=== PATIENT | female | born 1940 | race Caucasian/White ===

== ENCOUNTER → 2024-11-30 | Outpatient (CLI) | payer MEDICARE, SELFPAY ==
--- OUTSIDE RECORDS SUMMARY | 2024-11-25 21:52 | XMS RPT_ITS | CCD ---
Author Organization [facility] CliniSyil Care Team Providers Care Crematory Attendant Name Role Phone Antnoy PA-C, Jordyn Primary Care Provider Antony HUGGINSC, Jordyn Primary Care Provider Giovanna RN, Richard Unavailable Unavailable Giovanna RN, Richard Unavailable Unavailable Antony ENRIQUEZ, Jordyn Primary Care Provider Antony ENRIQUEZ, Jordyn. Primary Care Provider Siddhartha Nichols MD Primary Care Provider Siddhartha Bennett DO Primary Care Provider Siddhartha Bennett DO Primary Care Provider [phone] Dustin Arboleda PA-C Primary Care Provi estrellita Siddhartha Nichols DO Primary Care Provider PHYSICIAN, NONE Primary Care Physician Unavailab DUSTIN Bundy Attending Unavail able DUSTIN ARBOLEDA Primary Care Unavail able DUSTIN ARBOLEDA Primary Care Unavail able DUSTIN ARBOLEDA Referring Unavail able DUSTIN ARBOLEDA Primary Care Unavail able RANJEET SANTANA Attending Unavailable DUSTIN ARBOLEDA Primary Care Unavail able RAMESH OG Referring Unavailable DUSTIN ARBOLEDA Attending Unavail able DUSTIN ARBOLEDA Primary Care Unavail able RAMESH OG Attending Unavailable DUSTIN ARBOLEDA Primary Care Unavail able LAILA RICHARDSON Attending Unavailable SIDDHARTHA NICHOLS Primary Care Unavailable SIDDHARTHA NICHOLS Attending Unavailable SIDDHARTHA NICHOLS Referring Unavailable SIDDHARTHA NICHOLS Primary Care Unavailable LAILA RICHARDSON Attending Unavailable LAILA RICHARDSON Referring Unavailable SIDDHARTHA NICHOLS Primary Care Unavailable LAILA RICHARDSON Attending Unavailable SIDDHARTHA NICHOLS Primary Care Unavailable DEANNA CHAMPION, DR YUMIKO Baltazar Consulting Unavailab le PHYSICIAN, NONE Primary Care Unavailable MICHELE PARRISH, DR HONEYCUTT Referring Unavailable MICHELE PARRISH, DR HONEYCUTT Attending Unavailable VERONIKA NUNES Admitting Unavaila ble VERONIKA GRANT DO Primary Care Unavailable VERONIKA GRANT DO Attending Unavailable Veronika Grant Referring Unavailable Veronika Grant Primary Care Unavailable Caitlyn Mosley Attending Unavailable Caitlyn Tatum Attending Provider [phone] Felice PARRISH, Dr. Veronika Lundberg Primary Care Provider [phone] Dr. Veronika Grant DO Referring Provider Medications Current Medications Medication Drug Class(es) Dates Sig (Normalized) Sig (Original) acetaminophen 500 mg oral tablet (7 sources) Start: 11-10-2021 End: 11-24-2021 take 2 tablets by mouth every six hours acetaminophen (TYLENOL) 500 mg tablet Take 2 tablets by mouth every 6 hours for 14 days. 112 tablet 0 11/10/2021 11/24/2021 Active Comment on above: Take 2 tablets by mo uth every 6 hours for 14 days. [id number] 200 actuat albuterol 0.09 mg/actuat metered dose inhaler (20 sources) beta2-Adrenergic Agonist Start: 11-25-2024 Albuterol Sulfate (Ventolin Hfa) 90 mcg/actuation HFA aerosol inhaler Active 2 NMA INHALATION EVERY 4-6 HOURS as needed November 25, 2024 12:00am Start: 07-04-2023 albuterol 108 (90 Base) MCG/ACT inhaler 4 puff Start: 11-21-2021 take 2 puff(s) by in halation every four hours as needed for wheezing albuterol 108 (90 Base) MCG/ACT inhaler INHALE 2 PUFFS INTO LUNGS EVERY 4 HOURS NEEDED FOR WHEEZING OR SHORTNESS OF BREATH 11/21/2021 Active Start: 11-21-2021 take 2 puff(s) by in halation every four hours as needed for wheezing albuterol HFA (PROVENTIL HFA, VENTOLIN HFA) 90 mcg/actuation inhaler Indications: URI, acute , Wheezing , Mild intermittent asthma with acute exacerbation INHALE 2 PUFFS INTO LUNGS EVERY 4 HOURS NEEDED FOR WHEEZING OR SHORTNESS OF BREATH 18 g 1 11/21/2021 Active Start: 05-18-2021 End: 11-21-2021 take 2 puff(s) by inhalation every four hours as needed for wheezing albuterol HFA (PROVENTIL HFA, VENTOLIN HFA) 90 mcg/actuation inhaler Indications: URI, acute , Wheezing , Mild intermittent asthma with acute exacerbation Inhale 2 Puffs as instructed every 4 hours as needed for wheezing/shortness of breath. 1 Inhaler 0 07/12/2021 11/21/2021 Discontinued Comment on above: Inhale 2 Puffs as in structed every 4 hours as needed for wheezing/shortness of breath. INHALE 2 PUFFS INTO LUNGS EVERY 4 HOURS NEEDED FOR WHEEZING OR SHORTNESS OF BREATH Albuterol-Budesonide (Airsupra) 90-80 MCG/ACT aerosol (1 source) Start: 2023 End: 2023 take 1 puff(s) by inhalation once daily as needed Albuterol-Budesonid e (Airsupra) 90-80 MCG/ACT aerosol Inhale 1 puff Daily as needed (sob) for up to 28 days. 2 g 0 04/02/2023 04/30/2023 Active aspirin 81 mg delayed release oral tablet (1 source) Platelet Aggregation Inhibitor, Nonsteroidal Anti-inflammatory Drug Start: 2023 End: 2023 aspirin 81 mg oral delayed release tablet Dose : 81 mg = 1 tab(s), Oral, BID, # 60 tab(s), 0 Refill(s), Pharmacy: [id number], 162.3, cm, 02/05/24 13:23:00 EST, Height, kg, 02/05/24 13:23:00 EST, Dosing Weight Start Date: 02/06/24 Stop Date: 03/07/24 Status: Ordered azelastine hydrochloride 0.137 mg/actuat metered dose nasal spray (20 sources) Histamine-1 Receptor Antagonist Start: 2022 take 2 spray(s) nasal route twice daily azelastine 0.1% nasal spray Use 2 Sprays in each nostril twice daily. 30 mL 5 10/02/2022 Active Comment on above: Use 2 Sprays in each nostril twice daily. Breo Ellipta 200 mcg-25 mcg/inh inhalation powder (1 source) Start: 2023 Breo Ellipta 200 mcg-25 mcg/inh inhalation powder 0 Refill(s) Start Date: 02/05/24 Status: Ordered calcium carbonate 1500 mg oral tablet (1 source) Start: 2024 take 1 tablet by mouth once daily Calcium Carbonate (Calcium 600) 600 mg calcium (1,500 mg) tablet Active 600 mg PO daily November 25, 2024 12:00am cephalexin 500 mg oral capsule (2 sources) Cephalosporin Antibacterial Start: 2022 End: 2022 take 1 capsule by mouth twice daily cephalexin (Keflex) 500 MG capsule Indications: Uncomplicated Urinary Tract Infection Take 1 capsule (500 mg) by mouth 2 times daily for 7 days. 14 capsule 0 10/22/2022 10/29/2022 Active Start: 10-05-2021 End: 10-12-2021 take 1 capsule by mouth twice daily cephALEXin (KEFLEX) 500 mg capsule Indications: Dysuria Take 1 capsule by mouth twice daily for 7 days. 14 capsule 0 10/05/2021 10/12/2021 Active Comment on above: Take 1 capsule by or ut twice daily for 7 days. cholecalciferol 0.025 mg oral capsule (20 sources) Vitamin D Start: 11-26-19 take 1 capsule by mouth once daily Cholecalciferol (Vitamin D3) 25 mcg (1,000 unit) capsule Active 25 ug PO daily November 25, 2024 12:00am take 1 capsule by mouth in the m orning cholecalciferol (Vitamin D-3) 25 MCG (1000 UT) capsule Take 1,000 Units by mouth in the morning. Active take 1 capsule by mouth once mikael ly Cholecalciferol, Vitamin D3, 1,000 unit cap Take 1,000 Units by mouth once daily. Active Comment on above: Take 1,000 Units by mouth once daily. docusate sodium 50 mg / sennosides, fci 8.6 mg oral tablet (4 sources) Start: 11-11-19 End: 11-18-19 take 1 tablet by mouth twice daily senna-docusate (SENNA-S) 8.6-50 mg per tablet Take 1 tablet by mouth twice daily for 7 days. 14 tablet 0 11/10/2021 11/17/2021 Active Comment on above: [facility]. doxycycline hyclate 100 mg oral capsule (2 sources) Tetracycline-class Drug Start: 07-11-19 End: 07-18-19 take 1 capsule by mouth twice daily doxycycline hyclate (VIBRAMYCIN) 100 mg capsule Indications: URI, acute Take 1 capsule by mouth twice daily for 7 days. 14 capsule 0 07/10/2021 07/17/2021 Active Comment on above: Take 1 capsule by mo [facility] twice daily for 7 days. fluticasone propionate 0.05 mg/actuat metered dose nasal spray (20 sources) Corticosteroid Start: 11-26-19 take 50 ug nasal route once daily Fluticasone Propionate (Allergy Relief (Fluticasone)) 50 mcg/actuation spray,suspension Active 2 NMA INTRANASAL daily November 25, 2024 12:00am administer into each nostril Start: 10-02-2022 fluticasone (F lonase) 50 MCG/ACT nasal spray 1 spray in the morning and 1 spray in the evening. 10/02/2022 Active Start: 10-02-2022 fluticasone (F LONASE ALLERGY RELIEF) 50 mcg/actuation nasal spray Indications: Chronic cough Use 1 [place] in each nostril twice daily. To take 2 nasal sprays in each nostrils once daily for 2 weeks, then down to 1 spray/day/nostril 32 g 5 10/02/2022 Active Start: 08-15-2022 End: 10-02-2022 fluticasone (FLONASE ALLERGY RELIEF) 50 mcg/actuation nasal spray Indications: Chronic cough To take 2 nasal sprays in each nostrils once daily for 2 weeks, then down to 1 spray/day/nostril 32 g 1 08/15/2022 10/02/2022 Discontinued Start: 08-15-2022 End: 08-15-2022 take 1 spray(s) nasal route once daily fluticasone (FLONASE ALLERGY RELIEF) 50 mcg/actuation nasal spray Indications: Chronic cough Use 1 [place] in each nostril once daily. 16 g 2 08/15/2022 08/15/2022 Discontinued Comment on above: To take 2 nasal spra ys in each nostrils once daily for 2 weeks, then down to 1 spray/day/nostril Use 1 [place] in each nostril once daily. Use 1 [place] in each nostril twice daily. To take 2 nasal sprays in each nostrils once daily for 2 weeks, then down to 1 spray/day/nostril Fluticasone Furoate-Vilanterol (20 sources) Corticosteroid, beta2-Adrenergic Agonist Start: 11-25-2024 Fluticasone Furoate-Vilanterol (Breo Ellipta) 200-25 mcg/dose blister with device Active 1 NMA INHALATION daily November 25, 2024 12:00am Start: 11-04-2023 End: 05-18-2024 take 1 puff(s) by mouth once daily Breo Ellipta 200-25 MCG/ACT aerosol powder INHALE 1 PUFF BY MOUTH ONCE DAILY 60 each 2 05/18/2024 Active Start: 10-08-2022 End: 11-04-2023 take 1 puff(s) by mouth once daily BREO ELLIPTA 200-25 mcg/dose inhaler Indications: Dyspnea and respiratory abnormalities INHALE 1 PUFF BY MOUTH ONCE DAILY DIRECTED 60 Each 5 02/13/2023 Active Start: 08-08-2022 End: 09-10-2022 take 1 puff(s) by mouth once daily BREO ELLIPTA 200-25 mcg/dose inhaler Indications: Dyspnea and respiratory abnormalities INHALE 1 PUFF BY MOUTH ONCE DAILY DIRECTED 60 Each 0 09/10/2022 Active Start: 06-06-2022 End: 07-06-2022 fluticasone-vilanterol (BREO ELLIPTA) 200-25 mcg/dose inhaler Indications: Dyspnea and respiratory abnormalities Inhale 1 Inhalation as instructed once daily. 60 Each 1 06/06/2022 07/06/2022 Active Start: 05-07-2022 End: 08-15-2022 take 1 puff(s) by mouth once daily fluticasone-vilanterol (BREO ELLIPTA) 100-25 mcg/dose inhaler Indications: Dyspnea and respiratory abnormalities Inhale 1 puff by mouth once daily 60 Each 0 05/07/2022 08/15/2022 Discontinued (Course of therapy completed) Start: 03-13-2022 End: 04-09-2022 take 1 puff(s) by mouth once daily fluticasone-vilanterol (BREO ELLIPTA) 100-25 mcg/dose inhaler Indications: Dyspnea and respiratory abnormalities Inhale 1 puff by mouth once daily 60 Each 0 04/09/2022 Active Start: 12-03-2021 take 1 puff(s) by mo ut once daily fluticasone-vilanterol (BREO ELLIPTA) 100-25 mcg/dose inhaler Indications: Dyspnea and respiratory abnormalities Inhale 1 puff by mouth once daily 60 Each 2 12/03/2021 Active Start: 01-09-2021 End: 12-03-2021 take 1 puff(s) by mouth once daily BREO ELLIPTA 100-25 mcg/dose inhaler Indications: Dyspnea and respiratory abnormalities Inhale 1 puff by mouth once daily 60 Each 0 10/03/2021 12/03/2021 Discontinued Comment on above: Inhale 1 puff by vance th once daily INHALE 1 PUFF ONCE D AILY Inhale 1 Inhalation as instructed once daily. INHALE 1 PUFF ONCE D AILY INSTRUCTED INHALE 1 PUFF BY VANCE ONCE DAILY DIRECTED hydroCHLOROthiazide 25 mg oral tablet (20 sources) Thiazide Diuretic Start: 2024 take 1 tablet by mouth once daily Hydrochlorothiazide 25 mg tablet Active 25 mg PO daily November 25, 2024 12:00am Start: 05-15-2021 End: 02-23-2024 take 1 tablet by mouth in the morning hydroCHLOROthiazide (HYDRODiuril) 25 MG tablet Take 25 mg by mouth in the morning. 06/28/2022 Active Comment on above: Take 1 tablet by vance th once daily Take 1 tablet by vance th once daily. Inulin (1 source) Start: take 1 tablet by mouth once daily Inulin (Fiber Gummies) 1.7 gram tablet,chewable Active 5.1 g PO daily November 25, 2024 12:00am lidocaine 0.04 mg/mg medicated patch (1 source) Antiarrhythmic, Amide Local Anesthetic Start: 4 End: 4 apply 1 dose transdermal route once daily, then apply 1 dose transdermal route every twelve hours lidocaine (SALONPAS) 4 % patch Apply 1 Patch as directed once daily for 5 days. Remove patch after 12 hours 5 Patch 11/29/2023 12/04/2023 Active loratadine 10 mg oral tablet (20 sources) Start: take 1 tablet by mouth once daily Loratadine (Allergy Relief (Loratadine)) 10 mg tablet Active 10 mg PO daily November 25, 2024 12:00am Start: 08-28-2022 End: 02-23-2024 take 1 tablet by mouth in the morning loratadine (Claritin) 10 MG tablet Take 10 mg by mouth in the morning. 09/04/2022 Active Start: 05-11-2020 End: 08-15-2022 take 1 tablet by mouth once daily loratadine (CLARITIN) 10 mg tablet Indications: Chronic cough Take 1 tablet by mouth once daily. 90 tablet 0 08/15/2022 Active Comment on above: TAKE 1 TABLET BY VANCE TH ONCE DAILY Take 1 tablet by vance th once daily. lovastatin 10 mg oral tablet (20 sources) HMG-CoA Reductase Inhibitor Start: 11-25-2024 take 1 tablet by mouth once daily in the evening Lovastatin 10 mg tablet Active 10 mg PO EVERY EVENING November 25, 2024 12:00am Start: 10-11-2022 End: 02-23-2024 take 1 tablet by mouth once daily lovastatin (Mevacor) 20 MG tablet Take 1 tablet by mouth Nightly. 10/11/2022 Active Start: 06-28-2021 End: 06-28-2022 take 1 tablet by mouth once daily at bedtime lovastatin (MEVACOR) 20 mg tablet Take 1 tablet by mouth daily at bedtime. 90 tablet 0 06/28/2022 Active Comment on above: TAKE 1 TABLET BY VANCE TH ONCE DAILY AT BEDTIME Take 1 tablet by vance th daily at bedtime. 24 hr metoprolol succinate 25 mg extended release oral tablet (20 sources) beta-Adrenergic Mitchel Start: 11-25-2024 take 1 tablet by mouth every twenty-four hours at bedtime Metoprolol Succinate 25 mg tablet extended release 24 hr Active 25 mg PO AT BEDTIME November 25, 2024 12:00am Start: 02-06-2024 End: 02-07-2024 metoprolol succinate 50 mg o ral TABLET extended release Start: 02/07/24 8:00:00 AM EST, Dose = 25 mg, = 0.5 tab(s), Oral, 02/05/24 14:06:00 EST Start Date: 02/07/24 Stop Date: 02/07/24 Status: Completed Start: 02-05-2024 Metoprolol Suc cinate ER 25 mg oral TABLET extended release 0 Refill(s) Start Date: 02/05/24 Status: Ordered Start: 06-28-2022 take 1 tablet by vance th every twenty-four hours in the morning metoprolol succinate XL (Toprol-XL) 25 MG 24 hr tablet Take 25 mg by mouth in the morning. 06/28/2022 Active Start: 01-23-2022 End: 02-23-2024 take 1 tablet by mouth once daily metoprolol succinate ER (TOPROL XL) 25 mg 24 hr tablet Indications: Hypertension, essential Take 1 tablet by mouth once daily. 90 tablet 1 08/27/2023 Active Start: 06-05-2021 End: 09-26-2021 take 1 tablet by mouth once daily metoprolol succinate ER (TOPROL XL) 25 mg 24 hr tablet Take 1 tablet by mouth once daily. 90 tablet 0 09/26/2021 Active Comment on above: Take 1 tablet by vance th once daily Take 1 tablet by vance th once daily. montelukast 10 mg oral tablet (20 sources) Leukotriene Receptor Antagonist Start: End: take 1 tablet by mouth once daily montelukast (Singulair) 10 MG tablet Take 1 tablet (10 mg) by mouth Nightly. 30 tablet 3 07/08/2023 Active Start: 12-20-2020 take 1 tablet by vance th once daily at bedtime montelukast (SINGULAIR) 10 mg tablet Take 1 tablet by mouth daily at bedtime. 30 tablet 5 12/20/2020 Active Comment on above: Take 1 tablet by vance th daily at bedtime. Multiple Vitamin (Multi-Vitamin) tablet (15 sources) take 1 tablet by mouth in the morning Multiple Vitamin (Multi-Vitamin) tablet Take 1 tablet by mouth in the morning. Active take 1 tablet by mouth in the mo rning Multiple Vitamin (Multi-Vitamin) tablet Take 1 tablet by mouth in the morning. 0 Active multivitamin tablet (20 sources) take 1 tablet by vance th once daily multivitamin tablet Take 1 tablet by mouth once daily. Active take 1 tablet by mouth once renato y multivitamin tablet Take 1 tablet by mouth once daily. 0 Active Comment on above: Take 1 tablet by vance th once daily. naproxen 500 mg oral tablet (2 sources) Nonsteroidal Anti-inflammatory Drug Start: 4 End: 4 take 1 tablet by mouth every twelve hours as needed naproxen (NAPROSYN) 500 mg tablet Take 1 tablet by mouth two times a day as needed for up to 14 days. Take with food. 28 tablet 11/29/2023 12/13/2023 Active omeprazole 20 mg delayed release oral capsule (20 sources) Proton Pump Inhibitor Start: 4 End: 4 take 1 capsule by mouth once daily omeprazole (PRILOSEC) 20 mg capsule Indications: Chronic cough , Hiatal hernia Take 1 capsule by mouth once daily. 30 capsule 2 08/27/2023 Active Start: 12-28-2020 End: 09-26-2022 take 1 capsule by mouth once daily omeprazole (PRILOSEC) 20 mg capsule Indications: Chronic cough Take 1 capsule by mouth once daily. 90 capsule 0 06/28/2022 09/26/2022 Active Comment on above: Take 1 capsule by [facility] once daily. oxyCODONE hydrochloride 5 mg oral tablet (2 sources) Opioid Agonist Start: 2 End: 2 take 1 tablet by mouth every six hours as needed for pain oxyCODONE IR (ROXICODONE) 5 mg immediate release tablet Indications: Closed nondisplaced zone I fracture of sacrum with routine healing, subsequent encounter , Compression fracture of T12 vertebra with routine healing, subsequent encounter Take 1 tablet by mouth every 6 hours as needed for pain for up to 5 days. 20 tablet 0 11/27/2021 12/02/2021 Active Comment on above: Take 1 tablet by vance every 6 hours as needed for pain for up to 5 days. PARoxetine hydrochloride 20 mg oral tablet (20 sources) Serotonin Reuptake Inhibitor Start: take 1 tablet by mouth once daily Paroxetine Hcl (Paxil) 20 mg tablet Active 20 mg PO daily November 25, 2024 12:00am Start: 08-27-2023 End: 02-23-2024 take 1 tablet by mouth once daily PARoxetine (PAXIL) 10 mg tablet Indications: Anxiety with depression Take 1 tablet by mouth once daily. 90 tablet 1 08/27/2023 Active Start: 02-23-2021 End: 08-27-2023 take 1 tablet by mouth in the morning PARoxetine (Paxil) 30 MG tablet Take 30 mg by mouth in the morning. 06/28/2022 Active Comment on above: Take 1 tablet by vance th once daily. Take 1 tablet by vance th once daily psyllium 3400 mg powder for oral suspension (7 sources) Start: 03-26-19 End: 06-25-19 take 1 dose by mouth once daily psyllium (METAMUCIL FIBER SINGLES) 3.4 gram packet Indications: Loose stools Take 1 Packet by mouth once daily. 30 Packet 2 03/26/2022 06/24/2022 Active Comment on above: Take 1 Packet by vance th once daily. sulfamethoxazole 800 mg / trimethoprim 160 mg oral tablet (6 sources) Dihydrofolate Reductase Inhibitor Antibacterial, Sulfonamide Antimicrobial Start: 11-29-19 End: 12-09-19 take 1 tablet by mouth twice daily sulfamethoxazole- trimethoprim (Bactrim DS) 800-160 MG tablet Indications: Acute cystitis with hematuria Take 1 tablet by mouth 2 times daily for 10 days. 20 tablet 0 11/28/2022 12/08/2022 Active Start: 08-31-2022 End: 09-07-2022 take 1 tablet by mouth twice daily sulfamethoxazole-trimethoprim (BACTRIM D S) 800-160 mg per tablet Indications: Acute cystitis with hematuria Take 1 tablet by mouth twice daily for 7 days. 14 tablet 0 08/31/2022 09/07/2022 Active Start: 07-25-2021 End: 07-30-2021 take 1 tablet by mouth twice daily sulfamethoxazole-trimethoprim (BACTRIM D S) 800-160 mg per tablet Indications: Acute cystitis without hematuria Take 1 tablet by mouth twice daily for 5 days. 10 tablet 0 07/25/2021 07/30/2021 Active Comment on above: Take 1 tablet by vance twice daily for 5 days. Take 1 tablet by vance twice daily for 7 days. 10 actuat tiotropium 0.0025 mg/actuat inhalation spray (20 sources) Anticholinergic Start: 05-20-19 End: 11-16-19 take 2 puff(s) by inhalation once daily tiotropium (Spiriva Respimat) 2.5 MCG/ACT inhaler Inhale 2 puffs daily. 3 each 1 05/19/2024 11/15/2024 Active Start: 02-05-2024 Spiriva Respim at 60 ACT 2.5 mcg/inh inhalation aerosol 0 Refill(s) Start Date: 02/05/24 Status: Ordered Start: 05-08-2023 End: 07-08-2023 take 2 puff(s) by inhalation once daily tiotropium (Spiriva Respimat) 2.5 MCG/ACT inhaler Inhale 2 puffs daily for 28 days. 2 each 0 05/08/2023 07/08/2023 Discontinued (Duplicate order) Start: 08-24-2022 End: 05-19-2024 take 2 puff(s) by inhalation in the morning tiotropium (Spiriva Respimat) 2.5 MCG/ACT inhaler Inhale 2 puffs in the morning. 1 each 5 11/04/2023 05/19/2024 Discontinued (Reorder) Start: 08-24-2022 take 2 puff(s) by in halation once daily tiotropium bromide (SPIRIVA RESPIMAT) 2.5 mcg/actuation inhaler Inhale 2 Puffs as instructed once daily. 1 Each 5 08/24/2022 Active Comment on above: Inhale 2 Puffs as in structed once daily. traZODone hydrochloride 50 mg oral tablet (20 sources) Serotonin Reuptake Inhibitor Start: take 1 tablet by mouth at bedtime Trazodone 50 mg tablet Active 50 mg PO AT BEDTIME November 25, 2024 12:00am Start: 01-23-2022 End: 02-23-2024 take 1 tablet by mouth once daily traZODone (Desyrel) 50 MG tablet Take 1 tablet by mouth Nightly. 10/01/2022 Active Start: 2021 take 1 tablet by vance th once daily at bedtime traZODone (DESYREL) 50 mg tablet TAKE 1 TABLET BY MOUTH ONCE DAILY AT BEDTIME 90 tablet 2 2021 Active Comment on above: TAKE 1 TABLET BY VANCE TH ONCE DAILY AT BEDTIME Take 1 tablet by vance th daily at bedtime. Completed/Discontinued Medications Medication Drug Class(es) Dates Sig (Normalized) Sig (Original) benzonatate 100 mg oral capsule (20 sources) Non-narcotic Antitussive Start: 08-16-2022 End: 08-27-2023 take 1 capsule by mouth three times daily as needed benzonatate (TESSALON PERLES) 100 mg capsule Indications: Chronic cough Take 1 capsule by mouth three times daily as needed. 30 capsule 0 08/16/2022 08/27/2023 Discontinued Comment on above: Take 1 capsule by mo [facility] three times daily as needed. 12 hr guaiFENesin 600 mg extended release oral tablet (20 sources) Start: 12-07-2016 take 1 tablet by mouth twice daily guaiFENesin (MUCINEX) 600 mg 12 hr tablet Indications: Cough Take 1 tablet by mouth twice daily. 20 tablet 0 12/07/2016 Active Comment on above: Take 1 tablet by vance th twice daily. ipratropium bromide 0.021 mg/actuat metered dose nasal spray (20 sources) Anticholinergic Start: 08-24-2022 End: 10-02-2022 take 2 spray(s) nasal route twice daily Ipratropium Cascade (ATROVENT) 21 mcg (0.03 %) nasal spray 2 sprays to both nostrils 2 times per day 30 mL 5 08/24/2022 10/02/2022 Discontinued Start: 07-27-2022 take 2 spray(s) nasa l route twice daily Ipratropium Cascade (ATROVENT) 21 mcg (0.03 %) nasal spray 2 sprays to both nostrils 2 times per day 30 mL 5 07/27/2022 Active Start: 11-18-2020 End: 06-28-2022 ipratropium bromide (ATROVEN T) 42 mcg (0.06 %) nasal spray Use 1 [place] in the nose three times daily. 15 mL 2 06/28/2022 Active Comment on above: Use 1 [place] in the n ose three times daily. 2 sprays to both nos trils 2 times per day phenazopyridine hydrochloride 100 mg oral tablet (9 sources) Start: 11-29-19 End: 11-28-19 take 1 tablet by mouth three times daily as needed for muscle spasms phenazopyridine (Pyridium) 100 MG tablet Indications: Dysuria Take 1 tablet (100 mg) by mouth 3 times daily as needed for bladder spasms. 10 tablet 0 11/28/2022 07/08/2023 Discontinued (Therapy completed) predniSONE 20 mg oral tablet (11 sources) Start: 07-11-19 take 2 tablets by mouth once daily predniSONE (DELTASONE) 20 mg tablet Indications: URI, acute Take 2 tablets by mouth once daily. 10 tablet 0 07/10/2021 Active Comment on above: Take 2 tablets by mo uth once daily. Problems Active Problems Problem Classification Problem Date Documented Da te Episodic/Chronic Abdominal hernia (20 sources) Diaphragmatic hernia; Translations: [Diaphragmatic hernia without obstruction or gangrene] Onset: 11-18-2015 10-02-2016 Episodic Anxiety disorders (20 sources) Mixed anxiety and depressive disorder; Translations: [Other specified anxiety disorders] Onset: 11-14-2021 Chronic Asthma (20 sources) Uncomplicated mild persistent asthma; Translations: [Mild persistent asthma, uncomplicated] Onset: 12-20-2020 12-20-2020 Chronic Cardiac dysrhythmias (20 sources) Fluttering heart; Translations: [Other specified cardiac arrhythmias] Onset: 12-06-2015 12-06-2015 Chronic Cataract (20 sources) Bilateral age-related cataract; Translations: [Unspecified age-related cataract] Onset: 10-12-2020 10-12-2020 Chronic Chronic obstructive pulmonary disease and bronchiectasis (2 sources) Chronic obstructive lung disease; Translations: [Chronic obstructive pulmonary disease, unspecified] Onset: 02-05-2024 Chronic Disorders of lipid metabolism (5 sources) Mixed hyperlipidemia; Translations: [Mixed hyperlipidemia] Onset: 08-27-2023 Chronic E Codes: Fall (18 sources) Fall; Translations: [Unspecified fall, initial encounter] Onset: 11-07-2021 11-10-2021 Episodic Essential hypertension (20 sources) Good hypertension control; Translations: [Essential (primary) hypertension] Onset: 08-30-2015 10-12-2020 Chronic Fluid and electrolyte disorders (1 source) Hypokalemia; Translations: [Hypokalemia] Onset: 02-05-2024 Episodic Genitourinary symptoms and ill-defined conditions (5 sources) Dysuria; Translations: [Dysuria] Episodic Malaise and fatigue (5 sources) Asthenia; Translations: [Other malaise] Episodic Miscellaneous mental health disorders (20 sources) Chronic insomnia; Translations: [Psychophysiologic insomnia] Onset: 01-23-2022 01-23-2022 Chronic Nutritional deficiencies (20 sources) Vitamin D deficiency; Translations: [Vitamin D deficiency, unspecified] Onset: 11-10-2021 05-03-2015 Chronic Osteoarthritis (1 source) Arthritis; Translations: [Unspecified osteoarthritis, unspecified site] 11-25-2024 Chronic Osteoporosis (20 sources) Osteoporosis; Translations: [Age-related osteoporosis without current pathological fracture] Onset: 08-30-2015 08-30-2015 Chronic Other and ill-defined heart disease (20 sources) Left ventricular hypertrophy; Translations: [Cardiomegaly] Onset: 01-23-2022 01-23-2022 Chronic Other connective tissue disease (1 source) Recurrent falls ; Translations: [Repeated falls] Episodic Other fractures (5 sources) Fracture of twelfth thoracic vertebra; Translations: [Wedge compression fracture of T11-T12 vertebra, subsequent encounter for fracture with routine healing] Episodic Other fractures (1 source) Compression fracture of L2; Translations: [Wedge compression fracture of second lumbar vertebra, initial encounter for closed fracture] 09-27-2023 Episodic Other fractures (1 source) Closed fracture pubis; Translations: [Other specified fracture of unspecified pubis, initial encounter for closed fracture] Onset: 02-05-2024 Episodic Other gastrointestinal disorders (1 source) Irritable bowel syndrome with diarrhea; Translations: [Irritable bowel syndrome with diarrhea] 08-27-2023 Chronic Other gastrointestinal disorders (1 source) Irritable bowel syndrome with diarrhea; Translations: [Irritable bowel syndrome with diarrhea] Onset: 08-27-2023 Chronic Other gastrointestinal disorders (1 source) Irritable bowel syndrome; Translations: [Irritable bowel syndrome without diarrhea] 11-25-2024 Chronic Other gastrointestinal disorders (2 sources) Loose stool; Translations: [Other fecal abnormalities] Episodic Other gastrointestinal disorders (2 sources) Diarrhea; Translations: [Diarrhea, unspecified] 11-25-2024 Episodic Other lower respiratory disease (2 sources) Wheezing; Translations: [Wheezing] Episodic Other lower respiratory disease (2 sources) Cough; Translations: [Cough] Episodic Other lower respiratory disease (2 sources) Pleuritic pain; Translations: [Pleurodynia] Episodic Other lower respiratory disease (2 sources) Rib pain; Translations: [Pleurodynia] 11-19-2023 Episodic Other nervous system disorders (1 source) Spinal cord disease; Translations: [Disease of spinal cord, unspecified] Chronic Other nervous system disorders (1 source) Other chronic pain; Translations: [Chronic bilateral low back pain without sciatica] Onset: 12-18-2023 Chronic Other upper respiratory disease (20 sources) Allergic rhinitis; Translations: [Other allergic rhinitis] Onset: 08-24-2022 08-24-2022 Chronic Other upper respiratory disease (6 sources) Chronic rhinitis; Translations: [Chronic rhinitis] Onset: 11-04-2023 07-08-2023 Chronic Other upper respiratory disease (1 source) Chronic rhinitis; Translations: [Chronic rhinitis] Onset: 11-04-2023 Chronic Other upper respiratory disease (1 source) Cyst of nasal sinus; Translations: [Cyst and mucocele of nose and nasal sinus] Episodic Paralysis (1 source) Cauda equina syndrome; Translations: [Cauda equina syndrome] 06-18-2023 Chronic Residual codes; unclassified (20 sources) Obstructive sleep apnea syndrome; Translations: [Obstructive sleep apnea (adult) (pediatric)] Onset: 11-03-2015 10-12-2020 Chronic Residual codes; unclassified (20 sources) Periodic limb movement disorder; Translations: [Periodic limb movement disorder] Onset: 11-23-2015 10-02-2016 Chronic Residual codes; unclassified (1 source) Memory impairment; Translations: [Other amnesia] Episodic Residual codes; unclassified (1 source) Menopause present; Translations: [Asymptomatic menopausal state] 06-21-2023 Episodic Unclassified (1 source) Chronic bilateral low back pain without sciatica; Translations: [Chronic bilateral low back pain without sciatica] Onset: 12-18-2023 Unclassified (1 source) Lumbar back pain; Translations: [Lumbar back pain] Onset: 09-26-2023 Urinary tract infections (6 sources) Acute cystitis; Translations: [Acute cystitis without hematuria] Episodic Past or Other Problems Problem Classification Problem Date Documented Date Episodic/Chronic Complication of device; implant or graft (2 sources) Pain due to other internal prosthetic devices, implants and grafts, initial encounter; Translations: [Other complications due to other internal prosthetic device, implant, and graft] Onset: 11-19-2023 11-19-2023 Episodic Nonmalignant breast conditions (2 sources) Mastodynia; Translations: [Mastodynia] Onset: 11-19-2023 11-19-2023 Episodic Nonspecific chest pain (1 source) Other chest pain; Translations: [Chest wall pain] Onset: 11-28-2023 Episodic Other fractures (20 sources) Closed fracture sacrum; Translations: [Nondisplaced Zone I fracture of sacrum, initial encounter for closed fracture] Onset: 11-07-2021 11-10-2021 Episodic Other infections; including parasitic (20 sources) Personal history of other infectious and parasitic diseases; Translations: [History of COVID-19] Onset: 03-18-2020 08-24-2022 Episodic Other lower respiratory disease (20 sources) Dyspnea; Translations: [Dyspnea, unspecified] Onset: 11-03-2015 10-12-2020 Episodic Other lower respiratory disease (20 sources) Solitary nodule of lung; Translations: [Solitary pulmonary nodule] Onset: 11-03-2015 10-02-2016 Episodic Other lower respiratory disease (20 sources) Chronic cough; Translations: [Chronic cough] Onset: 08-24-2022 Episodic Other lower respiratory disease (1 source) Pleurodynia; Translations: [Rib pain on left side] Onset: 11-19-2023 Episodic Other screening for suspected conditions (not mental disorders or infectious disease) (1 source) Encounter for screening for osteoporosis; Translations: [Screening for osteoporosis] Onset: 08-27-2023 Episodic Other skin disorders (20 sources) Loss of hair; Translations: [Nonscarring hair loss, unspecified] Onset: 08-30-2015 08-30-2015 Episodic Other upper respiratory infections (20 sources) Acute upper respiratory infection; Translations: [Acute upper respiratory infection, unspecified] Onset: 08-24-2022 Episodic Residual codes; unclassified (1 source) Asymptomatic menopausal state; Translations: [Asymptomatic menopause] Onset: 08-27-2023 Episodic Spondylosis; intervertebral disc disorders; other back problems (20 sources) Sacral back pain; Translations: [Sacrococcygeal disorders, not elsewhere classified] Onset: 11-06-2021 Resolved: 02-27-2024 11-10-2021 Episodic Results Test Name Value Interpretation Reference Range Facility [facility] 06-24-2024 Deam Gliad IgA Abs 2 units Normal 0-19 [facility] Comment on above: Result Comment: Nega tive 0 - 19 Weak Positive 20 - 30 Moderate to Strong Positive >30 Performed By: #### G FR, ANEU, BMP, MG, ADIFF, CBC #### [place] [address] Deam Gliad IgG Abs 2 units Normal 0-19 [facility] Comment on above: Result Comment: Nega tive 0 - 19 Weak Positive 20 - 30 Moderate to Strong Positive >30 Performed By: #### G FR, ANEU, BMP, MG, ADIFF, CBC #### [place] [address] Endomysial IgA Ab Negative Normal Negative [facility] Comment on above: Performed By: #### G FR, ANEU, BMP, MG, ADIFF, CBC #### [place] [address] IgA [Mass/Vol] 143 mg/dL Normal 64-422 [facility] Comment on above: Result Comment: Perf ormed At: [facility] [address] [id number] Nila Mortensen PhD Ph:[phone] Performed By: #### G FR, ANEU, BMP, MG, ADIFF, CBC #### [place] [address] tTG IgA <2 Normal 0-3 [facility] Comment on above: Result Comment: Nega tive 0 - 3 Weak Positive 4 - 10 Positive >10 Tissue Transglutaminase (tTG) has been identified as the endomysial antigen. Studies have demonstr- ated that endomysial IgA antibodies have over 99% specificity for gluten sensitive enteropathy. Performed By: #### G FR, ANEU, BMP, MG, ADIFF, CBC #### [address] [address] tTG IgG <2 Normal 0-5 [facility] Comment on above: Result Comment: Nega tive 0 - 5 Weak Positive 6 - 9 Positive >9 Performed By: #### G FR, ANEU, BMP, MG, ADIFF, CBC #### [address] [address] .Auto Diffon 06-23-2024 Basophil, Absolute 0.1 10 3/mcL Normal 0.0-0.3 [facility] Comment on above: Performed By: #### F ERR, ESR, ADIFF, CRP, CBC, [id number], CMP, GFR, ANEU, FE, FT4, IBC, TSHR #### [address] [address] Basophils/100 WBC (Bld) 1.1 % Normal 0.0-2.5 [facility] Comment on above: Performed By: #### F ERR, ESR, ADIFF, CRP, CBC, 342281, CMP, GFR, ANEU, FE, FT4, IBC, TSHR #### [address] [address] Eosinophil, Absolute 0.1 10 3/mcL Normal 0.0-0.[address] [facility] Comment on above: Performed By: #### F ERR, ESR, ADIFF, CRP, CBC, 788719, CMP, GFR, ANEU, FE, FT4, IBC, TSHR #### [address] [address] Eosinophils/100 WBC (Bld) 1.5 % Normal 0.0-6.0 [facility] Comment on above: Performed By: #### F ERR, ESR, ADIFF, CRP, CBC, 918666, CMP, GFR, ANEU, FE, FT4, IBC, TSHR #### [address] [address] Lymphocyte, Absolute 1.3 10 3/mcL Normal 0.9-4.[address] [facility] Comment on above: Performed By: #### F ERR, ESR, ADIFF, CRP, CBC, 519406, CMP, GFR, ANEU, FE, FT4, IBC, TSHR #### [address] [address] Lymphocytes/100 WBC (Bld) 18.6 % Low 20.0-40.0 [facility] Comment on above: Performed By: #### F ERR, ESR, ADIFF, CRP, CBC, 661422, CMP, GFR, ANEU, FE, FT4, IBC, TSHR #### [address] [address] Monocyte, Absolute 0.6 10 3/mcL Normal 0.1-1.4 [facility] Comment on above: Performed By: #### F ERR, ESR, ADIFF, CRP, CBC, 840766, CMP, GFR, ANEU, FE, FT4, IBC, TSHR #### [address] [address] Monocytes/100 WBC (Bld) 8.4 % Normal 2.0-13.0 [facility] Comment on above: Performed By: #### F ERR, ESR, ADIFF, CRP, CBC, 954325, CMP, GFR, ANEU, FE, FT4, IBC, TSHR #### [address] [address] Neutrophils/100 WBC (Bld) 70.4 % Normal 50.0-75.0 [facility] Comment on above: Performed By: #### F ERR, ESR, ADIFF, CRP, CBC, 093094, CMP, GFR, ANEU, FE, FT4, IBC, TSHR #### [address] [address] .GFRon 06-23-2024 Estimated Glomerular Filtration Rate 64 ml/min/1.73sqm Normal [facility] Comment on above: Result Comment: Stages of Chronic Kidney Disease (CKD) Stage Description eGFR(ml/min/1.73 sq.m.) CKD 1 Normal kidney function or >=90 normal kindney function with possible kidney damage (ex. Proteinuria) CKD 2 Kidney damage with mild loss 60-89 of kidney function CKD 3a Mild to moderate loss of kidney 45-59 function CKD 3b Moderate to severe loss of 30-44 of kindey function CKD 4 Severe loss of kidney function 15-29 CKD 5 Kidney failure <15 Note: (go live 2024) the eGFR calculation was updated to the 2020 CKD-EPI creatinine equation without a race factor to calculate the eGFR results. Performed By: #### F ERR, ESR, ADIFF, CRP, CBC, 804265, CMP, GFR, ANEU, FE, FT4, IBC, TSHR ####[address] [address] .NEUABSon 06-23-2024 Neutrophil, Absolute 4.9 10 3/mcL Normal 2.3-8.[address] [facility] Comment on above: Performed By: #### F ERR, ESR, ADIFF, CRP, CBC, 407339, CMP, GFR, ANEU, FE, FT4, IBC, TSHR ####[address] [address] CBCon 06-23-2024 Erythrocyte distribution width (RBC) [Ratio] 14.3 % Normal 11.5-15.5 [facility] Comment on above: Performed By: #### F ERR, ESR, ADIFF, CRP, CBC, 038811, CMP, GFR, ANEU, FE, FT4, IBC, TSHR #### [address] [address] Hematocrit (Bld) [Volume fraction] 42.2 % Normal 34.0-46.0 [facility] Comment on above: Performed By: #### F ERR, ESR, ADIFF, CRP, CBC, 266936, CMP, GFR, ANEU, FE, FT4, IBC, TSHR #### [address] [address] Hgb 14.2 G/dL Normal 12.0-16.0 [facility] Comment on above: Performed By: #### F ERR, ESR, ADIFF, CRP, CBC, 691803, CMP, GFR, ANEU, FE, FT4, IBC, TSHR #### [address] [address] MCH (RBC) [Entitic mass] 31.1 pg Normal 27.0-33.0 [facility] Comment on above: Performed By: #### F ERR, ESR, ADIFF, CRP, CBC, 173163, CMP, GFR, ANEU, FE, FT4, IBC, TSHR #### [address] [address] MCHC 33.6 G/dL Normal 32.0-36.0 [facility] Comment on above: Performed By: #### F ERR, ESR, ADIFF, CRP, CBC, 161249, CMP, GFR, ANEU, FE, FT4, IBC, TSHR #### [address] [address] MCV (RBC) [Entitic vol] 92.4 fL Normal 80.0-99.0 [facility] Comment on above: Performed By: #### F ERR, ESR, ADIFF, CRP, CBC, 414685, CMP, GFR, ANEU, FE, FT4, IBC, TSHR #### [address] [address] Platelet 248 10 3/mcL Normal 150-450 [facility] Comment on above: Performed By: #### F ERR, ESR, ADIFF, CRP, CBC, 553331, CMP, GFR, ANEU, FE, FT4, IBC, TSHR #### [address] [address] Platelet mean volume (Bld) [Entitic vol] 7.8 fL Normal 6.6-10.5 [facility] Comment on above: Performed By: #### F ERR, ESR, ADIFF, CRP, CBC, 986417, CMP, GFR, ANEU, FE, FT4, IBC, TSHR #### [address] [address] RBC 4.57 10 6/mcL Normal 4.10-5.30 [facility] Comment on above: Performed By: #### F ERR, ESR, ADIFF, CRP, CBC, 578640, CMP, GFR, ANEU, FE, FT4, IBC, TSHR #### [address] [address] WBC 7.0 10 3/mcL Normal 4.5-10.8 [facility] Comment on above: Performed By: #### F ERR, ESR, ADIFF, CRP, CBC, 268766, CMP, GFR, ANEU, FE, FT4, IBC, TSHR #### [address] [address] CMPon 06-23-2024 Albumin Level 4.0 G/dL Normal 3.4-4.8 [facility] Comment on above: Performed By: #### F ERR, ESR, ADIFF, CRP, CBC, 069185, CMP, GFR, ANEU, FE, FT4, IBC, TSHR ####[place] [address] Albumin/Globulin [Mass ratio] 1.1 {ratio} Normal 1.1-2.5 [facility] Comment on above: Performed By: #### F ERR, ESR, ADIFF, CRP, CBC, 210716, CMP, GFR, ANEU, FE, FT4, IBC, TSHR ####[place] [address] ALP [Catalytic activity/Vol] 117 U/L Normal 40-135 [facility] Comment on above: Performed By: #### F ERR, ESR, ADIFF, CRP, CBC, 220979, CMP, GFR, ANEU, FE, FT4, IBC, TSHR ####[place] [address] ALT [Catalytic activity/Vol] 15 U/L Normal 14-59 [facility] Comment on above: Performed By: #### F ERR, ESR, ADIFF, CRP, CBC, 625802, CMP, GFR, ANEU, FE, FT4, IBC, TSHR ####[address] [address] AST [Catalytic activity/Vol] 18 U/L Normal 10-40 [facility] Comment on above: Performed By: #### F ERR, ESR, ADIFF, CRP, CBC, 845639, CMP, GFR, ANEU, FE, FT4, IBC, TSHR ####[address] [address] Bili Total 0.9 mg/dL Normal 0.2-1.0 [facility] Comment on above: Result Comment: Use of this assay is not recommended for patients undergoing treatment with eltrombopag due to the potential for falsely elevated results. Performed By: #### F ERR, ESR, ADIFF, CRP, CBC, 512717, CMP, GFR, ANEU, FE, FT4, IBC, TSHR ####[place] [id number] BUN/Creatinine Ratio 19 ratio Normal 7-27 [facility] Comment on above: Performed By: #### F ERR, ESR, ADIFF, CRP, CBC, 449848, CMP, GFR, ANEU, FE, FT4, IBC, TSHR ####[place] [address] [place], [place] [address] Calcium [Mass/Vol] 10.0 mg/dL Normal 8.4-10.2 [facility] Comment on above: Performed By: #### F ERR, ESR, ADIFF, CRP, CBC, 513306, CMP, GFR, ANEU, FE, FT4, IBC, TSHR ####[address] [address] Chloride [Moles/Vol] 102 mmol/L Normal 98-107 [facility] Comment on above: Performed By: #### F ERR, ESR, ADIFF, CRP, CBC, 925909, CMP, GFR, ANEU, FE, FT4, IBC, TSHR ####[place] [address] [place], [place] [address] CO2 [Moles/Vol] 32 mmol/L High 23-31 [facility] Comment on above: Performed By: #### F ERR, ESR, ADIFF, CRP, CBC, 905326, CMP, GFR, ANEU, FE, FT4, IBC, TSHR ####[address] [address] Creatinine [Mass/Vol] 0.88 mg/dL Normal 0.55-1.02 [facility] Comment on above: Result Comment: Test ing performed on Siemens Dimension EXL analyzer using a modified kinetic Favian technique. Performed By: #### F ERR, ESR, ADIFF, CRP, CBC, 747481, CMP, GFR, ANEU, FE, FT4, IBC, TSHR ####[address] [place] [address] Electrolyte Balance 7.0 mEq/L Normal 4.0-15.0 [facility] Comment on above: Performed By: #### F ERR, ESR, ADIFF, CRP, CBC, 835745, CMP, GFR, ANEU, FE, FT4, IBC, TSHR ####Chidi [address] [address] Globulin 3.8 G/dL Normal 1.5-3.8 [facility] Comment on above: Performed By: #### F ERR, ESR, ADIFF, CRP, CBC, 717599, CMP, GFR, ANEU, FE, FT4, IBC, TSHR ####Chidi [address] [address] Glucose [Mass/Vol] 116 mg/dL High 83-110 [facility] Comment on above: Performed By: #### F ERR, ESR, ADIFF, CRP, CBC, 173642, CMP, GFR, ANEU, FE, FT4, IBC, TSHR ####[address] [address] Potassium [Moles/Vol] 3.3 mmol/L Low 3.5-5.1 [facility] Comment on above: Performed By: #### F ERR, ESR, ADIFF, CRP, CBC, 268648, CMP, GFR, ANEU, FE, FT4, IBC, TSHR ####[address] [address] Sodium [Moles/Vol] 141 mmol/L Normal 136-145 [facility] Comment on above: Performed By: #### F ERR, ESR, ADIFF, CRP, CBC, 129909, CMP, GFR, ANEU, FE, FT4, IBC, TSHR ####[address] [address] Total Protein 7.8 G/dL Normal 6.4-8.2 [facility] Comment on above: Performed By: #### F ERR, ESR, ADIFF, CRP, CBC, 086368, CMP, GFR, ANEU, FE, FT4, IBC, TSHR ####[place] [address] Urea nitrogen [Mass/Vol] 17 mg/dL Normal 7-18 [facility] Comment on above: Performed By: #### F ERR, ESR, ADIFF, CRP, CBC, 475183, CMP, GFR, ANEU, FE, FT4, IBC, TSHR ####[address] [address] CRPon 06-23-2024 C-Reactive Protein 0.1 mg/dL Normal 0.0-0.3 [facility] Comment on above: Performed By: #### F ERR, ESR, ADIFF, CRP, CBC, 570857, CMP, GFR, ANEU, FE, FT4, IBC, TSHR ####[place] [address] ESRon 06-23-2024 Erythrocyte Sed Rate 39 mm/hr High 0-30 [facility] Comment on above: Performed By: #### F ERR, ESR, ADIFF, CRP, CBC, 536241, CMP, GFR, ANEU, FE, FT4, IBC, TSHR ####[address] [address] FEon 06-23-2024 Iron [Mass/Vol] 68 ug/dL Normal 50-170 [facility] Comment on above: Performed By: #### F ERR, ESR, ADIFF, CRP, CBC, 756859, CMP, GFR, ANEU, FE, FT4, IBC, TSHR ####[address] [place], [place] [address] Campos 06-23-2024 Ferritin [Mass/Vol] 171.0 ng/mL Normal 8.0-252.0 [facility] Comment on above: Performed By: #### F ERR, ESR, ADIFF, CRP, CBC, 490906, CMP, GFR, ANEU, FE, FT4, IBC, TSHR ####[address] [place], [place] [address] FT4on 06-23-2024 Free T4 [Mass/Vol] 0.92 ng/dL Normal 0.76-1.46 [facility] Comment on above: Order Comment: Order ed by Discern Performed By: #### F ERR, ESR, ADIFF, CRP, CBC, 522254, CMP, GFR, ANEU, FE, FT4, IBC, TSHR ####[address] [place], [place] [address] IBCon 06-23-2024 TIBC 261 mcg/dL Normal 250-450 [facility] Comment on above: Performed By: #### F ERR, ESR, ADIFF, CRP, CBC, 066204, CMP, GFR, ANEU, FE, FT4, IBC, TSHR ####[address] [place], [place] [address] TSHRon 06-23-2024 TSH Qn 4.58 m[IU]/L High 0.36-3.74 [facility] Comment on above: Performed By: #### F ERR, ESR, ADIFF, CRP, CBC, 098820, CMP, GFR, ANEU, FE, FT4, IBC, TSHR ####[facility] [place], [place] [address] 36on 05-19-2024 36 Pt requesting refill on spiriva 2.5 Last visit 11/04/2023 Next visit 05/19/2024 Pulled and pended [facility] 36 Patient would like a refill of spiriva Normal [facility] 36on 05-04-2024 36 Canceled appt [employer] [facility] 36on 05-01-2024 36 Name of Caller: Savanah Contact Reason for Appointment: Pt states she would like to cancel appt for 05/25. Please advise. Office Name: [place] [employer] [facility]16-[facility] CNPN Telephone (AGFAMPSS) SAVANAH CYR ([id number]) 1940 F Date Time Provider Department 03/16/24 DUSTIN ARBOLEDA During your visit today, we recorded the following information about you: Seth Varela 03/16/2024 11:07 AM Signed Sharona Burciaga, Freight Representative for [facility], contacted regarding fax received. Ms. Tabor stated a referral was from pt's daughter was made to [facility] stating pt is in need of help with personal care in the home Ms. Tabor stated [facility] performed a home visit and found that pt meets the level of care requirements for [facility] which provides home care services. Ms. Tabor further stated the faxed form is requesting pt's PCP, Dustin Arboleda PA-C, to sign that she either agrees or disagrees with the assessment that pt meets the requirements and needs for home care. [facility]'s assessment attached to provider form. Fax was scanned into pt's chart. Seth Varela March 16, 2024 11:07 AM Seth Varela 03/16/2024 11:07 AM Signed Dustin Arboleda PA-C 03/16/2024 1:23 PM Signed Patient has not had evaluation in office to discuss need for home health. Recommend office visit with family member to review request ZOE Ling Wendy 03/16/2024 2:34 PM Signed Spoke with Savanah on 03-16-24. Patient states that they have moved to [facility] and she has a new PCP. Charmaine Kenney March 16, 2024 2:34 PM [facility] 03/24/2024 1:17 PM Signed Savi from [facility] ([phone]) and left a voicemail regarding this pt. I returned her call to advise her of Charmaine's message below. Anh Bates March 24, 2024 1:17 PM Allergies As of Date: 03/16/2024 (No Known Allergies) Date Reviewed: 11/28/2023 Reviewed by: Kym Sutherland, RN - Fully Assessed Reason for Visit: Clerical [Other] Cmt: [place] HCBS Waiver Assessment and Service Plan Prescriptions as of 03/24/2024 - hydroCHLOROthiazide 25 mg tablet Take 1 tablet by mouth once daily. - lovastatin (MEVACOR) 20 mg tablet Take 1 tablet by mouth daily at bedtime. - metoprolol succinate ER (TOPROL XL) 25 mg 24 hr tablet Take 1 tablet by mouth once daily. - PARoxetine (PAXIL) 10 mg tablet Take 1 tablet by mouth once daily. - montelukast (SINGULAIR) 10 mg tablet Take 1 tablet by mouth daily at bedtime. - omeprazole (PRILOSEC) 20 mg capsule Take 1 capsule by mouth once daily. - BREO ELLIPTA 200-25 mcg/dose inhaler INHALE 1 PUFF BY MOUTH ONCE DAILY DIRECTED - azelastine 0.1% nasal spray Use 2 Sprays in each nostril twice daily. - fluticasone (FLONASE ALLERGY RELIEF) 50 mcg/actuation nasal spray Use 1 [place] in each nostril twice daily. To take 2 nasal sprays in each nostrils once daily for 2 weeks, then down to 1 spray/day/nostril - tiotropium bromide (SPIRIVA RESPIMAT) 2.5 mcg/actuation inhaler Inhale 2 Puffs as instructed once daily. - albuterol HFA (PROVENTIL HFA, VENTOLIN HFA) 90 mcg/actuation inhaler INHALE 2 PUFFS INTO LUNGS EVERY 4 HOURS NEEDED FOR WHEEZING OR SHORTNESS OF BREATH - multivitamin tablet Take 1 tablet by mouth once daily. - Cholecalciferol, Vitamin D3, 1,000 unit cap Take 1,000 Units by mouth once daily. Problem List As Of Date 03/16/2024 Noted Resolved Vitamin D deficiency [E55.9] Hair loss [L65.9] 08/30/2015 Essential hypertension, benign [I10] 08/30/2015 Osteoporosis [M81.0] 08/30/2015 Dyspnea and respiratory abnormalities [R06.00, *11/03/2015 LARA (obstructive sleep apnea) [G47.33] 11/03/2015 Solitary pulmonary nodule [R91.1] 11/03/2015 Hiatal hernia [K44.9] 11/18/2015 Periodic limb movement disorder [G47.61] 11/23/2015 Age-related cataract of both eyes [H25.9] 10/12/2020 Intrinsic asthma without status asthmaticus, mi*12/20/2020 Sacral back pain [M53.3] 11/06/2021 Closed nondisplaced zone I fracture of sacrum (*11/07/2021 Anxiety with depression [F41.8] 11/14/2021 Concentric left ventricular hypertrophy [I51.7] 01/23/2022 Chronic insomnia [F51.04] 01/23/2022 History of COVID-19 [Z86.16] 2020 Chronic cough [R05.3] 08/24/2022 PND (post-nasal drip) [R09.82] 08/24/2022 Non-seasonal allergic rhinitis [J30.89] 08/24/2022 Chronic bilateral low back pain without sciatic*12/18/2023 02/27/2024 Encounter Status:Closed by SETH VARELA on 03/16/24 Normal [facility] .Auto Diffon 02-07-2024 Basophil, Absolute 0.0 10 3/mcL Normal 0.0-0.2 [facility] Comment on above: Performed By: #### G FR, ANEU, BMP, MG, ADIFF, CBC #### [id number] [place], [place] [address] Basophils/100 WBC (Bld) 0.7 % Normal 0.0-2.5 [facility] Comment on above: Performed By: #### G FR, ANEU, BMP, MG, ADIFF, CBC #### [address] [address] Eosinophil, Absolute 0.3 10 3/mcL Normal 0.0-0.[address] [facility] Comment on above: Performed By: #### G FR, ANEU, BMP, MG, ADIFF, CBC #### [address] [address] Eosinophils/100 WBC (Bld) 4.0 % Normal 0.0-7.0 [facility] Comment on above: Performed By: #### G FR, ANEU, BMP, MG, ADIFF, CBC #### [address] [address] Lymphocyte, Absolute 1.6 10 3/mcL Normal 0.9-4.[address] [facility] Comment on above: Performed By: #### G FR, ANEU, BMP, MG, ADIFF, CBC #### [address] [address] Lymphocytes/100 WBC (Bld) 23.4 % Normal 20.0-40.0 [facility] Comment on above: Performed By: #### G FR, ANEU, BMP, MG, ADIFF, CBC #### [address] [address] Monocyte, Absolute 0.9 10 3/mcL Normal 0.1-1.4 [facility] Comment on above: Performed By: #### G FR, ANEU, BMP, MG, ADIFF, CBC #### [address] [address] Monocytes/100 WBC (Bld) 13.4 % High 2.0-13.0 [facility] Comment on above: Performed By: #### G FR, ANEU, BMP, MG, ADIFF, CBC #### [address] [address] Neutrophils/100 WBC (Bld) 58.5 % Normal 50.0-75.0 [facility] Comment on above: Performed By: #### G FR, ANEU, BMP, MG, ADIFF, CBC #### [address] [address] .GFRon 02-07-2024 GFR 76 ml/min/1.73sqm Normal [facility] Comment on above: Result Comment: GFR Population mean for , Non- Americans Ages 20-29 = 116 mL/min/1.73 sq.m. Ages 30-39 = 107 mL/min/1.73 sq.m. Ages 40-49 = 99 mL/min/1.73 sq.m. Ages 50-59 = 93 mL/min/1.73 sq.m. Ages 60-69 = 85 mL/min/1.73 sq.m. Ages 70+ = 75 mL/min/1.73 sq.m. Chronic Kidney Disease: Less than 60 mL/min/1.73 square meters End Stage Renal Disease: Less than 15 mL/min/1.73 square meters Performed By: #### G FR, ANEU, BMP, MG, ADIFF, CBC #### [address] [address] GFR Non- 63 ml/min/1.73sqm Normal [facility] Comment on above: Result Comment: GFR Population mean for , Non- Americans Ages 20-29 = 116 mL/min/1.73 sq.m. Ages 30-39 = 107 mL/min/1.73 sq.m. Ages 40-49 = 99 mL/min/1.73 sq.m. Ages 50-59 = 93 mL/min/1.73 sq.m. Ages 60-69 = 85 mL/min/1.73 sq.m. Ages 70+ = 75 mL/min/1.73 sq.m. Chronic Kidney Disease: Less than 60 mL/min/1.73 square meters End Stage Renal Disease: Less than 15 mL/min/1.73 square meters Performed By: #### G FR, ANEU, BMP, MG, ADIFF, CBC #### [address] [address] .NEUABSon 02-07-2024 Neutrophil, Absolute 4.1 10 3/mcL Normal 2.3-8.[address] [facility] Comment on above: Performed By: #### G FR, ANEU, BMP, MG, ADIFF, CBC #### [address] [address] BMPon 02-07-2024 BUN/Creatinine Ratio 16 ratio Normal 7-27 [facility] Comment on above: Performed By: #### G FR, ANEU, BMP, MG, ADIFF, CBC #### [address] [place] [address] Calcium [Mass/Vol] 8.9 mg/dL Normal 8.4-10.2 [facility] Comment on above: Performed By: #### G FR, ANEU, BMP, MG, ADIFF, CBC #### [address] [place] [address] Chloride [Moles/Vol] 101 mmol/L Normal 98-107 [facility] Comment on above: Performed By: #### G FR, ANEU, BMP, MG, ADIFF, CBC #### [place] [address] CO2 [Moles/Vol] 33 mmol/L High 23-31 [facility] Comment on above: Performed By: #### G FR, ANEU, BMP, MG, ADIFF, CBC #### [place] [address] Creatinine [Mass/Vol] 0.86 mg/dL Normal 0.55-1.02 [facility] Comment on above: Result Comment: Test ing performed on Siemens Dimension EXL analyzer using a modified kinetic Favian technique. Performed By: #### G FR, ANEU, BMP, MG, ADIFF, CBC #### [place] [address] Electrolyte Balance 5.0 mEq/L Normal 4.0-15.0 [facility] Comment on above: Performed By: #### G FR, ANEU, BMP, MG, ADIFF, CBC #### [place] [address] Glucose [Mass/Vol] 117 mg/dL High 83-110 [facility] Comment on above: Performed By: #### G FR, ANEU, BMP, MG, ADIFF, CBC #### [place] [address] Potassium [Moles/Vol] 3.9 mmol/L Normal 3.5-5.1 [facility] Comment on above: Performed By: #### G FR, ANEU, BMP, MG, ADIFF, CBC #### [place] [address] Sodium [Moles/Vol] 139 mmol/L Normal 136-145 [facility] Comment on above: Performed By: #### G FR, ANEU, BMP, MG, ADIFF, CBC #### [place] [address] Urea nitrogen [Mass/Vol] 14 mg/dL Normal 7-18 [facility] Comment on above: Performed By: #### G FR, ANEU, BMP, MG, ADIFF, CBC #### [place] [address] CBCon 02-07-2024 Erythrocyte distribution width (RBC) [Ratio] 13.9 % Normal 11.5-15.5 [facility] Comment on above: Performed By: #### G FR, ANEU, BMP, MG, ADIFF, CBC #### [place] [address] Hematocrit (Bld) [Volume fraction] 33.4 % Low 34.0-46.0 [facility] Comment on above: Performed By: #### G FR, ANEU, BMP, MG, ADIFF, CBC #### [place] [address] Hgb 11.6 G/dL Low 12.0-16.0 [facility] Comment on above: Performed By: #### G FR, ANEU, BMP, MG, ADIFF, CBC #### [place] [address] MCH (RBC) [Entitic mass] 32.0 pg Normal 27.0-33.0 [facility] Comment on above: Performed By: #### G FR, ANEU, BMP, MG, ADIFF, CBC #### [place] [address] MCHC 34.6 G/dL Normal 32.0-36.0 [facility] Comment on above: Performed By: #### G FR, ANEU, BMP, MG, ADIFF, CBC #### [place] [address] MCV (RBC) [Entitic vol] 92.4 fL Normal 80.0-99.0 [facility] Comment on above: Performed By: #### G FR, ANEU, BMP, MG, ADIFF, CBC #### [place] [address] Platelet 154 10 3/mcL Normal 150-450 [facility] Comment on above: Performed By: #### G FR, ANEU, BMP, MG, ADIFF, CBC #### [address] [place] [address] Platelet mean volume (Bld) [Entitic vol] 8.5 fL Normal 6.6-10.5 [facility] Comment on above: Performed By: #### G FR, ANEU, BMP, MG, ADIFF, CBC #### [place] [address] RBC 3.61 10 6/mcL Low 4.10-5.30 [facility] Comment on above: Performed By: #### G FR, ANEU, BMP, MG, ADIFF, CBC #### [place] [address] WBC 6.9 10 3/mcL Normal 4.5-10.8 [facility] Comment on above: Performed By: #### G FR, ANEU, BMP, MG, ADIFF, CBC #### [address] [place] [address] LABORATORYOrdered By: SYSTEM SYSTEM on 02-07-2024 Basophils (Bld) [#/Vol] 0.0 103/mcL Normal 0.0 - 0.2 10^3/mcL AO Workflow SS Basophils/100 WBC (Bld) 0.7 % Normal 0.0 - 2.5 % AO Workflow SS Calcium [Mass/Vol] 8.9 mg/dL Normal 8.4 - 10. 2 mg/dL AO ADM SS Chloride [Moles/Vol] 101 mmol/L Normal 98 - 10 7 mmol/L AO ADM SS CO2 [Moles/Vol] 33 mmol/L High 23 - 31 mmol/L AO ADM SS Creatinine [Mass/Vol] 0.86 mg/dL Normal 0.55 - 1.02 mg/dL AO ADM SS Comment on above: Interpretive Data: T esting performed on Siemens Dimension EXL analyzer using a modified kinetic Favian technique. Electrolyte Balance 5.0 mEq/L Normal 4.0 - 15 .0 mEq/L AO ADM SS Eosinophil, Absolute 0.3 103/mcL Normal 0.0 - 0 .7 10^3/mcL AO Workflow SS Eosinophils/100 WBC (Bld) 4.0 % Normal 0.0 - 7.0 % AO Workflow SS Erythrocyte distribution width (RBC) [Ratio] 13.9 % Normal 11.5 - 15.5 % AO Workflow SS GFR/1.73 sq M.predicted among blacks MDRD (S/P/Bld) [Vol rate/Area] 76 ml/min/1.73sqm Invalid Interpretation Code AO Chemistry S Comment on above: Interpretive Data: GFR Population mean for , Non- Americans Ages 20-29 = 116 mL/min/1.73 sq.m. Ages 30-39 = 107 mL/min/1.73 sq.m. Ages 40-49 = 99 mL/min/1.73 sq.m. Ages 50-59 = 93 mL/min/1.73 sq.m. Ages 60-69 = 85 mL/min/1.73 sq.m. Ages 70+ = 75 mL/min/1.73 sq.m. Chronic Kidney Disease: Less than 60 mL/min/1.73 square meters End Stage Renal Disease: Less than 15 mL/min/1.73 square meters GFR/1.73 sq M.predicted among non-blacks MDRD (S/P/Bld) [Vol rate/Area] 63 ml/min/1.73sqm Invalid Interpretation Code AO Chemistry S Comment on above: Interpretive Data: GFR Population mean for , Non- Americans Ages 20-29 = 116 mL/min/1.73 sq.m. Ages 30-39 = 107 mL/min/1.73 sq.m. Ages 40-49 = 99 mL/min/1.73 sq.m. Ages 50-59 = 93 mL/min/1.73 sq.m. Ages 60-69 = 85 mL/min/1.73 sq.m. Ages 70+ = 75 mL/min/1.73 sq.m. Chronic Kidney Disease: Less than 60 mL/min/1.73 square meters End Stage Renal Disease: Less than 15 mL/min/1.73 square meters Glucose [Mass/Vol] 117 mg/dL High 83 - 110 mg/dL AO ADM SS Hematocrit (Bld) [Volume fraction] 33.4 % Low 34.0 - 46.0 % AO Workflow SS Hemoglobin (Bld) [Mass/Vol] 11.6 G/dL Low 12.0 - 16.0 G/dL AO Workflow SS Lymphocytes (Bld) [#/Vol] 1.6 103/mcL Normal 0.9 - 4.3 10^3/mcL AO Workflow SS Lymphocytes/100 WBC (Bld) 23.4 % Normal 20.0 - 40.0 % AO Workflow SS Magnesium [Mass/Vol] 1.9 mg/dL Normal 1.8 - 2 .4 mg/dL AO ADM SS MCH (RBC) [Entitic mass] 32.0 pg Normal 27.0 - 33.0 pg AO Workflow SS MCHC 34.6 G/dL Normal 32.0 - 36.0 G/dL AO Workflow SS MCV (RBC) [Entitic vol] 92.4 fL Normal 80.0 - 99.0 fL AO Workflow SS Monocytes (Bld) [#/Vol] 0.9 103/mcL Normal 0.1 - 1.4 10^3/mcL AO Workflow SS Monocytes/100 WBC (Bld) 13.4 % High 2.0 - 13.0 % AO Workflow SS Neutrophils (Bld) [#/Vol] 4.1 103/mcL Normal 2.3 - 8.1 10^3/mcL AO Workflow SS Neutrophils/100 WBC (Bld) 58.5 % Normal 50.0 - 75.0 % AO Workflow SS Platelet mean volume (Bld) [Entitic vol] 8.5 fL Normal 6.6 - 10.5 fL AO Workflow SS Platelets (Bld) [#/Vol] 154 103/mcL Normal 150 - 450 10^3/mcL AO Workflow SS Potassium [Moles/Vol] 3.9 mmol/L Normal 3.5 - 5.1 mmol/L AO ADM SS RBC (Bld) [#/Vol] 3.61 106/mcL Low 4.10 - 5.3 0 10^6/mcL AO Workflow SS Sodium [Moles/Vol] 139 mmol/L Normal 136 - 145 mmol/L AO ADM SS Urea nitrogen [Mass/Vol] 14 mg/dL Normal 7 - 18 mg/dL AO ADM SS Urea nitrogen/Creatinine [Mass ratio] 16 ratio Normal 7 - 27 ratio AO ADM SS WBC (Bld) [#/Vol] 6.9 103/mcL Normal 4.5 - 10.8 10^3/mcL AO Workflow SS MGon 02-07-2024 Magnesium [Mass/Vol] 1.9 mg/dL Normal 1.8-2.4 [facility] Comment on above: Performed By: #### G FR, ANEU, BMP, MG, ADIFF, CBC #### [address] [address] .Auto Diffon 02-06-2024 Basophil, Absolute 0.1 10 3/mcL Normal 0.0-0.2 [facility] Comment on above: Performed By: #### G FR, ANEU, BMP, MG, ADIFF, CBC #### [address] [address] Basophils/100 WBC (Bld) 0.9 % Normal 0.0-2.5 [facility] Comment on above: Performed By: #### G FR, ANEU, BMP, MG, ADIFF, CBC #### [address] [address] Eosinophil, Absolute 0.2 10 3/mcL Normal 0.0-0.[address] [facility] Comment on above: Performed By: #### G FR, ANEU, BMP, MG, ADIFF, CBC #### [address] [address] Eosinophils/100 WBC (Bld) 2.8 % Normal 0.0-7.0 [facility] Comment on above: Performed By: #### G FR, ANEU, BMP, MG, ADIFF, CBC #### [address] [address] Lymphocyte, Absolute 1.2 10 3/mcL Normal 0.9-4.[address] [facility] Comment on above: Performed By: #### G FR, ANEU, BMP, MG, ADIFF, CBC #### [address] [address] Lymphocytes/100 WBC (Bld) 17.8 % Low 20.0-40.0 [facility] Comment on above: Performed By: #### G FR, ANEU, BMP, MG, ADIFF, CBC #### [address] [address] Monocyte, Absolute 0.9 10 3/mcL Normal 0.1-1.4 [facility] Comment on above: Performed By: #### G FR, ANEU, BMP, MG, ADIFF, CBC #### [address] [address] Monocytes/100 WBC (Bld) 13.0 % Normal 2.0-13.0 [facility] Comment on above: Performed By: #### G FR, ANEU, BMP, MG, ADIFF, CBC #### [address] [address] Neutrophils/100 WBC (Bld) 65.5 % Normal 50.0-75.0 [facility] Comment on above: Performed By: #### G FR, ANEU, BMP, MG, ADIFF, CBC #### [address] [address] .GFRon 02-06-2024 GFR 76 ml/min/1.73sqm Normal [facility] Comment on above: Result Comment: GFR Population mean for , Non- Americans Ages 20-29 = 116 mL/min/1.73 sq.m. Ages 30-39 = 107 mL/min/1.73 sq.m. Ages 40-49 = 99 mL/min/1.73 sq.m. Ages 50-59 = 93 mL/min/1.73 sq.m. Ages 60-69 = 85 mL/min/1.73 sq.m. Ages 70+ = 75 mL/min/1.73 sq.m. Chronic Kidney Disease: Less than 60 mL/min/1.73 square meters End Stage Renal Disease: Less than 15 mL/min/1.73 square meters Performed By: #### G FR, ANEU, BMP, MG, ADIFF, CBC #### [address] [address] GFR Non- 63 ml/min/1.73sqm Normal [facility] Comment on above: Result Comment: GFR Population mean for , Non- Americans Ages 20-29 = 116 mL/min/1.73 sq.m. Ages 30-39 = 107 mL/min/1.73 sq.m. Ages 40-49 = 99 mL/min/1.73 sq.m. Ages 50-59 = 93 mL/min/1.73 sq.m. Ages 60-69 = 85 mL/min/1.73 sq.m. Ages 70+ = 75 mL/min/1.73 sq.m. Chronic Kidney Disease: Less than 60 mL/min/1.73 square meters End Stage Renal Disease: Less than 15 mL/min/1.73 square meters Performed By: #### G FR, ANEU, BMP, MG, ADIFF, CBC #### [address] [address] .NEUABSon 02-06-2024 Neutrophil, Absolute 4.4 10 3/mcL Normal 2.3-8.[address] [facility] Comment on above: Performed By: #### G FR, ANEU, BMP, MG, ADIFF, CBC #### [address] [address] BMPon 02-06-2024 BUN/Creatinine Ratio 15 ratio Normal 7-27 [facility] Comment on above: Performed By: #### G FR, ANEU, BMP, MG, ADIFF, CBC #### [address] [address] Calcium [Mass/Vol] 9.2 mg/dL Normal 8.4-10.2 [facility] Comment on above: Performed By: #### G FR, ANEU, BMP, MG, ADIFF, CBC #### [address] [address] Chloride [Moles/Vol] 102 mmol/L Normal 98-107 [facility] Comment on above: Performed By: #### G FR, ANEU, BMP, MG, ADIFF, CBC #### [address] [address] CO2 [Moles/Vol] 35 mmol/L High 23-31 [facility] Comment on above: Performed By: #### G FR, ANEU, BMP, MG, ADIFF, CBC #### [address] [address] Creatinine [Mass/Vol] 0.86 mg/dL Normal 0.55-1.02 [facility] Comment on above: Result Comment: Test ing performed on Siemens Dimension EXL analyzer using a modified kinetic Favian technique. Performed By: #### G FR, ANEU, BMP, MG, ADIFF, CBC #### [address] [address] Electrolyte Balance 4.0 mEq/L Normal 4.0-15.0 [facility] Comment on above: Performed By: #### G FR, ANEU, BMP, MG, ADIFF, CBC #### [address] [address] Glucose [Mass/Vol] 114 mg/dL High 83-110 [facility] Comment on above: Performed By: #### G FR, ANEU, BMP, MG, ADIFF, CBC #### [address] [address] Potassium [Moles/Vol] 4.5 mmol/L Normal 3.5-5.1 [facility] Comment on above: Performed By: #### G FR, ANEU, BMP, MG, ADIFF, CBC #### [address] [address] Sodium [Moles/Vol] 141 mmol/L Normal 136-145 [facility] Comment on above: Performed By: #### G FR, ANEU, BMP, MG, ADIFF, CBC #### [place] [address] Urea nitrogen [Mass/Vol] 13 mg/dL Normal 7-18 [facility] Comment on above: Performed By: #### G FR, ANEU, BMP, MG, ADIFF, CBC #### [place] [address] CBCon 02-06-2024 Erythrocyte distribution width (RBC) [Ratio] 13.9 % Normal 11.5-15.5 [facility] Comment on above: Performed By: #### G FR, ANEU, BMP, MG, ADIFF, CBC #### [place] [address] Hematocrit (Bld) [Volume fraction] 36.2 % Normal 34.0-46.0 [facility] Comment on above: Performed By: #### G FR, ANEU, BMP, MG, ADIFF, CBC #### [place] [address] Hgb 12.1 G/dL Normal 12.0-16.0 [facility] Comment on above: Performed By: #### G FR, ANEU, BMP, MG, ADIFF, CBC #### [place] [address] MCH (RBC) [Entitic mass] 31.8 pg Normal 27.0-33.0 [facility] Comment on above: Performed By: #### G FR, ANEU, BMP, MG, ADIFF, CBC #### [place] [address] MCHC 33.5 G/dL Normal 32.0-36.0 [facility] Comment on above: Performed By: #### G FR, ANEU, BMP, MG, ADIFF, CBC #### [place] [address] MCV (RBC) [Entitic vol] 94.9 fL Normal 80.0-99.0 [facility] Comment on above: Performed By: #### G FR, ANEU, BMP, MG, ADIFF, CBC #### [address] [address] Platelet 169 10 3/mcL Normal 150-450 [facility] Comment on above: Performed By: #### G FR, ANEU, BMP, MG, ADIFF, CBC #### [id number] [place], [place] [address] Platelet mean volume (Bld) [Entitic vol] 8.8 fL Normal 6.6-10.5 [facility] Comment on above: Performed By: #### G FR, ANEU, BMP, MG, ADIFF, CBC #### [place] [address] RBC 3.81 10 6/mcL Low 4.10-5.30 [facility] Comment on above: Performed By: #### G FR, ANEU, BMP, MG, ADIFF, CBC #### [place] [address] WBC 6.8 10 3/mcL Normal 4.5-10.8 [facility] Comment on above: Performed By: #### G FR, ANEU, BMP, MG, ADIFF, CBC #### [place] [address] LABORATORYOrdered By: SYSTEM SYSTEM on 02-06-2024 Basophils (Bld) [#/Vol] 0.1 103/mcL Normal 0.0 - 0.2 10^3/mcL AO Workflow SS Basophils/100 WBC (Bld) 0.9 % Normal 0.0 - 2.5 % AO Workflow SS Calcium [Mass/Vol] 9.2 mg/dL Normal 8.4 - 10. 2 mg/dL AO ADM SS Chloride [Moles/Vol] 102 mmol/L Normal 98 - 10 7 mmol/L AO ADM SS CO2 [Moles/Vol] 35 mmol/L High 23 - 31 mmol/L AO ADM SS Creatinine [Mass/Vol] 0.86 mg/dL Normal 0.55 - 1.02 mg/dL AO ADM SS Comment on above: Interpretive Data: T esting performed on Siemens Dimension EXL analyzer using a modified kinetic Favian technique. Electrolyte Balance 4.0 mEq/L Normal 4.0 - 15 .0 mEq/L AO ADM SS Eosinophil, Absolute 0.2 103/mcL Normal 0.0 - 0 .7 10^3/mcL AO Workflow SS Eosinophils/100 WBC (Bld) 2.8 % Normal 0.0 - 7.0 % AO Workflow SS Erythrocyte distribution width (RBC) [Ratio] 13.9 % Normal 11.5 - 15.5 % AO Workflow SS GFR/1.73 sq M.predicted among blacks MDRD (S/P/Bld) [Vol rate/Area] 76 ml/min/1.73sqm Invalid Interpretation Code AO Chemistry S Comment on above: Interpretive Data: GFR Population mean for , Non- Americans Ages 20-29 = 116 mL/min/1.73 sq.m. Ages 30-39 = 107 mL/min/1.73 sq.m. Ages 40-49 = 99 mL/min/1.73 sq.m. Ages 50-59 = 93 mL/min/1.73 sq.m. Ages 60-69 = 85 mL/min/1.73 sq.m. Ages 70+ = 75 mL/min/1.73 sq.m. Chronic Kidney Disease: Less than 60 mL/min/1.73 square meters End Stage Renal Disease: Less than 15 mL/min/1.73 square meters GFR/1.73 sq M.predicted among non-blacks MDRD (S/P/Bld) [Vol rate/Area] 63 ml/min/1.73sqm Invalid Interpretation Code AO Chemistry S Comment on above: Interpretive Data: GFR Population mean for , Non- Americans Ages 20-29 = 116 mL/min/1.73 sq.m. Ages 30-39 = 107 mL/min/1.73 sq.m. Ages 40-49 = 99 mL/min/1.73 sq.m. Ages 50-59 = 93 mL/min/1.73 sq.m. Ages 60-69 = 85 mL/min/1.73 sq.m. Ages 70+ = 75 mL/min/1.73 sq.m. Chronic Kidney Disease: Less than 60 mL/min/1.73 square meters End Stage Renal Disease: Less than 15 mL/min/1.73 square meters Glucose [Mass/Vol] 114 mg/dL High 83 - 110 mg/dL AO ADM SS Hematocrit (Bld) [Volume fraction] 36.2 % Normal 34.0 - 46.0 % AO Workflow SS Hemoglobin (Bld) [Mass/Vol] 12.1 G/dL Normal 12.0 - 16.0 G/dL AO Workflow SS Lymphocytes (Bld) [#/Vol] 1.2 103/mcL Normal 0.9 - 4.3 10^3/mcL AO Workflow SS Lymphocytes/100 WBC (Bld) 17.8 % Low 20.0 - 40.0 % AO Workflow SS Magnesium [Mass/Vol] 1.9 mg/dL Normal 1.8 - 2 .4 mg/dL AO ADM SS MCH (RBC) [Entitic mass] 31.8 pg Normal 27.0 - 33.0 pg AO Workflow SS MCHC 33.5 G/dL Normal 32.0 - 36.0 G/dL AO Workflow SS MCV (RBC) [Entitic vol] 94.9 fL Normal 80.0 - 99.0 fL AO Workflow SS Monocytes (Bld) [#/Vol] 0.9 103/mcL Normal 0.1 - 1.4 10^3/mcL AO Workflow SS Monocytes/100 WBC (Bld) 13.0 % Normal 2.0 - 13.0 % AO Workflow SS Neutrophils (Bld) [#/Vol] 4.4 103/mcL Normal 2.3 - 8.1 10^3/mcL AO Workflow SS Neutrophils/100 WBC (Bld) 65.5 % Normal 50.0 - 75.0 % AO Workflow SS Platelet mean volume (Bld) [Entitic vol] 8.8 fL Normal 6.6 - 10.5 fL AO Workflow SS Platelets (Bld) [#/Vol] 169 103/mcL Normal 150 - 450 10^3/mcL AO Workflow SS Potassium [Moles/Vol] 4.5 mmol/L Normal 3.5 - 5.1 mmol/L AO ADM SS RBC (Bld) [#/Vol] 3.81 106/mcL Low 4.10 - 5.3 0 10^6/mcL AO Workflow SS Sodium [Moles/Vol] 141 mmol/L Normal 136 - 145 mmol/L AO ADM SS Urea nitrogen [Mass/Vol] 13 mg/dL Normal 7 - 18 mg/dL AO ADM SS Urea nitrogen/Creatinine [Mass ratio] 15 ratio Normal 7 - 27 ratio AO ADM SS WBC (Bld) [#/Vol] 6.8 103/mcL Normal 4.5 - 10.8 10^3/mcL AO Workflow SS MGon 02-06-2024 Magnesium [Mass/Vol] 1.9 mg/dL Normal 1.8-2.4 [facility] Comment on above: Performed By: #### G FR, ANEU, BMP, MG, ADIFF, CBC #### [address] [address] .Auto Diffon 02-05-2024 Basophil, Absolute 0.0 10 3/mcL Normal 0.0-0.2 [facility] Comment on above: Performed By: #### G FR, ANEU, BMP, MG, ADIFF, CBC #### [address] [address] Basophils/100 WBC (Bld) 0.6 % Normal 0.0-2.5 [facility] Comment on above: Performed By: #### G FR, ANEU, BMP, MG, ADIFF, CBC #### [address] [address] Eosinophil, Absolute 0.1 10 3/mcL Normal 0.0-0.[address] [facility] Comment on above: Performed By: #### G FR, ANEU, BMP, MG, ADIFF, CBC #### [address] [address] Eosinophils/100 WBC (Bld) 1.6 % Normal 0.0-7.0 [facility] Comment on above: Performed By: #### G FR, ANEU, BMP, MG, ADIFF, CBC #### [address] [address] Lymphocyte, Absolute 0.9 10 3/mcL Normal 0.9-4.[address] [facility] Comment on above: Performed By: #### G FR, ANEU, BMP, MG, ADIFF, CBC #### [address] [address] Lymphocytes/100 WBC (Bld) 13.3 % Low 20.0-40.0 [facility] Comment on above: Performed By: #### G FR, ANEU, BMP, MG, ADIFF, CBC #### [address] [address] Monocyte, Absolute 0.8 10 3/mcL Normal 0.1-1.4 [facility] Comment on above: Performed By: #### G FR, ANEU, BMP, MG, ADIFF, CBC #### [address] [address] Monocytes/100 WBC (Bld) 12.3 % Normal 2.0-13.0 [facility] Comment on above: Performed By: #### G FR, ANEU, BMP, MG, ADIFF, CBC #### [address] [address] Neutrophils/100 WBC (Bld) 72.2 % Normal 50.0-75.0 [facility] Comment on above: Performed By: #### G FR, ANEU, BMP, MG, ADIFF, CBC #### [address] [address] .GFRon 02-05-2024 GFR 76 ml/min/1.73sqm Normal [facility] Comment on above: Result Comment: GFR Population mean for , Non- Americans Ages 20-29 = 116 mL/min/1.73 sq.m. Ages 30-39 = 107 mL/min/1.73 sq.m. Ages 40-49 = 99 mL/min/1.73 sq.m. Ages 50-59 = 93 mL/min/1.73 sq.m. Ages 60-69 = 85 mL/min/1.73 sq.m. Ages 70+ = 75 mL/min/1.73 sq.m. Chronic Kidney Disease: Less than 60 mL/min/1.73 square meters End Stage Renal Disease: Less than 15 mL/min/1.73 square meters Performed By: #### G FR, ANEU, BMP, MG, ADIFF, CBC #### [address] [address] GFR Non- 63 ml/min/1.73sqm Normal [facility] Comment on above: Result Comment: GFR Population mean for , Non- Americans Ages 20-29 = 116 mL/min/1.73 sq.m. Ages 30-39 = 107 mL/min/1.73 sq.m. Ages 40-49 = 99 mL/min/1.73 sq.m. Ages 50-59 = 93 mL/min/1.73 sq.m. Ages 60-69 = 85 mL/min/1.73 sq.m. Ages 70+ = 75 mL/min/1.73 sq.m. Chronic Kidney Disease: Less than 60 mL/min/1.73 square meters End Stage Renal Disease: Less than 15 mL/min/1.73 square meters Performed By: #### G FR, ANEU, BMP, MG, ADIFF, CBC #### [place] [address] .MDWon 02-05-2024 Monocyte Distribution Width 18.91 Normal 0.00-20.00 [facility] Comment on above: Result Comment: For ED adult patients suspected of sepsis, MDW<=20.0 does not rule out sepsis or risk of sepsis Performed By: #### G FR, ANEU, BMP, MG, ADIFF, CBC #### [place] [address] .NEUABSon 02-05-2024 Neutrophil, Absolute 4.9 10 3/mcL Normal 2.3-8.[address] [facility] Comment on above: Performed By: #### G FR, ANEU, BMP, MG, ADIFF, CBC #### [address] [address] .Urinalysis Microscopic (AO) on 02-05-2024 UA Bacteria 3+ /hpf Abnormal [facility] Comment on above: Performed By: #### G FR, ANEU, BMP, MG, ADIFF, CBC #### [place] [address] UA RBC 0-5 Abnormal None Seen [facility] Comment on above: Performed By: #### G FR, ANEU, BMP, MG, ADIFF, CBC #### [address] [address] UA Squam Epithelial 0-5 Abnormal None Seen [facility] Comment on above: Performed By: #### G FR, ANEU, BMP, MG, ADIFF, CBC #### [address] [address] UA WBC 0-5 Abnormal None Seen [facility] Comment on above: Performed By: #### G FR, ANEU, BMP, MG, ADIFF, CBC #### [address] [address] BMPon 02-05-2024 BUN/Creatinine Ratio 15 ratio Normal 7-27 [facility] Comment on above: Performed By: #### G FR, ANEU, BMP, MG, ADIFF, CBC #### [address] [address] Calcium [Mass/Vol] 9.4 mg/dL Normal 8.4-10.2 [facility] Comment on above: Performed By: #### G FR, ANEU, BMP, MG, ADIFF, CBC #### [place] [address] Chloride [Moles/Vol] 103 mmol/L Normal 98-107 [facility] Comment on above: Performed By: #### G FR, ANEU, BMP, MG, ADIFF, CBC #### [address] [address] CO2 [Moles/Vol] 25 mmol/L Normal 23-31 [facility] Comment on above: Performed By: #### G FR, ANEU, BMP, MG, ADIFF, CBC #### [address] [address] Creatinine [Mass/Vol] 0.86 mg/dL Normal 0.55-1.02 [facility] Comment on above: Result Comment: Test ing performed on Siemens Dimension EXL analyzer using a modified kinetic Favian technique. Performed By: #### G FR, ANEU, BMP, MG, ADIFF, CBC #### [place] [address] Electrolyte Balance 12.0 mEq/L Normal 4.0-15.0 [facility] Comment on above: Performed By: #### G FR, ANEU, BMP, MG, ADIFF, CBC #### [address] [address] Glucose [Mass/Vol] 130 mg/dL High 83-110 [facility] Comment on above: Performed By: #### G FR, ANEU, BMP, MG, ADIFF, CBC #### [address] [address] Potassium [Moles/Vol] 3.0 mmol/L Low 3.5-5.1 [facility] Comment on above: Performed By: #### G FR, ANEU, BMP, MG, ADIFF, CBC #### [address] [address] Sodium [Moles/Vol] 140 mmol/L Normal 136-145 [facility] Comment on above: Performed By: #### G FR, ANEU, BMP, MG, ADIFF, CBC #### [place] [address] Urea nitrogen [Mass/Vol] 13 mg/dL Normal 7-18 [facility] Comment on above: Performed By: #### G FR, ANEU, BMP, MG, ADIFF, CBC #### [address] [address] CBCon 02-05-2024 Erythrocyte distribution width (RBC) [Ratio] 14.1 % Normal 11.5-15.5 [facility] Comment on above: Performed By: #### G FR, ANEU, BMP, MG, ADIFF, CBC #### [address] [address] Hematocrit (Bld) [Volume fraction] 37.2 % Normal 34.0-46.0 [facility] Comment on above: Performed By: #### G FR, ANEU, BMP, MG, ADIFF, CBC #### [place] [address] Hgb 12.9 G/dL Normal 12.0-16.0 [facility] Comment on above: Performed By: #### G FR, ANEU, BMP, MG, ADIFF, CBC #### [address] [address] MCH (RBC) [Entitic mass] 32.1 pg Normal 27.0-33.0 [facility] Comment on above: Performed By: #### G FR, ANEU, BMP, MG, ADIFF, CBC #### [address] [address] MCHC 34.5 G/dL Normal 32.0-36.0 [facility] Comment on above: Performed By: #### G FR, ANEU, BMP, MG, ADIFF, CBC #### [address] [address] MCV (RBC) [Entitic vol] 92.8 fL Normal 80.0-99.0 [facility] Comment on above: Performed By: #### G FR, ANEU, BMP, MG, ADIFF, CBC #### [address] [address] Platelet 172 10 3/mcL Normal 150-450 [facility] Comment on above: Performed By: #### G FR, ANEU, BMP, MG, ADIFF, CBC #### [address] [address] Platelet mean volume (Bld) [Entitic vol] 7.8 fL Normal 6.6-10.5 [facility] Comment on above: Performed By: #### G FR, ANEU, BMP, MG, ADIFF, CBC #### [address] [address] RBC 4.01 10 6/mcL Low 4.10-5.30 [facility] Comment on above: Performed By: #### G FR, ANEU, BMP, MG, ADIFF, CBC #### [address] [address] WBC 6.8 10 3/mcL Normal 4.5-10.8 [facility] Comment on above: Performed By: #### G FR, ANEU, BMP, MG, ADIFF, CBC #### [place] [address] CVFLURVon 02-05-2024 FLU A PCR Negative Normal Negative [facility] Comment on above: Performed By: #### G FR, ANEU, BMP, MG, ADIFF, CBC #### [place] [address] FLU B PCR Negative Normal Negative [facility] Comment on above: Performed By: #### G FR, ANEU, BMP, MG, ADIFF, CBC #### [place] [address] RSV PCR Negative Normal Negative [facility] Comment on above: Performed By: #### G FR, ANEU, BMP, MG, ADIFF, CBC #### [place] [address] SARS-CoV-2 (COVID-19) RNA SUSAN+probe Ql (Unsp spec) Negative Normal Negative [facility] Comment on above: Result Comment: Resu lts from the Xpert Xpress CoV-2/Flu/RSV plus test should be correlated with the clinical history, epidemiological data, and other data available to the clinical evaluating the patient. Performance of the Xpert Xpress CoV-2/Flu/RSV plus test has only been established in nasopharyngeal swab specimen. Erroneous test results might occur from improper specimen collection, failure to follow the recommended sample collection, handling and storage procedures, technical error, or sample mix-up. False negative results may occur if a virus is present at a level below the analytical limit of detection. Viral nucleic acid may persist in vivo, independent of virus viability. Detection of analyte target(s) does not imply that the corresponding virus(es) are infectious or are the causative agents for clinical symptoms. Recent patient exposure to FluMist or other live attenuated influenza vaccines may cause inaccurate positive results. Performed By: #### G FR, ANEU, BMP, MG, ADIFF, CBC #### [place] [address] LABORATORYOrdered By: Carlton Pratt on 02-05-2024 Appearance (U) Slightly Cloudy *ABN* (02/05/24 3:22 PM) Invalid Interpretation Code Clear AO Auto Urine SS Bacteria LM.HPF (Urine sed) [#/Area] 3 /[HPF] Invalid Interpretation Code AO Auto Urine SS Bilirubin Ql (U) Negative (02/05/24 3:22 PM) Normal Negative AO Auto Urine SS Color (U) Yellow (02/05/24 3:22 PM) Normal AO Auto Urine SS Glucose Test strip (U) [Mass/Vol] Negative Normal Negative AO Auto Urine SS Hemoglobin Auto test strip (U) [Mass/Vol] Negative (02/05/24 3:22 PM) Normal Negative AO Auto Urine SS Ketones Ql (U) Negative Normal Negative AO Auto Urine SS UA Leuk Est Negative (02/05/24 3:22 PM) Normal Negative AO Auto Urine SS UA Nitrite Positive *ABN* (02/05/24 3:22 PM) Invalid Interpretation Code Negative AO Auto Urine SS UA pH 7.5 (02/05/24 3:22 PM) Normal 5.0 - 8.0 AO Auto Urine SS UA Protein Negative Normal Negative AO Auto Urine SS UA RBC 0-5 /HPF Invalid Interpretation Code None Seen AO Auto Urine SS UA Spec Grav 1.020 (02/05/24 3:22 PM) Normal 1.015-1.025 AO Auto Urine SS UA Specimen Type Clean Catch (02/05/24 3:22 PM) Normal AO Auto Urine SS UA Squam Epithelial 0-5 /HPF Invalid Interpretation Code None Seen AO Auto Urine SS UA Urobilinogen 0.2 E.U./dL Normal 0.2-1.0 AO Auto Urine SS WBC LM.HPF (Urine sed) [#/Area] 0-5 /HPF Invalid Interpretation Code None Seen AO Auto Urine SS LABORATORYOrdered By: Martinez Hopkins on 02-05-2024 FLUAV RNA SUSAN+probe Ql (Resp) Negative (02/05/24 11:47 AM) Normal Negative AO Auto Urine SS FLUBV RNA SUSAN+probe Ql (Resp) Negative (02/05/24 11:47 AM) Normal Negative AO Auto Urine SS RSV RNA SUSAN+probe Ql (Resp) Negative (02/05/24 11:47 AM) Normal Negative AO Auto Urine SS SARS-CoV-2 (COVID-19) RNA SUSAN+probe Ql (Resp) Negative 6 (02/05/24 11:47 AM) Normal Negative AO Auto Urine SS Comment on above: Interpretive Data: R esults from the Xpert Xpress CoV-2/Flu/RSV plus test should be correlated with the clinical history, epidemiological data, and other data available to the clinical evaluating the patient. Performance of the Xpert Xpress CoV-2/Flu/RSV plus test has only been established in nasopharyngeal swab specimen. Erroneous test results might occur from improper specimen collection, failure to follow the recommended sample collection, handling and storage procedures, technical error, or sample mix-up. False negative results may occur if a virus is present at a level below the analytical limit of detection. Viral nucleic acid may persist in vivo, independent of virus viability. Detection of analyte target(s) does not imply that the corresponding virus(es) are infectious or are the causative agents for clinical symptoms. Recent patient exposure to FluMist or other live attenuated influenza vaccines may cause inaccurate positive results. LABORATORYOrdered By: SYSTEM SYSTEM on 02-05-2024 Basophils (Bld) [#/Vol] 0.0 103/mcL Normal 0.0 - 0.2 10^3/mcL AO Workflow SS Basophils/100 WBC (Bld) 0.6 % Normal 0.0 - 2.5 % AO Workflow SS Calcium [Mass/Vol] 9.4 mg/dL Normal 8.4 - 10. 2 mg/dL AO ADM SS Chloride [Moles/Vol] 103 mmol/L Normal 98 - 10 7 mmol/L AO ADM SS CO2 [Moles/Vol] 25 mmol/L Normal 23 - 31 mmol/L AO ADM SS Creatinine [Mass/Vol] 0.86 mg/dL Normal 0.55 - 1.02 mg/dL AO ADM SS Comment on above: Interpretive Data: T esting performed on Siemens Dimension EXL analyzer using a modified kinetic Favian technique. Electrolyte Balance 12.0 mEq/L Normal 4.0 - 15 .0 mEq/L AO ADM SS Eosinophil, Absolute 0.1 103/mcL Normal 0.0 - 0 .7 10^3/mcL AO Workflow SS Eosinophils/100 WBC (Bld) 1.6 % Normal 0.0 - 7.0 % AO Workflow SS Erythrocyte distribution width (RBC) [Ratio] 14.1 % Normal 11.5 - 15.5 % AO Workflow SS GFR/1.73 sq M.predicted among blacks MDRD (S/P/Bld) [Vol rate/Area] 76 ml/min/1.73sqm Invalid Interpretation Code AO Chemistry S Comment on above: Interpretive Data: GFR Population mean for , Non- Americans Ages 20-29 = 116 mL/min/1.73 sq.m. Ages 30-39 = 107 mL/min/1.73 sq.m. Ages 40-49 = 99 mL/min/1.73 sq.m. Ages 50-59 = 93 mL/min/1.73 sq.m. Ages 60-69 = 85 mL/min/1.73 sq.m. Ages 70+ = 75 mL/min/1.73 sq.m. Chronic Kidney Disease: Less than 60 mL/min/1.73 square meters End Stage Renal Disease: Less than 15 mL/min/1.73 square meters GFR/1.73 sq M.predicted among non-blacks MDRD (S/P/Bld) [Vol rate/Area] 63 ml/min/1.73sqm Invalid Interpretation Code AO Chemistry S Comment on above: Interpretive Data: GFR Population mean for , Non- Americans Ages 20-29 = 116 mL/min/1.73 sq.m. Ages 30-39 = 107 mL/min/1.73 sq.m. Ages 40-49 = 99 mL/min/1.73 sq.m. Ages 50-59 = 93 mL/min/1.73 sq.m. Ages 60-69 = 85 mL/min/1.73 sq.m. Ages 70+ = 75 mL/min/1.73 sq.m. Chronic Kidney Disease: Less than 60 mL/min/1.73 square meters End Stage Renal Disease: Less than 15 mL/min/1.73 square meters Glucose [Mass/Vol] 130 mg/dL High 83 - 110 mg/dL AO ADM SS Hematocrit (Bld) [Volume fraction] 37.2 % Normal 34.0 - 46.0 % AO Workflow SS Hemoglobin (Bld) [Mass/Vol] 12.9 G/dL Normal 12.0 - 16.0 G/dL AO Workflow SS Lymphocytes (Bld) [#/Vol] 0.9 103/mcL Normal 0.9 - 4.3 10^3/mcL AO Workflow SS Lymphocytes/100 WBC (Bld) 13.3 % Low 20.0 - 40.0 % AO Workflow SS MCH (RBC) [Entitic mass] 32.1 pg Normal 27.0 - 33.0 pg AO Workflow SS MCHC 34.5 G/dL Normal 32.0 - 36.0 G/dL AO Workflow SS MCV (RBC) [Entitic vol] 92.8 fL Normal 80.0 - 99.0 fL AO Workflow SS Monocyte distribution width Auto (Bld) [Entitic vol] 18.91 1 Normal 0.00 - 20.00 AO Workflow SS Comment on above: Result Comment: For ED adult patients suspected of sepsis, MDW<=20.0 does not rule out sepsis or risk of sepsis Monocytes (Bld) [#/Vol] 0.8 103/mcL Normal 0.1 - 1.4 10^3/mcL AO Workflow SS Monocytes/100 WBC (Bld) 12.3 % Normal 2.0 - 13.0 % AO Workflow SS Neutrophils (Bld) [#/Vol] 4.9 103/mcL Normal 2.3 - 8.1 10^3/mcL AO Workflow SS Neutrophils/100 WBC (Bld) 72.2 % Normal 50.0 - 75.0 % AO Workflow SS Platelet mean volume (Bld) [Entitic vol] 7.8 fL Normal 6.6 - 10.5 fL AO Workflow SS Platelets (Bld) [#/Vol] 172 103/mcL Normal 150 - 450 10^3/mcL AO Workflow SS Potassium [Moles/Vol] 3.0 mmol/L Low 3.5 - 5.1 mmol/L AO ADM SS RBC (Bld) [#/Vol] 4.01 106/mcL Low 4.10 - 5.3 0 10^6/mcL AO Workflow SS Sodium [Moles/Vol] 140 mmol/L Normal 136 - 145 mmol/L AO ADM SS Troponin I.cardiac DL <= 0.01 ng/mL [Mass/Vol] 7 ng/L Normal 0 - 51 ng/L AO ADM SS Comment on above: Interpretive Data: H igh Sensitive Troponin I Reference Ranges: Female: 0-51 ng/L Male: 0-76 ng/L Testing performed on [employer] using a homogeneous sandwich chemiluminescent immunoassay based on [employer] technology. Urea nitrogen [Mass/Vol] 13 mg/dL Normal 7 - 18 mg/dL AO ADM SS Urea nitrogen/Creatinine [Mass ratio] 15 ratio Normal 7 - 27 ratio AO ADM SS WBC (Bld) [#/Vol] 6.8 103/mcL Normal 4.5 - 10.8 10^3/mcL AO Workflow SS TROPHSon 02-05-2024 High Sensitivity Troponin I 7 ng/L Normal 0-51 [facility] Comment on above: Result Comment: High Sensitive Troponin I Reference Ranges: Female: 0-51 ng/L Male: 0-76 ng/L Testing performed on [employer] using a homogeneous sandwich chemiluminescent immunoassay based on [employer] technology. Performed By: #### G FR, ANEU, BMP, MG, ADIFF, CBC #### [address] [address] UAon 02-05-2024 Color (U) Yellow Normal [facility] Comment on above: Performed By: #### G FR, ANEU, BMP, MG, ADIFF, CBC #### [address] [address] Glucose (U) [Mass/Vol] Negative Normal Negative [facility] Comment on above: Performed By: #### G FR, ANEU, BMP, MG, ADIFF, CBC #### [address] [address] Ketones Ql (U) Negative Normal Negative [facility] Comment on above: Performed By: #### G FR, ANEU, BMP, MG, ADIFF, CBC #### [address] [address] UA Appear Slightly Cloudy Abnormal Clear [facility] Comment on above: Performed By: #### G FR, ANEU, BMP, MG, ADIFF, CBC #### [address] [address] UA Blood Negative Normal Negative [facility] Comment on above: Performed By: #### G FR, ANEU, BMP, MG, ADIFF, CBC #### [address] [address] UA Leuk Est Negative Normal Negative [facility] Comment on above: Performed By: #### G FR, ANEU, BMP, MG, ADIFF, CBC #### [address] [address] UA Nitrite Positive Abnormal Negative [facility] Comment on above: Performed By: #### G FR, ANEU, BMP, MG, ADIFF, CBC #### [address] [address] UA pH 7.5 Normal 5.0 - 8.0 [facility] Comment on above: Performed By: #### G FR, ANEU, BMP, MG, ADIFF, CBC #### [address] [address] UA Protein Negative Normal Negative [facility] Comment on above: Performed By: #### G FR, ANEU, BMP, MG, ADIFF, CBC #### [place] [address] UA Spec Grav 1.020 Normal 1.015-1.025 [facility] Comment on above: Performed By: #### G FR, ANEU, BMP, MG, ADIFF, CBC #### [address] [address] UA Specimen Type Clean Catch Normal [facility] Comment on above: Performed By: #### G FR, ANEU, BMP, MG, ADIFF, CBC #### [address] [address] UA Urobilinogen 0.2 E.U./dL Normal 0.2-1.0 [facility] Comment on above: Performed By: #### G FR, ANEU, BMP, MG, ADIFF, CBC #### [address] [address] Urobilinogen (U) [Mass/Vol] Negative Normal Negative [facility] Comment on above: Performed By: #### G FR, ANEU, BMP, MG, ADIFF, CBC #### [place] [address] XR CHEST 1 VIEWon 02-05-2024 XR CHEST 1 VIEW ORIGINAL EXAMINATION: ONE XRAY VIEW OF THE CHEST TECHNIQUE: One view AP upright COMPARISON: None HISTORY: ORDERING SYSTEM PROVIDED HISTORY: Reason for Exam: chest pain FINDINGS: Support devices: None Cardiomediastinal: Cardiomegaly Lungs: The left diaphragm is obscured by increased opacification in the left retrocardiac region or and or an elevated left hemidiaphragm. A no evidence of pulmonary edema or a right pleural effusion. An indeterminate 8 mm round nodule in the right upper lobe is present. Pneumothorax: None Osseous: No acute osseous pathology. Widespread demineralization. Bilateral shoulder arthrosis and multilevel thoracic spondylotic changes. IMPRESSION: 1. Increased opacification in the left retrocardiac region which may reflect atelectasis, consolidation, hiatal hernia, and or pleural effusion. 2. Indeterminate 8 mm round nodule in the right upper lobe. Nonemergent CT chest advised. 3. Cardiomegaly. Interpreted by: Francisco Javier Heart MD Preliminary Report By: Francisco Javier Heart MD Electronically signed By Francisco Javier Heart MD Dictated Date: 02/05/2024 10:35:36 AM Prelim Date: 02/05/2024 10:40:33 AM Sign Date: 02/05/2024 10:40:33 AM [facility]ing [facility] W/PELVIS 4 VIEW Son 02-05-2024 XR HIP RIGHT W/PELVIS 4 VIEWS ORIGINAL EXAMINATION: HIP TECHNIQUE: AP pelvis, AP and frog lateral views of the right hip were performed. COMPARISON: None HISTORY: ORDERING SYSTEM PROVIDED HISTORY: Reason for Exam: fall FINDINGS: The osseous structures are diffusely demineralized. Acute displaced comminuted fractures of the right superior and inferior pubic rami are present. There is moderate bilateral narrowing of the hip joint without a hip fracture. The pubic symphysis is preserved. Degenerative changes involve the bilateral sacroiliac joints. Soft tissue swelling/hematoma about the right thigh, gluteus muscles and hemipelvis noted. IMPRESSION: 1. Acute displaced comminuted fractures of the right superior and inferior pubic rami. 2. Soft tissue swelling/hematoma about the right thigh, gluteus muscles and hemipelvis. Interpreted by: Francisco Javier Heart MD Preliminary Report By: Francisco Javier Heart MD Electronically signed By Francisco Javier Heart MD Dictated Date: 02/05/2024 10:52:12 AM Prelim Date: 02/05/2024 10:54:58 AM Sign Date: 02/05/2024 10:54:58 AM Ordering Provider: RAQUEL MCNALLY [facility] Alex 01-03-2024 CNPN Telephone (AGGENS4) SAVANAH CYR ([id number]) 1940 F Date Time Provider Department 01/03/24 KRISTYN SOL AGGENS4 During your visit today, we recorded the following information about you: Moiz Aparicio 01/03/2024 8:06 AM Signed Pt called in and LVM to cancel- called back to r/s but had to LVM Allergies As of Date: 01/03/2024 (No Known Allergies) Date Reviewed: 11/28/2023 Reviewed by: Kym Sutherland, PHAN - Fully Assessed Reason for Visit: Appointment [[id number]] Prescriptions as of 01/03/2024 - hydroCHLOROthiazide 25 mg tablet Take 1 tablet by mouth once daily. - loratadine (CLARITIN) 10 mg tablet Take 1 tablet by mouth once daily. - lovastatin (MEVACOR) 20 mg tablet Take 1 tablet by mouth daily at bedtime. - metoprolol succinate ER (TOPROL XL) 25 mg 24 hr tablet Take 1 tablet by mouth once daily. - traZODone (DESYREL) 50 mg tablet Take 1 tablet by mouth daily at bedtime. - PARoxetine (PAXIL) 10 mg tablet Take 1 tablet by mouth once daily. - montelukast (SINGULAIR) 10 mg tablet Take 1 tablet by mouth daily at bedtime. - omeprazole (PRILOSEC) 20 mg capsule Take 1 capsule by mouth once daily. - BREO ELLIPTA 200-25 mcg/dose inhaler INHALE 1 PUFF BY MOUTH ONCE DAILY DIRECTED - azelastine 0.1% nasal spray Use 2 Sprays in each nostril twice daily. - fluticasone (FLONASE ALLERGY RELIEF) 50 mcg/actuation nasal spray Use 1 [place] in each nostril twice daily. To take 2 nasal sprays in each nostrils once daily for 2 weeks, then down to 1 spray/day/nostril - tiotropium bromide (SPIRIVA RESPIMAT) 2.5 mcg/actuation inhaler Inhale 2 Puffs as instructed once daily. - albuterol HFA (PROVENTIL HFA, VENTOLIN HFA) 90 mcg/actuation inhaler INHALE 2 PUFFS INTO LUNGS EVERY 4 HOURS NEEDED FOR WHEEZING OR SHORTNESS OF BREATH - multivitamin tablet Take 1 tablet by mouth once daily. - Cholecalciferol, Vitamin D3, 1,000 unit cap Take 1,000 Units by mouth once daily. Problem List As Of Date 01/03/2024 Noted Resolved Vitamin D deficiency [E55.9] Hair loss [L65.9] 08/30/2015 Essential hypertension, benign [I10] 08/30/2015 Osteoporosis [M81.0] 08/30/2015 Dyspnea and respiratory abnormalities [R06.00, *11/03/2015 LARA (obstructive sleep apnea) [G47.33] 11/03/2015 Solitary pulmonary nodule [R91.1] 11/03/2015 Hiatal hernia [K44.9] 11/18/2015 Periodic limb movement disorder [G47.61] 11/23/2015 Age-related cataract of both eyes [H25.9] 10/12/2020 Intrinsic asthma without status asthmaticus, mi*12/20/2020 Sacral back pain [M53.3] 11/06/2021 Closed nondisplaced zone I fracture of sacrum (*11/07/2021 Anxiety with depression [F41.8] 11/14/2021 Concentric left ventricular hypertrophy [I51.7] 01/23/2022 Chronic insomnia [F51.04] 01/23/2022 History of COVID-19 [Z86.16] 2020 Chronic cough [R05.3] 08/24/2022 PND (post-nasal drip) [R09.82] 08/24/2022 Non-seasonal allergic rhinitis [J30.89] 08/24/2022 Chronic bilateral low back pain without sciatic*12/18/2023 Encounter Status:Closed by MOIZ APARICIO on 01/03/24 [facility] 12-30-2023 CNPN Telephone (WYPT) DARSHANSAVANAH GARCIA ([id number]) 1940 F Date Time Provider Department 12/30/23 [employer] During your visit today, we recorded the following information about you: [employer] PTA 12/30/2023 3:01 PM Signed Called and left pt message of missed appt. Informed pt of next appt on SaturdayJanuary 05 at 1:15. Encouraged pt to call to cancel appt if unable to attend. [employer] PTA Allergies As of Date: 12/30/2023 (No Known Allergies) Date Reviewed: 11/28/2023 Reviewed by: Kym Sutherland, PHAN - Fully Assessed Reason for Visit: Missed Appointment [[id number]] Prescriptions as of 12/30/2023 - hydroCHLOROthiazide 25 mg tablet Take 1 tablet by mouth once daily. - loratadine (CLARITIN) 10 mg tablet Take 1 tablet by mouth once daily. - lovastatin (MEVACOR) 20 mg tablet Take 1 tablet by mouth daily at bedtime. - metoprolol succinate ER (TOPROL XL) 25 mg 24 hr tablet Take 1 tablet by mouth once daily. - traZODone (DESYREL) 50 mg tablet Take 1 tablet by mouth daily at bedtime. - PARoxetine (PAXIL) 10 mg tablet Take 1 tablet by mouth once daily. - montelukast (SINGULAIR) 10 mg tablet Take 1 tablet by mouth daily at bedtime. - omeprazole (PRILOSEC) 20 mg capsule Take 1 capsule by mouth once daily. - BREO ELLIPTA 200-25 mcg/dose inhaler INHALE 1 PUFF BY MOUTH ONCE DAILY DIRECTED - azelastine 0.1% nasal spray Use 2 Sprays in each nostril twice daily. - fluticasone (FLONASE ALLERGY RELIEF) 50 mcg/actuation nasal spray Use 1 [place] in each nostril twice daily. To take 2 nasal sprays in each nostrils once daily for 2 weeks, then down to 1 spray/day/nostril - tiotropium bromide (SPIRIVA RESPIMAT) 2.5 mcg/actuation inhaler Inhale 2 Puffs as instructed once daily. - albuterol HFA (PROVENTIL HFA, VENTOLIN HFA) 90 mcg/actuation inhaler INHALE 2 PUFFS INTO LUNGS EVERY 4 HOURS NEEDED FOR WHEEZING OR SHORTNESS OF BREATH - multivitamin tablet Take 1 tablet by mouth once daily. - Cholecalciferol, Vitamin D3, 1,000 unit cap Take 1,000 Units by mouth once daily. Problem List As Of Date 12/30/2023 Noted Resolved Vitamin D deficiency [E55.9] Hair loss [L65.9] 08/30/2015 Essential hypertension, benign [I10] 08/30/2015 Osteoporosis [M81.0] 08/30/2015 Dyspnea and respiratory abnormalities [R06.00, *11/03/2015 LARA (obstructive sleep apnea) [G47.33] 11/03/2015 Solitary pulmonary nodule [R91.1] 11/03/2015 Hiatal hernia [K44.9] 11/18/2015 Periodic limb movement disorder [G47.61] 11/23/2015 Age-related cataract of both eyes [H25.9] 10/12/2020 Intrinsic asthma without status asthmaticus, mi*12/20/2020 Sacral back pain [M53.3] 11/06/2021 Closed nondisplaced zone I fracture of sacrum (*11/07/2021 Anxiety with depression [F41.8] 11/14/2021 Concentric left ventricular hypertrophy [I51.7] 01/23/2022 Chronic insomnia [F51.04] 01/23/2022 History of COVID-19 [Z86.16] 2020 Chronic cough [R05.3] 08/24/2022 PND (post-nasal drip) [R09.82] 08/24/2022 Non-seasonal allergic rhinitis [J30.89] 08/24/2022 Chronic bilateral low back pain without sciatic*12/18/2023 Encounter Status:Closed by OLIVE GAMING on 12/30/23 [facility] CNPMarifer 12-26-2023 [facility] Telephone ([facility]) SAVANAH CYR ([id number]) 1940 F Date Time Provider Department 12/26/23 ALFREDITO TELLES [facility] During your visit today, we recorded the following information about you: Geni Garrett 12/26/2023 3:19 PM Signed Oxygen [facility] Allergies As of Date: 12/26/2023 (No Known Allergies) Date Reviewed: 11/28/2023 Reviewed by: Kym Sutherland, PHAN - Fully Assessed Reason for Visit: FYI-No Action Needed [265] Prescriptions as of 12/26/2023 - hydroCHLOROthiazide 25 mg tablet Take 1 tablet by mouth once daily. - loratadine (CLARITIN) 10 mg tablet Take 1 tablet by mouth once daily. - lovastatin (MEVACOR) 20 mg tablet Take 1 tablet by mouth daily at bedtime. - metoprolol succinate ER (TOPROL XL) 25 mg 24 hr tablet Take 1 tablet by mouth once daily. - traZODone (DESYREL) 50 mg tablet Take 1 tablet by mouth daily at bedtime. - PARoxetine (PAXIL) 10 mg tablet Take 1 tablet by mouth once daily. - montelukast (SINGULAIR) 10 mg tablet Take 1 tablet by mouth daily at bedtime. - omeprazole (PRILOSEC) 20 mg capsule Take 1 capsule by mouth once daily. - BREO ELLIPTA 200-25 mcg/dose inhaler INHALE 1 PUFF BY MOUTH ONCE DAILY DIRECTED - azelastine 0.1% nasal spray Use 2 Sprays in each nostril twice daily. - fluticasone (FLONASE ALLERGY RELIEF) 50 mcg/actuation nasal spray Use 1 [place] in each nostril twice daily. To take 2 nasal sprays in each nostrils once daily for 2 weeks, then down to 1 spray/day/nostril - tiotropium bromide (SPIRIVA RESPIMAT) 2.5 mcg/actuation inhaler Inhale 2 Puffs as instructed once daily. - albuterol HFA (PROVENTIL HFA, VENTOLIN HFA) 90 mcg/actuation inhaler INHALE 2 PUFFS INTO LUNGS EVERY 4 HOURS NEEDED FOR WHEEZING OR SHORTNESS OF BREATH - multivitamin tablet Take 1 tablet by mouth once daily. - Cholecalciferol, Vitamin D3, 1,000 unit cap Take 1,000 Units by mouth once daily. Problem List As Of Date 12/26/2023 Noted Resolved Vitamin D deficiency [E55.9] Hair loss [L65.9] 08/30/2015 Essential hypertension, benign [I10] 08/30/2015 Osteoporosis [M81.0] 08/30/2015 Dyspnea and respiratory abnormalities [R06.00, *11/03/2015 LARA (obstructive sleep apnea) [G47.33] 11/03/2015 Solitary pulmonary nodule [R91.1] 11/03/2015 Hiatal hernia [K44.9] 11/18/2015 Periodic limb movement disorder [G47.61] 11/23/2015 Age-related cataract of both eyes [H25.9] 10/12/2020 Intrinsic asthma without status asthmaticus, mi*12/20/2020 Sacral back pain [M53.3] 11/06/2021 Closed nondisplaced zone I fracture of sacrum (*11/07/2021 Anxiety with depression [F41.8] 11/14/2021 Concentric left ventricular hypertrophy [I51.7] 01/23/2022 Chronic insomnia [F51.04] 01/23/2022 History of COVID-19 [Z86.16] 2020 Chronic cough [R05.3] 08/24/2022 PND (post-nasal drip) [R09.82] 08/24/2022 Non-seasonal allergic rhinitis [J30.89] 08/24/2022 Chronic bilateral low back pain without sciatic*12/18/2023 Encounter Status:Closed by GENI GARRETT on 12/26/23 [facility] [id number] 12-18-2023 [id number] HNO ID: [id number] Author: DAYTON WHEAT PT Service: ? Author Type: Physical Therapist Type: [id number] Filed: 12/18/2023 14:53 Note Text: [facility] Physical Therapy Plan of Care Certification Patient Name: Savanah Cyr : 1940 [facility] #: [id number] Date: 12/18/2023 To: Ramesh Og MD From Therapist: Dayton Wheat PT RE: Patient Certification/ Recertification Your review, approval and electronic signature are required in order to comply with Payor: [facility] [place] / Plan: [employer] PPO / Product Type: PPO / regulations. The identified Physical Therapy PLAN OF CARE for the patient is as follows: M54.50, G89.29 Chronic bilateral low back pain without sciatica (primary encounter diagnosis) PLAN OF CARE: Assessment: Savanah Cyr presents with chief complaint of low back pain that interferes with rising from a chair, standing, walking, bending, physical activities . The patient presents with impairments in ADL's, gait, overall function, posture, range of motion, and symptom management. PROMIS? (Patient-Reported Outcomes Measurement Information System) scores were reviewed and identified as a rehabilitation concern. Prognosis for therapy is Fair due to: advanced age, chronic nature of impairments . The patient will benefit from skilled therapy services to meet the goals established for this plan of care as noted below. Goals for Episode of Care: established 12/18/23 Patient reported outcome of physical function will increase T-score by a minimum 5 points. [place] in home exercise program. Patient will decrease pain rating by 2 points to meet minimal clinical important difference for numeric pain rating scale. Patient will Improve Timed Up and Go to 12 seconds to demonstrate decreased risk of falling. Patient will improve 10MWT to 1m/s with no assistive device to demonstrate improvement in functional community ambulation. Increase ROM of the lumbar spine for improved posture and overall function. Improve postural awareness. Patient Goals: Pain relief, improve walking tolerance and overall function Time Frame for Goals and Treatment : 02/16/24 Planned Interventions, Frequency, and Duration: Current Frequency: 1x/week Duration: 8 weeks Total Number of Visits Planned: 8 Planned Treatment Interventions: Therapeutic exercise (73961), Therapeutic activities (36087), Manual therapy (94058), Gait Training (55361), Aquatic PT (21992), Neuromuscular re-education (62530) PLAN FOR NEXT VISIT: Monitor response to seated flexion and progress with core/LE strength to tolerance Patient demonstrates good understanding of plan of care and treatment. The above goals and plan of care were discussed and agreed upon by patient/family. For further details regarding this patient refer to the Physical Therapy electronically documented visit dated 12/18/2023. Provider Attestation I have reviewed the treatment plan for Savanah Cyr, [facility]# [id number] for the period of 12/18/23 -- 02/16/24, established on 12/18/2023. Signature certifies the need for therapy services. Normal [facility] CNTHERAPYon 12-18-2023 CNTHERAPY OT/PT/Speech Visit (AKPTG) GERSAVANAH ([id number]) 1940 F Date Time Provider Department 12/18/23 1:45 PM DAYTON WHEAT Date Time Provider Department Center 12/18/2023 1:45 PM [id number] WHEAT [facility] Reason for Visit: PT Eval [367] PT Discharge [542] Primary Visit Diagnosis:Chronic bilateral low back pain without sciatica [M54.50, G89.29] Allergies As of Date: 12/18/2023 (No Known Allergies) Date Reviewed: 11/28/2023 Reviewed by: Kym Sutherland, PHAN - Fully Assessed Prescriptions as of 02/27/2024 - hydroCHLOROthiazide 25 mg tablet Take 1 tablet by mouth once daily. - lovastatin (MEVACOR) 20 mg tablet Take 1 tablet by mouth daily at bedtime. - metoprolol succinate ER (TOPROL XL) 25 mg 24 hr tablet Take 1 tablet by mouth once daily. - PARoxetine (PAXIL) 10 mg tablet Take 1 tablet by mouth once daily. - montelukast (SINGULAIR) 10 mg tablet Take 1 tablet by mouth daily at bedtime. - omeprazole (PRILOSEC) 20 mg capsule Take 1 capsule by mouth once daily. - BREO ELLIPTA 200-25 mcg/dose inhaler INHALE 1 PUFF BY MOUTH ONCE DAILY DIRECTED - azelastine 0.1% nasal spray Use 2 Sprays in each nostril twice daily. - fluticasone (FLONASE ALLERGY RELIEF) 50 mcg/actuation nasal spray Use 1 [place] in each nostril twice daily. To take 2 nasal sprays in each nostrils once daily for 2 weeks, then down to 1 spray/day/nostril - tiotropium bromide (SPIRIVA RESPIMAT) 2.5 mcg/actuation inhaler Inhale 2 Puffs as instructed once daily. - albuterol HFA (PROVENTIL HFA, VENTOLIN HFA) 90 mcg/actuation inhaler INHALE 2 PUFFS INTO LUNGS EVERY 4 HOURS NEEDED FOR WHEEZING OR SHORTNESS OF BREATH - multivitamin tablet Take 1 tablet by mouth once daily. - Cholecalciferol, Vitamin D3, 1,000 unit cap Take 1,000 Units by mouth once daily. [employer] Associate: Therapy (PT/OT/Speech/Resp) ID: [id number] 12/18/2023 2:15 PM Author: DAYTON WHEAT Signed by DAYTON HWEAT PT on 12/18/2023 at 2:15 PM Document text: Program_ID:[id number] Access Code: [email or web address] URL: [email or web address]/ Date: 12-18-2023 Prepared By: Dayton Wheat Program Notes Exercises - Seated Lumbar Flexion Stretch - 4-5 x daily - x weekly - sets - 10 reps [facility] THERAPY NTon 12-18-2023 THERAPY NT HNO ID: [id number] Author: DAYTON WHEAT, PT Service: ? Author Type: Physical Therapist Type: Therapy (PT/OT/Speech/Resp) Filed: 12/18/2023 14:15 Note Text: Program_ID:[id number] Access Code: [email or web address] URL: [email or web address] .Kili/ Date: 12-18-2023 Prepared By: Dayton Wheat Program Notes Exercises - Seated Lumbar Flexion Stretch - 4-5 x daily - x weekly - sets - 10 reps Normal [facility] CNPNon 12-10-2023 CNPN Telephone ([facility]) SAVANAH CYR ([id number]) 1940 F Date Time Provider Department 12/10/23 KRISTYN SOL [facility] During your visit today, we recorded the following information about you: Moiz Aparicio 12/10/2023 11:20 AM Signed Referral from PCP to be seen by Dr. Sol for evaluation. DX:Large Hiatal Hernia -left sided pain AND some difficulty breathing Called x3 LVM Allergies As of Date: 12/10/2023 (No Known Allergies) Date Reviewed: 11/28/2023 Reviewed by: Kym Sutherland, PHAN - Fully Assessed Reason for Visit: Appointment [186] Cmt: New patient referral-Dr. Sol Prescriptions as of 12/10/2023 - naproxen (NAPROSYN) 500 mg tablet Take 1 tablet by mouth two times a day as needed for up to 14 days. Take with food. - hydroCHLOROthiazide 25 mg tablet Take 1 tablet by mouth once daily. - loratadine (CLARITIN) 10 mg tablet Take 1 tablet by mouth once daily. - lovastatin (MEVACOR) 20 mg tablet Take 1 tablet by mouth daily at bedtime. - metoprolol succinate ER (TOPROL XL) 25 mg 24 hr tablet Take 1 tablet by mouth once daily. - traZODone (DESYREL) 50 mg tablet Take 1 tablet by mouth daily at bedtime. - PARoxetine (PAXIL) 10 mg tablet Take 1 tablet by mouth once daily. - montelukast (SINGULAIR) 10 mg tablet Take 1 tablet by mouth daily at bedtime. - omeprazole (PRILOSEC) 20 mg capsule Take 1 capsule by mouth once daily. - BREO ELLIPTA 200-25 mcg/dose inhaler INHALE 1 PUFF BY MOUTH ONCE DAILY DIRECTED - azelastine 0.1% nasal spray Use 2 Sprays in each nostril twice daily. - fluticasone (FLONASE ALLERGY RELIEF) 50 mcg/actuation nasal spray Use 1 [place] in each nostril twice daily. To take 2 nasal sprays in each nostrils once daily for 2 weeks, then down to 1 spray/day/nostril - tiotropium bromide (SPIRIVA RESPIMAT) 2.5 mcg/actuation inhaler Inhale 2 Puffs as instructed once daily. - albuterol HFA (PROVENTIL HFA, VENTOLIN HFA) 90 mcg/actuation inhaler INHALE 2 PUFFS INTO LUNGS EVERY 4 HOURS NEEDED FOR WHEEZING OR SHORTNESS OF BREATH - multivitamin tablet Take 1 tablet by mouth once daily. - Cholecalciferol, Vitamin D3, 1,000 unit cap Take 1,000 Units by mouth once daily. Problem List As Of Date 12/10/2023 Noted Resolved Vitamin D deficiency [E55.9] Hair loss [L65.9] 08/30/2015 Essential hypertension, benign [I10] 08/30/2015 Osteoporosis [M81.0] 08/30/2015 Dyspnea and respiratory abnormalities [R06.00, *11/03/2015 LARA (obstructive sleep apnea) [G47.33] 11/03/2015 Solitary pulmonary nodule [R91.1] 11/03/2015 Hiatal hernia [K44.9] 11/18/2015 Periodic limb movement disorder [G47.61] 11/23/2015 Age-related cataract of both eyes [H25.9] 10/12/2020 Intrinsic asthma without status asthmaticus, mi*12/20/2020 Sacral back pain [M53.3] 11/06/2021 Closed nondisplaced zone I fracture of sacrum (*11/07/2021 Anxiety with depression [F41.8] 11/14/2021 Concentric left ventricular hypertrophy [I51.7] 01/23/2022 Chronic insomnia [F51.04] 01/23/2022 History of COVID-19 [Z86.16] 2020 Chronic cough [R05.3] 08/24/2022 PND (post-nasal drip) [R09.82] 08/24/2022 Non-seasonal allergic rhinitis [J30.89] 08/24/2022 Encounter Status:Closed by MOIZ APARICIO on 12/10/23 Normal [facility] XR CHEST 2V FRONTAL/LATon XR CHEST 2V FRONTAL/LAT * * *Final Report* * * DATE OF EXAM: Nov 29 2023 12:38AM GRX [id number] - XR CHEST 2V FRONTAL/LAT / PROCEDURE REASON: Chest Pain * * * * Physician Interpretation * * * * EXAMINATION: CHEST RADIOGRAPH (2 VIEW FRONTAL and LATERAL) CLINICAL HISTORY: LEFT chest Pain , shortness of breath, chronic cough, history of asthma and hiatal hernia. MQ: XC2_6 EXAM DATE/TIME: 11/29/2023 12:38 AM COMPARISON: 11/19/2023, 08/15/2022, and 10/17/2021 RESULT: Lines, tubes, and devices: None. Lungs and pleura: Redemonstration of calcified granuloma in the RIGHT upper lung. No consolidation, pleural effusion, or pneumothorax. Stable lung volumes with elevation LEFT hemidiaphragm. Cardiomediastinal silhouette: Stable cardiac mediastinal silhouette with redemonstration of large hiatal hernia. No acute congestion. Bones and soft tissues: Chronic deformities of the spine redemonstrated. IMPRESSION: No acute radiographic abnormality. Network Diagnostic Support Specialist: PSCB Transcribe Date/Time: Nov 29 2023 1:58A Dictated by : JANET QUIROZ MD This examination was interpreted and the report reviewed and electronically signed by: JANET QUIROZ MD on Nov 29 2023 2:02AM EST [id number] [facility] CBC W Auto Differential pane l (Bld)on 11-28-2023 Basophils (Bld) [#/Vol] 0.03 10*3/uL Normal <0.11 [facility] Comment on above: Order Comment: Speci men Type: BLOOD SPECIMEN Ordering Facility: [facility] Address: [address] [place] [address] Performed By: #### 5 7021-8 #### [facility] CLIA [id number] [address] [address] [place] Basophils/100 WBC (Bld) 0.5 % Normal [facility] Comment on above: Order Comment: Speci men Type: BLOOD SPECIMEN Ordering Facility: [facility] Address: [address] [place] [address] Performed By: #### 5 7021-8 #### [facility] CLIA [id number] [address] [place], [place] [address] [place] Differential cell count method Nom (Bld) Auto Normal [facility] Comment on above: Order Comment: Speci men Type: BLOOD SPECIMEN Ordering Facility: [facility] Address: [address] [place] [address] Performed By: #### 5 7021-8 #### [facility] CLIA [id number] [address] [place] [address] [place] Eosinophils (Bld) [#/Vol] 0.12 10*3/uL Normal <0.46 [facility] Comment on above: Order Comment: Speci men Type: BLOOD SPECIMEN Ordering Facility: [facility] Address: [address] [place] [address] Performed By: #### 5 7021-8 #### [facility] CLIA [id number] [address] [place], [place] [address] [place] Eosinophils/100 WBC (Bld) 1.8 % Normal [facility] Comment on above: Order Comment: Speci men Type: BLOOD SPECIMEN Ordering Facility: [facility] Address: [address] [place] [address] Performed By: #### 5 7021-8 #### [facility] CLIA [id number] [address] [address] [place] Erythrocyte distribution width (RBC) [Ratio] 12.7 % Normal 11.5-15.0 [facility] Comment on above: Order Comment: Speci men Type: BLOOD SPECIMEN Ordering Facility: [facility] Address: [address] [place] [address] Performed By: #### 5 7021-8 #### [facility] CLIA [id number] [address] [place], [place] [address] [place] Hematocrit (Bld) [Volume fraction] 42.9 % Normal 36.0-46.0 [facility] Comment on above: Order Comment: Speci men Type: BLOOD SPECIMEN Ordering Facility: [facility] Address: [address] [place] [address] Performed By: #### 5 7021-8 #### [facility] CLIA [id number] [address] [place], [place] [address] [place] Hemoglobin (Bld) [Mass/Vol] 14.1 g/dL Normal 11.5-15.5 [facility] Comment on above: Order Comment: Speci men Type: BLOOD SPECIMEN Ordering Facility: [facility] Address: [address] [place] [address] Performed By: #### 5 7021-8 #### [facility] CLIA [id number] [address] [place], [place] [address] [place] Immature granulocytes (Bld) [#/Vol] 10*3/uL Normal <0.10 [facility] Comment on above: Order Comment: Speci men Type: BLOOD SPECIMEN Ordering Facility: [facility] Address: [address] [place] [address] Performed By: #### 5 7021-8 #### [facility] CLIA [id number] [address] [place], [place] [address] [facility] [place] Immature granulocytes/100 WBC (Bld) 0.2 % Normal [facility] Comment on above: Order Comment: Speci men Type: BLOOD SPECIMEN Ordering Facility: [facility] Address: [address] [place] [address] Performed By: #### 5 7021-8 #### [facility] CLIA [id number] [address] [place], [place] [address] [place] Lymphocytes (Bld) [#/Vol] 1.70 10*3/uL Normal 1.00-4.00 [facility] Comment on above: Order Comment: Speci men Type: BLOOD SPECIMEN Ordering Facility: [facility] Address: [address] [place] [address] Performed By: #### 5 7021-8 #### [facility] CLIA [id number] [address] [place], [place] [address] [facility] [place] Lymphocytes/100 WBC (Bld) 25.7 % Normal [facility] Comment on above: Order Comment: Speci men Type: BLOOD SPECIMEN Ordering Facility: [facility] Address: [address] [place] [address] Performed By: #### 5 7021-8 #### [facility] CLIA [id number] [address] [place], [place] [address] [place] MCH (RBC) [Entitic mass] 30.7 pg Normal 26.0-34.0 [facility] Comment on above: Order Comment: Speci men Type: BLOOD SPECIMEN Ordering Facility: [facility] Address: [address] [place] [address] Performed By: #### 5 7021-8 #### [facility] CLIA [id number] [address] [place], [place] [address] [place] MCHC (RBC) [Mass/Vol] 32.9 g/dL Normal 30.5-36.0 [facility] Comment on above: Order Comment: Speci men Type: BLOOD SPECIMEN Ordering Facility: [facility] Address: [address] [place] [address] Performed By: #### 5 7021-8 #### [facility] CLIA [id number] [address] [place], [place] [address] [place] MCV (RBC) [Entitic vol] 93.3 fL Normal 80.0-100.0 [facility] Comment on above: Order Comment: Speci men Type: BLOOD SPECIMEN Ordering Facility: [facility] Address: [address] [place] [address] Performed By: #### 5 7021-8 #### [facility] CLIA [id number] [address] [place], [place] [address] [place] Monocytes (Bld) [#/Vol] 0.50 10*3/uL Normal <0.87 [facility] Comment on above: Order Comment: Speci men Type: BLOOD SPECIMEN Ordering Facility: [facility] Address: [address] [place] [address] Performed By: #### 5 7021-8 #### [facility] CLIA [id number] [address] [place], [place] [address] [place] Monocytes/100 WBC (Bld) 7.6 % Normal [facility] Comment on above: Order Comment: Speci men Type: BLOOD SPECIMEN Ordering Facility: [facility] Address: [address] [place] [address] Performed By: #### 5 7021-8 #### [facility] CLIA [id number] [address] [place], [place] [address] [place] Neutrophils (Bld) [#/Vol] 4.25 10*3/uL Normal 1.45-7.50 [facility] Comment on above: Order Comment: Speci men Type: BLOOD SPECIMEN Ordering Facility: [facility] Address: [address] [place] [address] Performed By: #### 5 7021-8 #### [facility] CLIA [id number] [address] [place], [place] [address] [place] Neutrophils/100 WBC (Bld) 64.2 % Normal [facility] Comment on above: Order Comment: Speci men Type: BLOOD SPECIMEN Ordering Facility: [facility] Address: [address] [place] [address] Performed By: #### 5 7021-8 #### [facility] CLIA [id number] [address] [place] [address] [place] Nucleated RBC (Bld) [#/Vol] Normal [facility] Comment on above: Order Comment: Speci men Type: BLOOD SPECIMEN Ordering Facility: [facility] Address: [address] [place] [address] Performed By: #### 5 7021-8 #### [facility] CLIA [id number] [address] [address] [place] Nucleated RBC/100 WBC (Bld) [Ratio] Normal [facility] Comment on above: Order Comment: Speci men Type: BLOOD SPECIMEN Ordering Facility: [facility] Address: [address] [place] [address] Performed By: #### 5 7021-8 #### [facility] CLIA [id number] [address] [place], [place] [address] [place] Platelet mean volume (Bld) [Entitic vol] 10.2 fL Normal 9.0-12.7 [facility] Comment on above: Order Comment: Speci men Type: BLOOD SPECIMEN Ordering Facility: [facility] Address: [address] [place] [address] Performed By: #### 5 7021-8 #### [facility] CLIA [id number] [address] [place], [place] [address] [place] Platelets (Bld) [#/Vol] 212 10*3/uL Normal 150-400 [facility] Comment on above: Order Comment: Speci men Type: BLOOD SPECIMEN Ordering Facility: [facility] Address: [address] [place] [address] Performed By: #### 5 7021-8 #### [facility] CLIA [id number] [address] [place] [address] [place] RBC (Bld) [#/Vol] 4.60 10*6/uL Normal 3.90-5.20 [facility] Comment on above: Order Comment: Kendellrafal leung Type: BLOOD SPECIMEN Ordering Facility: [facility] Address: [address] [place], [place] [address] Performed By: #### 5 7021-8 #### [facility] CLIA [id number] [address] [place] [address] [facility] WBC (Bld) [#/Vol] 6.61 10*3/uL Normal 3.70-11.00 [facility] Comment on above: Order Comment: Specrafal leung Type: BLOOD SPECIMEN Ordering Facility: [facility] Address: [address] [place], [place] [address] Performed By: #### 5 7021-8 #### [facility] CLIA [id number] [address] [place] [address] [facility] SAVANAH CYR ([id number]) 1940 F Date Time Provider Department 11/28/23 DUSTIN ARBOLEDA [facility] During your visit today, we recorded the following information about you: Laurita Hernandez PSS 11/28/2023 3:50 PM Signed Patient LM on unattended voicemail on 11/21/23 at 11:54am, needs pre-op appointment set up. CHELSI Clemente November 28, 2023 3:49 PM Laurita Hernandez PSS 12/09/2023 10:55 AM Signed Left message for patient asking if she still needs pre-op appointment. CHELSI Clemente December 09, 2023 10:55 AM Allergies As of Date: 11/28/2023 (No Known Allergies) Date Reviewed: 11/28/2023 Reviewed by: Kym Sutherland, PHAN - Fully Assessed Reason for Visit: Appointment [186] Prescriptions as of 12/09/2023 - naproxen (NAPROSYN) 500 mg tablet Take 1 tablet by mouth two times a day as needed for up to 14 days. Take with food. - hydroCHLOROthiazide 25 mg tablet Take 1 tablet by mouth once daily. - loratadine (CLARITIN) 10 mg tablet Take 1 tablet by mouth once daily. - lovastatin (MEVACOR) 20 mg tablet Take 1 tablet by mouth daily at bedtime. - metoprolol succinate ER (TOPROL XL) 25 mg 24 hr tablet Take 1 tablet by mouth once daily. - traZODone (DESYREL) 50 mg tablet Take 1 tablet by mouth daily at bedtime. - PARoxetine (PAXIL) 10 mg tablet Take 1 tablet by mouth once daily. - montelukast (SINGULAIR) 10 mg tablet Take 1 tablet by mouth daily at bedtime. - omeprazole (PRILOSEC) 20 mg capsule Take 1 capsule by mouth once daily. - BREO ELLIPTA 200-25 mcg/dose inhaler INHALE 1 PUFF BY MOUTH ONCE DAILY DIRECTED - azelastine 0.1% nasal spray Use 2 Sprays in each nostril twice daily. - fluticasone (FLONASE ALLERGY RELIEF) 50 mcg/actuation nasal spray Use 1 [place] in each nostril twice daily. To take 2 nasal sprays in each nostrils once daily for 2 weeks, then down to 1 spray/day/nostril - tiotropium bromide (SPIRIVA RESPIMAT) 2.5 mcg/actuation inhaler Inhale 2 Puffs as instructed once daily. - albuterol HFA (PROVENTIL HFA, VENTOLIN HFA) 90 mcg/actuation inhaler INHALE 2 PUFFS INTO LUNGS EVERY 4 HOURS NEEDED FOR WHEEZING OR SHORTNESS OF BREATH - multivitamin tablet Take 1 tablet by mouth once daily. - Cholecalciferol, Vitamin D3, 1,000 unit cap Take 1,000 Units by mouth once daily. Problem List As Of Date 11/28/2023 Noted Resolved Vitamin D deficiency [E55.9] Hair loss [L65.9] 08/30/2015 Essential hypertension, benign [I10] 08/30/2015 Osteoporosis [M81.0] 08/30/2015 Dyspnea and respiratory abnormalities [R06.00, *11/03/2015 LARA (obstructive sleep apnea) [G47.33] 11/03/2015 Solitary pulmonary nodule [R91.1] 11/03/2015 Hiatal hernia [K44.9] 11/18/2015 Periodic limb movement disorder [G47.61] 11/23/2015 Age-related cataract of both eyes [H25.9] 10/12/2020 Intrinsic asthma without status asthmaticus, mi*12/20/2020 Sacral back pain [M53.3] 11/06/2021 Closed nondisplaced zone I fracture of sacrum (*11/07/2021 Anxiety with depression [F41.8] 11/14/2021 Concentric left ventricular hypertrophy [I51.7] 01/23/2022 Chronic insomnia [F51.04] 01/23/2022 History of COVID-19 [Z86.16] 2020 Chronic cough [R05.3] 08/24/2022 PND (post-nasal drip) [R09.82] 08/24/2022 Non-seasonal allergic rhinitis [J30.89] 08/24/2022 Encounter Status:Closed by LAURITA HERNANDEZ on 11/28/23 Normal [facility] Comprehensive metabolic 2000 panelon 11-28-2023 Albumin [Mass/Vol] 4.5 g/dL Normal 3.9-4.9 [facility] Comment on above: Order Comment: Speci men Type: BLOOD SPECIMEN Ordering Facility: [facility] Address: [address] [place] [address] Performed By: #### 2 4323-8 #### [facility] CLIA [id number] [address] [place] [address] [place] ALP [Catalytic activity/Vol] 64 U/L Normal 34-123 [facility] Comment on above: Order Comment: Speci men Type: BLOOD SPECIMEN Ordering Facility: [facility] Address: [address] [place] [address] Performed By: #### 2 4323-8 #### [facility] CLIA [id number] [address] [place], [place] [address] [place] ALT [Catalytic activity/Vol] 14 U/L Normal 7-38 [facility] Comment on above: Order Comment: Speci men Type: BLOOD SPECIMEN Ordering Facility: [facility] Address: [address] [place] [address] Performed By: #### 2 4323-8 #### [facility] CLIA [id number] [address] [place] [place] [id number] [place] Anion gap [Moles/Vol] 10 mmol/L Normal 8-15 [facility] Comment on above: Order Comment: Speci men Type: BLOOD SPECIMEN Ordering Facility: [facility] Address: [address] [place] [address] Performed By: #### 2 4323-8 #### [facility] CLIA [id number] [address] [place] [address] [place] AST [Catalytic activity/Vol] 17 U/L Normal 13-35 [facility] Comment on above: Order Comment: Speci men Type: BLOOD SPECIMEN Ordering Facility: [facility] Address: [address] [place] [address] Performed By: #### 2 4323-8 #### [facility] CLIA [id number] [address] [place] [address] [place] Bilirubin [Mass/Vol] 1.3 mg/dL Normal 0.2-1.3 [facility] Comment on above: Order Comment: Speci men Type: BLOOD SPECIMEN Ordering Facility: [facility] Address: [address] [place] [address] Result Comment: Use of this assay is not recommended for patients undergoing treatment with eltrombopag due to the potential for falsely elevated results. Performed By: #### 2 4323-8 #### [facility] CLIA [id number] [address] [place] [address] [place] Calcium [Mass/Vol] 9.8 mg/dL Normal 8.5-10.2 [facility] Comment on above: Order Comment: Speci men Type: BLOOD SPECIMEN Ordering Facility: [facility] Address: [address] [place] [address] Performed By: #### 2 4323-8 #### [facility] CLIA [id number] [address] [place], [place] [address] [place] Chloride [Moles/Vol] 102 mmol/L Normal 98-107 [facility] Comment on above: Order Comment: Speci men Type: BLOOD SPECIMEN Ordering Facility: [facility] Address: [address] [place] [address] Performed By: #### 2 4323-8 #### [facility] CLIA [id number] [address] [place], [place] [address] [place] CO2 [Moles/Vol] 29 mmol/L Normal 22-30 [facility] Comment on above: Order Comment: Speci men Type: BLOOD SPECIMEN Ordering Facility: [facility] Address: [address] [place] [address] Performed By: #### 2 4323-8 #### [facility] CLIA [id number] [address] [place], [place] [address] [place] [facility] Creatinine [Mass/Vol] 0.97 mg/dL High 0.58-0.96 [facility] Comment on above: Order Comment: Speci men Type: BLOOD SPECIMEN Ordering Facility: [facility] Address: [address] [place] [address] Result Comment: Use of this assay is not recommended for patients undergoing treatment with phenindione, due to the potential for falsely depressed results. Performed By: #### 2 4323-8 #### [facility] CLIA [id number] [address] [place] [address] [place] Creatinine and Glomerular filtration rate.predicted panel (S/P/Bld) 57 mL/min/1.73m??? Low >=60 [facility] Comment on above: Order Comment: Speci men Type: BLOOD SPECIMEN Ordering Facility: [facility] Address: [address] [place] [address] Result Comment: Denisse mated Glomerular Filtration Rate (eGFR) is calculated using the 2020 CKD-EPI creatinine equation. This equation utilizes serum creatinine, sex, and age as parameters. The creatinine assay has traceable calibration to isotope dilution-mass spectrometry. Refer to KDIGO guidelines for clinical interpretation. In patients with unstable renal function, e.g. those with acute kidney injury, the eGFR may not accurately reflect actual GFR. Performed By: #### 2 4323-8 #### [facility] CLIA [id number] [address] [place] [address] [place] Glucose [Mass/Vol] 127 mg/dL High 74-99 [facility] Comment on above: Order Comment: Alla leung Type: BLOOD SPECIMEN Ordering Facility: [facility] Address: [address] [place], [place] [id number] Result Comment: The [place] [employer] (ADA) provides guidance for cutoff values for fasting glucose and random glucose. The ADA defines fasting as no caloric intake for at least 8 hours. Fasting plasma glucose results between 100 to 125 mg/dL indicate increased risk for diabetes (prediabetes). Fasting plasma glucose results greater than or equal to 126 mg/dL meet the criteria for diagnosis of diabetes. In the absence of unequivocal hyperglycemia, results should be confirmed by repeat testing. In a patient with classic symptoms of hyperglycemia or hyperglycemic crisis, random plasma glucose results greater than or equal to 200 mg/dL meet the criteria for diagnosis of diabetes. Reference: Standards of Medical Care in Diabetes 2016, [place] [employer] Association. Diabetes Care. 2016.39(Suppl 1). Performed By: #### 2 4323-8 #### [facility] CLIA [id number] [address] [place] [address] [place] Potassium [Moles/Vol] 3.4 mmol/L Low 3.7-5.1 [facility] Comment on above: Order Comment: Alla leung Type: BLOOD SPECIMEN Ordering Facility: [facility] Address: [address] [place] [address] Performed By: #### 2 4323-8 #### [facility] CLIA [id number] [address] [place] [address] [place] Protein [Mass/Vol] 7.2 g/dL Normal 6.3-8.0 [facility] Comment on above: Order Comment: Speci men Type: BLOOD SPECIMEN Ordering Facility: [facility] Address: [address] [place] [address] Performed By: #### 2 4323-8 #### [facility] CLIA [id number] [address] [place] Sodium [Moles/Vol] 141 mmol/L Normal 136-144 [facility] Comment on above: Order Comment: Speci men Type: BLOOD SPECIMEN Ordering Facility: [facility] Address: [address] [place] [address] Performed By: #### 2 4323-8 #### [facility] CLIA [id number] [address] [place] [address] Urea nitrogen [Mass/Vol] 20 mg/dL Normal 7-21 [facility] Comment on above: Order Comment: Speci men Type: BLOOD SPECIMEN Ordering Facility: [facility] Address: [address] [place] [address] Performed By: #### 2 4323-8 #### [facility] CLIA [id number] [address] [place] D dimer FEU PPP-mCncon 11-27 Fibrin D-dimer FEU (PPP) [Mass/Vol] 780 ng/mL FEU High <500 [facility] Comment on above: Order Comment: Speci men Type: BLOOD SPECIMEN Ordering Facility: [facility] Address: [address] [place] [address] Performed By: #### 4 8065-7 #### [facility] CLIA [id number] [address] [place] [address] [place] ED NOTEon 11-28-2023 ED NOTE HNO ID: [id number] Author: KYM SUTHERLAND, RN Service: Emergency Medicine Author Type: Registered Nurse Type: ED Notes Filed: 11/28/2023 22:52 Note Text: C/o left chest pain into shoulder 9/10 worse with breathing that started tonight around 2215. +SOB, denies n/v denies diaphoresis. Normal [facility] ED PROV NOTEon 11-28-2023 ED PROV NOTE HNO ID: [id number] Author: RANJEET SANTANA DO Service: Emergency Medicine Author Type: Physician Type: ED Provider Notes Filed: 11/29/2023 02:10 Note Text: ED Provider Note Patient Name: Savanah Cyr : 1940 SERVICE DATE: 11/28/23 History Patient presents with: Chest Pain Ms. Cyr is an 83-year-old female who presents to the ED for evaluation of chest pain. Patient states that her symptoms start about 1 hour prior to arrival. She states she has had left-sided chest pain along her left upper costal cage. She states the pain is worsened with deep inspiration. She states she feels mildly short of breath because of the pain. Patient denies any radiation of pain, nausea, vomiting or worsening with exertion. Denies any trauma or injury to explain her symptoms. Patient states she is never had any similar issues in the past. Patient denies any significant cardiac history. Patient has any calf pain, lower extremity swelling, notable A1c, recent surgery, recent travel, hormone use, hemoptysis or prior DVT/PE. Patient did not take any medications prior to arrival. PAST MEDICAL HISTORY Diagnosis Date - Acquired hypothyroidism - Arthritis - Asthma - Atrophic vaginitis - Blood in feces - Chronic colitis - Depressive disorder - Disorder of peripheral nervous system - Diverticula of colon - Gastric ulcer - Gastroesophageal reflux disease - Hemangioma - Hiatal hernia 05/12/2020 large - History of COVID-2020 - History of viral hepatitis, type A - Hyperlipidemia - Irritable bowel syndrome - Migraine - Multiple nodules of lung - LARA (obstructive sleep apnea) 10/20/2019 mild - Paresthesia of foot - Quadriceps weakness - Reduced libido - Vitamin D deficiency PAST SURGICAL HISTORY Procedure Laterality Date - EGD WITH BIOPSY(S) 2012 - EGD WITH BIOPSY(S) 05/12/2020 80% of stomach above diaphram; Dr. Sol - EGD WITH BIOPSY(S) 07/30/2005 Dr. Guzman - EGD WITH BIOPSY(S) 05/29/2004 Dr. Guzman - TOTAL KNEE REPLACEMENT 2018 - WRIST SURGERY HX Right Fracture repair FAMILY HISTORY Problem Relation Age of Onset - Hypertension Mother - Stroke Mother - Heart Mother Social History Tobacco Use - Smoking status: Never - Smokeless tobacco: Never Vaping Use - Vaping status: Never Used Substance and Sexual Activity - Alcohol use: Yes Comment: occasional - Drug use: No - Sexual activity: Not on file ALLERGIES No Known Allergies Review of Systems All pertinent positives and negatives as per HPI, otherwise negative. Physical Exam Vitals [11/28/23 2250] BP Pulse Temp Temp src Resp SpO2 Weight Height 153/97 75 36.4 ?C (97.5 ?F) -- 22 98 % 55.3 kg (122 lb) 1.626 m (5' 4) Physical Exam Vitals and nursing note reviewed. Constitutional: General: She is not in acute distress. Appearance: She is not ill-appearing, toxic-appearing or diaphoretic. HENT: Head: Normocephalic. Nose: Nose normal. No congestion. Mouth/Throat: Mouth: Mucous membranes are moist. Eyes: General: No scleral icterus. Pupils: Pupils are equal, round, and reactive to light. Cardiovascular: Rate and Rhythm: Normal rate and regular rhythm. Pulses: Normal pulses. Heart sounds: No murmur heard. Comments: Distal pulses equal and intact in all four extremities. No calf pain or peripheral edema. Pulmonary: Effort: Pulmonary effort is normal. No respiratory distress. Breath sounds: Normal breath sounds. Chest: Comments: Reproducible tenderness to palpation along the left upper chest wall. No overlying rashes noted. No obvious deformity. No crepitus noted in the tissues. Abdominal: General: Abdomen is flat. Tenderness: There is no abdominal tenderness. There is no guarding. Musculoskeletal: General: No swelling or deformity. Normal range of motion. Cervical back: Normal range of motion. No tenderness. Skin: General: Skin is warm. Capillary Refill: Capillary refill takes less than 2 seconds. Findings: No rash. Neurological: General: No focal deficit present. Mental Status: She is alert and oriented to person, place, and time. Motor: No weakness. Psychiatric: Mood and Affect: Mood normal. Behavior: Behavior normal. Diagnostic Testing ED Labs Ordered and Reviewed - No data to display Procedures ED Course / Clinical Impression ED Course as of 11/29/23 0210 CurrentRanjeet's Documentation [facility] Nov 28, 2023 [id number] CBC + AUTO DIFF: WBC 6.61 RBC 4.60 Hemoglobin 14.1 Hematocrit 42.9 MCV 93.3 MCH 30.7 MCHC 32.9 RDW-CV 12.7 Platelet Count 212 MPV 10.2 Neut% 64.2 Abs Neut (ANC) 4.25 Lymph% 25.7 Abs Lymph 1.70 [place]% 7.6 Abs [place] 0.50 Eosin% 1.8 Abs Eosin 0.12 Baso% 0.5 Abs Baso 0.03 Immature Gran % 0.2 IMMATURE GRANS (ABS) <0.03 DTYPE Auto WNL 2350 d Dimer(!): 780 Below age-adjusted threshold. Low suspicion for PE and I do not feel patient requires a CT of her (more content not included)... Normal [facility] EKGon 11-28-2023 Electrocardiogram Ventricular Rate : 6 7 BPM Atrial Rate : 71 BPM QRS Duration : 116 ms Q-T Interval : 446 ms QTC Calculation(Bazett) : 471 ms Calculated P [place] : 63 degrees Calculated R [place] : 66 degrees Calculated T [place]way : 9 degrees SINUS RHYTHM WITH 2ND DEGREE A-V BLOCK (MOBITZ I) WITH OCCASIONAL PREMATURE VENTRICULAR COMPLEXES RIGHT BUNDLE BRANCH BLOCK ABNORMAL ECG NO PREVIOUS ECGS AVAILABLE Confirmed by RANJEET SANTANA DO ([id number]) on 11/28/2023 11:22:25 PM NAME : SAVANAH CYR PID : [id number] : 1940 Gender : Female Race : ORD : Procedure Date : Nov 28 2023 22:56:49 Edit Date : Nov 28 2023 23:22:31 Diagnosis: SINUS RHYTHM WITH 2ND DEGREE A-V BLOCK (MOBITZ I) WITH OCCASIONAL PREMATURE VENTRICULAR COMPLEXES RIGHT BUNDLE BRANCH BLOCK ABNORMAL ECG NO PREVIOUS ECGS AVAILABLE Confirmed by RANJEET SANTANA DO ([id number]) on 11/28/2023 11:22:25 PM Test Reason : Location : 153 : [facility] ED Overread By : RANJEET SANTANA DO Edited By : RANJEET SANTANA DO Referred By : , Acquired by : GÉNESIS CONDON Normal [facility] Fibrin D-dimer FEU (PPP) [Ma ss/Vol]on 11-28-2023 D DIMER AGE-RELATED CUTOFF 850 ng/mL FEU Normal [facility] Comment on above: Order Comment: Speci men Type: BLOOD SPECIMEN Ordering Facility: [facility] Address: [address] [place] [id number] Performed By: #### 4 8065-7 #### [facility] CLIA [id number] [address] [place] [address] [facility] [place] HIGH SENSITIVITY TROPONIN Io n 11-28-2023 Tropinin I.cardiac panel High sensitivity method 4.3 pg/mL Normal <=20.7 [facility] Comment on above: Order Comment: Speci men Type: BLOOD SPECIMEN Ordering Facility: [facility] Address: [address] [place] [id number] Performed By: #### H STROP #### [facility] CLIA [id number] [address] [place] [address] [facility] CNPNon 11-26-2023 CNPN Telephone (AGFACENXSS) SVAANAH CYR ([id number]) 1940 F Date Time Provider Department 11/26/23 DUSTIN ARBOLEDA During your visit today, we recorded the following information about you: Elidia Armas MA 11/26/2023 10:21 AM Signed ----- Message from Dustin Arboleda PA-C sent at 11/26/2023 9:53 AM EDT ----- Please inform patient that her xray was negative for rib fractures or other acute processes. Once again, xray shows a large hiatal hernia which the patient is aware of ZOE Ling Myra, MA 11/26/2023 1:38 PM Signed Patient informed of results and verbalizes understanding.India Martinez MA Allergies As of Date: 11/26/2023 (No Known Allergies) Date Reviewed: 11/20/2023 Reviewed by: Dustin Arboleda PA-C - Fully Assessed Reason for Visit: Results [95] Prescriptions as of 11/26/2023 - hydroCHLOROthiazide 25 mg tablet Take 1 tablet by mouth once daily. - loratadine (CLARITIN) 10 mg tablet Take 1 tablet by mouth once daily. - lovastatin (MEVACOR) 20 mg tablet Take 1 tablet by mouth daily at bedtime. - metoprolol succinate ER (TOPROL XL) 25 mg 24 hr tablet Take 1 tablet by mouth once daily. - traZODone (DESYREL) 50 mg tablet Take 1 tablet by mouth daily at bedtime. - PARoxetine (PAXIL) 10 mg tablet Take 1 tablet by mouth once daily. - montelukast (SINGULAIR) 10 mg tablet Take 1 tablet by mouth daily at bedtime. - omeprazole (PRILOSEC) 20 mg capsule Take 1 capsule by mouth once daily. - BREO ELLIPTA 200-25 mcg/dose inhaler INHALE 1 PUFF BY MOUTH ONCE DAILY DIRECTED - azelastine 0.1% nasal spray Use 2 Sprays in each nostril twice daily. - fluticasone (FLONASE ALLERGY RELIEF) 50 mcg/actuation nasal spray Use 1 [place] in each nostril twice daily. To take 2 nasal sprays in each nostrils once daily for 2 weeks, then down to 1 spray/day/nostril - tiotropium bromide (SPIRIVA RESPIMAT) 2.5 mcg/actuation inhaler Inhale 2 Puffs as instructed once daily. - albuterol HFA (PROVENTIL HFA, VENTOLIN HFA) 90 mcg/actuation inhaler INHALE 2 PUFFS INTO LUNGS EVERY 4 HOURS NEEDED FOR WHEEZING OR SHORTNESS OF BREATH - multivitamin tablet Take 1 tablet by mouth once daily. - Cholecalciferol, Vitamin D3, 1,000 unit cap Take 1,000 Units by mouth once daily. Problem List As Of Date 11/26/2023 Noted Resolved Vitamin D deficiency [E55.9] Hair loss [L65.9] 08/30/2015 Essential hypertension, benign [I10] 08/30/2015 Osteoporosis [M81.0] 08/30/2015 Dyspnea and respiratory abnormalities [R06.00, *11/03/2015 LARA (obstructive sleep apnea) [G47.33] 11/03/2015 Solitary pulmonary nodule [R91.1] 11/03/2015 Hiatal hernia [K44.9] 11/18/2015 Periodic limb movement disorder [G47.61] 11/23/2015 Age-related cataract of both eyes [H25.9] 10/12/2020 Intrinsic asthma without status asthmaticus, mi*12/20/2020 Sacral back pain [M53.3] 11/06/2021 Closed nondisplaced zone I fracture of sacrum (*11/07/2021 Anxiety with depression [F41.8] 11/14/2021 Concentric left ventricular hypertrophy [I51.7] 01/23/2022 Chronic insomnia [F51.04] 01/23/2022 History of COVID-19 [Z86.16] 2020 Chronic cough [R05.3] 08/24/2022 PND (post-nasal drip) [R09.82] 08/24/2022 Non-seasonal allergic rhinitis [J30.89] 08/24/2022 Encounter Status:Closed by ELIDIA ARMAS MA on 11/26/23 Normal [facility] CARLOSOVon 11-19-2023 [facility] SAVANAH CYR ([id number]) 1940 F Date Time Provider Department 11/19/23 3:00 PM DUSTIN ARBOLEDA During your visit today, we recorded the following information about you: Temperature Pulse Respiration Blood pressure 96.8 degrees 57/minute 18/minute 122/68 Weight Height 56.3 kg 1.626 m Dustin Arboleda PA-C 11/20/2023 5:01 PM Signed [facility] [address] [place] [address] Date of Evaluation: 11/20/2023 Patient Name: Savanah Cyr : 1940 Chief Complaint: Patient presents with: Medication Follow-up Results, Lab left breast tenderness: X 3-4 months Nursing Intake: There are no exam notes on file for this visit. Subjective Ms. Cyr is a 83 year old female who presents with her with the following complaint(s): HPI Left breast pain- ongoing for 3-4 months. Does have breast implants. Denies falls or injury to area. Denies pain with breathing Lab review- at last visit in August, patient was restarted on statin medication Did follow with with pulmonary medicine through [facility] for chronic cough, per chart review pt reported improvement in cough at that visit Review of Systems As noted in HPI PAST MEDICAL HISTORY No date: Acquired hypothyroidism No date: Arthritis No date: Asthma No date: Atrophic vaginitis No date: Blood in feces No date: Chronic colitis No date: Depressive disorder No date: Disorder of peripheral nervous system No date: Diverticula of colon No date: Gastric ulcer No date: Gastroesophageal reflux disease No date: Hemangioma 05/12/2020: Hiatal hernia Comment: large 2020: History of COVID-19 No date: History of viral hepatitis, type A No date: Hyperlipidemia No date: Irritable bowel syndrome No date: Migraine No date: Multiple nodules of lung 10/20/2019: LARA (obstructive sleep apnea) Comment: mild No date: Paresthesia of foot No date: Quadriceps weakness No date: Reduced libido No date: Vitamin D deficiency PAST SURGICAL HISTORY 2013: EGD WITH BIOPSY(S) 05/12/2020: EGD WITH BIOPSY(S) Comment: 80% of stomach above diaphram; Dr. Sol 07/30/2005: EGD WITH BIOPSY(S) Comment: Dr. Guzman 05/29/2004: EGD WITH BIOPSY(S) Comment: Dr. Guzman 2019: TOTAL KNEE REPLACEMENT No date: WRIST SURGERY HX; Right Comment: Fracture repair FAMILY HISTORY Problem Relation Age of Onset Hypertension Mother Stroke Mother Heart Mother Social History Tobacco Use Smoking status: Never Smokeless tobacco: Never Vaping Use Vaping status: Never Used Substance Use Topics Alcohol use: Yes Comment: occasional Drug use: No Current Outpatient Medications Medication Sig hydroCHLOROthiazide 25 mg tablet Take 1 tablet by mouth once daily. loratadine (CLARITIN) 10 mg tablet Take 1 tablet by mouth once daily. lovastatin (MEVACOR) 20 mg tablet Take 1 tablet by mouth daily at bedtime. metoprolol succinate ER (TOPROL XL) 25 mg 24 hr tablet Take 1 tablet by mouth once daily. traZODone (DESYREL) 50 mg tablet Take 1 tablet by mouth daily at bedtime. PARoxetine (PAXIL) 10 mg tablet Take 1 tablet by mouth once daily. montelukast (SINGULAIR) 10 mg tablet Take 1 tablet by mouth daily at bedtime. omeprazole (PRILOSEC) 20 mg capsule Take 1 capsule by mouth once daily. BREO ELLIPTA 200-25 mcg/dose inhaler INHALE 1 PUFF BY MOUTH ONCE DAILY DIRECTED azelastine 0.1% nasal spray Use 2 Sprays in each nostril twice daily. fluticasone (FLONASE ALLERGY RELIEF) 50 mcg/actuation nasal spray Use 1 [place] in each nostril twice daily. To take 2 nasal sprays in each nostrils once daily for 2 weeks, then down to 1 spray/day/nostril tiotropium bromide (SPIRIVA RESPIMAT) 2.5 mcg/actuation inhaler Inhale 2 Puffs as instructed once daily. albuterol HFA (PROVENTIL HFA, VENTOLIN HFA) 90 mcg/actuation inhaler INHALE 2 PUFFS INTO LUNGS EVERY 4 HOURS NEEDED FOR WHEEZING OR SHORTNESS OF BREATH multivitamin tablet Take 1 tablet by mouth once daily. Cholecalciferol, Vitamin D3, 1,000 unit cap Take 1,000 Units by mouth once daily. No current facility-administered medications for this visit. I have confirmed and edited as necessary the chief complaint, medications, past medical, family and social histories obtained by others. Objective BP 122/68 Pulse 57 Temp (Src) 96.8 (Temporal) Resp 18 Ht 5' 4 (1.63m) Wt 124 lb 3.2 oz (56.3kg) SpO2 92% BMI 21.31 kg/(m2). Physical Exam Vitals and nursing note reviewed. Exam conducted with a book critic present (). Constitutional: General: She is not in acute distress. Appearance: Normal appearance. She is not ill-appearing, toxic-appearing or diaphoretic. Cardiovascular: Rate and Rhythm: Normal rate and regular rhy (more content not included)... Normal [facility] XR RIB/CHST 3V AP RIB/OBL/CH ST Dani 11-19-2023 XR RIB/CHST 3V AP RIB/OBL/CHST L * * *Final Report* * * DATE OF EXAM: Nov 19 2023 4:21PM GRX [id number] - XR RIB/CHST 3V AP RIB/OBL/CHST L / PROCEDURE REASON: Rib pain on left side * * * * Physician Interpretation * * * * EXAM TITLE: CHEST X-RAY AND LEFT RIB X-RAYS DATE: 11/19/2023 CLINICAL INDICATION/HISTORY: Left rib pain COMPARISON: Chest x-ray 08/15/2022 TECHNIQUE: PA view the chest and AP and oblique views of the left ribs. FINDINGS: No pneumothorax, pleural effusion or consolidation. Calcified granuloma profiling lateral aspect right upper lung. Large hiatal hernia. No displaced left rib fracture identified. IMPRESSION: No evidence of acute intrathoracic process. Large hiatal hernia. No displaced left rib fracture. Network Diagnostic Support Specialist: PSCB Transcribe Date/Time: Nov 21 2023 3:03P Dictated by : PETE SMITH MD This examination was interpreted and the report reviewed and electronically signed by: PETE SMITH MD on Nov 21 2023 3:06PM EST [id number] Normal [facility] Office Visiton 11-04-2023 Follow-up visit [id number] Savanah Cyr 1940 F Date Provider Department Center 11/04/2023 [id number] [place] SHM[facility]IT[facility]ULM None Family History Problem Relation Age of Onset No Known Problems Mother No Known Problems Father Family Status - Relation Status Age at Mother Father Level of Service:69130 PA OFFICE/OUTPATIENT ESTABLISHED MOD MDM 30 MIN Reason for Visit and Comments: Follow-up [458843] - 4 MONTH Normal [facility] PATINSon 11-04-2023 PATINS YOUR APPOINTMENT TOMarc ANGULO WAS WITH THE [facility], COPD CLINIC, PULMONARY AND SLEEP MEDICINE OFFICE. PLEASE CALL OUR OFFICE AT [phone] for our [facility] location or [phone] for our [place] location, IF YOU HAVE NOT RECEIVED YOUR TEST RESULTS 7 DAYS AFTER TESTING IS COMPLETED. PLEASE REMEMBER TO REQUEST REFILLS AT YOUR OFFICE VISITS. PHONE/FAX REQUESTS REQUIRE 48-72 HOURS FOR RESPONSE. A FRIENDLY REMINDER COPAYS ARE DUE AT TIME OF SERVICE. THANK YOU. Our Patients Are Important! We want to improve and you can help. After your visit we want you to feel: Listened to, Respected and have your health care explained. You may receive a survey asking you about your visit. Please complete the survey. We will use your feedback to make improvements. COVID-19 VACCINATION INFORMATION: PH. [phone] [email or web address]/ VACCINE [facility] Central Scheduling [phone] [facility] Sleep Scheduling [phone] Normal [facility] Progress Noteon 11-04-2023 Progress Note [facility]- Pulmonary and Sleep Medicine [address] , [place] [address] PH: [phone] Visit type: An Established patient 11/04/2023 CHIEF COMPLAINT/REASON FOR REFERRAL: Chief Complaint Patient presents with Follow-up 4 MONTH History of Present Illness Savanah Cyr is a 83 y.o. female with history of hiatal hernia hypertension hyperlipidemia presents for follow-up after being evaluated for chronic cough marked improvement in coughing once long-acting muscarinic agent was added to her treatment she was already on ICS/LABA MMRC Dyspnea Scale: Grade Description of Breathlessness 0 I only get breathless with strenuous exercise. 1 I get short of breath when hurrying on level ground or walking up a slight hill. 2 On level ground, I walk slower than people of the same age because of breathlessness, or have to stop for breath when walking at my own pace. 3 I stop for breath after walking about 100 yards or after a few minutes on level ground. 4 I am too breathless to leave the house or I am breathless when dressing. PastMedical History History reviewed. No pertinent past medical history. Past Surgical History Past Surgical History: Procedure Laterality Date TOTAL KNEE ARTHROPLASTY Right WRIST FRACTURE SURGERY Right Allergies No Known Allergies Medications Current Outpatient Medications: albuterol 108 (90 Base) MCG/ACT inhaler, INHALE 2 PUFFS INTO LUNGS EVERY 4 HOURS NEEDED FOR WHEEZING OR SHORTNESS OF BREATH, Disp: , Rfl: cholecalciferol (Vitamin D-3) 25 MCG (1000 UT) capsule, Take 1,000 Units by mouth in the morning., Disp: , Rfl: fluticasone (Flonase) 50 MCG/ACT nasal spray, 1 spray in the morning and 1 spray in the evening., Disp: , Rfl: hydroCHLOROthiazide (HYDRODiuril) 25 MG tablet, Take 25 mg by mouth in the morning., Disp: , Rfl: loratadine (Claritin) 10 MG tablet, Take 10 mg by mouth in the morning., Disp: , Rfl: lovastatin (Mevacor) 20 MG tablet, Take 1 tablet by mouth Nightly., Disp: , Rfl: metoprolol succinate XL (Toprol-XL) 25 MG 24 hr tablet, Take 25 mg by mouth in the morning., Disp: , Rfl: montelukast (Singulair) 10 MG tablet, Take 1 tablet (10 mg) by mouth Nightly., Disp: 30 tablet, Rfl: 3 Multiple Vitamin (Multi-Vitamin) tablet, Take 1 tablet by mouth in the morning., Disp: , Rfl: PARoxetine (Paxil) 30 MG tablet, Take 30 mg by mouth in the morning., Disp: , Rfl: tiotropium (Spiriva Respimat) 2.5 MCG/ACT inhaler, Inhale 2 puffs in the morning., Disp: 1 each, Rfl: 3 traZODone (Desyrel) 50 MG tablet, Take 1 tablet by mouth Nightly., Disp: , Rfl: Fluticasone Furoate-Vilanterol (Breo Ellipta) 200-25 MCG/ACT aerosol powder , INHALE 1 PUFF BY MOUTH ONCE DAILY DIRECTED, Disp: , Rfl: Social History Social History Tobacco Use Smoking status: Never Smokeless tobacco: Never Substance Use Topics Alcohol use: Not on file FamilyHistory Family History Problem Relation Name Age of Onset No Known Problems Mother No Known Problems Father Review of Systems Review of Systems Constitutional: Negative. HENT: Negative. Eyes: Negative. Respiratory: Positive for cough and shortness of breath. Cardiovascular: Negative. Gastrointestinal: Negative. Endocrine: Negative. Skin: Negative. Allergic/Immunologic: Negative. Neurological: Negative. Psychiatric/Behavioral: Negative. Physical Exam Vitals: 11/04/23 1331 BP: 137/77 Pulse: 58 Temp: 36.1 ?C (96.9 ?F) SpO2: 94% Weight: 126 lb 12.8 oz (57.5 kg) Height: 5' 4 (1.626 m) Physical Exam Vitals reviewed. Constitutional: General: She is not in acute distress. Appearance: Normal appearance. She is not ill-appearing, toxic-appearing or diaphoretic. HENT: Head: Normocephalic and atraumatic. Nose: Congestion present. Mouth/Throat: Pharynx: No posterior oropharyngeal erythema. Eyes: Extraocular Movements: Extraocular movements intact. Pupils: Pupils are equal, round, and reactive to light. Cardiovascular: Rate and Rhythm: Normal rate and regular rhythm. Pulses: Normal pulses. Heart sounds: Normal heart sounds. No murmur heard. No friction rub. No gallop. Pulmonary: Effort: No respiratory distress. Breath sounds: No wheezing, rhonchi or rales. Chest: Chest wall: No tenderness. Musculoskeletal: Left lower leg: No edema. Neurological: Mental Status: She is alert. Psychiatric: Mood and Affect: Mood normal. Data Reviewed and Summarized LABS and Studies: Available studies were personally reviewed. Salient findings summarized in HPI & A/P Imaging: Available studies were personally reviewed. Salient findings summarized in HPI & A/P PFT's: Pulmonary Functions Testing Results: No results found for: FEV1, FVC, PZI2NVD, TLC, DLCO Assessment and Plan 1. Chronic cough Improved, prescription for Breo/Spiriva sent to the pharmacy 2. Moderate persistent asthma without complication As a (more content not included)... Normal [facility] XR Lumbar spine AP and Later angela 09-27-2023 AP and lateral x-ray s of the lumbar spine were obtained and independently interpreted. Images demonstrate degenerative levoscoliosis from L1-5 measuring 13.9 degrees. L3 compression fracture status-post kyphoplasty with extrusion of cement posteriorly into canal and laterally to the left of the vertebral body. Compression fractures of T12 and L2. Grade 1 L4-5 spondylolisthesis. [facility] Radiology Study observation (narrative) [facility] CNOVon 09-26-2023 CNOV Office Visit (AGPOB1 ) SAVANAH CYR ([id number]) 1940 F Date Time Provider Department 09/26/23 1:00 PM RAMESH OG AGPOB1 During your visit today, we recorded the following information about you: Respiration Weight Height 16/minute 57.2 kg 1.588 m Ramesh Og MD 09/27/2023 12:29 PM Signed Ramesh Og MD [facility] Orthopaedic Surgery - Orthopaedic Spine Surgeon [address], [address], [place] [address] [facility], [facility] [[email or web address]] [address], [place] [address] Phone: [phone] ([phone] FAX: [phone] Spine Surgery Outpatient Note Service Date: 09/26/2023 Referring Provider: Self Chief Complaint: Lumbar back pain History of Present Illness Savanah Cyr is a 83 year old female with extensive past medical history as below presenting with spouse as a new patient today. Savanah Cyr presents with primary complaint of lumbar back pain. Pain has been present for multiple years. Pain is present at all times, but is worse with activity. No associated numbness, paresthesias, or radiating pain into the lower extremities. No weakness. No incontinence of bowel or bladder. No neck pain, numbness, paresthesias, or radicular pain in the upper extremities. Has history of L3 kyphoplasty performed for compression fracture following a ground level fall. No additional falls recently. Takes acetaminophen/ibuprofen for the pain. Has had no formal physical therapy for lumbar spine. Summary of Symptoms Pain Location: Lumbar spine Radiation of Pain: None Weakness: No Dexterity Issues: No Imbalance: No Falls: No Bowel/Bladder Dysfunction: No Prior Conservative Treatment Physical Therapy: No Medications: OTC Pain Management: No Injections: No Surgery: L3 kyphoplasty Other: No The following portions of the patient's history were reviewed and updated as appropriate: allergies, current medications, past family history, past medical history, past social history, past surgical history and problem list. 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, Mild Persistent, Uncomplicated Sacral Back Pain Closed Nondisplaced Zone I Fracture of Sacrum (Hcc) Anxiety With Depression Concentric Left Ventricular Hypertrophy Chronic Insomnia History of Covid-19 Chronic Cough Pnd (Post-Nasal Drip) Non-Seasonal Allergic Rhinitis PAST MEDICAL HISTORY Diagnosis Date Acquired hypothyroidism Arthritis Asthma Atrophic vaginitis Blood in feces Chronic colitis Depressive disorder Disorder of peripheral nervous system Diverticula of colon Gastric ulcer Gastroesophageal reflux disease Hemangioma Hiatal hernia 05/12/2020 large History of COVID-19 2020 History of viral hepatitis, type A Hyperlipidemia Irritable bowel syndrome Migraine Multiple nodules of lung LARA (obstructive sleep apnea) 10/20/2019 mild Paresthesia of foot Quadriceps weakness Reduced libido Vitamin D deficiency PAST SURGICAL HISTORY Procedure Laterality Date EGD WITH BIOPSY(S) 2012 EGD WITH BIOPSY(S) 05/12/2020 80% of stomach above diaphram; Dr. Sol EGD WITH BIOPSY(S) 07/30/2005 Dr. Guzman EGD WITH BIOPSY(S) 05/29/2004 Dr. Guzman TOTAL KNEE REPLACEMENT 2019 WRIST SURGERY HX Right Fracture repair FAMILY HISTORY Problem Relation Age of Onset Hypertension Mother Stroke Mother Heart Mother Social History Tobacco Use Smoking status: Never Smokeless tobacco: Never Vaping Use Vaping Use: Never used Substance Use Topics Alcohol use: Yes Comment: occasional Drug use: No ALLERGIES No Known Allergies Medications: hydroCHLOROthiazide 25 mg tablet Take 1 tablet by mouth once daily. loratadine (CLARITIN) 10 mg tablet Take 1 tablet by mouth once daily. lovastatin (MEVACOR) 20 mg tablet Take 1 tablet by mouth daily at bedtime. metoprolol succinate ER (TOPROL XL) 25 mg 24 hr tablet Take 1 tablet by mouth once daily. traZODone (DESYREL) 50 mg tablet Take 1 tablet by mouth daily at bedtime. PARoxetine (PAXIL) 10 mg tablet Take 1 tablet by mouth once daily. montelukast (SINGULAIR) 10 mg tablet Take 1 tablet by mouth daily at bedtime. omeprazole (PRILOSEC) 20 mg capsule Take 1 capsule by mouth once daily. BREO ELLIPTA 200-25 mcg/dose inhaler INHALE 1 PUFF BY MOUTH ONCE DAILY DIRECTED azelastine 0.1% nasal spray Use 2 Sprays in each nostril twice daily. fluticasone (FLONASE ALLERGY RELIEF) 50 mcg/actuation nasal spray Use 1 [place] in each nostril twice daily. To take 2 nasal sprays in each nostrils once daily for 2 weeks, then down to 1 spray/day/nostril ti (more content not included)... Normal [facility] CNCOon 09-09-2023 CNCO Letter Text [facility] CNPNon 08-28-2023 CNPN Telephone (Comfy) SAVANAH CYR ([id number]) 1940 F Date Time Provider Department 08/28/23 DUSTIN ARBOLEDA [facility] During your visit today, we recorded the following information about you: Claire Patterson 08/28/2023 9:24 AM Signed Consult to: gastro PPG confirmation number: [id number] Notes plugged in by: Claire Wilson 08/28/2023 9:24 AM Signed Consult to: gen surg PPG confirmation number: [id number] Notes plugged in by: NABOR Allergies As of Date: 08/28/2023 (No Known Allergies) Date Reviewed: 08/27/2023 Reviewed by: Dustin Arboleda PA-C - Fully Assessed Reason for Visit: Referral Request [124] Cmt: Gastroenterology, General Surgery Prescriptions as of 08/28/2023 - hydroCHLOROthiazide 25 mg tablet Take 1 tablet by mouth once daily. - loratadine (CLARITIN) 10 mg tablet Take 1 tablet by mouth once daily. - lovastatin (MEVACOR) 20 mg tablet Take 1 tablet by mouth daily at bedtime. - metoprolol succinate ER (TOPROL XL) 25 mg 24 hr tablet Take 1 tablet by mouth once daily. - traZODone (DESYREL) 50 mg tablet Take 1 tablet by mouth daily at bedtime. - PARoxetine (PAXIL) 10 mg tablet Take 1 tablet by mouth once daily. - montelukast (SINGULAIR) 10 mg tablet Take 1 tablet by mouth daily at bedtime. - omeprazole (PRILOSEC) 20 mg capsule Take 1 capsule by mouth once daily. - BREO ELLIPTA 200-25 mcg/dose inhaler INHALE 1 PUFF BY MOUTH ONCE DAILY DIRECTED - azelastine 0.1% nasal spray Use 2 Sprays in each nostril twice daily. - fluticasone (FLONASE ALLERGY RELIEF) 50 mcg/actuation nasal spray Use 1 [place] in each nostril twice daily. To take 2 nasal sprays in each nostrils once daily for 2 weeks, then down to 1 spray/day/nostril - tiotropium bromide (SPIRIVA RESPIMAT) 2.5 mcg/actuation inhaler Inhale 2 Puffs as instructed once daily. - albuterol HFA (PROVENTIL HFA, VENTOLIN HFA) 90 mcg/actuation inhaler INHALE 2 PUFFS INTO LUNGS EVERY 4 HOURS NEEDED FOR WHEEZING OR SHORTNESS OF BREATH - multivitamin tablet Take 1 tablet by mouth once daily. - Cholecalciferol, Vitamin D3, 1,000 unit cap Take 1,000 Units by mouth once daily. Problem List As Of Date 08/28/2023 Noted Resolved Vitamin D deficiency [E55.9] Hair loss [L65.9] 08/30/2015 Essential hypertension, benign [I10] 08/30/2015 Osteoporosis [M81.0] 08/30/2015 Dyspnea and respiratory abnormalities [R06.00, *11/03/2015 LARA (obstructive sleep apnea) [G47.33] 11/03/2015 Solitary pulmonary nodule [R91.1] 11/03/2015 Hiatal hernia [K44.9] 11/18/2015 Periodic limb movement disorder [G47.61] 11/23/2015 Age-related cataract of both eyes [H25.9] 10/12/2020 Intrinsic asthma without status asthmaticus, mi*12/20/2020 Sacral back pain [M53.3] 11/06/2021 Closed nondisplaced zone I fracture of sacrum (*11/07/2021 Anxiety with depression [F41.8] 11/14/2021 Concentric left ventricular hypertrophy [I51.7] 01/23/2022 Chronic insomnia [F51.04] 01/23/2022 History of COVID-19 [Z86.16] 2020 Chronic cough [R05.3] 08/24/2022 PND (post-nasal drip) [R09.82] 08/24/2022 Non-seasonal allergic rhinitis [J30.89] 08/24/2022 Encounter Status:Closed by CLAIRE PATTERSON on 08/28/23 [facility] CNOVon 08-27-2023 CNOV Office Visit ([facility]) DARSHANSAVANAH GARCIA ([id number]) 1940 F Date Time Provider Department 08/27/23 2:00 PM DUSTIN ARBOLEDA During your visit today, we recorded the following information about you: Temperature Pulse Respiration Blood pressure 98.1 degrees 62/minute 20/minute 116/72 Weight Height 57.4 kg 1.588 m Dustin Arobleda PA-C 08/27/2023 3:16 [place] [address] Date of Evaluation: 08/27/2023 Patient Name: Savanah Cyr : 1940 Chief Complaint: Patient presents with: Cough: X 3 years Establish Care: New Patient Nursing Intake: There are no exam notes on file for this visit. Subjective Ms. Cyr is a 83 year old female who presents with her Jono. HPI Previous patient of Dr. Nichols- established in June 2023 Saw Jordyn Carlson PA-C previous to this PMH of HTN, hyperlipidemia, IBS, anxiety/depression, insomnia, and chronic cough Reports being out of Paxil since May- refill declined since pt was due for a visit Follows with pulmonology chronic cough which developed around COVID Per pulmonology: chronic cough is multifactorial large component could be related to large hiatal hernia - has not been seen by anyone for this before Review of Systems Constitutional: Negative for fatigue and fever. HENT: Negative for congestion, sinus pressure, sneezing and sore throat. Respiratory: Positive for cough. Negative for shortness of breath. Cardiovascular: Negative for chest pain, palpitations and leg swelling. Gastrointestinal: Positive for diarrhea (hx of IBS-D). Negative for abdominal pain, constipation and nausea. Genitourinary: Negative for difficulty urinating. Musculoskeletal: Negative for arthralgias, joint swelling and myalgias. Neurological: Negative for dizziness, weakness, numbness and headaches. Psychiatric/Behavioral: Positive for agitation (without paxil). PAST MEDICAL HISTORY Diagnosis Date Acquired hypothyroidism Arthritis Asthma Atrophic vaginitis Blood in feces Chronic colitis Depressive disorder Disorder of peripheral nervous system Diverticula of colon Gastric ulcer Gastroesophageal reflux disease Hemangioma Hiatal hernia History of COVID-2020 History of viral hepatitis, type A Hyperlipidemia Irritable bowel syndrome Migraine Multiple nodules of lung Paresthesia of foot Quadriceps weakness Reduced libido Vitamin D deficiency PAST SURGICAL HISTORY Procedure Laterality Date EGD TRANSORAL BIOPSY SINGLE/MULTIPLE 05/12/2020 80% of stomach above diaphram; Dr. Sol EGD WITH BIOPSY(S) 2012 PAST SURGICAL HISTORY OF 2019 Right knee replacement WRIST SURGERY HX Right Fracture repair FAMILY HISTORY Problem Relation Age of Onset Hypertension Mother Stroke Mother Heart Mother Social History Tobacco Use Smoking status: Never Smokeless tobacco: Never Vaping Use Vaping Use: Never used Substance Use Topics Alcohol use: Yes Comment: occasional Drug use: No Current Outpatient Medications Medication Sig azelastine 0.1% nasal spray Use 2 Sprays in each nostril twice daily. fluticasone (FLONASE ALLERGY RELIEF) 50 mcg/actuation nasal spray Use 1 [place] in each nostril twice daily. To take 2 nasal sprays in each nostrils once daily for 2 weeks, then down to 1 spray/day/nostril tiotropium bromide (SPIRIVA RESPIMAT) 2.5 mcg/actuation inhaler Inhale 2 Puffs as instructed once daily. albuterol HFA (PROVENTIL HFA, VENTOLIN HFA) 90 mcg/actuation inhaler INHALE 2 PUFFS INTO LUNGS EVERY 4 HOURS NEEDED FOR WHEEZING OR SHORTNESS OF BREATH multivitamin tablet Take 1 tablet by mouth once daily. Cholecalciferol, Vitamin D3, 1,000 unit cap Take 1,000 Units by mouth once daily. hydroCHLOROthiazide 25 mg tablet Take 1 tablet by mouth once daily. loratadine (CLARITIN) 10 mg tablet Take 1 tablet by mouth once daily. lovastatin (MEVACOR) 20 mg tablet Take 1 tablet by mouth daily at bedtime. metoprolol succinate ER (TOPROL XL) 25 mg 24 hr tablet Take 1 tablet by mouth once daily. traZODone (DESYREL) 50 mg tablet Take 1 tablet by mouth daily at bedtime. PARoxetine (PAXIL) 10 mg tablet Take 1 tablet by mouth once daily. montelukast (SINGULAIR) 10 mg tablet Take 1 tablet by mouth daily at bedtime. omeprazole (PRILOSEC) 20 mg capsule Take 1 capsule by mouth once daily. BREO ELLIPTA 200-25 mcg/dose inhaler INHALE 1 PUFF BY MOUTH ONCE DAILY DIRECTED No current facility-administered medications for this visit. I have confirmed and edited as necessary the chief complaint, medications, past medical, family and social histories obtained by others. Objective BP 116/72 Pulse 62 Temp (Src) 98.1 (Temporal) Resp 20 (more content not included)... Normal [facility] Office Visiton 07-08-2023 Follow-up visit [id number] Savanah Cyr 1940 F Date Provider Department Center 07/08/2023 [id number] [facility] SHMGMITPULM None Family History Problem Relation Age of Onset No Known Problems Mother No Known Problems Father Family Status - Relation Status Age at Mother Father Level of Service:77234 PA OFFICE/OUTPATIENT ESTABLISHED MOD MDM 30 MIN Reason for Visit and Comments: Follow-up [243957] - PFT Normal [facility] Progress Noteon 07-08-2023 Progress Note [facility] Pulmonary and Sleep Medicine [address], [address] [facility] [address] PH: [phone] Visit type: An Established patient 07/08/2023 CHIEF COMPLAINT/REASON FOR REFERRAL: Chief Complaint Patient presents with Follow-up PFT History of Present Illness Savanah Cyr is a 83 y.o. female with past medical history significant for large hiatal hernia, hypertension, hyperlipidemia presents for follow-up for chronic cough, cough is productive of clear sputum a lot of postnasal drainage is on Flonase not using it every day, shortness of breath with exertion shortness of breath though improved on current bronchodilator therapy MMRC Dyspnea Scale: Grade Description of Breathlessness 0 I only get breathless with strenuous exercise. 1 I get short of breath when hurrying on level ground or walking up a slight hill. 2 On level ground, I walk slower than people of the same age because of breathlessness, or have to stop for breath when walking at my own pace. 3 I stop for breath after walking about 100 yards or after a few minutes on level ground. 4 I am too breathless to leave the house or I am breathless when dressing. PastMedical History No past medical history on file. Past Surgical History Past Surgical History: Procedure Laterality Date TOTAL KNEE ARTHROPLASTY Right WRIST FRACTURE SURGERY Right Allergies No Known Allergies Medications Current Outpatient Medications: albuterol 108 (90 Base) MCG/ACT inhaler, INHALE 2 PUFFS INTO LUNGS EVERY 4 HOURS NEEDED FOR WHEEZING OR SHORTNESS OF BREATH, Disp: , Rfl: cholecalciferol (Vitamin D-3) 25 MCG (1000 UT) capsule, Take 1,000 Units by mouth in the morning., Disp: , Rfl: fluticasone (Flonase) 50 MCG/ACT nasal spray, 1 spray in the morning and 1 spray in the evening., Disp: , Rfl: Fluticasone Furoate-Vilanterol (Breo Ellipta) 200-25 MCG/ACT aerosol powder , INHALE 1 PUFF BY MOUTH ONCE DAILY DIRECTED, Disp: , Rfl: hydroCHLOROthiazide (HYDRODiuril) 25 MG tablet, Take 25 mg by mouth in the morning., Disp: , Rfl: loratadine (Claritin) 10 MG tablet, Take 10 mg by mouth in the morning., Disp: , Rfl: lovastatin (Mevacor) 20 MG tablet, Take 1 tablet by mouth Nightly., Disp: , Rfl: metoprolol succinate XL (Toprol-XL) 25 MG 24 hr tablet, Take 25 mg by mouth in the morning., Disp: , Rfl: Multiple Vitamin (Multi-Vitamin) tablet, Take 1 tablet by mouth in the morning., Disp: , Rfl: PARoxetine (Paxil) 30 MG tablet, Take 30 mg by mouth in the morning., Disp: , Rfl: traZODone (Desyrel) 50 MG tablet, Take 1 tablet by mouth Nightly., Disp: , Rfl: montelukast (Singulair) 10 MG tablet, Take 1 tablet (10 mg) by mouth Nightly., Disp: 30 tablet, Rfl: 3 phenazopyridine (Pyridium) 100 MG tablet, Take 1 tablet (100 mg) by mouth 3 times daily as needed for bladder spasms. (Patient not taking: Reported on 07/08/2023), Disp: 10 tablet, Rfl: 0 tiotropium (Spiriva Respimat) 2.5 MCG/ACT inhaler, Inhale 2 puffs in the morning., Disp: 1 each, Rfl: 3 Social History Social History Tobacco Use Smoking status: Never Smokeless tobacco: Never Substance Use Topics Alcohol use: Not on file FamilyHistory Family History Problem Relation Name Age of Onset No Known Problems Mother No Known Problems Father Review of Systems Review of Systems Constitutional: Negative. HENT: Negative. Eyes: Negative. Respiratory: Positive for cough and shortness of breath. Cardiovascular: Negative. Gastrointestinal: Negative. Endocrine: Negative. Genitourinary: Negative. Musculoskeletal: Negative. Skin: Negative. Allergic/Immunologic: Negative. Neurological: Negative. Hematological: Negative. Psychiatric/Behavioral: Negative. Physical Exam Vitals: 07/08/23 1019 BP: 117/79 Pulse: 66 Temp: 36 ?C (96.8 ?F) SpO2: 93% Weight: 125 lb (56.7 kg) Height: 5' 4 (1.626 m) Physical Exam Vitals reviewed. Constitutional: General: She is not in acute distress. Appearance: Normal appearance. She is not ill-appearing, toxic-appearing or diaphoretic. HENT: Head: Normocephalic and atraumatic. Nose: Congestion present. Mouth/Throat: Pharynx: No posterior oropharyngeal erythema. Eyes: Extraocular Movements: Extraocular movements intact. Pupils: Pupils are equal, round, and reactive to light. Cardiovascular: Rate and Rhythm: Normal rate and regular rhythm. Pulses: Normal pulses. Heart sounds: Normal heart sounds. No murmur heard. No friction rub. No gallop. Pulmonary: Effort: No respiratory distress. Breath sounds: No wheezing, rhonchi or rales. Chest: Chest wall: No tenderness. Musculoskeletal: Left lower leg: No edema. Neurological: Mental Status: She is alert. Psychiatric: Mood and Affect: Mood normal. Data Reviewed and Summarized LABS and Studies: Available studies were personally reviewed. Salient findings summarized in HPI & A/P Imaging: Available studies w (more content not included)... [facility] 04-25-2023 [facility] Telephone ([facility]) SAVANAH CYR ([id number]) 1940 F Date Time Provider Department 04/25/[address] [facility] During your visit today, we recorded the following information about you: Genoveva Smith LPN 04/25/2023 4:38 PM Signed Received fax from [place] stating Flonase is no longer on there formulary. Please change and advise. GODFREY Driscoll Deborah, PA-C 04/25/2023 5:35 PM Signed Please call patient and see if she prefers just to buy OTC or with discount through pharmacy card etc OR call insurance and ask preferences. Everything I have typed in says not on formulary. Vilma Restrepo LPN 04/26/2023 10:23 AM Signed Called and left detailed message on pt's secure voicemail. Encouraged pt to call office if questions or concerns arise. Vilma Restrepo LPN Allergies As of Date: 04/25/2023 (No Known Allergies) Date Reviewed: 01/18/2023 Reviewed by: Moiz Augustin APRN.[facility] - Fully Assessed Prescriptions as of 04/26/2023 - loratadine (CLARITIN) 10 mg tablet Take 1 tablet by mouth once daily - lovastatin (MEVACOR) 20 mg tablet take 1 tablet by mouth once daily at bedtime - PARoxetine (PAXIL) 30 mg tablet Take 1 tablet by mouth once daily - traZODone (DESYREL) 50 mg tablet take 1 tablet by mouth once daily at bedtime - metoprolol succinate ER (TOPROL XL) 25 mg 24 hr tablet Take 1 tablet by mouth once daily - hydroCHLOROthiazide 25 mg tablet Take 1 tablet by mouth once daily - BREO ELLIPTA 200-25 mcg/dose inhaler INHALE 1 PUFF BY MOUTH ONCE DAILY DIRECTED - azelastine 0.1% nasal spray Use 2 Sprays in each nostril twice daily. - fluticasone (FLONASE ALLERGY RELIEF) 50 mcg/actuation nasal spray Use 1 [place] in each nostril twice daily. To take 2 nasal sprays in each nostrils once daily for 2 weeks, then down to 1 spray/day/nostril - tiotropium bromide (SPIRIVA RESPIMAT) 2.5 mcg/actuation inhaler Inhale 2 Puffs as instructed once daily. - benzonatate (TESSALON PERLES) 100 mg capsule Take 1 capsule by mouth three times daily as needed. - albuterol HFA (PROVENTIL HFA, VENTOLIN HFA) 90 mcg/actuation inhaler INHALE 2 PUFFS INTO LUNGS EVERY 4 HOURS NEEDED FOR WHEEZING OR SHORTNESS OF BREATH - multivitamin tablet Take 1 tablet by mouth once daily. - Cholecalciferol, Vitamin D3, 1,000 unit cap Take 1,000 Units by mouth once daily. Problem List As Of Date 04/25/2023 Noted Resolved Vitamin D deficiency [E55.9] Hair loss [L65.9] 08/30/2015 Essential hypertension, benign [I10] 08/30/2015 Osteoporosis [M81.0] 08/30/2015 Dyspnea and respiratory abnormalities [R06.00, *11/03/2015 LARA (obstructive sleep apnea) [G47.33] 11/03/2015 Solitary pulmonary nodule [R91.1] 11/03/2015 Hiatal hernia [K44.9] 11/18/2015 Periodic limb movement disorder [G47.61] 11/23/2015 Age-related cataract of both eyes [H25.9] 10/12/2020 Intrinsic asthma without status asthmaticus, mi*12/20/2020 Sacral back pain [M53.3] 11/06/2021 Closed nondisplaced zone I fracture of sacrum (*11/07/2021 Anxiety with depression [F41.8] 11/14/2021 Concentric left ventricular hypertrophy [I51.7] 01/23/2022 Chronic insomnia [F51.04] 01/23/2022 History of COVID-19 [Z86.16] 2020 Chronic cough [R05.3] 08/24/2022 PND (post-nasal drip) [R09.82] 08/24/2022 Non-seasonal allergic rhinitis [J30.89] 08/24/2022 Encounter Status:Closed by JORDYN CARLSON on 04/25/23 [facility] AMB POC URINALYSIS DIP STICK MANUAL W/O MICROon 11-28-2022 Bilirubin, UA Negative [facility] Blood, UA Moderate [facility] Glucose, UA 100 [facility] Ketones, UA Negative [facility] Leukocytes, UA Large [facility] Nitrite, UA Positive [facility] pH, UA 5.5 [facility] Protein, UA 100 [facility] Spec Grav, UA 1.025 [facility] Urobilinogen, UA 1.0 [facility] AMB POC URINE DIP STICK MANU AL W/O MICRO CHEMSTRIP-10on 10-22-2022 Bilirubin, UA Small [facility] Blood, UA Moderate [facility] Clarity, UA Cloudy [facility] Color, UA Yellow [facility] Glucose, UA Negative [facility] Interpretation and review of laboratory results Abnormal [facility] Ketones, UA Trace [facility] Leukocytes, UA Large [facility] Nitrite, UA Positive [facility] pH, UA 6.0 [facility] Protein, UA 300 [facility] Spec Grav, UA 1.020 [facility] Urobilinogen, UA 1.0 [facility] URINE CULTUREon 09-02-2022 Bacteria identified Cx Nom (U) >=100,000 CFU/ml Escherichia coli Abnormal [facility] UA DIP, URINE (POC)on 2022 BILIRUBIN UA (POCT) Negative Negative [facility] CLARITY UA (POCT) Cloudy [facility] COLOR UA (POCT) Yellow [facility] GLUCOSE UA (POCT) Negative Negative mg/dL [facility] HEMOGLOBIN/BLOOD UA (POCT) Moderate Abnormal Negative [facility] KETONE UA (POCT) Negative Negative mg/dL [facility] LEUKOCYTES UA (POCT) Large Abnormal Negative [facility] NITRITE UA (POCT) Negative Negative [facility] PH UA (POCT) 6.0 4.5 - 8.0 [facility] Protein Ql (U) 100 mg/dL Abnormal Negative mg/dL [facility] SPECIFIC GRAVITY UA (POCT) >=1.030 1.005 - 1.030 [facility] UROBILINOGEN UA (POCT) 0.2 E.U./dL Normal E.U./dL [facility] URINE CULTUREon 08-31-2022 Bacteria identified Cx Nom (U) Invalid Interpretation Code [facility] No Panel Informationon 08-15 [facility] UA DIP, URINE (POC)on 2021 BILIRUBIN UA (POCT) Negative Negative [facility] CLARITY UA (POCT) Cloudy [facility] COLOR UA (POCT) Yellow [facility] GLUCOSE UA (POCT) Negative Negative mg/dL [facility] HEMOGLOBIN/BLOOD UA (POCT) Moderate Abnormal Negative [facility] KETONE UA (POCT) Negative Negative mg/dL [facility] LEUKOCYTES UA (POCT) Large Abnormal Negative [facility] NITRITE UA (POCT) Negative Negative [facility] PH UA (POCT) 7.0 4.5 - 8.0 [facility] Protein Ql (U) 100 mg/dL Abnormal Negative mg/dL [facility] SPECIFIC GRAVITY UA (POCT) 1.025 1.005 - 1.030 [facility] UROBILINOGEN UA (POCT) 1.0 E.U./dL Normal E.U./dL [facility] XR CHEST 2V FRONTAL/LATon [facility] CT CHEST W IVCON PEon 2020 CT CHEST W IVCON PE Final Report DATE OF EXAM: Apr 03 2020 4:06PM [facility] 0540 - CT CHEST W IVCON PE / PROCEDURE REASON: PE suspected, intermediate prob, positive D-dimer Physician Interpretation EXAMINATION: CHEST CT WITH CONTRAST (PULMONARY EMBOLISM PROTOCOL) CLINICAL HISTORY: PE suspected, intermediate prob, positive D-dimer Technique: Spiral CT acquisition of the chest from the thoracic inlet to the upper abdomen following IV contrast. Axial 1 and 3 mm thick slices plus coronal and sagittal reformatted images. MQ: CTCP_5 Contrast: 100 mL Omnipaque [address] Radiation dose: Integrated Dose-Length Product (DLP) for this visit = 214.[address] Dose Reduction Employed: Automated exposure control(AEC) and iterative recon Comparison: Chest radiograph performed earlier the same day and prior RESULT: Limitations: None. Evaluation for thromboembolic disease: - Right heart chambers: No thromboembolic disease. - Main pulmonary arteries: No thromboembolic disease. - Lobar pulmonary arteries: No thromboembolic disease. - Segmental pulmonary arteries: No thromboembolic disease. - Subsegmental pulmonary arteries: No thromboembolic disease. - Additional pulmonary artery findings: The main pulmonary artery is normal in caliber. Lines, tubes, and devices: None. Lung parenchyma and airways: A 0.8 cm nodule in the right demonstrates peripheral calcifications, unchanged since 2018 and likely related to prior inflammation. Mild subpleural groundglass in the posterior right lung base, likely chronic scarring or minimal inflammation, mildly increased since 02/2020 but also in part likely accentuated due to hypoventilation. No new consolidation or pleural effusion. Pleural space: No pleural effusion. No pleural thickening. Lower neck, lymph nodes, and mediastinum: The imaged thyroid gland is normal. No axillary or supraclavicular lymphadenopathy. Several lymph nodes in the mediastinum measuring up to 1.2 cm in the lower pretracheal region, stable since 02/2020. Heart, pericardium, and thoracic vessels: The thoracic aorta is normal in caliber. The cardiac chambers are normal in size. Tortuous descending aorta. Mild cardiomegaly. No significant coronary artery atherosclerotic calcifications are noted, although the study is not optimized for coronary assessment. No pericardial effusion or thickening. Bones and soft tissues: Compression fracture deformity of T12 with near complete height loss and 0.7 cm retropulsion of the posterior-superior endplate into the spinal canal. Partially imaged compression fracture of L2, also protruding into the spinal canal. Bilateral breast implants in place. Upper abdomen: large hiatal hernia containing nearly the entire stomach, decompressed. Visualized portions of the upper abdomen demonstrate no acute abnormalities. Mess Attendant (topogram) images: No additional findings. IMPRESSION: 1. No CT evidence of pulmonary embolism. No signs of right heart strain. 2. Minimal scarring/inflammation in the subpleural right lower lobe, likely accentuated due to hypoventilation. 3. Large hiatal hernia, no evidence of acute aspiration. Other chronic findings, as above. Network Diagnostic Support Specialist: [facility] Transcribe Date/Time: Apr 03 2020 4:33P Dictated by : GRAHAM GRULLON MD This examination was interpreted and the report reviewed and electronically signed by: GRAHAM GRULLON MD on Apr 03 2020 4:44PM EST [facility] XR CHEST 2V FRONTAL/LATon XR CHEST 2V FRONTAL/LAT Final Report DATE OF EXAM: Apr 03 2020 3:27PM [id number] - XR CHEST 2V FRONTAL/LAT / PROCEDURE REASON: Chest pain or SOB, pleurisy or effusion suspected Physician Interpretation EXAMINATION: CHEST RADIOGRAPH (2 VIEW FRONTAL & LATERAL), 04/03/2020 CLINICAL HISTORY: Chest pain. Shortness of breath. Pleurisy or effusion suspected MQ: XC2_6 EXAM DATE/TIME: 04/03/2020 3:27 PM COMPARISON: CT chest 03/17/2020. PA and lateral chest 02/02/2020 RESULT: Lines, tubes, and devices: None. Lungs and pleura: Mild hyperaeration with flattening of diaphragms. No infiltrates. Stable calcified right upper lobe nodule. No pleural effusion. No pneumothorax. Heart size within normal limits. Tortuous aorta. Hilar structures appear normal. Bones and soft tissues: Stable compression deformities of T5, T12, L2, and L3. Radiopaque material from vertebroplasty L3. Scoliosis in the lumbar spine, convex to the left. IMPRESSION: 1. No acute radiographic abnormality. 2. Large hiatal hernia. 3. Hyperaeration, likely COPD. 4. Stable calcified right upper lobe nodule. 5. Stable compression deformities in the thoracic and included lumbar spine. Status post vertebroplasty of one of the lumbar vertebra. Network Diagnostic Support Specialist: [facility] Transcribe Date/Time: Apr 03 2020 3:32P Dictated by : MILADYS SENIOR MD This examination was interpreted and the report reviewed and electronically signed by: MILADYS SENIOR MD on Apr 03 2020 3:38PM EST [facility] CT CHEST WO IVCONon --[address] CHEST WO IVCON Final Report DATE OF EXAM: Mar 17 2020 2:48PM [facility] 0541 - CT CHEST WO IVCON / PROCEDURE REASON: Interstitial pulmonary disease (HCC) Physician Interpretation EXAM TITLE: HIGH RESOLUTION CHEST CT WITHOUT CONTRAST EXAM DATE: 03/17/2020 CLINICAL INDICATION/HISTORY: Persistent cough. Paroxysmal nocturnal dyspnea. Asthma. Nocturnal hypoxia. Hiatal hernia. COMPARISON: CT chest 12/17/2018. Chest radiograph 02/02/2020. TECHNIQUE: Without intravenous contrast, a series of 1 mm thick axial images were acquired at 10-mm intervals from the lung apices to the hemidiaphragms with the patient lying prone. Next, a series of 5-mm thick contiguous images were acquired from lung apices to hemidiaphragms with the patient lying supine. From this data set, a series of 1 mm thick axial images were reconstructed at 10-mm intervals from the lung apices to the hemidiaphragms with the patient supine. In addition, end expiratory images were acquired with the patient supine. Contrast: None CT Dose-Length Product: [address] Dose Reduction Employed: Automated exposure control FINDINGS: Septal Thickening: absent Pleural Effusion: absent Hilar/Mediastinal Lymphadenopathy: absent Ground Glass Opacity: Groundglass opacities are present laterally and posteriorly in the right lower lobe. [place] Appearance: absent Honeycombing: absent Bronchiectasis: absent Air Trapping: absent Centrilobular Micro Nodules: absent Perilymphatic Micro Nodules: absent Randomly Distributed Micro Nodules: absent Mosaic Attenuation: absent Ancillary Findings: Stable benign calcified nodule in the right upper lobe, either a granuloma or hamartoma. Small benign calcified nodules at the lingula anteriorly are unchanged. Mild chronic biapical pleural-parenchymal scarring. Large hiatal hernia with majority of the stomach intrathoracic in position. Bilateral breast implants. Bones are of diffusely decreased density. Stable chronic compression fractures of T12 and L2 and minimally at T5. Trace atherosclerotic calcification of the thoracic aorta. 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 The heart is not enlarged. No pericardial effusion or thickening. Stable partially calcified precarinal lymph node measures 1.7 x 1.2 cm (5:55). Additional smaller calcified right paratracheal nodes are unchanged. The imaged thyroid gland is unremarkable. No lymphadenopathy in the supraclavicular, axillary regions. Evaluation of the hilar regions is limited without IV contrast. IMPRESSION: 1. Nonspecific groundglass opacities are present laterally and posteriorly in the right lower lobe, new from the 12/17/2018 CT. The appearance is nonspecific and may be infectious or postinflammatory. 2. Large hiatal hernia is again demonstrated. 3. 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 4. Prominent partially calcified precarinal lymph node is stable. There are smaller calcified mediastinal lymph nodes which are unchanged. Findings likely represent the sequela of remote granulomatous disease. 5. Bones are of diffusely decreased density. Stable chronic compression fractures of T5, T12 and L2 as noted. Network Diagnostic Support Specialist: [facility] Transcribe Date/Time: Mar 21 2020 1:02P Dictated by : AMBER GALLEGOS MD This examination was interpreted and the report reviewed and electronically signed by: AMBER GALLEGOS MD on Mar 21 2020 1:15PM EST [facility] XR CHEST 2V FRONTAL/LATon XR CHEST 2V FRONTAL/LAT Final Report DATE OF EXAM: Feb 02 2020 2:49PM [id number] - XR CHEST 2V FRONTAL/LAT / PROCEDURE REASON: Persistent cough Physician Interpretation EXAMINATION: CHEST RADIOGRAPH (2 VIEW FRONTAL & LATERAL) CLINICAL HISTORY: Persistent cough MQ: XC2_6 EXAM DATE/TIME: 02/02/2020 2:49 PM COMPARISON: Previous studies with the most recent dated 10/08/2019 RESULT: Lines, tubes, and devices: None. Lungs and pleura: Stable peripheral right upper lobe nodule. Cardiomediastinal silhouette: Normal cardiomediastinal silhouette. Bones and soft tissues: Large hiatal hernia again noted. Severe compression fracture at T12. IMPRESSION: No acute radiographic abnormality. Network Diagnostic Support Specialist: [facility] Transcribe Date/Time: Feb 02 2020 2:53P Dictated by : DARRIN LOPEZ MD This examination was interpreted and the report reviewed and electronically signed by: DARRIN LOPEZ MD on Feb 02 2020 2:57PM EST [facility] Vital Signs Date Time Vital Sign Value Performing Clinician Facility 02-07-2024 13:59-0500 Blood Pressure Cuff Size VERONIKA FRAUSTO [facility] 02-07-2024 13:59-0500 Blood Pressure Location VERONIKA FRAUSTO [facility] 02-07-2024 13:59-0500 Blood Pressure Method VERONIKA KAPPER [employer] [facility] 02-07-2024 13:59-0500 Body temperature 98.24 [degF] VERONIKA KAPPER [employer] [facility] 02-07-2024 13:59-0500 Diastolic Blood Pressure Non-Invasive 85 mm[Hg] VERONIKA KAPPER [employer] [facility] 02-07-2024 13:59-0500 Heart rate 85 /min VERONIKA KAPPER [employer] [facility] 02-07-2024 13:59-0500 Reason For Taking VItal Signs VERONIKA BERNABEER [employer] [facility] 02-07-2024 13:59-0500 Respiratory rate 18 /min VERONIKA KAPPER [employer] [facility] 02-07-2024 13:59-0500 Systolic Blood Pressure Non-Invasive 105 mm[Hg] VERONIKA KAPPER [employer] [facility] 02-07-2024 11:14-0500 Heart rate 71 /min VERONIKA KAPPER [employer] [facility] 02-07-2024 11:14-0500 Respiratory rate 20 /min VERONIKA KAPPER [employer] [facility] 02-07-2024 11:03-0500 Respiratory rate 20 /min VERONIKA KAPPER [employer] [facility] 02-07-2024 10:41-0500 Body temperature 98.06 [degF] VERONIKA KAPPER [employer] [facility] 02-07-2024 10:41-0500 Diastolic Blood Pressure Non-Invasive 73 mm[Hg] VERONIKA KIDDER [employer] [facility] 02-07-2024 10:41-0500 Heart rate 86 /min VERONIKA KIDDER [employer] [facility] 02-07-2024 10:41-0500 Reason For Taking VItal Signs VERONIKA CHA [employer] [facility] 02-07-2024 10:41-0500 Systolic Blood Pressure Non-Invasive 112 mm[Hg] VERONIKA K[employer]DER [employer] [facility] 02-07-2024 08:54-0500 Heart rate 78 /min VERONIKA KIDDER [employer] [facility] 02-07-2024 08:15-0500 Blood Pressure Cuff Size VERONIKA KIDDER [employer] [facility] 02-07-2024 08:15-0500 Blood Pressure Location VERONIKA KIDDER [employer] [facility] 02-07-2024 08:15-0500 Blood Pressure Method VERONIKA CHA [employer] [facility] 02-07-2024 08:15-0500 Body temperature 98.24 [degF] VERONIKA K[employer]DER [employer] [facility] 02-07-2024 08:15-0500 Diastolic Blood Pressure Non-Invasive 79 mm[Hg] VERONIKA BERNABEER [employer] [facility] 02-07-2024 08:15-0500 Heart rate 77 /min VERONIKA BERNABEER [employer] [facility] 02-07-2024 08:15-0500 Reason For Taking VItal Signs VERONIKA CHA [employer] [facility] 02-07-2024 08:15-0500 Systolic Blood Pressure Non-Invasive 131 mm[Hg] VERONIKA BERNABEER [employer] [facility] 02-07-2024 06:37-0500 Heart rate 80 /min VERONIKADelaney KIDDER [employer] [facility] 02-06-2024 16:28-0500 Blood Pressure Cuff Size VERONIKA KIDDER [employer] [facility] 02-06-2024 16:28-0500 Blood Pressure Location VERONIKA KIDDER [employer] [facility] 02-06-2024 16:28-0500 Blood Pressure Method VERONIKA BERNABEER [employer] [facility] 02-06-2024 08:42-0500 Heart rate 89 /min VERONIKA KAPPER [employer] [facility] 02-06-2024 03:45-0500 Heart rate 84 /min VERONIKA KAPPER [employer] [facility] 02-05-2024 15:20-0500 Heart rate 68 /min VERONIKA KAPPER [employer] [facility] 02-05-2024 13:23-0500 Body height 162.3 cm VERONIKA KAPPER [employer] [facility] 02-05-2024 13:23-0500 Body weight 56.8 kg VERONIKA KAPPER [employer] [facility] 02-05-2024 13:23-0500 Body weight 21.56 kg/m2 VERONIKA SEMAJ [employer] [facility] 11-19-2023 15:090400 Body height 162.6 cm Dustin Arboleda PA-C Work Phone: [facility] 11-19-2023 15:09-0400 Body mass index (BMI) [Ratio] 21.32 kg/m2 Dustin Arboleda PA-C Work Phone: [facility] 11-19-2023 [id number] Body temperature 96.8 [degF] Dustin Velazquezon PA-C Work Phone: [facility] 11-19-2023 [id number] Body weight 56.34 kg Dustin Velazquezon PA-C Work Phone: [facility] 11-19-2023 15:09-0400 Diastolic blood pressure 68 mm[Hg] Dustin Velazquezon PA-C Work Phone: [facility] 11-19-2023 15:09-0400 Heart rate 57 /min Dustin Velazquezon PA-C Work Phone: [facility] 11-19-2023 15:09-0400 Respiratory rate 18 /min Dustin Velazquezon PA-C Work Phone: [facility] 11-19-2023 15:[id number] SaO2% (BldA) [Mass fraction] 92 % Dustin Velazquezon PA-C Work Phone: [facility] 11-19-2023 15:09-0400 Systolic blood pressure 122 mm[Hg] Dustin Velazquezon PA-C Work Phone: [facility] 11-04-2023 13:31-0400 Body height 162.6 cm Laila Richardson MD Work Phone: [facility] 11-04-2023 13:31-0400 Body mass index (BMI) [Ratio] 21.77 kg/m2 Laila Richardson MD Work Phone: [facility] 11-04-2023 13:31-0400 Body temperature 96.91 [degF] Lalia Richardson MD Work Phone: [facility] 11-04-2023 13:31-0400 Body weight 57.52 kg Laila Richardson MD Work Phone: [facility] 11-04-2023 13:31-0400 Diastolic blood pressure 77 mm[Hg] Laila Richardson MD Work Phone: [facility] 11-04-2023 13:31-0400 Heart rate 58 /min Laila Richardson MD Work Phone: [facility] 11-04-2023 13:31-0400 SaO2% (BldA) [Mass fraction] 94 % Laila Richardson MD Work Phone: [facility] 11-04-2023 13:31-0400 Systolic blood pressure 137 mm[Hg] Laila Richardson MD Work Phone: [facility] 09-26-2023 12:52-0400 Body height 158.8 cm Ramesh Og MD Work Phone: [facility] 09-26-2023 12:52-0400 Body mass index (BMI) [Ratio] 22.68 kg/m2 Ramesh Og MD Work Phone: [facility] 09-26-2023 12:52-0400 Body weight 57.15 kg Ramesh Og MD Work Phone: [facility] 09-26-2023 12:52-0400 Respiratory rate 16 /min Ramesh Og MD Work Phone: [facility] 08-27-2023 14:06-0400 Body height 158.8 cm Dustin Arboleda PA-C Work Phone: [facility] 08-27-2023 14:06-0400 Body mass index (BMI) [Ratio] 22.79 kg/m2 Dustin Arboleda PA-C Work Phone: [facility] 08-27-2023 14:06-0400 Body temperature 98.1 [degF] Dustin Arboleda PA-C Work Phone: [facility] 08-27-2023 14:06-0400 Body weight 57.42 kg Dustin Arboleda PA-C Work Phone: [facility] 08-27-2023 14:06-0400 Diastolic blood pressure 72 mm[Hg] Dustin Arboleda PA-C Work Phone: [facility] 08-27-2023 14:06-0400 Heart rate 62 /min Dustin Abroleda PA-C Work Phone: [facility] 08-27-2023 14:06-0400 Respiratory rate 20 /min Dustin Arboleda PA-C Work Phone: [facility] 08-27-2023 14:06-0400 SaO2% (BldA) [Mass fraction] 96 % Dustin Arboleda PA-C Work Phone: [facility] 08-27-2023 14:06-0400 Systolic blood pressure 116 mm[Hg] Dustin Arboleda PA-C Work Phone: [facility] 07-08-2023 10:19-0400 Body height 162.6 cm Laila Richardson MD Work Phone: [facility] 07-08-2023 10:19-0400 Body mass index (BMI) [Ratio] 21.46 kg/m2 Laila Richardson MD Work Phone: [facility] 07-08-2023 10:19-0400 Body temperature 96.8 [degF] Laila Richardson MD Work Phone: [facility] 07-08-2023 10:19-0400 Body weight 56.7 kg Laila Richardson MD Work Phone: [facility] 07-08-2023 10:19-0400 Diastolic blood pressure 79 mm[Hg] Laila Richardson MD Work Phone: [facility] 07-08-2023 10:19-0400 Heart rate 66 /min Laila Richardson MD Work Phone: [facility] 07-08-2023 10:19-0400 SaO2% (BldA) [Mass fraction] 93 % Laila Richardson MD Work Phone: [facility] 07-08-2023 10:19-0400 Systolic blood pressure 117 mm[Hg] Laila Ricahrdson MD Work Phone: [facility] 03-06-2023 11:04-0500 Body height 162.6 cm Laila Richardson MD Work Phone: [facility] 03-06-2023 11:04-0500 Body mass index (BMI) [Ratio] 21.94 kg/m2 Laila Richardson MD Work Phone: [facility] 03-06-2023 11:04-0500 Body temperature 97.7 [degF] Laila Richardson MD Work Phone: [facility] 03-06-2023 11:04-0500 Body weight 57.97 kg Laila Richardson MD Work Phone: [facility] 03-06-2023 11:04-0500 Diastolic blood pressure 86 mm[Hg] Laila Richardson MD Work Phone: [facility] 03-06-2023 11:04-0500 Heart rate 73 /min Laila Richardson MD Work Phone: [facility] 03-06-2023 11:04-0500 SaO2% (BldA) [Mass fraction] 93 % Laila Richardson MD Work Phone: [facility] 03-06-2023 11:04-0500 Systolic blood pressure 125 mm[Hg] Laila Richardson MD Work Phone: [facility] 11-28-2022 16:03-0400 Body height 162.6 cm Clari Gilmore ESL PROFESSOR Work Phone: [facility] 11-28-2022 16:03-0400 Body mass index (BMI) [Ratio] 21.28 kg/m2 Clari Gilmore ESL PROFESSOR Work Phone: [facility] 11-28-2022 16:03-0400 Body temperature 97.39 [degF] Clari Gilmore ESL PROFESSOR Work Phone: [facility] 11-28-2022 16:03-0400 Body weight 56.25 kg Clari Gilmore ESL PROFESSOR Work Phone: [facility] 11-28-2022 16:03-0400 Diastolic blood pressure 83 mm[Hg] Clari Gilmore ESL PROFESSOR Work Phone: [facility] 11-28-2022 16:03-0400 Heart rate 74 /min Clari Gilmore ESL PROFESSOR Work Phone: [facility] 11-28-2022 16:03-0400 SaO2% (BldA) [Mass fraction] 98 % Clari Gilmore ESL PROFESSOR Work Phone: [facility] 11-28-2022 16:03-0400 Systolic blood pressure 144 mm[Hg] Clari Gilmore ESL PROFESSOR Work Phone: [facility] 10-22-2022 15:18-0400 Body height 162.6 cm Gayle Stephenson PA Work Phone: [facility] 10-22-2022 15:18-0400 Body mass index (BMI) [Ratio] 21.11 kg/m2 Gayle Stephenson PA Work Phone: [facility] 10-22-2022 15:18-0400 Body temperature 97.5 [degF] Gayle Stephenson PA Work Phone: [facility] 10-22-2022 15:18-0400 Body weight 55.79 kg Gayle Stephenson PA Work Phone: [facility] 10-22-2022 15:18-0400 Diastolic blood pressure 78 mm[Hg] Gayle SHEFFIELD Work Phone: [facility] 10-22-2022 15:18-0400 Heart rate 70 /min Gayle SHEFFIELD Work Phone: [facility] 10-22-2022 15:18-0400 SaO2% (BldA) [Mass fraction] 98 % Gayle SHEFFIELD Work Phone: [facility] 10-22-2022 15:18-0400 Systolic blood pressure 140 mm[Hg] Gayle Stephenson PA Work Phone: [facility] 10-02-2022 14:08-0400 Body height 162.6 cm Alexia Glaser MD Work Phone: [facility] 10-02-2022 14:08-0400 Body temperature 98.01 [degF] Alexia Glaser MD Work Phone: [facility] 10-02-2022 14:08-0400 Body weight 55.34 kg Alexia Glaser MD Work Phone: [facility] 10-02-2022 14:08-0400 Diastolic blood pressure 74 mm[Hg] Alexia Glaser MD Work Phone: [facility] 10-02-2022 14:08-0400 Heart rate 90 /min Alexia Glaser MD Work Phone: [facility] 10-02-2022 14:08-0400 Respiratory rate 19 /min Alexia Glaser MD Work Phone: [facility] 10-02-2022 14:08-0400 SaO2% (BldA) [Mass fraction] 94 % Alexia Glaser MD Work Phone: [facility] 10-02-2022 14:08-0400 Systolic blood pressure 130 mm[Hg] Alexia Glaser MD Work Phone: [facility] 08-31-2022 11:52-0400 Body height 162.6 cm Hellen Wood MD Work Phone: [facility] 08-31-2022 11:52-0400 Body temperature 97.11 [degF] Hellen Wood MD Work Phone: [facility] 08-31-2022 11:52-0400 Body weight 54.88 kg Hellen Wood MD Work Phone: [facility] 08-31-2022 11:52-0400 Diastolic blood pressure 81 mm[Hg] Hellen Wood MD Work Phone: [facility] 08-31-2022 11:52-0400 Heart rate 60 /min Hellen Wood MD Work Phone: [facility] 08-31-2022 11:52-0400 Respiratory rate 20 /min Hellen Wood MD Work Phone: [facility] 08-31-2022 11:52-0400 SaO2% (BldA) [Mass fraction] 67 % Hellen Wood MD Work Phone: [facility] 08-31-2022 11:52-0400 Systolic blood pressure 130 mm[Hg] Hellen Wood MD Work Phone: [facility] 08-15-2022 10:21-0400 Body height 162.6 cm Seth Santiago MD Work Phone: [facility] 08-15-2022 10:21-0400 Body temperature 97.7 [degF] Seth Santiago MD Work Phone: [facility] 08-15-2022 10:21-0400 Body weight 54.88 kg Seth Santiago MD Work Phone: [facility] 08-15-2022 10:21-0400 Diastolic blood pressure 78 mm[Hg] Seth Santiago MD Work Phone: [facility] 08-15-2022 10:21-0400 Heart rate 66 /min Seth Santiago MD Work Phone: [facility] 08-15-2022 10:21-0400 Respiratory rate 20 /min Seth Santiago MD Work Phone: [facility] 08-15-2022 10:21-0400 SaO2% (BldA) [Mass fraction] 94 % Seth Santiago MD Work Phone: [facility] 08-15-2022 10:21-0400 Systolic blood pressure 116 mm[Hg] Seth Santiago MD Work Phone: [facility] 06-28-2022 13:48-0400 Body height 162.6 cm Jordyn Antony PA-C Work Phone: [facility] 06-28-2022 13:48-0400 Body temperature 98.01 [degF] Jordyn Antony PA-C Work Phone: [facility] 06-28-2022 13:48-0400 Body weight 57.42 kg Jordyn Antony PA-C Work Phone: [facility] 06-28-2022 13:48-0400 Diastolic blood pressure 92 mm[Hg] Jordyn Antony PA-C Work Phone: [facility] 06-28-2022 13:48-0400 Heart rate 60 /min Jordyn Antony PA-C Work Phone: [facility] 06-28-2022 13:48-0400 Respiratory rate 18 /min Jordyn Antony PA-C Work Phone: [facility] 06-28-2022 13:48-0400 SaO2% (BldA) [Mass fraction] 95 % Jordyn Antony PA-C Work Phone: [facility] 06-28-2022 13:48-0400 Systolic blood pressure 136 mm[Hg] Jordyn Antony PA-C Work Phone: [facility] 06-06-2022 11:06-0400 Body height 162.6 cm Sarah Fernandez DO Work Phone: [facility] 06-06-2022 11:06-0400 Body temperature 98.91 [degF] Sarah Chueh DO Work Phone: [facility] 06-06-2022 11:06-0400 Body weight 57.97 kg Sarha Chueh DO Work Phone: [facility] 06-06-2022 11:06-0400 Diastolic blood pressure 76 mm[Hg] Sarah Chueh DO Work Phone: [facility] 06-06-2022 11:06-0400 Heart rate 64 /min Sarah Chueh DO Work Phone: [facility] 06-06-2022 11:06-0400 Respiratory rate 20 /min Sarah Chueh DO Work Phone: [facility] 06-06-2022 11:06-0400 SaO2% (BldA) [Mass fraction] 95 % Sarah Chueh DO Work Phone: [facility] 06-06-2022 11:06-0400 Systolic blood pressure 116 mm[Hg] Sarah Chueh DO Work Phone: [facility] 03-26-2022 14:10-0500 Body height 162.6 cm Jordyn Antony PA-C Work Phone: [facility] 03-26-2022 14:10-0500 Body temperature 97.2 [degF] Jordyn Antony PA-C Work Phone: [facility] 03-26-2022 14:10-0500 Body weight 57.61 kg Jordyn Antony PA-C Work Phone: [facility] 03-26-2022 14:10-0500 Diastolic blood pressure 96 mm[Hg] Jordyn Antony PA-C Work Phone: [facility] 03-26-2022 14:10-0500 Heart rate 64 /min Jordyn Antony PA-C Work Phone: [facility] 03-26-2022 14:10-0500 Respiratory rate 16 /min Jordyn Antony PA-C Work Phone: [facility] 03-26-2022 14:10-0500 SaO2% (BldA) [Mass fraction] 98 % Jordyn Carlson PA-C Work Phone: [facility] 03-26-2022 14:10-0500 Systolic blood pressure 140 mm[Hg] Jordyn Carlson PA-C Work Phone: [facility] 11-27-2021 10:57-0400 Body height 162.6 cm Oh [place] [employer] Work Phone: [facility] 11-27-2021 10:57-0400 Body temperature 97.81 [degF] Oh Magnetic Tape Typewriter Operator [employer] Work Phone: [facility] 11-27-2021 10:57-0400 Body weight 56.88 kg Oh [employer] Tape Typewriter Operator [employer] Work Phone: [facility] 11-27-2021 10:57-0400 Diastolic blood pressure 68 mm[Hg] Oh [employer] T[employer] Typewriter Operator [employer] Work Phone: [facility] 11-27-2021 10:57-0400 Heart rate 67 /min [place] [employer] Work Phone: [facility] 11-27-2021 10:57-0400 Respiratory rate 18 /min Oh [employer] T[employer] Typewriter Operator [employer] Work Phone: [facility] 11-27-2021 10:57-0400 SaO2% (BldA) [Mass fraction] 95 % Oh [employer] T[employer] Typewriter Operator [employer] Work Phone: [facility] 11-27-2021 10:57-0400 Systolic blood pressure 105 mm[Hg] Oh Magnetic T[employer] Typewriter Operator [employer] Work Phone: [facility] 11-23-2021 15:39-0400 Body temperature 97.59 [degF] Oh Magnetic Tape Typewriter Operator [employer] Work Phone: [facility] 11-23-2021 15:39-0400 Body weight 56.88 kg Oh Magnetic Tape Typewriter Operator [employer] Work Phone: [facility] 11-23-2021 15:39-0400 Diastolic blood pressure 64 mm[Hg] [place] [employer] Work Phone: [facility] 11-23-2021 15:39-0400 Heart rate 81 /min [place] [employer] Work Phone: [facility] 11-23-2021 15:39-0400 Respiratory rate 18 /min [place] [employer] Work Phone: [facility] 11-23-2021 15:39-0400 SaO2% (BldA) [Mass fraction] 96 % [place] [employer] Work Phone: [facility] 11-23-2021 15:39-0400 Systolic blood pressure 102 mm[Hg] [place] [employer] Work Phone: [facility] 11-16-2021 13:47-0400 Body temperature 97.59 [degF] Oh Magnetic Tape Typewriter Operator [employer] Work Phone: [facility] 11-16-2021 13:47-0400 Body weight 62.32 kg Oh Magnetic T[employer] Typewriter Operator [employer] Work Phone: [facility] 11-16-2021 13:47-0400 Diastolic blood pressure 67 mm[Hg] Oh Magnetic T[employer] Typewriter Operator [employer] Work Phone: [facility] 11-16-2021 13:47-0400 Heart rate 68 /min Oh [employer] T[employer] Typewriter Operator [employer] Work Phone: [facility] 11-16-2021 13:47-0400 Respiratory rate 18 /min Oh [employer] T[employer] Typewriter Operator [employer] H[employer] Work Phone: [facility] 11-16-2021 13:47-0400 SaO2% (BldA) [Mass fraction] 97 % [place] [employer] Work Phone: [facility] 11-16-2021 13:47-0400 Systolic blood pressure 119 mm[Hg] Oh [place] [employer] Work Phone: [facility] 11-14-2021 08:32-0400 Body temperature 97.59 [degF] Radha Nevarez MD Work Phone: [facility] 11-14-2021 08:32-0400 Diastolic blood pressure 71 mm[Hg] Radha Nevarez MD Work Phone: [facility] 11-14-2021 08:32-0400 Heart rate 72 /min Radha Nevarez MD Work Phone: [facility] 11-14-2021 08:32-0400 Respiratory rate 18 /min Radha Nevarez MD Work Phone: [facility] 11-14-2021 08:32-0400 SaO2% (BldA) [Mass fraction] 97 % Radha Nevarez MD Work Phone: [facility] 11-14-2021 08:32-0400 Systolic blood pressure 119 mm[Hg] Radha Nevarez MD Work Phone: [facility] 11-13-2021 16:43-0400 Body height 162.6 cm Oh [employer] T[employer] Typewriter Operator [employer] Work Phone: [facility] 11-13-2021 16:43-0400 Body temperature 98.01 [degF] [place] [employer]ER[employer] Work Phone: [facility] 11-13-2021 16:43-0400 Body weight 62.32 kg Oh [place] [employer] Work Phone: [facility] 11-13-2021 16:43-0400 Diastolic blood pressure 70 mm[Hg] Oh Magnetic Tape Typewriter Operator [employer] Work Phone: [facility] 11-13-2021 16:43-0400 Heart rate 79 /min Oh Magnetic Tape Typewriter Operator [employer] Work Phone: [facility] 11-13-2021 16:43-0400 Respiratory rate 18 /min [place] [employer] Work Phone: [facility] 11-13-2021 16:43-0400 SaO2% (BldA) [Mass fraction] 96 % [place] [employer] Work Phone: [facility] 11-13-2021 16:43-0400 Systolic blood pressure 111 mm[Hg] Oh Magnetic Tape Typewriter Operator [employer] Work Phone: [facility] 10-05-2021 11:15-0400 Body temperature 97.9 [degF] Sarah Chueh DO Work Phone: [facility] 10-05-2021 11:15-0400 Body weight 62.23 kg Sarah Chueh DO Work Phone: [facility] 10-05-2021 11:15-0400 Diastolic blood pressure 71 mm[Hg] Sarah Chueh DO Work Phone: [facility] 10-05-2021 11:15-0400 Heart rate 71 /min Sarah Chueh DO Work Phone: [facility] 10-05-2021 11:15-0400 Respiratory rate 16 /min Sarah Chueh DO Work Phone: [facility] 10-05-2021 11:15-0400 SaO2% (BldA) [Mass fraction] 94 % Sarah Chueh DO Work Phone: [facility] 10-05-2021 11:15-0400 Systolic blood pressure 147 mm[Hg] Sarah Chueh DO Work Phone: [facility] 09-04-2021 14:02-0400 Body height 162.6 cm Jordyn Mauricewood PA-C Work Phone: [facility] 09-04-2021 14:02-0400 Body temperature 97.81 [degF] Jordyn Antony PA-C Work Phone: [facility] 09-04-2021 14:02-0400 Body weight 62.6 kg Jordyn Antony PA-C Work Phone: [facility] 09-04-2021 14:02-0400 Diastolic blood pressure 74 mm[Hg] Jordyn Antony PA-C Work Phone: [facility] 09-04-2021 14:02-0400 Heart rate 62 /min Jordyn Elizabethderwood PA-C Work Phone: [facility] 09-04-2021 14:02-0400 Systolic blood pressure 126 mm[Hg] Jordyn Antony PA-C Work Phone: [facility] 07-25-2021 15:19-0400 Body height 162.6 cm Maggi Forkapa DO Work Phone: [facility] 07-25-2021 15:19-0400 Body temperature 98.01 [degF] Maggi Forkapa DO Work Phone: [facility] 07-25-2021 15:19-0400 Body weight 62.14 kg Maggi Forkapa DO Work Phone: [facility] 07-25-2021 15:19-0400 Diastolic blood pressure 67 mm[Hg] Maggi Forkapa DO Work Phone: [facility] 07-25-2021 15:19-0400 Heart rate 75 /min Maggi Forkapa DO Work Phone: [facility] 07-25-2021 15:19-0400 Respiratory rate 22 /min Maggi Forkapa DO Work Phone: [facility] 07-25-2021 15:19-0400 SaO2% (BldA) [Mass fraction] 97 % Maggi Forkapa DO Work Phone: [facility] 07-25-2021 15:19-0400 Systolic blood pressure 108 mm[Hg] Maggi Forkapa DO Work Phone: [facility] Encounters Encounter Date Encounter Type Care Provider Facility Start: 11-25-2024 End: 11-25-2024 ambulatory Veronika Grant Facility:[facility] Start: 11-25-2024 End: 11-25-2024 Patient encounter procedure Caitlyn Thomas [facility] Work Phone: Start: 06-23-2024 End: 06-23-2024 ambulatory VERONIKA GRANT DO Facility:[facility] Start: 05-19-2024 End: 05-19-2024 Refill Laila Richardson MD Work Phone: [facility] Pulmonary [facility] Start: 05-18-2024 End: 05-18-2024 Refill Laila Richardson MD Work Phone: [facility] Clinical Communication Start: 03-16-2024 End: 03-16-2024 Telephone encounter Dustin Arboleda PA-C Work Phone: [facility] Comment on above: Clerical (Passport H CBS Waiver Assessment and Service Plan) Start: 02-05-2024 End: 02-07-2024 Emergency department patient visit DR YUMIKO HUERTA MD Facility:[facility] Start: 02-05-2024 End: 02-07-2024 Observation VERONIKA CHA [employer] [facility] Start: 01-03-2024 End: 01-03-2024 Telephone encounter Kristyn Sol MD Work Phone: [facility] Comment on above: Appointment Start: 12-30-2023 End: 12-30-2023 Telephone encounter Olive Gaming PTA Work Phone: [facility] Comment on above: Missed Appointment Start: 12-26-2023 End: 12-26-2023 Telephone encounter Alfredito Telles MD Work Phone: Pulmonary Medicine Comment on above: FYI-No Action Needed Start: 12-18-2023 End: 12-18-2023 ambulatory Dayton Wheat PT Work Phone: [employer] [facility] [facility] Comment on above: Chronic bilateral lo w back pain without sciatica (Primary Dx) Start: 12-10-2023 End: 12-10-2023 Telephone encounter Kristyn Sol MD Work Phone: [facility] Comment on above: Appointment (New pat ient referral-Dr. Sol) Start: 12-02-2023 End: 12-02-2023 ambulatory Tristin Mancuso RN [facility] Start: 12-02-2023 End: 12-02-2023 Home visit Tristin Mancuso RN [facility] Comment on above: Primary Care Coordin [facility] Hospital Follow Up ([facility] ED on 11/28/2023 for Left sided chest pain) Start: 11-28-2023 End: 11-29-2023 Emergency department patient visit DUSTIN ARBOLEDA Facility:[facility] Start: 11-28-2023 End: 11-28-2023 Telephone encounter Dustin Arboleda PA-C Work Phone: [facility] Comment on above: Appointment Start: 11-26-2023 End: 11-26-2023 Telephone encounter Dustin Arboleda PA-C Work Phone: [facility] Comment on above: Results Start: 11-19-2023 ambulatory DUSTIN ARBOLEDA Facility:[facility] Start: 11-19-2023 End: 11-19-2023 Subsequent hospital visit by physician [facility] Comment on above: Rib pain on left gia e [R07.81] Start: 11-19-2023 End: 11-19-2023 ambulatory DUSTIN ARBOLEDA Facility:[facility] Start: 11-19-2023 End: 11-19-2023 Office outpatient visit 15 minutes Dustin Arboleda PA-C Work Phone: [facility] Comment on above: Rib pain on left gia e (Primary Dx); Breast pain, left; Pain associated with left breast implant; Hypertension, essential; Hyperlipidemia, mixed; Chronic cough Start: 11-04-2023 End: 11-04-2023 Office outpatient visit 25 minutes Laila Richardson MD Work Phone: [facility] Pulmonary Medicine Comment on above: Chronic cough (Prima ry Dx); Moderate persistent asthma without complication; Chronic rhinitis Start: 11-04-2023 End: 11-04-2023 ambulatory [facility] Start: 09-26-2023 End: 09-26-2023 Patient encounter procedure Ramesh Og MD Work Phone: [facility] Orthopedics Comment on above: Compression fracture of T12 vertebra, initial encounter (HCC) (Primary Dx); Closed compression fracture of L2 lumbar vertebra, initial encounter (HCC); Lumbar back pain Start: 09-26-2023 End: 09-26-2023 ambulatory RAMESH OG Facility:[facility] Start: 08-27-2023 End: 08-27-2023 Office outpatient visit 25 minutes Dustin Arboleda PA-C Work Phone: [facility] Comment on above: Encounter for medica l examination to establish care (Primary Dx); Chronic cough; Hiatal hernia; Anxiety with depression; Chronic insomnia; Hypertension, essential; Hyperlipidemia, mixed; Vitamin D deficiency; Age related osteoporosis, unspecified pathological fracture presence; Irritable bowel syndrome with diarrhea Start: 08-27-2023 End: 08-27-2023 Patient encounter status Dustin Arboleda PA-C Work Phone: [facility] Work Phone: Start: 08-27-2023 End: 08-27-2023 ambulatory DUSTIN ARBOLEDA Facility:[facility] Start: 07-15-2023 Refill Jordyn lopez PA-C Work Phone: [facility] Comment on above: Refill Request Start: 07-08-2023 End: 07-08-2023 ambulatory [facility] Start: 07-08-2023 End: 07-08-2023 Office outpatient visit 25 minutes Laila Richardson MD Work Phone: [facility] Pulmonary Medicine Comment on above: Chronic cough (Prima ry Dx); Moderate persistent asthma without complication; Hiatal hernia; Chronic rhinitis Start: 07-07-2023 Refill Jordyn Kaylene wood PA-C Work Phone: [facility] Comment on above: Refill Request Start: 07-06-2023 Refill Jordyn Kaylene wood PA-C Work Phone: [facility] Comment on above: Refill Request Start: 07-04-2023 End: 07-04-2023 [facility] Start: 07-04-2023 End: 07-04-2023 Subsequent hospital visit by physician Laila Richardson MD Work Phone: [facility] Pulm Function Test Comment on above: Chronic cough; Moderate persistent asthma without complication Start: 07-02-2023 Refill Jordyn Kaylene wood PA-C Work Phone: [facility] Comment on above: Refill Request Start: 06-21-2023 End: 09-20-2023 Transcribe Orders Siddhartha Nichols DO Work Phone: [facility] Central Scheduling Comment on above: Asymptomatic [place] (Primary Dx) Start: 06-18-2023 End: 09-17-2023 Subsequent hospital visit by physician Siddhartha Nichols MD Work Phone: [facility] Comment on above: No Show Cauda equina syndrom e (HCC) (Primary Dx) Start: 06-18-2023 End: 06-18-2023 ambulatory SIDDHARTHARSOALIE NICHOLS [facility] Start: 05-30-2023 Refill Jordyn Kaylene wood PA-C Work Phone: [facility] Comment on above: Refill Request Start: 05-07-2023 Telephone encounter Laila aguilar MD Work Phone: [facility] Pulmonary Medicine Comment on above: OTHER (Pt requesting sample of spiriva 2.5(04/24/2023)) Start: 04-19-2023 Refill Jordyn Kaylene wood PA-C Work Phone: [facility] Comment on above: Refill Request Start: 04-02-2023 Telephone encounter Laila aguilar MD Work Phone: [facility] Pulmonary Medicine Comment on above: OTHER (Pt was in for ov on 03/06/2023,and received samples of Air Supra) Start: 03-06-2023 End: 03-06-2023 Office outpatient new 45 minutes Laila Richardson MD Work Phone: [facility] Pulmonary Medicine Comment on above: Chronic cough (Prima ry Dx); Moderate persistent asthma without complication; Hiatal hernia Start: 03-05-2023 Refill Jordyn Kaylene wood PA-C Work Phone: [facility] Comment on above: Refill Request Start: 02-13-2023 Refill Jordyn Kaylene wood PA-C Work Phone: [facility] Comment on above: Refill Request Start: 02-12-2023 Refill Jordyn Kaylene wood PA-C Work Phone: [facility] Comment on above: Refill Request Start: 01-17-2023 Refill Jordyndaniel Elizabethder wood PA-C Work Phone: [facility] Comment on above: Refill Request Start: 01-14-2023 Telephone encounter Jordyn whittakererwood PA-C Work Phone: [facility] Comment on above: Refill Request Start: 01-09-2023 Refill Jordyn Kaylene wood PA-C Work Phone: [facility] Comment on above: Refill Request Start: 12-05-2022 Refill Jordyn Kaylene wood PA-C Work Phone: [facility] Comment on above: Refill Request Start: 11-28-2022 End: 11-28-2022 Office outpatient visit 25 minutes Clari iGlmore NP Work Phone: [facility] Comment on above: Dysuria (Primary Dx) ; Acute cystitis with hematuria Start: 11-28-2022 Refill Jordyn Elizabethder wood PA-C Work Phone: [facility] Comment on above: Refill Request Start: 11-27-2022 Telephone encounter Jordyn Tinsley olyawood PA-C Work Phone: [facility] Comment on above: Dysuria Start: 11-06-2022 Refill Jordyn Elizabethder wood PA-C Work Phone: [facility] Comment on above: Refill Request Start: 11-02-2022 Refill Jordyn Elizabethder wood PA-C Work Phone: [facility] Comment on above: Refill Request Start: 10-22-2022 End: 10-22-2022 Office outpatient new 30 minutes Gayle SHEFFIELD Work Phone: [facility] Comment on above: Acute UTI (Primary D x); Proteinuria, unspecified type Start: 10-22-2022 ambulatory Fannie Benitez RN NU RSE TV TECHNICIAN Comment on above: UTI Start: 10-02-2022 End: 10-02-2022 Patient encounter procedure Alexia Glaser MD Work Phone: Allergy Comment on above: Allergic rhinitis, u nspecified seasonality, unspecified trigger (Primary Dx); Chronic cough; Post-nasal drip; Hiatal hernia Start: 10-02-2022 Telephone encounter Alfredito Telles MD Work Phone: Pulmonary Medicine Comment on above: FYI-No Action Needed Start: 09-29-2022 Refill Jordyn Kaylene wood PA-C Work Phone: [facility] Comment on above: Refill Request Start: 09-08-2022 Refill Jordyn Elizabethder wood PA-C Work Phone: [facility] Comment on above: Refill Request Start: 09-04-2022 Refill Jordynsenait Maurice wood PA-C Work Phone: [facility] Comment on above: Refill Request (Carol betancur ) Start: 09-04-2022 Refill Jordyn lopez PA-C Work Phone: [facility] Comment on above: Med Change Request Start: 08-31-2022 End: 08-31-2022 Patient encounter procedure Hellen Wood MD Work Phone: [facility] Comment on above: Acute cystitis with hematuria (Primary Dx); Urinary symptom or sign Start: 08-30-2022 Telephone encounter Jordynsenait benton PA-C Work Phone: [facility] Comment on above: Appointment Start: 08-16-2022 Telephone encounter Seth whitman MD Work Phone: [facility] Comment on above: Follow Up Start: 08-15-2022 End: 08-15-2022 Subsequent hospital visit by physician [facility] Comment on above: Pleuritic chest pain [R07.81] Start: 08-15-2022 End: 08-15-2022 Patient encounter procedure Seth Santiago MD Work Phone: [facility] Comment on above: Postnasal drip (Prim rudy Dx); Chronic cough; Pleuritic chest pain Start: 08-14-2022 Telephone encounter Jordyn benton PA-C Work Phone: [facility] Comment on above: Appointment Start: 07-02-2022 Telephone encounter Jordyn benton PA-C Work Phone: [facility] Comment on above: REFERRAL (To ENT) REFERRAL (To Pulmona ry Medicine) REFERRAL (To Gastroe nterology) Start: 06-28-2022 End: 06-28-2022 Patient encounter procedure Jordyn Carlson PA-C Work Phone: [facility] Comment on above: Chronic cough; Cyst, sinus nasal; Loose stools; Memory deficit Start: 06-06-2022 End: 06-06-2022 Patient encounter procedure Sarah Fernandez DO Work Phone: [facility] Comment on above: Chronic cough (Prima ry Dx); Dyspnea and respiratory abnormalities Start: 05-10-2022 Refill Tamika jansen MD Work Phone: [facility] Comment on above: Refill Request Start: 05-03-2022 Refill Darrin Pastrana DO Work Phone: [facility] Comment on above: Refill Request Start: 04-16-2022 Refill Jordyn Kaylene wood PA-C Work Phone: [facility] Comment on above: Refill Request Start: 04-09-2022 Refill Jordyn Kaylene wood PA-C Work Phone: [facility] Comment on above: Refill Request Start: 03-26-2022 End: 03-26-2022 Patient encounter procedure Jordyn Mauricewood PA-C Work Phone: [facility] Comment on above: Loose stools (Primar y Dx) Start: 03-15-2022 Telephone encounter Jordyn whittakererwood PA-C Work Phone: [facility] Comment on above: Appointment Start: 02-03-2022 Refill Jordyn Kaylene wood PA-C Work Phone: [facility] Comment on above: Refill Request Start: 12-27-2021 ambulatory Richard Heredia RN AG VNS Start: 12-27-2021 Follow-up encounter Richard Baltazar G [facility] Comment on above: Transition Of Care ( Attempted final TCM follow up) Start: 12-22-2021 Telephone encounter Ravi Paige MD Work Phone: Pulmonary Medicine Comment on above: FYI-No Action Needed Start: 12-13-2021 ambulatory Richard Heredia RN AG VNS Start: 12-13-2021 Follow-up encounter Richard Baltazar G [facility] Comment on above: Transition Of Care ( TCM follow up) Start: 12-07-2021 Telephone encounter Lawrence quintana MD Work Phone: [facility] Comment on above: Forms ([facility] choice home - order # [id number]) Start: 12-05-2021 ambulatory Richard Heredia RN AG VNS Start: 12-05-2021 Follow-up encounter Richard Rebolledo [facility] Comment on above: Transition Of Care ( TCM follow up) Start: 12-04-2021 Telephone encounter Jordyn benton PA-C Work Phone: [facility] Comment on above: Orders Start: 12-03-2021 Refill Jordyn lopez PA-C Work Phone: [facility] Comment on above: Refill Request Start: 11-29-2021 Patient Outreach Hellen mora RN Work Phone: [facility] Comment on above: Transition Of Care ( [place] 11/10-11/28/21 TCM) Start: 11-27-2021 ambulatory Oh Lisbon A PRN.BROOCH MAKER NOVELTY Work Phone: [facility] Comment on above: Closed nondisplaced zone I fracture of sacrum with routine healing, subsequent encounter (Primary Dx); Compression fracture of T12 vertebra with routine healing, subsequent encounter; Primary hypertension; Hypertension, well controlled; Intrinsic asthma without status asthmaticus, mild persistent, uncomplicated; Debility Start: 11-27-2021 Telemedicine consultation with patient Oh Magnetic Tape Typewriter Operator DROP WIRE HANGER.BROOCH MAKER NOVELTY Work Phone: [facility] Start: 11-24-2021 Telephone encounter Ag Orth Work Phone: [facility] Comment on above: Surgical Followup Start: 11-23-2021 ambulatory Oh Lisbon A PRN.BROOCH MAKER NOVELTY Work Phone: [facility] Comment on above: Closed nondisplaced zone I fracture of sacrum with routine healing, subsequent encounter (Primary Dx); Compression fracture of T12 vertebra with routine healing, subsequent encounter; Primary hypertension; Debility Start: 11-23-2021 Telemedicine consultation with patient Oh Magnetic Tape Typewriter Operator DROP WIRE HANGER.BROOCH MAKER NOVELTY Work Phone: [facility] Start: 11-22-2021 Telephone encounter Ag Orth Work Phone: [facility] Comment on above: Appointment (Gee da silva called for an appointment for [place]an[place]) Start: 11-21-2021 Refill Jordyn lopez PA-C Work Phone: [facility] Comment on above: Refill Request Start: 11-16-2021 ambulatory Oh LOPEZBROOCH MAKER NOVELTY Work Phone: [facility] Comment on above: Closed nondisplaced zone I fracture of sacrum with routine healing, subsequent encounter (Primary Dx); Compression fracture of T12 vertebra with routine healing, subsequent encounter; Acute cystitis without hematuria; Primary hypertension; Debility Start: 11-16-2021 Telemedicine consultation with patient Oh Cobb APRN.BROOCH MAKER NOVELTY Work Phone: [facility] Start: 11-14-2021 ambulatory Radha schrader MD Work Phone: [facility] Comment on above: Closed nondisplaced zone I fracture of sacrum with routine healing, subsequent encounter (Primary Dx); Hypertension, well controlled; Anxiety with depression; Intrinsic asthma without status asthmaticus, mild persistent, uncomplicated; Vitamin D deficiency; Debility Start: 11-14-2021 Telemedicine consultation with patient Radha Nevarez MD Work Phone: [facility] Start: 11-13-2021 ambulatory Richard Heredia RN AG VNS Comment on above: Closed nondisplaced zone I fracture of sacrum with routine healing, subsequent encounter (Primary Dx); Compression fracture of T12 vertebra with routine healing, subsequent encounter; Myelopathy (HCC); Primary hypertension; Acute cystitis without hematuria; Intrinsic asthma without status asthmaticus, mild persistent, uncomplicated; Vitamin D deficiency; Debility; Frequent falls Start: 11-13-2021 Follow-up encounter Richard Baltazar G [facility] Comment on above: Transition Of Care ( [facility] Follow up) Start: 11-13-2021 Telemedicine consultation with patient Oh Cobb JUANITA.BROOCH MAKER NOVELTY Work Phone: [facility] Start: 10-05-2021 End: 10-05-2021 Patient encounter procedure Sarah Fernandez DO Work Phone: [facility] Comment on above: Dysuria (Primary Dx) Start: 10-03-2021 Refill Jordyn Maurice wood PA-C Work Phone: [facility] Comment on above: Refill Request Start: 09-26-2021 Refill Jordyn Elizabethder wood PA-C Work Phone: [facility] Comment on above: Refill Request Start: 09-08-2021 ambulatory Jordyn Maurice wood PA-C Work Phone: [facility] Comment on above: Results Start: 09-08-2021 E-mail encounter fro m caregiver Jordyn Elizabethderwood PA-C Work Phone: [facility] Start: 09-04-2021 End: 09-04-2021 Subsequent hospital visit by physician [facility] Comment on above: Cough [R05.9] Start: 09-04-2021 End: 09-04-2021 Patient encounter procedure Jordyn Elizabethderwood PA-C Work Phone: [facility] Comment on above: Cough (Primary Dx) Start: 08-30-2021 Refill Jordyn Elizabethder wood PA-C Work Phone: [facility] Comment on above: Refill Request Start: 07-26-2021 Refill Jordyn Maurice wood PA-C Work Phone: [facility] Comment on above: Refill Request Start: 07-25-2021 End: 07-25-2021 Patient encounter procedure Maggi Bailey DO Work Phone: [facility] Comment on above: Acute cystitis witho ut hematuria (Primary Dx) Start: 07-12-2021 Refill Jordyn Kaylene wood PA-C Work Phone: [facility] Comment on above: Refill Request Start: 07-10-2021 End: 07-10-2021 Subsequent hospital visit by physician Phill Green [facility] Comment on above: URI, acute [J06.9] Procedures Date Procedure Procedure Detail Performing Clinician Start: 09-27-2023 Radex spine lumbosac ral 2/3 views Ramesh Og MD Work Phone: Start: 07-04-2023 Brncdilat rspse spmt ry pre&post-brncdilat admn Laila Richardson MD Work Phone: Start: 11-28-2022 Urnls dip stick/tabl et rgnt non-auto w/o micrscp Clari Gilomre ESL PROFESSOR Work Phone: Start: 10-22-2022 Urnls dip stick/tabl et rgnt non-auto w/o micrscp Gayle Stephenson PA Work Phone: Start: 08-31-2022 Culture bacterial quanttative colony count urine Hellen Wood MD Work Phone: Start: 08-31-2022 Urnls dip stick/tabl et rgnt auto w/o microscopy Hellen Wood MD Work Phone: Start: 08-15-2022 Radiologic exam ches t 2 views Seth Santiago MD Work Phone: Start: 10-05-2021 Urnls dip stick/tabl et rgnt auto w/o microscopy Sarah Fernandez DO Work Phone: Start: 09-04-2021 Radiologic exam ches t 2 views Jordyn Carlson PA-C Work Phone: Start: 07-10-2021 Radiologic exam ches t 2 views Maggi Noriega APRN.BROOCH MAKER NOVELTY Work Phone: Plan of Treatment Date Care Activity Detail Author Start: 01-31-2031 DTaP/Tdap/Td Vaccines (2 - Td or Tdap) DTaP/Tdap/Td Vaccines (2 - Td or Tdap) [facility] Start: 01-31-2031 Urine microalbumin profile [facility] Start: 11-27-2026 Diabetes Screening Diabetes Screening [facility] Start: 10-24-2026 Diabetes Screening Diabetes Screening [facility] Start: 11-10-2024 DIABETES SCREEN DIABETES SCREEN [facility] Start: 11-10-2024 Diabetes Screening Diabetes Screening [facility] Start: 05-20-2024 End: 05-20-2024 Patient encounter procedure 05/20/2024 11:00 AM EST Office Visit [facility] Pulmonary and Sleep Medicine [address] [place] [address] Laila Richardson MD [address] [place] [address] [facility] Pulmonary and Sleep Medicine [facility] Start: 03-18-2024 Medicare Advantage Annual Wellness Visit Medicare Advantage Annual Wellness Visit [facility] Start: 02-28-2024 End: 02-28-2024 Patient encounter procedure 02/28/2024 2:00 PM EST Office Visit [facility] [address] Medical Office [place], [place] [phone] Dustin Arboleda PA-C [address] [place] [address] Return in about 3 months (around 02/18/2024) for annual exam. [facility] Comment on above: Return in about 3 months (around 02/18/20) for annual exam. Start: 02-18-2024 End: 02-18-2024 Patient encounter procedure 02/18/2024 3:05 PM EST Office Visit [facility] [address] [place] [address] Sheron Miles PA-C [address] [facility] [place] [address] Irritable bowel syndrome with diarrhea, referral from PCP [facility] Comment on above: Irritable bowel syndrome with diarrhea, referral from PCP Start: 01-29-2024 End: 01-29-2024 Patient encounter procedure 01/29/2024 10:00 AM EST Office Visit [facility] [address] [place] [address] Kristyn Sol MD 1 [facility] [address] [place], [place] [phone] EST- Last seen [address] Sol- Larger Hiatal hernia [facility] Comment on above: EST- Last seen [address] Sol - Larger Hiatal hernia Start: 01-20-2024 End: 01-20-2024 ambulatory 01/20/2024 1:00 PM EST OT/PT/Speech Visit [facility] [address] [place] [address] Dayton Wheat, PT [address] [place], [place] [phone] $30 [facility] Comment on above: $30 [facility] Start: 01-13-2024 End: 01-13-2024 ambulatory 01/13/2024 12:15 PM EDT OT/PT/Speech Visit [facility] [address] [place] [address] Dayton Wheat, PT [address] [place], [place] [phone] $30 [facility] Comment on above: $30 [facility] Start: 01-06-2024 End: 01-06-2024 ambulatory 01/06/2024 1:15 PM EDT OT/PT/Speech Visit [facility] [address] [place] [address] [employer], COUNTER TENDER [address] [place], [place] [phone] $30 [facility] Comment on above: $30 [facility] Start: 01-03-2024 End: 01-03-2024 Patient encounter procedure 01/03/2024 2:00 PM EDT Office Visit [facility] [address] [place], [place] [phone] Kristyn Sol MD [address] [address] EST- Last seen [address] Sol- Larger Hiatal hernia [facility] Comment on above: EST- Last seen [address] Sol - Larger Hiatal hernia Start: 12-30-2023 End: 12-30-2023 ambulatory 12/30/2023 2:00 PM EDT OT/PT/Speech Visit [facility] [address] [place] [address] [employer], COUNTER TENDER [address] [place], [place] [phone] $30 [facility] Comment on above: $30 [facility] Start: 12-23-2023 End: 12-23-2023 Patient encounter procedure 12/23/2023 2:15 PM EDT Office Visit [facility] [address] [facility] [place] [phone] Sheron Miles PA-C [address] [facility] [place] [address] Irritable bowel syndrome with diarrhea, referral from PCP [facility] Comment on above: Irritable bowel syndrome with diarrhea, referral from PCP Start: 12-18-2023 End: 12-18-2023 ambulatory 12/18/2023 1:45 PM EDT OT/PT/Speech Visit [facility] [address] [place] [address] Dayton Wheat, PT 1 [place], [place] [phone] $30 [facility] Comment on above: $30 [facility] Start: 12-03-2023 End: 12-03-2023 ambulatory 12/03/2023 1:45 PM EDT OT/PT/Speech Visit [facility] [address] [place], [place] [phone] Ruby Vaca, PT [address] [place] [address] $30 [facility] Comment on above: $30 [facility] Start: 11-17-2023 COVID-19 Vaccine ( season) COVID-19 Vaccine ( season) [facility] Start: 11-17-2023 Covid-19 Vaccine ( season) Covid-19 Vaccine () [facility] Start: 11-17-2023 Covid-19 Vaccine () Covid-19 Vaccine () [facility] Start: 11-17-2023 Influenza vaccination [facility] Start: 11-07-2023 End: 11-07-2023 Patient encounter procedure 11/07/2023 2:40 PM EDT Office Visit [facility] [address] Medical Office [place], [place] [address] Dustin Arboleda PA-C [address] [place] [address] Return in about 3 months (around 11/27/2023) for medication follow-up. [facility] Comment on above: Return in about 3 months (around 11/27/19) for medication follow-up. Start: 11-04-2023 End: 11-04-2023 Patient encounter procedure 11/04/2023 1:30 PM EDT Office Visit [facility] [address] [place] [address] [place] [phone] Laila Richardson MD [address] [place] [address] [facility] Start: 10-29-2023 End: 10-29-2023 Patient encounter procedure 10/29/2023 2:15 PM EDT Office Visit [facility] [address] [place] [address] Sheron Miles PA-C [address] [facility] [place] [place] [address] Irritable bowel syndrome with diarrhea, referral from PCP [facility] Comment on above: Irritable bowel syndrome with diarrhea, referral from PCP Start: 10-16-2023 End: 10-16-2023 ambulatory 10/16/2023 4:15 PM EDT OT/PT/Speech Visit [facility] [address] [place] [address] Ruby Vaca, PT [address] [place] [address] lumbar [facility] Comment on above: lumbar Start: 09-26-2023 End: 09-26-2023 Patient encounter procedure 09/26/2023 1:00 PM EDT Office Visit [facility] [address] [place] [address] Ramesh Og MD [address] [place] [phone] back [facility] Comment on above: back Start: 08-27-2023 End: 11-26-2023 25-hydroxyvitamin D3 [Mass/volume] in Serum or Plasma VITAMIN D 25 HYDROXY Lab Routine Vitamin D deficiency Expected: 08/27/2023, Expires: 11/26/2023 [facility] Comment on above: Expected: 08/27/2023, Expires: Start: 08-27-2023 End: 11-26-2023 CBC W Auto Differential panel - Blood COMPLETE BLOOD COUNT AND DIFFERENTIAL Lab Routine Hypertension, essential Expected: 08/27/2023, Expires: 11/26/2023 [facility] Work Phone: Comment on above: Expected: 08/27/2023, Expires: Start: 08-27-2023 End: 11-26-2023 Comprehensive metabolic 2000 panel - Serum or Plasma COMPREHENSIVE METABOLIC PANEL Lab Routine Hyperlipidemia, mixed Hypertension, essential Expected: 08/27/2023, Expires: 11/26/2023 [facility] Comment on above: Expected: 08/27/2023, Expires: Start: 08-27-2023 End: 11-26-2023 Lipid 1996 panel - Serum or Plasma LIPID PANEL BASIC Lab Routine Hyperlipidemia, mixed Expected: 08/27/2023, Expires: 11/26/2023 [facility] Comment on above: Expected: 08/27/2023, Expires: Start: 08-27-2023 End: 11-26-2023 Thyrotropin [Units/volume] in Serum or Plasma THYROID STIMULATING HORMONE Lab Routine Hypertension, essential Expected: 08/27/2023, Expires: 11/26/2023 [facility] Comment on above: Expected: 08/27/2023, Expires: Start: 08-27-2023 End: 11-26-2023 Thyroxine (T4) free [Mass/volume] in Serum or Plasma T4 FREE/FREE THYROXINE Lab Routine Hypertension, essential Expected: 08/27/2023, Expires: 11/26/2023 [facility] Comment on above: Expected: 08/27/2023, Expires: Start: 08-19-2023 End: 08-19-2023 Patient encounter procedure 08/19/2023 11:20 AM EDT Office Visit [facility] [address] [facility] [place] [phone] Sheron Miles PA-C [address] [facility] [place] [place] [address] chronic diarrhea, not second opinion, needs established with GI [facility] Comment on above: chronic diarrhea, not second opinion, ne eds established with GI Start: 07-30-2023 End: 07-30-2023 Patient encounter procedure 07/30/2023 1:20 PM EDT Office Visit [facility] ([facility]) [address] [place] [address] [address] [place], [place] [phone] Sharla Guerin MD 1 [facility] [address] [place] [address] a persistant cough [facility] ([facility]) Comment on above: a persistant cough Start: 07-25-2023 End: 07-25-2023 Patient encounter procedure 07/25/2023 2:45 PM EDT Appointment [facility] [address] [place] [address] Siddhartha Nichols MD [address] [place], [place] [phone] [facility] Start: 07-18-2023 End: 07-18-2023 Patient encounter procedure 07/18/2023 3:30 PM EDT Appointment [facility] [address] [place] [address] Siddhartha Nichols MD [address] [place] [address] [facility] Start: 07-04-2023 Subsequent hospital visit by physician 07/04/2023 12:15 PM EDT Hospital Encounter [facility] Pulm Function Test [address] [place] [phone] Laila Richardson MD [address] [place] [address] [facility] Pulm Function Test Start: 06-21-2023 End: 06-20-2024 DXA Skeletal system.axial Views for bone density DEXA bone density axial skeleton Imaging Routine Asymptomatic menopausal state Expected: 06/21/2023, Expires: 06/20/2024 [facility] Work Phone: Comment on above: Expected: 06/21/2023, Expires: Start: 06-18-2023 End: 06-17-2024 MR Lumbar spine WO contrast MR lumbar spine wo contrast Imaging STAT Cauda equina syndrome (HCC) Expected: 06/18/2023, Expires: 06/17/2024 [facility] Work Phone: Comment on above: Expected: 06/18/2023, Expires: Start: 05-24-2023 End: 05-24-2023 Patient encounter procedure 05/24/2023 12:15 PM EST Appointment [facility] Pulm Function Test [address] [place] [phone] Laila Richardson MD [address] [place] [address] [facility] Pulm Function Test Start: 04-17-2023 End: 04-17-2023 Patient encounter procedure 04/17/2023 11:45 AM EST Office Visit [facility] [address] [place] [address] [place] [phone] Laila Richardson MD [address] [place] [address] [facility] Start: 04-03-2023 DIABETES SCREEN DIABETES SCREEN [facility] Start: 03-18-2023 Advance Directive Discussion Advance Directive Discussion [facility] Start: 03-18-2023 Medicare Advantage Annual Wellness Visit Medicare Advantage Annual Wellness Visit [facility] Start: 03-06-2023 End: 03-06-2024 Complete PFT pre and post bronchodilator with FENO Complete PFT pre and post bronchodilator with FENO PFT Routine Chronic cough Moderate persistent asthma without complication Expected: 03/06/2023 (Approximate), Expires: 03/06/2024 [facility] Work Phone: Comment on above: Expected: 03/06/2023 (Approximate), Expi res: 03/06/2024 Start: 11-27-2022 End: 01-27-2023 Urinalysis complete panel - Urine URINALYSIS WITH MICROSCOPIC, REFLEX CULTURE Lab Routine Dysuria Expected: 11/27/2022, Expires: 01/27/2023 [facility] Work Phone: Comment on above: Expected: 11/27/2022, Expires: 3 Start: 11-16-2022 Covid-19 Vaccine () Covid-19 Vaccine () [facility] Start: 11-16-2022 Covid-19 Vaccine () Covid-19 Vaccine () [facility] Start: 11-16-2022 Influenza vaccination [facility] Start: 10-02-2022 End: 12-02-2022 ALGN RESP DISEASE PROF REG 5 [facility] Work Phone: Comment on above: Expected: 10/02/2022, Expires: 3 Start: 05-14-2022 COVID-19 VACCINE (6 - Pfizer series) COVID-19 VACCINE (6 - Pfizer series) [facility] Start: 03-18-2022 ADVANCE DIRECTIVE DISCUSSION ADVANCE DIRECTIVE DISCUSSION [facility] Start: 11-16-2021 Influenza vaccination INFLUENZA (#1) [facility] Start: 10-24-2021 COVID-19 VACCINE (5 - Booster for Pfizer series) COVID-19 VACCINE (5 - Booster for Pfizer series) [facility] Start: 10-12-2021 End: 12-12-2021 Urinalysis complete panel - Urine URINALYSIS, WITH MICROSCOPIC Lab Routine Dysuria Expected: 10/12/2021, Expires: 12/12/2021 [facility] Work Phone: Comment on above: Expected: 10/12/2021, Expires: 2 Start: 10-05-2021 End: 12-05-2021 Bacteria identified in Urine by Culture URINE CULTURE Microbiology Routine Dysuria Expected: 10/05/2021, Expires: 12/05/2021 [facility] Work Phone: Comment on above: Expected: 10/05/2021, Expires: 2 Start: 07-25-2021 End: 09-24-2021 Bacteria identified in Urine by Culture [facility] Work Phone: Comment on above: Expected: 07/25/2021, Expires: 2 Start: 04-22-2021 COVID-19 VACCINE (4 - Booster for Pfizer series) COVID-19 VACCINE (4 - Booster for Pfizer series) [facility] Start: 03-18-2021 ADVANCE DIRECTIVE DISCUSSION ADVANCE DIRECTIVE DISCUSSION [facility] Start: 08-20-2019 Screening for osteoporosis [facility] Start: 2013 RSV Immunization for Adults (1 - 1-dose 75+ series) RSV Immunization for Adults (1 - 1-dose 75+ series) [facility] Start: 1998 RSV Immunization aged 60 or older (1 - 1-dose 60+ series) RSV Immunization aged 60 or older (1 - 1-dose 60+ series) [facility] Start: 1998 RSV Vaccine (1 - 1-dose 60+ series) RSV Vaccine (1 - 1-dose 60+ series) [facility] Start: 1988 SHINGRIX VACCINE (1 of 2) SHINGRIX VACCINE (1 of 2) [facility] Start: 1957 Urine microalbumin profile DTAP,TDAP,TD (1 - Tdap) [facility] Start: 1956 SPIROMETRY SPIROMETRY [facility] Start: 1950 Depression Monitoring Depression Monitoring [facility] Start: 1950 Depression Screening Depression Screening [facility] Start: 1938 Lipid panel Lipid Panel [facility] Start: 1938 Screening for osteoporosis Bone Density Scan [facility] ALLERGEN SKIN TEST-INHALANT 40 ALLERGEN SKIN TEST-INHALANT 40 Procedures Routine Allergic rhinitis, unspecified seasonality, unspecified trigger Chronic cough Post-nasal drip Ordered: 10/02/2022 [facility] Work Phone: Comment on above: Ordered: 10/02/2022 Bacteria identified in Urine by Culture Urine culture Microbiology Routine Acute UTI Ordered: 10/22/2022 [facility] Work Phone: Comment on above: Ordered: 10/22/2022 Bacteria identified in Urine by Culture Urine culture Microbiology Routine Dysuria Ordered: 11/28/2022 [facility] Work Phone: Comment on above: Ordered: 11/28/2022 End: 09-25-2024 BD DXA TRABECULAR BONE SCORE (TBS) BD DXA TRABECULAR BONE SCORE (TBS) Radiology Routine Age related osteoporosis, unspecified pathological fracture presence 1 Occurrences starting 08/27/2023 until 09/25/2024 [facility] Comment on above: 1 Occurrences starting 08/27/2023 until 09/25/2024 Clostridioides difficile DNA [Presence] in Unspecified specimen by SUSAN with probe detection [facility] Complete PFT pre and post bronchodilator with FENO Complete PFT pre and post bronchodilator with FENO PFT Routine Chronic cough Moderate persistent asthma without complication 07/04/2023 1:45 PM EDT [facility] Work Phone: End: 09-25-2024 DXA Skeletal system.axial Views for bone density DXA-AXIAL SKELETON Radiology Routine Age related osteoporosis, unspecified pathological fracture presence 1 Occurrences starting 08/27/2023 until 09/25/2024 [facility] Comment on above: 1 Occurrences starting 08/27/2023 until 09/25/2024 Giardia lamblia Ag [Presence] in Stool by Immunoassay [facility] Nucleic acid assay [facility] OUTSIDE PROCEDURE SCAN OUTSIDE P ROCEDURE SCAN Procedures [facility]: [facility] Ordered: 06/18/2023 Ova OR parasites identification [facility] Protein measurement [facility] Radiologic exam ches t 2 views XR CHEST 2V FRONTAL/LAT Radiology Routine Cough 09/04/2021 3:06 PM EDT [facility] Work Phone: UA DIP B/O UA DIP B/O Lab R outine Urinary symptom or sign Ordered: 08/31/2022 [facility] Work Phone: Comment on above: Ordered: 08/31/2022 End: 12-18-2024 US Breast - left limited US BREAST LTD LEFT Radiology Routine Breast pain, left Pain associated with left breast implant 1 Occurrences starting 11/19/2023 until 12/18/2024 [facility] Comment on above: 1 Occurrences starting 11/19/2023 until 12/18/2024 End: 11-19-2023 XR Ribs - left Views and Chest PA [facility] Work Phone: Comment on above: 1 Occurrences starting 11/19/2023 until 11/19/2023 End: 12-18-2024 XR Ribs - left Views and Chest PA XR RIBS/CHEST 3V AP RIB/OBLS/CXR LEFT Radiology Routine Rib pain on left side 1 Occurrences starting 11/19/2023 until 12/18/2024 [facility] Work Phone: Comment on above: 1 Occurrences starting 11/19/2023 until 12/18/2024 [facility] Immunizations Immunization Date Immunization Notes Care Provider [facility] 06-27-2023 pneumococcal conjuga te (PCV20) vaccine, 20 valent (PREVNAR 20) Dustin Arboldea PA-C Work Phone: [facility] 06-27-2023 respiratory syncytia l virus (RSV) vaccine, adjuvanted (AREXVY) Dustin Arboleda PA-C Work Phone: [facility] 12-14-2022 influenza (HD-IIV4) vaccine, age 65+ yr, high dose, quadrivalent, PF (FLUZONE HIGH-DOSE) Dustin Arboleda PA-C Work Phone: [facility] 12-14-2022 influenza virus vacc ine, unspecified formulation Ramesh Og MD Work Phone: [facility] 12-18-2021 Influenza, Seasonal, Quadrivalent, Adjuvanted Gayle SHEFFIELD Work Phone: [facility] 12-18-2021 influenza virus vacc ine, unspecified formulation Gayle SHEFFIELD Work Phone: [facility] 08-29-2021 COVID-19 original vaccine, age 12+ yr, monovalent ([place] - PURPLE TOP) Dustin Arboleda PA-C Work Phone: [facility] 08-29-2021 Covid-19, Pfizer Gra y Top, Do Not Dilute, (Age 12 Y+), Im, L Gayle SHEFFIELD Work Phone: [facility] 08-12-2021 zoster vaccine recombinant Jordyn SHEFFIELD-Roseanne Work Phone: [facility] Work Phone: 02-11-2021 zoster vaccine recombinant Jordyn SHEFFIELD-C Work Phone: [facility] Work Phone: 01-31-2021 tetanus toxoid, redu linnette diphtheria toxoid, and acellular pertussis vaccine, adsorbed Jordyn Carlson PA-C Work Phone: [facility] Work Phone: 12-20-2020 COVID-19 original vaccine, age 12+ yr, monovalent (PFIZER-BIONTECH - PURPLE TOP) Dustin Arboleda PA-C Work Phone: [facility] 12-20-2020 influenza, high-dose , quadrivalent vaccine (FLUZONE HIGH DOSE QUADRIVALENT) Jordyn Carlson PA-C Work Phone: [facility] Work Phone: 05-06-2020 COVID-19 vaccine, ag e 12+ yr (PFIZER-BIONTECH - PURPLE TOP) Xr [facility] 04-09-2020 COVID-19 vaccine, ag e 12+ yr (PFIZER-BIONTECH - PURPLE TOP) Xr [facility] 12-13-2019 unknown vaccine or immune globulin Xr [facility] 12-01-2018 influenza, high dose seasonal, preservative-free Xr [facility] 01-03-2018 influenza, high dose seasonal, preservative-free Xr [facility] 01-15-2017 influenza, high dose seasonal, preservative-free Xr [facility] 12-13-2015 influenza, high dose seasonal, preservative-free Gayle SHEFFIELD Work Phone: [facility] 02-03-2015 influenza, high dose seasonal, preservative-free Xr [facility] 02-03-2015 pneumococcal conjuga te vaccine, 13 valent Xr [facility] 01-04-2014 influenza, high dose seasonal, preservative-free Gayle Pedrazas PA Work Phone: [facility] 10-20-2009 pneumococcal polysaccharide vaccine, 23 valent Xr [facility] 01-08-2005 influenza, seasonal, injectable Gayle Pedrazas PA Work Phone: [facility] 01-11-2003 influenza, seasonal, injectable Gayle Pedrazas PA Work Phone: [facility] 01-12-2002 influenza, seasonal, injectable Gayle Pedrazas PA Work Phone: [facility] 01-29-2001 influenza, seasonal, injectable Gayle Pedrazas PA Work Phone: [facility] 02-28-2000 influenza, seasonal, injectable Gayle Pedrazas PA Work Phone: [facility] 01-02-1999 influenza, seasonal, injectable Gayle Pedrazas PA Work Phone: [facility] 01-16-1998 pneumococcal polysaccharide vaccine, 23 valent Xr [facility] 03-18-1995 tetanus toxoid, adsorbed Xr [facility] Payers Date Payer Category Payer Self-pay 2023 Medicare ANTHEM MEDICARE ADVANTAGE ANTHEM MEDICARE ADVANTAGE [id number] 2023-Present [address] [place] [address] Medicare HMO [id number] 2023 Medicare HMO ANTHEM MEDICARE ADVANTAGE [id number] 2021 Medicare [id number] 2017 Unknown ANTHEM BLUE CROS S AND BLUE SHIELD ANTHEM MEDIBLUE ACCESS [id number] 2017-Present [phone] [address] [place] [address] PPO [id number] 2017 Unknown [id number] 1938 Unknown [id number] 1938 Unknown [id number] 7 Unknown [id number] Social History Date Type Detail Facility Start: 03-04-2015 End: 11-25-2024 Tobacco smoking status NHIS Never smoked tobacco [facility] Start: 03-04-2015 End: 11-28-2022 Tobacco use and exposure Smokeless tobacco non-user [facility] Start: 07-10-2021 End: 11-28-2023 Alcohol intake Current drinker of alcohol (finding) [facility] Start: 04-03-2020 History SDOH Alcohol Comment occasional [facility] Start: 1940 Sex Assigned At Not on file C [facility] Start: 06-30-2021 End: 11-28-2021 Exposure to SARS-CoV-2 (event) Not sure [facility] Start: 06-28-2022 History SDOH Food Worry 1 [facility] Start: 08-31-2022 End: 11-04-2023 History of Social function [facility] Start: 08-31-2022 End: 11-04-2023 Tobacco use panel [facility] Adult Depression Screening Assessment 0 [facility] (I/We) worried jeffrey er (my/our) food would run out before (I/we) got money to buy more. Never true [facility] Tobacco smoking stat NHIS Tobacco smoking consumption unknown [facility] Tobacco smoking status No Smokin g Status Entered [facility] Start: 1940 Sex Assigned At Female A [facility] Start: 10-16-2021 Sex Female (finding) [facility] Functional Status Date Assessment Result Facility 02-07-2024 Functional Status Room check performed [facility] 02-07-2024 Functional Status Chidi [facility] 02-07-2024 Functional Status Chidi [facility] 02-07-2024 Functional Status Chidi [facility] 02-07-2024 Functional Status Chidi [facility] 02-07-2024 Functional Status Chidi [facility] 02-07-2024 Functional Status Chidi [facility] 02-06-2024 Functional Status Chidi [facility] 02-06-2024 Functional Status Chidi [facility] 02-06-2024 Functional Status Chidi [facility] 02-06-2024 Functional Status Mod A Chidi [facility] 02-06-2024 Functional Status Mod A Chidi [facility] 02-06-2024 Functional Status Chidi [facility] 02-06-2024 Functional Status Chidi [facility] 02-05-2024 Functional Status Adequate room lighting, Bed in low position, Call device within reach [facility] 02-05-2024 Functional Status Chidi [facility] 02-05-2024 Functional Status Mobile home Chidi [facility] Mental Status Date Assessment Result Facility 11-22-2024 [facility] Status [facility] 02-06-2024 Mental Status [facility] Clinical Notes 07-10-2021 to 05-19-2024 Telephone Encounter - Giovanna Lanier MA - 05/19/2024 12:22 PM ESTTelephone Encounter - Giovanna Lanier MA - 05/19/2024 12:22 PM ESTTelephone Encounter - Mariel Box - 05/19/2024 12:13 PM EST Note Date & Type Note Facility 05-19-2024 Telephone encounter Note Pt requesting refill on spiriva 2.5 Last visit 11/04/2023 Next visit 05/19/2024 Pulled and pended [facility] 05-19-2024 Miscellaneous Notes Pt requesting refill on spiriva 2.5 Last visit 11/04/2023 Next visit 05/19/2024 Pulled and pended Patient would like a refill of spiriva documented in this encounter [facility] 05-19-2024 Telephone encounter Note Patient would like a refill of spiriva [facility] 03-16-2024 Telephone encounter Note Spoke with Savanah on 03-16-24. Patient states that they have moved to [facility] and she has a new PCP. Charmaine Kenney March 16, 2024 2:34 PM [facility] 03-16-2024 Miscellaneous Notes Spoke with Savanah on 03-16-24. Patient states that they have moved to [facility] and she has a new PCP. Charmaine Kenney March 16, 2024 2:34 PM Patient has not had evaluation in office to discuss need for home health. Recommend office visit with family member to review request Dustin Arboleda PA-C Images from the original note were not included. Sharona Burciaga, Freight Representative for [facility], contacted regarding fax received. Ms. Tabor stated a referral was from pt's daughter was made to [facility] stating pt is in need of help with personal care in the home Ms. Tabor stated [facility] performed a home visit and found that pt meets the level of care requirements for [facility] which provides home care services. Ms. Tabor further stated the faxed form is requesting pt's PCP, Dustin Arboleda PA-C, to sign that she either agrees or disagrees with the assessment that pt meets the requirements and needs for home care. [facility]'s assessment attached to provider form. Fax was scanned into pt's chart. Seth Varela March 16, 2024 11:07 AM documented in this encounter [facility] 03-16-2024 Telephone encounter Note Patient has not had evaluation in office to discuss need for home health. Recommend office visit with family member to review request Dustin Arboleda PA-C [facility] 03-16-2024 Telephone encounter Note Images from the original note were not included. [facility] 03-16-2024 Telephone encounter Note Sharona Burciaga, Freight Representative for [facility], contacted regarding fax received. Ms. Tabor stated a referral was from pt's daughter was made to [facility] stating pt is in need of help with personal care in the home Ms. Tabor stated [facility] performed a home visit and found that pt meets the level of care requirements for [facility] which provides home care services. Ms. Tabor further stated the faxed form is requesting pt's PCP, Dustin Arboleda PA-C, to sign that she either agrees or disagrees with the assessment that pt meets the requirements and needs for home care. [facility]'s assessment attached to provider form. Fax was scanned into pt's chart. Seth Varela March 16, 2024 11:[address] [facility] 02-27-2024 Note HNO ID: [id number] Author: DAYTON WHEAT PT Service: ? Author Type: Physical Therapist Type: Progress Notes Filed: 02/27/2024 07:39 Note Text: 02/27/2024 [facility] PHYSICAL THERAPY DISCONTINUANCE OF CARE Plan of Care Period: Start of Care Date: 12/18/23 Last Visit Date: 12/18/2023 Therapy Program: Patient did not return for follow up care as planned. Please refer to last visit note for interventions provided for this episode of care. Assessment: Unable to formally assess goal achievement. Reason for Discontinuation of Care: Patient has not returned to therapy or scheduled additional follow-up appointments. Dayton Wheat, PT [facility] 02-07-2024 Hospital Discharge instructions Patient Education 02/07/2024 12:59:53 Hip Pain Hip Pain The hip is the joint between the upper legs and the lower pelvis. The bones, cartilage, tendons, and muscles of your hip joint support your body and allow you to move around. Hip pain can range from a minor ache to severe pain in one or both of your hips. The pain may be felt on the inside of the hip joint near the groin, or on the outside near the buttocks and upper thigh. You may also have swelling or stiffness in your hip area. Follow these instructions at home: Managing pain, stiffness, and swelling If directed, put ice on the painful area. To do this: ?Put ice in a plastic bag. ?Place a towel between your skin and the bag. ?Leave the ice on for 20 minutes, 2 3 times a day. If directed, apply heat to the affected area as often as told by your health care provider. Use the heat source that your health care provider recommends, such as a moist heat pack or a heating pad. ?Place a towel between your skin and the heat source. ?Leave the heat on for 20 30 minutes. ?Remove the heat if your skin turns bright red. This is especially important if you are unable to feel pain, heat, or cold. You may have a greater risk of getting burned. Activity Do exercises as told by your health care provider. Avoid activities that cause pain. General instructions Take bfmw-hit-rnskztt and prescription medicines only as told by your health care provider. Keep a journal of your symptoms. Write down: ?How often you have hip pain. ?The location of your pain. ?What the pain feels like. ?What makes the pain worse. Sleep with a pillow between your legs on your most comfortable side. Keep all follow-up visits as told by your health care provider. This is important. Contact a health care provider if: You cannot put weight on your leg. Your pain or swelling continues or gets worse after one week. It gets harder to walk. You have a fever. Get help right away if: You fall. You have a sudden increase in pain and swelling in your hip. Your hip is red or swollen or very tender to touch. Summary Hip pain can range from a minor ache to severe pain in one or both of your hips. The pain may be felt on the inside of the hip joint near the groin, or on the outside near the buttocks and upper thigh. Avoid activities that cause pain. Write down how often you have hip pain, the location of the pain, what makes it worse, and what it feels like. This information is not intended to replace advice given to you by your health care provider. Make sure you discuss any questions you have with your health care provider. Document Released: 08/22/2010 Document Revised: 07/20/2019 Document Reviewed: 07/20/2019 [place] Patient Education 2019 [employer]. Follow Up Care 02/05/2024 09:42:56 With:BRAYAN GILLILAND PA-C, Orthopedic Address: [facility] [place] [place] [address]- When:02/17/2024 14:15:00 Comments:This is your post-hospital orthopedic follow-up appointment. [facility] 02-07-2024 Nurse Progress note [id number]-jfpjv report called to Jacqueline at [facility] @ [phone]. Pt and family requested PRN [place], administered @1416. [facility] Transport staff given report on pt. EMS and family states they will inform [facility] staff of pt's last dose PRN [place]. Pt left unit @1420, no comments/concerns at this time. Digitally Signed by Mariella Wolfe RN on 02/07/2024 02:27 PM [facility] 02-07-2024 Nurse Progress note This nurse agrees with Mariella Hager RNbatch unit treater. Digitally Signed by Sheron Martinez RN on 02/07/2024 01:22 PM [facility] 02-07-2024 Note Discharge Instructions Thank you for allowing [facility] to assist you with your healthcare needs. The following is important discharge information regarding your hospital visit. Your Care Team Jacqueline Pa [employer] Your Diagnosis COPD without exacerbation Fall at home Fracture of multiple pubic rami Hypertension Hypokalemia What to do next Instructions From Your Doctor Indeterminate 8 mm round nodule in the right upper lobe. Nonemergent CT chest advised. Follow Up Appointments Follow Up with BRAYAN GILLILAND PA-C, Orthopedic When:02/17/2024 02:15 PM EST Where:[facility] [place] [address]- Additional Information: This is your post-hospital orthopedic follow-up appointment. The Following Activity and Diet Have Been Ordered for You Transfer of Care Activity - Ordered -- As instructed by therapy, 02/07/24 11:00:00 EST Transfer of Care Diet - Ordered -- Type of Diet: Regular Diet, 02/07/24 11:00:00 EST The Following Treatments Have Been Ordered for You Discharge Labs No qualifying data available. Discharge Radiology No qualifying data available. Other Therapies Transfer of Care OT - Ordered -- Reason for therapy: weakness, 02/07/24 11:00:00 EST Transfer of Care PT - Ordered -- Reason for therapy: Weakness, 02/07/24 11:00:00 EST Post Acute Orders Transfer of Care Admission Level of Care - Ordered -- Level of Care SNF, 02/07/24 11:00:52 EST Transfer of Care Code Status - Ordered -- Full Code, Constant Order Transfer of Care Orders Electronically Signed By - Ordered -- 02/07/24 11:00:00 ESTALON RACHEL L APRN-ARMAAN Transfer of Care Oxygen Therapy - Ordered -- Oxygen (CONTINUOUS), Mobile in the Home, Nasal Cannula, 2 liters per minute, 999 month(s), 02/07/24 11:00:00 EST Transfer of Care Prognosis - Ordered -- Fair, Patient Aware: Yes Transfer of Care Rehab Potential - Ordered -- Rehab potential fair, 02/07/24 11:00:52 EST Allergies No Known Medication Allergies Medications Please ask your primary doctor or pharmacist before taking any other medication not listed, including over the counter drugs, herbal medications, vitamins and or supplements as they may interact with your home medications. What How Much When Instructions Last Dose New aspirin (aspirin 81 mg oral delayed release tablet) 1 tab(s) by mouth Two (2) times a day Duration: 30 Days Pickup at Pending Sale To [facility] Unchanged fluticasone-vilanterol (Breo Ellipta 200 mcg-25 mcg/ inh inhalation powder) Unchanged hydroCHLOROthiazide (hydroCHLOROthiazide 25 mg oral tablet) Unchanged lovastatin (lovastatin 20 mg oral tablet) with evening meal Unchanged metoprolol (Metoprolol Succinate ER 25 mg oral TABLET extended release) Unchanged PARoxetine (PARoxetine 10 mg oral tablet) Unchanged tiotropium (Spiriva Respimat 60 ACT 2.5 mcg/ inh inhalation aerosol) Unchanged traZODone (traZODone 50 mg oral tablet) Daily at bedtime Pharmacy Information Pending Sale To [facility]: [address] [place], [place] [phone] Please take this list to your next doctor s visit. Bring all medications you take, including over the counter medications, herbals and other supplements with you to your doctor s visit. Patients and families are reminded to discard old lists and to update any records with all medication providers or retail pharmacies. Medication Leaflets aspirin (oral) ( pir in) Aspi-Cor, Marvin Plus, Durlaza, Ecotrin, Miniprin, Vazalore What is the most important information I should know about aspirin? Aspirin can cause Alvarado's syndrome, a serious and sometimes fatal condition in children. What is aspirin? Aspirin is a salicylate (os-ATD-dm-ate) that is used to treat pain, and reduce fever or inflammation. Aspirin is sometimes used to treat or prevent heart attacks, strokes, and chest pain (angina). Aspirin should be used for these conditions only under the supervision of a doctor. Aspirin may also be used for purposes not listed in this medication guide. What should I discuss with my healthcare provider before taking aspirin? Using aspirin in a child or teenager with flu symptoms or chickenpox can cause a serious or fatal condition called Alvarado's syndrome. You should not use aspirin if you are allergic to it, or if you have: a recent history of stomach or intestinal bleeding; a bleeding disorder such as hemophilia; or if you have ever had an asthma attack or severe allergic reaction after taking aspirin or an NSAID (non-steroidal anti-inflammatory drug). Tell your doctor if you have ever had: asthma or seasonal allergies; stomach ulcers; liver disease; kidney disease; a bleeding or blood clotting disorder; gout; or heart disease, high blood pressure, or congestive heart failure. Taking aspirin during late may cause bleeding in the mother or the baby during delivery. Tell your doctor if you are or plan to become . You should not breastfeed while using this medicine. How should I take aspirin? Use exactly as directed on the label, or as prescribed by your doctor. Always follow directions on the medicine label about giving aspirin to a child. Take with food if aspirin upsets your stomach. You must chew the chewable tablet before you swallow it. Do not crush, chew, break, or open an enteric-coated or delayed/extended-release pill. Swallow it whole. Tell your doctor if you have a planned surgery. Store at room temperature away from moisture and heat. Do not use aspirin if you smell a strong vinegar odor in the aspirin bottle. The medicine may no longer be effective. What happens if I miss a dose? Aspirin is used when needed. If you are on a dosing schedule, skip any missed dose. Do not use two doses at one time. What happens if I overdose? Seek emergency medical attention or call the Poison Help line at . Overdose may cause stomach pain, vomiting, diarrhea, vision or hearing problems, fast or slow breathing, or confusion. What should I avoid while taking aspirin? Avoid alcohol. Heavy drinking can increase your risk of stomach bleeding. Avoid taking ibuprofen if you take aspirin to prevent stroke or heart attack. Ibuprofen can make aspirin less effective in protecting your heart and blood vessels. Ask your doctor how far apart your doses should be. Ask a doctor or pharmacist before using other medicines for pain, fever, swelling, or cold/flu symptoms. They may contain ingredients similar to aspirin (such as magnesium salicylate, ibuprofen, ketoprofen, or naproxen). What are the possible side effects of aspirin? Get emergency medical help if you have signs of an allergic reaction: hives; difficult breathing; swelling of your face, lips, tongue, or throat. Stop using aspirin and call your doctor at once if you have: ringing in your ears, confusion, hallucinations, rapid breathing, seizure (convulsions); severe nausea, vomiting, or stomach pain; bloody or tarry stools, coughing up blood or vomit that looks like coffee grounds; fever lasting longer than 3 days; or swelling, or pain lasting longer than 10 days. Common side effects may include: upset stomach, heartburn; drowsiness; or mild headache. This is not a complete list of side effects and others may occur. Call your doctor for medical advice about side effects. You may report side effects to FDA at 5-165-ZGY-7356. What other drugs will affect aspirin? Ask your doctor before using aspirin if you take an antidepressant. Taking certain antidepressants with aspirin may cause you to bruise or bleed easily. Ask a doctor or pharmacist before using aspirin with any other medications, especially: a blood thinner (warfarin, Coumadin, Jantoven), or other medication used to prevent blood clots; or other salicylates such as Nuprin Backache Caplet, Kaopectate, KneeRelief, Pamprin Cramp Formula, Pepto-Bismol, Tricosal, Trilisate, and others. This list is not complete. Other drugs may affect aspirin, including prescription and axsi-byd-pjqzktc medicines, vitamins, and herbal products. Not all possible drug interactions are listed here. Where can I get more information? Your pharmacist can provide more information about aspirin. Remember, keep this and all other medicines out of the reach of children, never share your medicines with others, and use this medication only for the indication prescribed. Every effort has been made to ensure that the information provided by [employer]. ('[employer]') is accurate, up-to-date, and complete, but no guarantee is made to that effect. Drug information contained herein may be time sensitive. [employer] information has been compiled for use by healthcare practitioners and consumers in the [place] and therefore [employer] does not warrant that uses outside of the [place] are appropriate, unless specifically indicated otherwise. [employer] drug information does not endorse drugs, diagnose patients or recommend therapy. [employer] drug information is an informational resource designed to assist licensed healthcare practitioners in caring for their patients and/or to serve consumers viewing this service as a supplement to, and not a substitute for, the expertise, skill, knowledge and judgment of healthcare practitioners. The absence of a warning for a given drug or drug combination in no way should be construed to indicate that the drug or drug combination is safe, effective or appropriate for any given patient. [employer] does not assume any responsibility for any aspect of healthcare administered with the aid of information [employer] provides. The information contained herein is not intended to cover all possible uses, directions, precautions, warnings, drug interactions, allergic reactions, or adverse effects. If you have questions about the drugs you are taking, check with your doctor, nurse or pharmacist. Copyright 7517-7201 [employer]. Version: 18.01. Revision Date: 10/08/2022. Education Materials Hip Pain The hip is the joint between the upper legs and the lower pelvis. The bones, cartilage, tendons, and muscles of your hip joint support your body and allow you to move around. Hip pain can range from a minor ache to severe pain in one or both of your hips. The pain may be felt on the inside of the hip joint near the groin, or on the outside near the buttocks and upper thigh. You may also have swelling or stiffness in your hip area. Follow these instructions at home: Managing pain, stiffness, and swelling If directed, put ice on the painful area. To do this: ? Put ice in a plastic bag. ? Place a towel between your skin and the bag. ? Leave the ice on for 20 minutes, 2 3 times a day. If directed, apply heat to the affected area as often as told by your health care provider. Use the heat source that your health care provider recommends, such as a moist heat pack or a heating pad. ? Place a towel between your skin and the heat source. ? Leave the heat on for 20 30 minutes. ? Remove the heat if your skin turns bright red. This is especially important if you are unable to feel pain, heat, or cold. You may have a greater risk of getting burned. Activity Do exercises as told by your health care provider. Avoid activities that cause pain. General instructions Take ytta-utc-etfijop and prescription medicines only as told by your health care provider. Keep a journal of your symptoms. Write down: ? How often you have hip pain. ? The location of your pain. ? What the pain feels like. ? What makes the pain worse. Sleep with a pillow between your legs on your most comfortable side. Keep all follow-up visits as told by your health care provider. This is important. Contact a health care provider if: You cannot put weight on your leg. Your pain or swelling continues or gets worse after one week. It gets harder to walk. You have a fever. Get help right away if: You fall. You have a sudden increase in pain and swelling in your hip. Your hip is red or swollen or very tender to touch. Summary Hip pain can range from a minor ache to severe pain in one or both of your hips. The pain may be felt on the inside of the hip joint near the groin, or on the outside near the buttocks and upper thigh. Avoid activities that cause pain. Write down how often you have hip pain, the location of the pain, what makes it worse, and what it feels like. This information is not intended to replace advice given to you by your health care provider. Make sure you discuss any questions you have with your health care provider. Document Released: 08/22/2010 Document Revised: 07/20/2019 Document Reviewed: 07/20/2019 Elsevier Patient Education 2019 [employer] Additional Information VACCINATE! IT SAVES LIVES! Members of the community who have not yet received the COVID-19 vaccine and would like to receive it can visit one of [facility] vaccine clinics. There are many vaccine clinic locations within the [facility]. For locations and available times, please visit https://gettheshot.coronavirus.mni o.gov/. It is important to note that some COVID mobile vaccine clinics are held outdoors and may be canceled in rainy or stormy conditions. To learn more about pediatric vaccinations (ages 5-11), we invite you to visit the [employer] webpage. https://[email or web address].com.org/pag [email or web address]-Wiwdi-Iiufbpurfci-Frequent yj-Krfpn-Nixlaocgt.html To learn more about the COVID-19 vaccine, we invite you to visit the CDC website for a list of frequently asked questions.https://www.cdc.gov/fernanda navirus/2019-ncov/vaccines/faq.htm l [employer] Patient Portal Access Instructions: Stay connected with your healthcare team and access your personal medical information anytime with the [employer] Patient Portal. Please follow the directions below to create your [employer] account: 1.Access the email account you provided upon registration to the hospital/physician office.2.Look for an invitation email from [facility].3.Open the email and access the invitation link: Accept Invitation to [employer].4.Fill in the required gomez to create your account. To access your account, visit [employer]/[email or web address]. Click the blue button labeled Access Patient Portal and then log in with the username and password that you created in the steps above. You will be able to view your test results, lab results, a summary of your visits, upcoming appointments and more. There is also a convenient messaging option where you can send secure messages to your provider. In addition, you will have the ability to download any documents or summaries to your computer and/or send the information securely to a physician. Remember that your healthcare information is confidential, so carefully consider who you will allow to register on the [facility] Patient Portal for access to your information. You can also access the [facility] Patient Portal on the [facility] mehreen. Simply click on Patient Portal and then log into your account. If you would like to receive a full copy of your medical records, please contact the [facility] Medical Records Department by calling [phone], Saturday through Saturday between 8 a.m. and 4:30 p.m. HOW TO SAFELY DISPOSE OF PRESCRIPTION MEDICATIONS Please use one of the following methods to safely dispose of your unused medications. 1.Use a drug disposal kit: the drug disposal pouch allows you to safely discard your old and unused drugs. Ask your nurse to give you one when you are discharged.2.Visit a local take-back location: Many local pharmacies and police departments have programs that collect old and unwanted prescription drugs. Call your local pharmacy or go to http://[employer]/8Z8De5y to find one close to you.3.Make use of household items: Use cat litter or old coffee grounds to dispose medications if other options are not available. Mix your drugs with these household products, seal them in an airtight container and throw it into the garbage. Call [facility]: [phone] to be sure your drugs can be disposed of in this way. Some medicines may require a different approach.4.Never flush your medications down the toilet. IF YOU HAVE BEEN PRESCRIBED AN OPIOID FOR PAIN If you have been prescribed an opioid (such as hydrocodone, oxycodone or morphine), it is critical to understand the possible side effects and risks of opioid pain medications. Even when taken as directed, opioids can have several side effects including: Tolerance, meaning you might need to take more of a medication for the same pain relief. Nausea, vomiting and/or constipation. Sleepiness, dizziness, dry mouth, confusion, depression or itching. Physical dependence, meaning you have withdrawal symptoms when a medication is stopped, can develop within a few days. KNOW YOUR RESPONSIBILITIES It is important to know exactly how much and how often to take the opioid pain medications you are prescribed. Never take opioids in higher amounts or more often than prescribed. Do not combine opioids with alcohol or other drugs that cause drowsiness, such as benzodiazepines, also known as benzos, including diazepam and alprazolam, muscle relaxants or sleep aids. Never sell or share prescription opioids. This is illegal. Store opioids in a secure place and out of reach of others (including children, family, friends and visitors). The last page of this document has been signed and retained as a CHART COPY. Signatures Patient Education Materials Hip Pain Medication Leaflets aspirin (oral) My discharge plan and instructions have been reviewed and explained to me and I,SAVANAH CYR understand my current condition and have read and understand these discharge instructions. I have received a written copy of the plan/instructions. If I have questions, I am aware that I should contact my doctor. Patient/Talent Partner Signature: Date/Time: Relationship to Patient: ___ Witness Name/Signature: Date/Time: [facility] 02-06-2024 Orthopaedic surgery Consult note Date of Service February 06, 2024 Reason for Consultation Right superior and inferior pubic rami fracture Referring Physician Veronika Cha History of Present Illness This is an 83-year-old female who had a mechanical fall while in the bathroom on February 04, 2024. Patient was in her socks when she slipped and fell landing on her right side. Patient had difficulty with walking and her brought her into the emergency room on February 05, 2024. She was complaining of right hip pain in which she had difficulty placing weight. X-rays were obtained in the emergency room which did reveal a comminuted right inferior and superior pubic rami fracture. Orthopedics was consulted. Patient states prior to her fall she was doing well with bilateral hips. She was not requiring any use of ambulatory assistance. She currently denies any numbness and tingling in the bilateral lower extremities. No loss of bowel or bladder control. No recent fevers, chills or recent infections. She does complain of ongoing chronic low back pain. The low back pain was not exacerbated after the fall. She does have past history many years ago in which she states she broke her tailbone. Other than that fracture she has not had any other complications with her hips or pelvis. Patient has medical history pertinent for hypertension, hyperlipidemia, chronic obstructive pulmonary disease, and depression. She denies history of DVT or pulmonary emboli. Review of Systems There is been no recent chest pain, shortness of breath fevers, night sweats, chills, cough, nausea or vomiting. Patient does complain of anterior pelvic pain and anterior thigh. All other systems reviewed as negative unless otherwise noted Physical Exam Vitals and Measurements T: 37.2 C (Oral) TMIN: 36 C (Oral) TMAX: 37.2 C (Oral) HR: 90 RR: 18 BP: 122/78 SpO2: 93% HT: 162.3 cm WT: 55 kg BMI: 21.56 Weight Current Weight Dosing Weight: 56.8 kg (02/05/24) Current Weight: 55 kg (02/06/24) On exam this is a pleasant 83-year-old female eating lunch in no acute distress. While at rest she has minimal to no pain. She does complain of pain in the anterior pelvic region extending into the anterior hip on the right. I was unable to reproduce any tenderness in the lumbar spine. She does have some ecchymosis over the right lateral hip. Right thigh is soft and supple. 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 Nontender to palpation right knee. No tenderness to palpation right ankle/foot. Range of motion: Patient tolerated gentle passive internal and external rotation of the right hip with mild pain in the pelvic region near the fracture site. She tolerated range of motion of the right knee without any pain. She was able to actively flex and extend the knee with the extensor mechanism intact. She was able to also actively plantarflex and dorsiflex without pain. Special test: Negative logroll exam right hip, negative seated bilateral straight leg raise Sensation intact to light touch to saphenous, sural, superficial/deep peroneal, and tibial distribution. No current numbness and tingling in bilateral lower extremities. Lab Results 02/05 05:14 WBC: 6.8 Hgb: 12.1 Hct: 36.2 Platelet: 169 Neutrophil %: 65.5 Glucose Level: 114 H Sodium Level: 141 Potassium Level: 4.5 BUN: 13 Creatinine Lvl (s): 0.86 02/04 10:12 WBC: 6.8 Hgb: 12.9 Hct: 37.2 Platelet: 172 Neutrophil %: 72.2 Glucose Level: 130 H Sodium Level: 140 Potassium Level: 3.0 L BUN: 13 Creatinine Lvl (s): 0.86 Imaging Results and Diagnostics X-ray of the right hip was reviewed which did reveal a comminuted acute inferior and superior pubic rami fracture. Swelling in the right hip, right gluteus and hemipelvis. X-rays were discussed and reviewed with Dr. Roshan Frye. Assessment/Plan COPD without exacerbation Fall at home Fracture of multiple pubic rami Assessment and plan: 1. Acute right inferior and superior pubic rami fracture 2. Pain medication: Hydrocodone/acetaminophen as needed. If patient does not require narcotic recommend extra strength Tylenol 500 mg. 3. DVT prophylaxis: Currently on heparin. Recommend on discharge aspirin 81 mg twice daily for 4 weeks. Also would recommend knee-high HORACIO hose for 2 weeks. 4. Disposition: Discussed case as well as x-rays and treatment with Dr. Roshan frye. At this time patient will be managed conservatively with regards to the recent acute fractures. Patient reports that when she is nonweightbearing she has very little pain. Most of her pain is primarily when she is up and walking. Patient does have chronic low back pain which was not exacerbated by this fall. She has no increased pain in her back. I did explain to the patient the fracture and conservative care. She will need to continue with physical therapy/Occupational Therapy and can be weightbearing as tolerated with walker. She will continue with above pain medication per medicine. If her pain is adequately controlled she can use extra strength Tylenol only. She should not take more than 3000 mg of Tylenol in a 24-hour period. Case was discussed with Dr. Frye and we would recommend DVT prophylaxis upon discharge with concern for poor mobility. Would recommend aspirin 81 mg twice daily for 4 weeks as long as she tolerates this medication. She states 25 years ago she had ulcers but has had no problems ever since then. Would also recommend knee-high HORACIO hose bilaterally for 2 weeks. Patient will follow-up with [facility] in 10 to 12 days with repeat x-rays on arrival. I discussed with the patient this injury can take time for recovery and activities she will let pain be her guide. Discussed the possibility of nonunion however we will continue to monitor the x-rays over the next couple months. Would recommend ice as needed. Contact orthopedics with any worsening symptoms or concerns. Appreciate consultation and management of this patient while admitted. Case was discussed with case management/medical social consultant and they are looking at placing the patient for rehabilitation. I am okay for discharge from orthopedic standpoint when patient is medically ready. Hypertension Hypokalemia Problem List/Past Medical History Historical Hypertension Procedure/Surgical History No qualifying data available. Medications Inpatient DuoNeb, 3 mL, Inhalation, QIDRT guaiFENesin, 200 mg= 10 mL, Oral, q4h, PRN heparin 5000 units/mL injection, 5000 unit(s)= 1 mL, Subcutaneous, q12h hydroCHLOROthiazide, 25 mg= 1 tab(s), Oral, qDay Lipitor, 10 mg= 1 tab(s), Oral, qHS melatonin, 6 mg= 2 tab(s), Oral, qHS, PRN metoprolol succinate 50 mg oral TABLET extended release, 25 mg= 0.5 tab(s), Oral, qDay [place] 325 - 7.5 mg oral tablet, 1 tab(s), Oral, q6h, PRN PARoxetine, 10 mg= 0.5 tab(s), Oral, qDay Tessalon Perles, 100 mg= 1 cap(s), Oral, TID, PRN Therapeutic Interchange for Breo Ellipta 200-25 mcg, 0.5 mg= 2 mL, Inhalation, BIDRT traZODone, 50 mg= 1 tab(s), Oral, qHS Tums, 500 mg= 1 tab(s), Chewed, TID, PRN Tylenol, 650 mg= 2 tab(s), Oral, q4h, PRN Tylenol, 650 mg= 2 tab(s), Oral, q4h, PRN Zofran, 4 mg= 2 mL, IV Push, q4h, PRN Home aspirin 81 mg oral delayed release tablet, 81 mg= 1 tab(s), Oral, BID Breo Ellipta 200 mcg-25 mcg/inh inhalation powder hydroCHLOROthiazide 25 mg oral tablet lovastatin 20 mg oral tablet Metoprolol Succinate ER 25 mg oral TABLET extended release PARoxetine 10 mg oral tablet Spiriva Respimat 60 ACT 2.5 mcg/inh inhalation aerosol traZODone 50 mg oral tablet, qHS Allergies No Known Medication Allergies Social History Alcohol Use: Current. Frequency: 1-2 times per month., 02/05/2024 Immunizations No qualifying data available. Digitally Signed by BRAYAN GILLILAND PA-C on 02/06/2024 01:38 PM [facility] 02-06-2024 Note Date of Service 02/06/24 Chief Complaint Pubic rami fracture Subjective 83-year-old female with past medical history significant for HTN, HLD, COPD, depression. Patient presented to [facility] emergency department on 02/05/2024 after sustaining a mechanical fall in her bathroom. Did not strike her head or lose consciousness. She was having increasing difficulty with pain and bearing weight. In the emergency department vital signs were stable. Hypokalemic at 3.0. Labs otherwise unremarkable. X-ray chest showed increased opacification in the left retrocardiac region which may reflect atelectasis, consolidation, hernia, pleural effusion. Indeterminant 8 mm round nodule in the right upper lobe. Nonemergent CT chest advised. X-ray right hip shows acute, displaced comminuted fracture of the right superior and inferior pubic rami. Soft tissue swelling/hematoma about the right thigh, gluteus muscles and hemipelvis. Patient was subsequently admitted. Orthopedics was consulted and recommended weightbearing as tolerated. On exam today, pt denies any fever or chills. No headache or dizziness. Denies chest pain, palpitations. No cough, dyspnea, sputum production. Denies N/V/D/C. No melena/hematochezia. No dysuria or hematuria. No new paresthesias. Objective Vitals and Measurements T: 37.2 C (Oral) TMIN: 36 C (Oral) TMAX: 37.2 C (Oral) HR: 90 RR: 18 BP: 122/78 SpO2: 93% HT: 162.3 cm WT: 55 kg BMI: 21.56 Intake and Output 7AM Yesterday to 7AM Today Intake and Output (Last 24 hours) Intake Oral Intake 360.00 Output Urinary Catheter Output: 250.00 Total Summary Total Intake 360.00 Total Output 250.00 Fluid Balance 110.00 Physical Exam GEN: Appears chronically ill CHEST: Normal S1 and S2. Rhythm is regular. Clear to auscultation, without rales, rhonchi, wheezing. ABD: Positive bowel sounds x 4 quads. Soft, nondistended, nontender. EXT: No significant deformity or joint abnormality. No edema. Peripheral pulses intact. NEURO: Sensation grossly intact SKIN: Skin color normal PSYCH: The mental examination revealed the patient was alert and oriented x 4 Weight Current Weight Dosing Weight: 56.8 kg (02/05/24) Current Weight: 55 kg (02/06/24) Medications Medications (16) Active Scheduled: (8) albuterol - ipratropium 2.5 mg-0.5 mg/3 mL Inhal Robyn UD 3 mL, Inhalation, QIDRT atorvastatin 10 mg tablet 10 mg 1 tab(s), Oral, qHS budesonide 0.5 mg/2 mL Susp UD 0.5 mg 2 mL, Inhalation, BIDRT heparin 5,000 units/mL (1 mL) vial 5,000 unit(s) 1 mL, Subcutaneous, q12h hydrochlorothiazide 25 mg tablet 25 mg 1 tab(s), Oral, qDay metoprolol succinate 50 mg ER tablet 25 mg 0.5 tab(s), Oral, qDay paroxetine 20 mg tablet 10 mg 0.5 tab(s), Oral, qDay traZODONE 50 mg Tablet 50 mg 1 tab(s), Oral, qHS Continuous: (0) PRN: (8) acetaminophen 325 mg Tablet 650 mg 2 tab(s), Oral, q4h acetaminophen 325 mg Tablet 650 mg 2 tab(s), Oral, q4h acetaminophen-HYDROcodone 325-7.5 mg tablet 1 tab(s), Oral, q6h benzonatate 100 mg Capsule 100 mg 1 cap(s), Oral, TID calcium carbonate 500 mg Chewable 500 mg 1 tab(s), Chewed, TID guaifenesin 100 mg/5 mL Liquid SUGAR-FREE 120 mL 200 mg 10 mL, Oral, q4h melatonin 3 mg tablet 6 mg 2 tab(s), Oral, qHS ondansetron 2 mg/ 1 mL 2 mL INJ 4 mg 2 mL, IV Push, q4h Lab Results 02/05 05:14 WBC: 6.8 Hgb: 12.1 Hct: 36.2 Platelet: 169 Neutrophil %: 65.5 Glucose Level: 114 H Sodium Level: 141 Potassium Level: 4.5 BUN: 13 Creatinine Lvl (s): 0.86 02/04 10:12 WBC: 6.8 Hgb: 12.9 Hct: 37.2 Platelet: 172 Neutrophil %: 72.2 Glucose Level: 130 H Sodium Level: 140 Potassium Level: 3.0 L BUN: 13 Creatinine Lvl (s): 0.86 Imaging Results and Diagnostics XR Hip Right w/Pelvis 4 Views Result Date: February 05, 2024 Verified By: FRANCISCO JAVIER HEART MD CLINICAL STATEMENT: IMPRESSION: 1. Acute displaced comminuted fractures of the right superior and inferiorpubic rami.2. Soft tissue swelling/hematoma about the right thigh, gluteus muscles andhemipelvis. XR Chest 1 View Result Date: February 05, 2024 Verified By: FRANCISCO JAVIER HEART MD CLINICAL STATEMENT: IMPRESSION: 1. Increased opacification in the left retrocardiac region which may reflectatelectasis, consolidation, hiatal hernia, and or pleural effusion.2. Indeterminate 8 mm round nodule in the right upper lobe. Nonemergent CTchest advised.3. Cardiomegaly. EKG No qualifying data available. Assessment/Plan 1. Fracture of multiple pubic rami 2. COPD without exacerbation Pubic rami fracture awaiting orthopedics evaluation. Dr. Frye gave order over the phone that patient could be weightbearing as tolerated. Her pain is fairly well-controlled. COPD not in acute exacerbation continue inhaled bronchodilators DVT prophylaxis: Subcutaneous heparin Code Status: Full code Plan of care discussed with patient. All questions answered. Patient verbalizes understanding is agreeable to plan of care. This dictation was performed using voice recognition software and may include grammatical and/or spelling errors. Anticipated Date of Discharge Patient is medically optimized for discharge. Awaiting Ortho consult and therapy recommendations for disposition Time Spent 37 minutes Digitally Signed by JACQUELINE PA on 02/06/2024 12:32 PM [facility] 02-06-2024 Pastoral care Progress note Pastoral Care Note Entered On: 02/06/2024 9:58 EST Performed On: 02/06/2024 9:56 EST by Brayan Cain Pastoral Care Type of Pastoral Visit : Initial visit Spiritual Care Visit Initiated by : Learning And Development Specialist Spiritual Care Reason for Visit : General Spiritual Assessment : Peaceful, Positive Image of God Spiritual Care Emotional Assessment : Accepting of Situation, Optimistic Spiritual Care Intervention : Active listening, Words of Encouragement, Prayer with Patient/Family Spiritual Outcomes : Focusing More on Positives Spiritual Plan of Care : Visit as Requested Pastoral Care Comments : patient is welcoming and explains her situation; pt is just recently moved to this community to be near family and looks forward to the changes; pt acknowledges that she will need to be patient and to just take this as it is; pt welcomes presence and prayer Pastoral Care Visit Length : 15 minute(s) Brayan Cain - 02/06/2024 9:56 EST Digitally Signed by Brayan Cain on 02/06/2024 09:56 AM [facility] 02-05-2024 Evaluation + Plan note Extrac horacio from: Title:History and Physical Author:VERONIKA CHA APRN-[employer] Date:02/05/24 1. Fracture of multiple pubi c rami Acute, new onset due to mechanical fall at home. X-ray shows acute comminuted fractures of the right superior and inferior pubic rami. Consult placed to orthopedics for recommendation. Consult placed to PT and OT to evaluate and treat. financial services manager following for discharge planning. Continue PO pain medication. 2. Fall at home Acute, mechanical. Plan as above. 3. Hypokalemia Acute, new onset, 3.0. Patient given potassium bicarbonate 50 meq PO x 1 in ED. Start potassium chloride 20 meq potassium chloride PO qday. 4. Hypertension Chronic, controlled. Continue current antihypertensives with parameters. SBP goal of 140 or less. 5. COPD without exacerbation Chronic. Continue Breo Ellipta as at home. Start duoneb aerosols as needed for shortness of breath/wheezing. DVT prophylaxis with heparin sc. Code status: Full Code. Labs, diagnostic test and progress notes reviewed as noted in HPI. Plan of care discussed with patient. All questions answered. Patient verbalizes understanding and is agreeable with plan of care. This case was discussed with collaborating physician, Dr. Cooper Fuentes. 76 minutes spent reviewing past diagnostic tests, reviewing lab results, vital sign trends, medical history, reviewing medications and ordering home medications, examining patient, discussed plan of care with care team, collaborating with physician, and documenting in chart. Orders: acetaminophen(Tylenol), 650 mg= 2 tab(s), Oral, q4h, PRN acetaminophen(Tylenol), 650 mg= 2 tab(s), Oral, q4h, PRN acetaminophen-hydrocodone([place] 325 - 7.5 mg oral tablet), 1 tab(s), Oral, q6h, PRN benzonatate(Tessalon Perles), 100 mg= 1 cap(s), Oral, TID, PRN calcium carbonate(Tums), 500 mg= 1 tab(s), Chewed, TID, PRN guaiFENesin, 200 mg= 10 mL, Oral, q4h, PRN melatonin, 6 mg= 2 tab(s), Oral, qHS, PRN ondansetron(Zofran), 4 mg= 2 mL, IV Push, q4h, PRN traZODone, 50 mg= 1 tab(s), Oral, qHS Ambulate, 02/05/24 13:43:00 EST, PRN Order Basic Metabolic Panel(BMP), 02/06/24 5:00:00 EST, Timed Study (collect at specified time), Blood, [id number], for 7 day(s), Stop date 02/12/24 5:00:00 EST Complete Blood Count(CBC), 02/06/24 5:00:00 EST, Timed Study (collect at specified time), Blood, [id number], for 7 day(s), Stop date 02/12/24 5:00:00 EST Consult to Occupational Therapy, 02/05/24 13:43:00 EST, Once, Self care deficit Consult to Physical Therapy, 02/05/24 13:43:00 EST, Once, Decreased balance/fall history Consult to Physician(Physician Consult), 02/05/24 13:44:00 EST, YUMIKO HUERTA MD, Routine, Right pubic rami fractures Diet Order, 02/05/24 13:38:00 EST, Regular Diet, Constant Order, : N/A, : N/A Diet Order, 02/05/24 13:43:00 EST, Start Meal: Next meal, Regular, Constant Order, : N/A, : N/A Incentive Spirometer, 02/05/24 13:43:00 EST, [id number] Intake and Output, 02/05/24 13:43:00 EST, q8h (2p, 10p, 6a) IV Catheter Insertion/Care(Peripheral IV Insertion/Care), 02/05/24 13:43:00 EST, IV Care: q4h, Rotate when clinically indicated & q7day drsg change Magnesium Level, 02/06/24 5:00:00 EST, Timed Study (collect at specified time), Blood, [id number], for 7 day(s), Stop date 02/12/24 5:00:00 EST Oxygen Administration(Oxygen Protocol), 02/05/24 13:43:00 EST, Nasal Cannula, 2 LPM, qAM Prn Adapter, 02/05/24 13:43:00 EST, Constant Order Pulse Oximeter - Intermittent, 02/05/24 13:43:00 EST, q8hRT Sequential Compression Device Application(SCD Application), 02/05/24 13:43:00 EST, Knee high, q4h, Bilateral Straight Cath, 02/05/24 13:43:00 EST, q6h, PRN Order, PVR >300 or No void. Nursing may place brothers if pt needs straight cathed consistently >24 hours. Titrate / Wean Oxygen, 02/05/24 13:43:00 EST, Constant Order, Titrate and wean O2 to maintain oxygen saturations of 92% or greater. Vital Signs, 02/05/24 13:43:00 EST, q4h Weight, 02/06/24 6:00:00 EST, [id number] [facility] 11-20-2024 Note Date of Service 02/05/2024 Chief Complaint Pt alert and oriented. C/o faling yesterday and unable to bear weight on RLE. Pedal pulse present History of Present Illness Patient is an 83-year-old female, who follows with an out-of-town physician with a past medical history significant for hypertension, hyperlipidemia, COPD and depression, presents to [facility] emergency department with the chief complaint of fall and right groin pain. Patient statesthat she was in the bathroom yesterday with socks on. She slipped on the floor and landed on her but tocks. Patient was unable to get up on her own and required assistance from her . Patient states she did not hit her head or lose consciousness. She states she took some tylenol but it did nothelp much with her pain. She had to have assistance from her to get into the bathroom but otherwise rested all day. When the pain persisted today, she decided to come in for evaluation. Patient denies any fever, chills, cough, shortness of breath, chest pain, abdominal pain, nausea or dysuria. In the emergency department, chest x-ray revealed increased opacification in the left retrocardiac region which may reflect atelectasis, consolidation, hiatal hernia, and or pleural effusion; indeterminate 8 mm round nodule in the right upper lobe, nonemergent CT chest advised; and cardiomegaly. X-ray of the right pelvis revealed acute displaced comminuted fractures of the right superior and inferior pubic rami; soft tissue swelling/hematoma about the right thigh, gluteus muscles and hemipelvis. EKG shows sinus rhythm. CBC was unremarkable. BMP significant for glucose 130 and potassium 3.0. Troponin negative. COVID-19, RSV and Flu A and B. Patient was administered 4 mg morphine IV, 4 mg zofran IV and 50 meq potassium bicarbonate PO in the ED. The case was discussed with the ED physician who recommended admission for PT and OT evaluation and pain control. She will be transferred to medical surgical unit for observation. We will consult orthopedics for further recommendations. Start [place] 5/325 mg 1 tab PO q6 hours PRN for pain. We will consult PT and OT to evaluate and treat. financial services manager following for discharge planning. Repeat CBC and BMP in the am. Patient seen and evaluated this afternoon while resting on cot in the ED, spouse at the bedside. Patient denies any dizziness or physical symptoms that caused the fall. She states that she simply slipped on the floor. Patient and spouse are agreeable to placement at this point until patient is ableto move better. Physical exam unremarkable. Discussed plan of care with patient and spouse and theyare agreeable to same. All questions answered. Review of Systems Review of Systems: Reviewed in detail, including general health, HEENT, cardiovascular, respiratory, gastrointestinal, genitourinary, endocrine, musculoskeletal, neurologic, vascular, skin, and psychiatric. All are negative except for those listed in the History of Present Illness. Physical Exam Vitals and Measurements T: 37.1 C (Oral) TMIN: 36.5 C (Oral) TMAX: 37.1 C (Oral) HR: 87 (Monitored) RR: 16 BP: 108/78 SpO2:92% HT: 162.3 cm WT: 56.8 kg BMI: 21.56 Weight Dosing Weight: 56.8 kg (02/05/24) General: No acute distress. Patient is alert, chronically ill-appearing. Skin: No rash. Skin is warm, dry and intact. HEENT: Head is normocephalic, atraumatic. Pupils are equal, round and reactive. Neck: Supple. No lymphadenopathy, thyromegaly. Lungs: Bilaterally clear but diminished without crepitation or wheeze. Unlabored. Heart: Heart is regular rhythm, S1, S2. No murmurs, gallops or rubs. Abdomen: Abdomen is soft, nontender. Bowels sounds present in all quadrants. Extremities: No clubbing, cyanosis, or edema. Peripheral pulses palpable. No calf tenderness. Neurological: Patient is awake and alert to person, place and time. Following simple commands, moving all extremities. Lab Results 02/04 10:12 WBC: 6.8 Hgb: 12.9 Hct: 37.2 Platelet: 172 Neutrophil %: 72.2 Glucose Level: 130 H Sodium Level: 140 Potassium Level: 3.0 L BUN: 13 Creatinine Lvl (s): 0.86 Imaging Results and Diagnostics XR Hip Right w/Pelvis 4 Views Result Date: February 05, 2024 Verified By: FRANCISCO JAVIER HEART MD CLINICAL STATEMENT: IMPRESSION: 1. Acute displaced comminuted fractures of the right superior and inferior pubic rami. 2. Soft tissue swelling/hematoma about the right thigh, gluteus muscles and hemipelvis. XR Chest 1 View Result Date: February 05, 2024 Verified By: FRANCISCO JAVIER HEART MD CLINICAL STATEMENT: IMPRESSION: 1. Increased opacification in the left retrocardiac region which may reflect atelectasis, consolidation, hiatal hernia, and or pleural effusion. 2. Indeterminate 8 mm round nodule in the right upper lobe. Nonemergent CT chest advised.3. Cardiomegaly. EKG EC02/05/24: Sinus rhythm Atrial premature complex Right bundle branch block BORDERLINE ECG Electronic Signature: RAQUEL MCNALLY DO 02/05/2024 10:19:02 Assessment/Plan 1. Fracture of multiple pubic rami Acute, new onset due to mechanical fall at home. X-ray shows acute comminuted fractures of the right superior and inferior pubic rami. Consult placed to orthopedics for recommendation. Consult placedto PT and OT to evaluate and treat. financial services manager following for discharge planning. Continue PO pain medication. 2. Fall at home Acute, mechanical. Plan as above. 3. Hypokalemia Acute, new onset, 3.0. Patient given potassium bicarbonate 50 meq PO x 1 in ED. Start potassium chloride 20 meq potassium chloride PO qday. 4. Hypertension Chronic, controlled. Continue current antihypertensives with parameters. SBP goal of 140 or less. 5. COPD without exacerbation Chronic. Continue Breo Ellipta as at home. Start duoneb aerosols as needed for shortness of breath/wheezing. DVT prophylaxis with heparin sc. Code status: Full Code. Labs, diagnostic test and progress notes reviewed as noted in HPI. Plan of care discussed with patient. All questions answered. Patient verbalizes understanding and is agreeable with plan of care. This case was discussed with collaborating physician, Dr. Cooper Fuentes. 76 minutes spent reviewing past diagnostic tests, reviewing lab results, vital sign trends, medicalhistory, reviewing medications and ordering home medications, examining patient, discussed plan of care with care team, collaborating with physician, and documenting in chart. Orders: acetaminophen(Tylenol), 650 mg= 2 tab(s), Oral, q4h, PRN acetaminophen(Tylenol), 650 mg= 2 tab(s), Oral, q4h, PRN acetaminophen-hydrocodone([place] 325 - 7.5 mg oral tablet), 1 tab(s), Oral, q6h, PRN benzonatate(Tessalon Perles), 100 mg= 1 cap(s), Oral, TID, PRN calcium carbonate(Tums), 500 mg= 1 tab(s), Chewed, TID, PRN guaiFENesin, 200 mg= 10 mL, Oral, q4h, PRN melatonin, 6 mg= 2 tab(s), Oral, qHS, PRN ondansetron(Zofran), 4 mg= 2 mL, IV Push, q4h, PRN traZODone, 50 mg= 1 tab(s), Oral, qHS Ambulate, 02/05/24 13:43:00 EST, PRN Order Basic Metabolic Panel(BMP), 02/06/24 5:00:00 EST, Timed Study (collect at specified time), Blood, [id number], for 7 day(s), Stop date 02/12/24 5:00:00 EST Complete Blood Count(CBC), 02/06/24 5:00:00 EST, Timed Study (collect at specified time), Blood, [id number], for 7 day(s), Stop date 02/12/24 5:00:00 EST Consult to Occupational Therapy, 02/05/24 13:43:00 EST, Once, Self care deficit Consult to Physical Therapy, 02/05/24 13:43:00 EST, Once, Decreased balance/fall history Consult to Physician(Physician Consult), 02/05/24 13:44:00 EST, YUMIKO HUERTA MD, Routine, Rightpubic rami fractures Diet Order, 02/05/24 13:38:00 EST, Regular Diet, Constant Order, : N/A, : N/A Diet Order, 02/05/24 13:43:00 EST, Start Meal: Next meal, Regular, Constant Order, : N/A, : N/A Incentive Spirometer, 02/05/24 13:43:00 EST, [id number] Intake and Output, 02/05/24 13:43:00 EST, q8h (2p, 10p, 6a) IV Catheter Insertion/Care(Peripheral IV Insertion/Care), 02/05/24 13:43:00 EST, IV Care: q4h, Rotate when clinically indicated & q7day drsg change Magnesium Level, 02/06/24 5:00:00 EST, Timed Study (collect at specified time), Blood, [id number], for 7 day(s), Stop date 02/12/24 5:00:00 EST Oxygen Administration(Oxygen Protocol), 02/05/24 13:43:00 EST, Nasal Cannula, 2 LPM, qAM Prn Adapter, 02/05/24 13:43:00 EST, Constant Order Pulse Oximeter - Intermittent, 02/05/24 13:43:00 EST, q8hRT Sequential Compression Device Application(SCD Application), 02/05/24 13:43:00 EST, Knee high, q4h, Bilateral Straight Cath, 02/05/24 13:43:00 EST, q6h, PRN Order, PVR >300 or No void. Nursing may place brothers if pt needs straight cathed consistently >24 hours. Titrate / Wean Oxygen, 02/05/24 13:43:00 EST, Constant Order, Titrate and wean O2 to maintain oxygen saturations of 92% or greater. Vital Signs, 02/05/24 13:43:00 EST, q4h Weight, 02/06/24 6:00:00 EST, [id number] Problem List/Past Medical History Historical Hypertension Procedure/Surgical History No qualifying data available. Medications Home Medications (7) Active Breo Ellipta 200 mcg-25 mcg/inh inhalation powder hydroCHLOROthiazide 25 mg oral tablet lovastatin 20 mg oral tablet Metoprolol Succinate ER 25 mg oral TABLET extended release PARoxetine 10 mg oral tablet Spiriva Respimat 60 ACT 2.5 mcg/inh inhalation aerosol traZODone 50 mg oral tablet Allergies No Known Medication Allergies Social History Alcohol Use: Current. Frequency: 1-2 times per month., 02/05/2024 Immunizations No qualifying data available. Code Status Code Status - Ordered -- 02/05/24 11:26:00 EST, Full Code, Constant Order Digitally Signed by VERONIKA CHA on 02/05/2024 01:58 PM Digitally Signed by VERONIKA CHA on 02/05/2024 01:59 PM Digitally Signed by VERONIKA CHA on 02/05/2024 02:01 PM [facility]11-20-2024 Note ORIGINAL EXAMINATION: HIP TECHNIQUE: AP pelvis, AP and frog lateral views of the right hip were performed. COMPARISON: None HISTORY: ORDERING SYSTEM PROVIDED HISTORY: Reason for Exam: fall FINDINGS: The osseous structures are diffusely demineralized. Acute displaced comminuted fractures of the right superior and inferior pubic rami are present. There is moderate bilateral narrowing of the hip joint without a hip fracture. The pubic symphysis is preserved. Degenerative changes involve the bilateral sacroiliac joints. Soft tissue swelling/hematoma about the right thigh, gluteus muscles and hemipelvis noted. IMPRESSION: 1. Acute displaced comminuted fractures of the right superior and inferior pubic rami. 2. Soft tissue swelling/hematoma about the right thigh, gluteus muscles and hemipelvis. Interpreted by: Francisco Javier Heart MD Preliminary Report By: Francisco Javier Heart MD Electronically signed By Francisco Javier Heart MD Dictated Date: 02/05/2024 10:52:12 AM Prelim Date: 02/05/2024 10:54:58 AM Sign Date: 02/05/2024 10:54:58 AM Ordering Provider: [facility]11-20-2024 Note ORIGINAL EXAMINATION: ONE XRAY VIEW OF THE CHEST TECHNIQUE: One view AP upright COMPARISON: None HISTORY: ORDERING SYSTEM PROVIDED HISTORY: Reason for Exam: chest pain FINDINGS: Support devices: None Cardiomediastinal: Cardiomegaly Lungs: The left diaphragm is obscured by increased opacification in the left retrocardiac region or and or an elevated left hemidiaphragm. A no evidence of pulmonary edema or a right pleural effusion. An indeterminate 8 mm round nodule in the right upper lobe is present. Pneumothorax: None Osseous: No acute osseous pathology. Widespread demineralization. Bilateral shoulder arthrosis and multilevel thoracic spondylotic changes. IMPRESSION: 1. Increased opacification in the left retrocardiac region which may reflect atelectasis, consolidation, hiatal hernia, and or pleural effusion. 2. Indeterminate 8 mm round nodule in the right upper lobe. Nonemergent CT chest advised. 3. Cardiomegaly. Interpreted by: Francisco Javier Heart MD Preliminary Report By: Francisco Javier Heart MD Electronically signed By Francisco Javier Heart MD Dictated Date: 02/05/2024 10:35:36 AM Prelim Date: 02/05/2024 10:40:33 AM Sign Date: 02/05/2024 10:40:33 AM Ordering Provider: [facility]11-20-2024 NoteSinus rhythm Atrial premature complex Right bundle branch block BORDERLINE ECG Electronic Signature: RAQUEL MCNALLY DO 02/05/2024 10:19:02[facility] 10-18-2024 Telephone encounter Note* Telephone Encounter - Moiz Aparicio - 01/03/2024 8:05 AM EDT Pt called in and LVM to cancel- called back to r/s but had to LVM [facility]10-18-2024 Miscellaneous Notes* Telephone Encounter - Moiz Aparicio - 01/03/2024 8:05 AM EDT Pt called in and LVM to cancel- called back to r/s but had to LVM [facility] Telephone encounter Note * Telephone Encounter - Olive Gaming PTA - 12/30/2023 3:00 PM EDT Called and left pt message of missed appt. Informed pt of next appt on SaturdayJanuary 05 at 1:15.Encouraged pt to call to cancel appt if unable to attend. Olive Gaming PTA [facility] Work Phone: [phone] Miscellaneous Notes* Telephone Encounter - Olive Gaming PTA - 12/30/2023 3:00 PM EDT Called and left pt message of missed appt. Informed pt of next appt on SaturdayJanuary 05 at 1:15.Encouraged pt to call to cancel appt if unable to attend. Olive Gaming PTA [facility]24 Telephone encounter Note * Telephone Encounter - Geni Garrett - 12/26/2023 3:19 PM EDT Oxygen order signed & faxed back to [facility]. Geni Garrett [facility]10-10-2024 Miscellaneous Notes* Telephone Encounter - Geni Garrett - 12/26/2023 3:19 PM EDT Oxygen order signed & faxed back to [facility]. Geni Garrett documented [facility]Ber[facility]10-[facility]24 History of Present illness Narrative* Dayton Wheat PT - 12/18/2023 2:15 PM EDT Program_ID:[id number] Access Code: [email or web address] URL: [email or web address] Date: 12-18-2023 Prepared By: Dayton Wheat Program Notes Exercises - Seated Lumbar Flexion Stretch - 4-5 x daily - x weekly - sets - 10 reps * Dayton Wheat PT - 12/18/2023 1:43 PM EDT Images from the original note were not included. Episode Visit Count: 1 Therapist That Will Accept/Oversee The Plan Of Care: Roshan Wheat PT Start of Care Date: 12/18/23 Onset Date: 12/18/11 Plan of Care Certification Date: 12/18/23 Next Certification Due Date: 02/16/24 Patient Identified by Name and Date of : Yes REHABILITATION AND SPORTS THERAPY PHYSICAL THERAPY EVALUATION PLAN OF CARE: Assessment: Savanah Cyr presents with chief complaint of low back pain that interferes with rising from a chair, standing, walking, bending, physical activities . The patient presents with impairments in ADL's, gait, overall function, posture, range of motion, and symptom management. PROMIS (Patient- Reported Outcomes Measurement Information System) scores were reviewed and identified as a rehabilitation concern. Prognosis for therapy is Fair due to: advanced age, chronic nature of impairments . The patient will benefit from skilled therapy services to meet the goals established for thisplan of care as noted below. Goals for Episode of Care: established 12/18/23 Patient reported outcome of physical function will increase T-score by a minimum 5 points. [place] in home exercise program. Patient will decrease pain rating by 2 points to meet minimal clinical important difference for numeric pain rating scale. Patient will Improve Timed Up and Go to 12 seconds to demonstrate decreased risk of falling. Patient will improve 10MWT to 1m/s with no assistive device to demonstrate improvement in functional community ambulation. Increase ROM of the lumbar spine for improved posture and overall function. Improve postural awareness. Patient Goals: Pain relief, improve walking tolerance and overall function Time Frame for Goals and Treatment : 02/16/24 Planned Interventions, Frequency, and Duration: Current Frequency: 1x/week Duration: 8 weeks Total Number of Visits Planned: 8 Planned Treatment Interventions: Therapeutic exercise (94086), Therapeutic activities (67733), Manual therapy (42034), Gait Training (86908), Aquatic PT (06888), Neuromuscular re-education (41901) PLAN FOR NEXT VISIT: Monitor response to seated flexion and progress with core/LE strength to tolerance Patient demonstrates good understanding of plan of care and treatment. The above goals and plan of care were discussed and agreed upon by patient/family. SUBJECTIVE: Patient presents today with the CC of chronic daily LS pain dating back to a fall in 2011. Denies any fractures at the time or surgeries since. Several years ago had an injection of sorts with no pain. Wears [employer] corset mainly when on feet with some help. Uses heating pad often with some benefit. Denies previous PT. Patient Goals: Pain relief, improve walking tolerance and overall function Functional Limitations: rising from a chair, standing, walking, bending, physical activities Prior Level of Function: Independent without limitations Relevant History Past Relevant Medical Conditions: Arthritis, Hypertension Past Relevant Surgical Conditions: Total Knee Replacement-Right Employment: Retired Recreation / Current Exercise: nothing regular, previously loved to walk Intake Information: Prescription present Previous Treatment: Injections (Tylenol) Falls Interview: No positive findings with falls interview Spine History Sleep Affected by Pain: Not affected by pain Pain: Pain Pain Location: Back Frequency: Intermittent, Standing, Walking, Sitting Detailed Pain Score: Yes Worst Pain Level: 10 Best Pain Level: 0 (with laying down) PROMIS Scales 12/18/2023 Higher is Better Phys Func - Score 38 (moderate dysfunction) Phys Func - Percentile 12 Self-Eff Symptom - Score 41 (Average) Self-Eff Symptom - Percentile 18 T-scores: mean of general population = 50. 5 points is clinically meaningfully difference Percentiles provide an indication of how the patient's score ranks in relation to the general population. Higher percentile rankings indicate better function/quality of life. 50th percentile is the average of the general population and indicates half of respondents had a worse score. OBJECTIVE MEASURES WITH LEVEL OF FUNCTION: Posture / Alignment Sitting Posture: Poor Effects of Posture Correction: better with support Reflexes - Lower Extremity R Patellar: 2+ R Achilles: 2+ L Patellar: 2+ L Achilles: 2+ Lumbar Spine AROM Lumbar Flexion: Moderate limitation, Increased pain (mild) Lumbar Extension: Major limitation Special Tests - Hip and Spine Hip and Spine Special Tests: Slump Test Slump Test: Right Negative, Left Negative Functional Performance Test Results Assistive Device: None 10 Meter Walk Test Trial 1 (seconds): 9.6 10 Meter Walk Test Average (m/sec): 0.63 Timed Up and Go (sec): 14.93 sec Education: Education Barriers: None Learning/educational needs: Plan of Care, Home exercise program Education Provided: Yes, see treatment interventions for education provided Education Provided To: Patient Education Mode/Type: Demonstration, Explanation/Discussion, Literature/Printed Materials, Performance Response to Education/Teach Back: States/Identifies, Return Demonstration TREATMENT: PT Treatment Interventions: Therapeutic Exercise Evaluation Therapeutic Exercise: 1: education on clinical findings and POC 2: *seated flexion 10x5 3-4x/day Skilled Intervention: Patient was educated in proper exercise technique and purpose for exercises. Reviewed and educated patient on additions/changes for home exercise program as above (*). Skilled judgment was used in selection of appropriate interventions. Provided written instruction for home exercise program to facilitate proper performance and compliance. Patient education as noted. Billing * Evaluation Low Complexity: 1 Unit Therapeutic Exercise Treatment Minutes: 10 Skilled Treatment Time Minutes (timed and untimed codes): 42 Total Session Time (minutes): 42 Session Start Time : 1343 Session Stop Time : 1425 Dayton Wheat PT [facility] NoteHNO ID: [id number] Author: DAYTON WHEAT PT Service: ? Author Type: Physical Therapist Type: Progress Notes Filed: 12/18/2023 14:53 Note Text: Episode Visit Count: 1 Therapist That Will Accept/Oversee The Plan Of Care: Roshan Wheat PT Start of Care Date: 12/18/23 Onset Date: 12/18/11 Plan of Care Certification Date: 12/18/23 Next Certification Due Date: 02/16/24 Patient Identified by Name and Date of : Yes REHABILITATION AND SPORTS THERAPY PHYSICAL THERAPY EVALUATION PLAN OF CARE: Assessment: Savanah Cyr presents with chief complaint of low back pain that interferes with rising from a chair, standing, walking, bending, physical activities . The patient presents with impairments in ADL's, gait, overall function, posture, range of motion, and symptom management. PROMIS? (Patient-Reported Outcomes Measurement Information System) scores were reviewed and identified as a rehabilitation concern. Prognosis for therapy is Fair due to: advanced age, chronic nature of impairments . The patient will benefit from skilled therapy services to meet the goals established for this plan of care as noted below. Goals for Episode of Care: established 12/18/23 Patient reported outcome of physical function will increase T-score by a minimum 5 points. [place] in home exercise program. Patient will decrease pain rating by 2 points to meet minimal clinical important difference for numeric pain rating scale. Patient will Improve Timed Up and Go to 12 seconds to demonstrate decreased risk of falling. Patient will improve 10MWT to 1m/s with no assistive device to demonstrate improvement in functional community ambulation. Increase ROM of the lumbar spine for improved posture and overall function. Improve postural awareness. Patient Goals: Pain relief, improve walking tolerance and overall function Time Frame for Goals and Treatment : 02/16/24 Planned Interventions, Frequency, and Duration: Current Frequency: 1x/week Duration: 8 weeks Total Number of Visits Planned: 8 Planned Treatment Interventions: Therapeutic exercise (38241), Therapeutic activities (85549), Manual therapy (43550), Gait Training (91755), Aquatic PT (48558), Neuromuscular re-education (71616) PLAN FOR NEXT VISIT: Monitor response to seated flexion and progress with core/LE strength to tolerance Patient demonstrates good understanding of plan of care and treatment. The above goals and plan of care were discussed and agreed upon by patient/family. SUBJECTIVE: Patient presents today with the CC of chronic daily LS pain dating back to a fall in 2011. Denies any fractures at the time or surgeries since. Several years ago had an injection of sorts with no pain. Wears [employer] corset mainly when on feet with some help. Uses heating pad often with some benefit. Denies previous PT. Patient Goals: Pain relief, improve walking tolerance and overall function Functional Limitations: rising from a chair, standing, walking, bending, physical activities Prior Level of Function: Independent without limitations Relevant History Past Relevant Medical Conditions: Arthritis, Hypertension Past Relevant Surgical Conditions: Total Knee Replacement-Right Employment: Retired Recreation / Current Exercise: nothing regular, previously loved to walk Intake Information: Prescription present Previous Treatment: Injections (Tylenol) Falls Interview: No positive findings with falls interview Spine History Sleep Affected by Pain: Not affected by pain Pain: Pain Pain Location: Back Frequency: Intermittent, Standing, Walking, Sitting Detailed Pain Score: Yes Worst Pain Level: 10 Best Pain Level: 0 (with laying down) PROMIS Scales 12/18/2023 Higher is Better Phys Func - Score 38 (moderate dysfunction) Phys Func - Percentile 12 Self-Eff Symptom - Score 41 (Average) Self-Eff Symptom - Percentile 18 T-scores: mean of general population = 50. 5 points is clinically meaningfully difference Percentiles provide an indication of how the patient's score ranks in relation to the general population. Higher percentile rankings indicate better function/quality of life. 50th percentile is the average of the general population and indicates half of respondents had a worse score. OBJECTIVE MEASURES WITH LEVEL OF FUNCTION: Posture / Alignment Sitting Posture: Poor Effects of Posture Correction: better with support Reflexes - Lower Extremity R Patellar: 2+ R Achilles: 2+ L Patellar: 2+ L Achilles: 2+ Lumbar Spine AROM Lumbar Flexion: Moderate limitation, Increased pain (mild) Lumbar Extension: Major limitation Special Tests - Hip and Spine Hip and Spine Special Tests: Slump Test Slump Test: Right Negative, Left Negative Functional Performance Test Results Assistive Device: None 10 Meter Walk Test Trial 1 (seconds): 9.6 10 Meter Walk Test Average (m/sec): 0.63 Timed Up and Go (sec): 14.93 se (more content not included)...[facility]09-24-2024 Telephone encounter Note* Telephone Encounter - Moiz Aparicio - 12/10/2023 11:17 AM EDT Referral from PCP to be seen by Dr. Sol for evaluation. DX:Large Hiatal Hernia -left sided pain & some difficulty breathing Called x3 [facility]VM [facility]09-[facility] Miscellaneous Notes* Telephone Encounter - Moiz Aparicio - 12/10/2023 11:17 AM EDT Referral from PCP to be seen by Dr. Sol for evaluation. DX:Large Hiatal Hernia -left sided pain & some difficulty breathing Called x3 LVM documented in this encounterBerger Hospital09-16-2024 NoteHNO ID: [id number] Author: TRISTIN MANCUSO RN Service: ? Author Type: Registered Nurse Type: Progress Notes Filed: 12/02/2023 15:44 Note Text: ED Follow-Up Note Provider Action / FYI: Call completed by: RN Patient seen in ED: In Network ED Contact made with Patient: Yes The patient was identified by Name and Date of . Discussed Care with: patient Patient was seen in the Emergency Department (ED) Location: [facility] Date: 11/28/2023 Reason for ED Visit: Chest Pain ED Intervention: EKG, Labs, chest x ray, medication New Medications: Lidocaine Patch and Naproxen Medication Changes: Yes Does patient understand medication changes: Yes Can patient afford medication changes: Yes Patient educated on worsening symptoms and when and where to seek additional care: Yes Patient Education Provided including treatment plan and new orders. Patient provided with appropriate counseling: Yes Based on batch unit treater, the following disposition is advised: No symptoms or symptoms present, not severe. Routed to: No Action Needed JEREMIE Education Provided this Outreach: Betty Mancuso RN December 02, 2023 3:44 [facility]09-16-2024 History of Present illness Narrative* Tristin Mancuso RN - 12/02/2023 3:40 PM EDT ED Follow-Up Note Provider Action / FYI: Call completed by: RN Patient seen in ED: In Network ED Contact made with Patient: Yes The patient was identified by Name and Date of . Discussed Care with: patient Patient was seen in the Emergency Department (ED) Location: [facility] Date: 11/28/2023 Reason for ED Visit: Chest Pain ED Intervention: EKG, Labs, chest x ray, medication New Medications: Lidocaine Patch and Naproxen Medication Changes: Yes Does patient understand medication changes: Yes Can patient afford medication changes: Yes Patient educated on worsening symptoms and when and where to seek additional care: Yes Patient Education Provided including treatment plan and new orders. Patient provided with appropriate counseling: Yes Based on batch unit treater, the following disposition is advised: No symptoms or symptoms present, not severe. Routed to: No Action Needed JEREMIE Education Provided this Outreach: No Tristin Mancuso RN December 02, 2023 3:44 PM documented in this encounterBerger Hospital09-16-2024 NotePatient Outreach (AGACM) SAVANAH CYR ([id number]) 1940 F Date Time Provider Department 12/02/23 TRISTIN MANCUSO [facility] During your visit today, we recorded the following information about you: Tristin Mancuso RN 12/02/2023 3:44 PM Signed ED Follow-Up Note Provider Action / FYI: Call completed by: RN Patient seen in ED: In [facility] ED Contact made with Patient: Yes The patient was identified by Name and Date of . Discussed Care with: patient Patient was seen in the Emergency Department (ED) Location: [facility] Date: 11/28/2023 Reason for ED Visit: Chest Pain ED Intervention: EKG, Labs, chest x ray, medication New Medications: Lidocaine Patch and Naproxen Medication Changes: Yes Does patient understand medication changes: Yes Can patient afford medication changes: Yes Patient educated on worsening symptoms and when and where to seek additional care: Yes Patient Education Provided including treatment plan and new orders. Patient provided with appropriate counseling: Yes Based on batch unit treater, the following disposition is advised: No symptoms or symptoms present, not severe. Routed to: No Action Needed JEREMIE Education Provided this Outreach: Betty Mancuso RN December 02, 2023 3:44 PM Allergies As of Date: 12/02/2023 (No Known Allergies) Date Reviewed: 11/28/2023 Reviewed by: Kym Sutherland RN - Fully Assessed Reason for Visit: [facility] Follow Up [6918] Cmt: HÉCTOR Parks ED on 11/28/2023 for Left sided chest pain Prescriptions as of 12/02/2023 - naproxen (NAPROSYN) 500 mg tablet Take 1 tablet by mouth two times a day as needed for up to 14 days. Take with food. - lidocaine (SALONPAS) 4 % patch Apply 1 Patch as directed once daily for 5 days. Remove patch after 12 hours - hydroCHLOROthiazide 25 mg tablet Take 1 tablet by mouth once daily. - loratadine (CLARITIN) 10 mg tablet Take 1 tablet by mouth once daily. - lovastatin (MEVACOR) 20 mg tablet Take 1 tablet by mouth daily at bedtime. - metoprolol succinate ER (TOPROL XL) 25 mg 24 hr tablet Take 1 tablet by mouth once daily. - traZODone (DESYREL) 50 mg tablet Take 1 tablet by mouth daily at bedtime. - PARoxetine (PAXIL) 10 mg tablet Take 1 tablet by mouth once daily. - montelukast (SINGULAIR) 10 mg tablet Take 1 tablet by mouth daily at bedtime. - omeprazole (PRILOSEC) 20 mg capsule Take 1 capsule by mouth once daily. - BREO ELLIPTA 200-25 mcg/dose inhaler INHALE 1 PUFF BY MOUTH ONCE DAILY DIRECTED - azelastine 0.1% nasal spray Use 2 Sprays in each nostril twice daily. - fluticasone (FLONASE ALLERGY RELIEF) 50 mcg/actuation nasal spray Use 1 [place] in each nostril twice daily. To take 2 nasal sprays in each nostrils once daily for 2 weeks, then down to 1 spray/day/nostril - tiotropium bromide (SPIRIVA RESPIMAT) 2.5 mcg/actuation inhaler Inhale 2 Puffs as instructed once daily. - albuterol HFA (PROVENTIL HFA, VENTOLIN HFA) 90 mcg/actuation inhaler INHALE 2 PUFFS INTO LUNGS EVERY 4 HOURS NEEDED FOR WHEEZING OR SHORTNESS OF BREATH - multivitamin tablet Take 1 tablet by mouth once daily. - Cholecalciferol, Vitamin D3, 1,000 unit cap Take 1,000 Units by mouth once daily. Problem List As Of Date 12/02/2023 Noted Resolved Vitamin D deficiency [E55.9] Hair loss [L65.9] 08/30/2015 Essential hypertension, benign [I10] 08/30/2015 Osteoporosis [M81.0] 08/30/2015 Dyspnea and respiratory abnormalities [R06.00, *11/03/2015 LARA (obstructive sleep apnea) [G47.33] 11/03/2015 Solitary pulmonary nodule [R91.1] 11/03/2015 Hiatal hernia [K44.9] 11/18/2015 Periodic limb movement disorder [G47.61] 11/23/2015 Age-related cataract of both eyes [H25.9] 10/12/2020 Intrinsic asthma without status asthmaticus, mi*12/20/2020 Sacral back pain [M53.3] 11/06/2021 Closed nondisplaced zone I fracture of sacrum (*11/07/2021 Anxiety with depression [F41.8] 11/14/2021 Concentric left ventricular hypertrophy [I51.7] 01/23/2022 Chronic insomnia [F51.04] 01/23/2022 History of COVID-19 [Z86.16] 2020 Chronic cough [R05.3] 08/24/2022 PND (post-nasal drip) [R09.82] 08/24/2022 Non-seasonal allergic rhinitis [J30.89] 08/24/2022 Encounter Status:Closed by TRISTIN MANCUSO on 12/02/23[facility] 11-28-2023 Miscellaneous Notes* Telephone Encounter - Laurita Hernandez PSS - 11/28/2023 3:49 PM EDT Patient LM on unattended voicemail on 11/21/23 at 11:54am, needs pre-op appointment set up. CHELSI Clemente November 28, 2023 3:49 PM documented in this encounterBerger Hospital09-12-2024 Telephone encounter Note * Telephone Encounter - Laurita Hernandez PSS - 11/28/2023 3:49 PM EDT Patient LM on unattended voicemail on 11/21/23 at 11:54am, needs pre-op appointment set up. CHELSI Clemente November 28, 2023 3:49 PM [facility]09-10-2024 Telephone encounter Note* Telephone Encounter - India Martinez MA - 11/26/2023 1:38 PM EDT Patient informed of results and verbalizes understanding.India Martinez MA [facility]09-10-2024 Miscellaneous Notes* Telephone Encounter - India Martinez MA - 11/26/2023 1:38 PM EDT Patient informed of results and verbalizes understanding.India Martinez MA * Telephone Encounter - Elidia Armas MA - 11/26/2023 10:21 AM EDT ----- Message from Dustin Arboleda PA-C sent at 11/26/2023 9:53 AM EDT ----- Please inform patient that her xray was negative for rib fractures or other acute processes. Once again, xray shows a large hiatal hernia which the patient is aware of Dustin Arboleda PA-C documented in this encounterCleveland [id number] Telephone encounter Note * Telephone Encounter - Elidia Armas MA - 11/26/2023 10:21 AM EDT ----- Message from Dustin Arboleda PA-C sent at 11/26/2023 9:53 AM EDT ----- Please inform patient that her xray was negative for rib fractures or other acute processes. Once again, xray shows a large hiatal hernia which the patient is aware of Dustin Arboleda PA-C [facility]09-03-2024 NoteHNO ID: [id number] Author: DUSTIN ARBOLEDA PA-C Service: ? Author Type: Physician Salesforce Administrator Type: Progress Notes Filed: 11/20/2023 17:01 Note Text: [facility] Primary [address] [address] Date of Evaluation: 11/20/2023 Patient Name: Savanah Cyr : 1940 Chief Complaint: Patient presents with: Medication Follow-up Results, Lab left breast tenderness: X 3-4 months Nursing Intake: There are no exam notes on file for this visit. Subjective Ms. Cyr is a 83 year old female who presents with her with the following complaint(s): HPI Left breast pain- ongoing for 3-4 months. Does have breast implants. Denies falls or injury to area. Denies pain with breathing Lab review- at last visit in August, patient was restarted on statin medication [facility], per chart review pt reported improvement in cough at that visit Review of Systems As noted in HPI PAST MEDICAL HISTORY No date: Acquired hypothyroidism No date: Arthritis No date: Asthma No date: Atrophic vaginitis No date: Blood in feces No date: Chronic colitis No date: Depressive disorder No date: Disorder of peripheral nervous system No date: Diverticula of colon No date: Gastric ulcer No date: Gastroesophageal reflux disease No date: Hemangioma 05/12/2020: Hiatal hernia Comment: large 2020: History of COVID-19 No date: History of viral hepatitis, type A No date: Hyperlipidemia No date: Irritable bowel syndrome No date: Migraine No date: Multiple nodules of lung 10/20/2019: LARA (obstructive sleep apnea) Comment: mild No date: Paresthesia of foot No date: Quadriceps weakness No date: Reduced libido No date: Vitamin D deficiency PAST SURGICAL HISTORY 2013: EGD WITH BIOPSY(S) 05/12/2020: EGD WITH BIOPSY(S) Comment: 80% of stomach above diaphram; Dr. Sol 07/30/2005: EGD WITH BIOPSY(S) Comment: Dr. Guzman 05/29/2004: EGD WITH BIOPSY(S) Comment: Dr. Guzman 2019: TOTAL KNEE REPLACEMENT No date: WRIST SURGERY HX; Right Comment: Fracture repair FAMILY HISTORY Problem Relation Age of Onset Hypertension Mother Stroke Mother Heart Mother Social History Tobacco Use Smoking status: Never Smokeless tobacco: Never Vaping Use Vaping status: Never Used Substance Use Topics Alcohol use: Yes Comment: occasional Drug use: No Current Outpatient Medications Medication Sig hydroCHLOROthiazide 25 mg tablet Take 1 tablet by mouth once daily. loratadine (CLARITIN) 10 mg tablet Take 1 tablet by mouth once daily. lovastatin (MEVACOR) 20 mg tablet Take 1 tablet by mouth daily at bedtime. metoprolol succinate ER (TOPROL XL) 25 mg 24 hr tablet Take 1 tablet by mouth once daily. traZODone (DESYREL) 50 mg tablet Take 1 tablet by mouth daily at bedtime. PARoxetine (PAXIL) 10 mg tablet Take 1 tablet by mouth once daily. montelukast (SINGULAIR) 10 mg tablet Take 1 tablet by mouth daily at bedtime. omeprazole (PRILOSEC) 20 mg capsule Take 1 capsule by mouth once daily. BREO ELLIPTA 200-25 mcg/dose inhaler INHALE 1 PUFF BY MOUTH ONCE DAILY DIRECTED azelastine 0.1% nasal spray Use 2 Sprays in each nostril twice daily. fluticasone (FLONASE ALLERGY RELIEF) 50 mcg/actuation nasal spray Use 1 [place] in each nostril twice daily. To take 2 nasal sprays in each nostrils once daily for 2 weeks, then down to 1 spray/day/nostril tiotropium bromide (SPIRIVA RESPIMAT) 2.5 mcg/actuation inhaler Inhale 2 Puffs as instructed once daily. albuterol HFA (PROVENTIL HFA, VENTOLIN HFA) 90 mcg/actuation inhaler INHALE 2 PUFFS INTO LUNGS EVERY 4 HOURS NEEDED FOR WHEEZING OR SHORTNESS OF BREATH multivitamin tablet Take 1 tablet by mouth once daily. Cholecalciferol, Vitamin D3, 1,000 unit cap Take 1,000 Units by mouth once daily. No current facility-administered medications for this visit. I have confirmed and edited as necessary the chief complaint, medications, past medical, family and social histories obtained by others. Objective BP 122/68 Pulse 57 Temp (Src) 96.8 (Temporal) Resp 18 Ht 5' 4 (1.63m) Wt 124 lb 3.2 oz (56.3kg) SpO2 92% BMI 21.31 kg/(m2). Physical Exam Vitals and nursing note reviewed. Exam conducted with a book critic present (). Constitutional: General: She is not in acute distress. Appearance: Normal appearance. She is not ill-appearing, toxic-appearing or diaphoretic. Cardiovascular: Rate and Rhythm: Normal rate and regular rhythm. Pulses: Normal pulses. Heart sounds: Normal heart sounds. Pulmonary: Effort: Pulmonary effort is normal. Breath sounds: Normal breath sounds. Chest: Chest wall: Tenderness (left sided 4th rib lateral aspect of breast) present. No mass. Breasts: Left: Skin change (age related) and tenderness (left outer (more content not included)...[facility]09-03-2024 History of Present illness Narrative* Dustin Arboleda PA-C - 11/19/2023 3:15 PM EDT Images from the original note were not included. [facility] [place] [address] [place] [address] Date of Evaluation: 11/20/2023 Patient Name: Savanah Cyr : 1940 Chief Complaint: Patient presents with: Medication Follow-up Results, Lab left breast tenderness: X 3-4 months Nursing Intake: There are no exam notes on file for this visit. Subjective Ms. Cyr is a 83 year old female who presents with her with the following complaint(s): HPI Left breast pain- ongoing for 3-4 months. Does have breast implants. Denies falls or injury to area. Denies pain with breathing Lab review- at last visit in August, patient was restarted on statin medication Did follow with with pulmonary medicine through [facility] for chronic cough, per chart review pt reported improvement in cough at that visit Review of Systems As noted in HPI PAST MEDICAL HISTORY No date: Acquired hypothyroidism No date: Arthritis No date: Asthma No date: Atrophic vaginitis No date: Blood in feces No date: Chronic colitis No date: Depressive disorder No date: Disorder of peripheral nervous system No date: Diverticula of colon No date: Gastric ulcer No date: Gastroesophageal reflux disease No date: Hemangioma 05/12/2020: Hiatal hernia Comment: large 2020: History of COVID-19 No date: History of viral hepatitis, type A No date: Hyperlipidemia No date: Irritable bowel syndrome No date: Migraine No date: Multiple nodules of lung 10/20/2019: LARA (obstructive sleep apnea) Comment: mild No date: Paresthesia of foot No date: Quadriceps weakness No date: Reduced libido No date: Vitamin D deficiency PAST SURGICAL HISTORY 2013: EGD WITH BIOPSY(S) 05/12/2020: EGD WITH BIOPSY(S) Comment: 80% of stomach above diaphram; Dr. Sol 07/30/2005: EGD WITH BIOPSY(S) Comment: Dr. Guzman 05/29/2004: EGD WITH BIOPSY(S) Comment: Dr. Guzman 2019: TOTAL KNEE REPLACEMENT No date: WRIST SURGERY HX; Right Comment: Fracture repair FAMILY HISTORY Problem Relation Age of Onset Hypertension Mother Stroke Mother Heart Mother Social History Tobacco Use Smoking status: Never Smokeless tobacco: Never Vaping Use Vaping status: Never Used Substance Use Topics Alcohol use: Yes Comment: occasional Drug use: No Current Outpatient Medications Medication Sig hydroCHLOROthiazide 25 mg tablet Take 1 tablet by mouth once daily. loratadine (CLARITIN) 10 mg tablet Take 1 tablet by mouth once daily. lovastatin (MEVACOR) 20 mg tablet Take 1 tablet by mouth daily at bedtime. metoprolol succinate ER (TOPROL XL) 25 mg 24 hr tablet Take 1 tablet by mouth once daily. traZODone (DESYREL) 50 mg tablet Take 1 tablet by mouth daily at bedtime. PARoxetine (PAXIL) 10 mg tablet Take 1 tablet by mouth once daily. montelukast (SINGULAIR) 10 mg tablet Take 1 tablet by mouth daily at bedtime. omeprazole (PRILOSEC) 20 mg capsule Take 1 capsule by mouth once daily. BREO ELLIPTA 200-25 mcg/dose inhaler INHALE 1 PUFF BY MOUTH ONCE DAILY DIRECTED azelastine 0.1% nasal spray Use 2 Sprays in each nostril twice daily. fluticasone (FLONASE ALLERGY RELIEF) 50 mcg/actuation nasal spray Use 1 [place] in each nostril twicedaily. To take 2 nasal sprays in each nostrils once daily for 2 weeks, then down to 1 spray/day/nostril tiotropium bromide (SPIRIVA RESPIMAT) 2.5 mcg/actuation inhaler Inhale 2 Puffs as instructed once daily. albuterol HFA (PROVENTIL HFA, VENTOLIN HFA) 90 mcg/actuation inhaler INHALE 2 PUFFS INTO LUNGS EVERY 4 HOURS NEEDED FOR WHEEZING OR SHORTNESS OF BREATH multivitamin tablet Take 1 tablet by mouth once daily. Cholecalciferol, Vitamin D3, 1,000 unit cap Take 1,000 Units by mouth once daily. No current facility-administered medications for this visit. I have confirmed and edited as necessary the chief complaint, medications, past medical, family andsocial histories obtained by others. Objective BP 122/68 Pulse 57 Temp (Src) 96.8 (Temporal) Resp 18 Ht 5' 4 (1.63m) Wt 124 lb 3.2 oz (56.3kg) SpO2 92% BMI 21.31 kg/(m^2). Physical Exam Vitals and nursing note reviewed. Exam conducted with a book critic present (). Constitutional: General: She is not in acute distress. Appearance: Normal appearance. She is not ill-appearing, toxic-appearing or diaphoretic. Cardiovascular: Rate and Rhythm: Normal rate and regular rhythm. Pulses: Normal pulses. Heart sounds: Normal heart sounds. Pulmonary: Effort: Pulmonary effort is normal. Breath sounds: Normal breath sounds. Chest: Chest wall: Tenderness (left sided 4th rib lateral aspect of breast) present. No mass. Breasts: Left: Skin change (age related) and tenderness (left outer upper and lower quadrants) present. No swelling, inverted nipple or nipple discharge. Neurological: Mental Status: She is alert and oriented to person, place, and time. Psychiatric: Mood and Affect: Mood normal. Behavior: Behavior normal. Thought Content: Thought content normal. Judgment: Judgment normal. Data Reviewed: Most recent labs and imaging results. Latest Ref Rng 10/25/2023 WBC 3.8 - 10.8 Thousand/uL 4.5 RBC 3.80 - 5.10 Million/uL 4.32 Hemoglobin 11.7 - 15.5 g/dL 13.2 Hematocrit 35.0 - 45.0 % 41.1 MCV 80.0 - 100.0 fL 95.1 MCH 27.0 - 33.0 pg 30.6 MCHC 32.0 - 36.0 g/dL 32.1 RDW-CV 11.0 - 15.0 % 12.1 Platelet Count 140 - 400 Thousand/uL 198 MPV 7.5 - 12.5 fL 10.9 Abs Neut (ANC) 1,500 - 7,800 cells/uL 2,295 Abs Lymph 850 - 3,900 cells/uL 1,436 Abs [place] 200 - 950 cells/uL 410 Abs Eosin 15 - 500 cells/uL 320 Abs Baso 0 - 200 cells/uL 41 Neut% % 51 Lymph% % 31.9 [place]% % 9.1 Eosin% % 7.1 Baso% % 0.9 Glucose 65 - 99 mg/dL 98 BUN 7 - 25 mg/dL 18 Creatinine 0.60 - 0.95 mg/dL 0.74 eGFR > OR = 60 mL/min/1.73m2 79 BUN/CREATININE RATIO 6 - 22 (calc) SEE NOTE: Sodium 135 - 146 mmol/L 140 Potassium 3.5 - 5.3 mmol/L 3.9 Chloride 98 - 110 mmol/L 100 CO2 20 - 32 mmol/L 32 Calcium 8.6 - 10.4 mg/dL 9.7 Protein, Total 6.1 - 8.1 g/dL 6.3 Albumin 3.6 - 5.1 g/dL 4.0 GLOBULIN 1.9 - 3.7 g/dL (calc) 2.3 Alb/Glob Ratio 1.0 - 2.5 (calc) 1.7 Bilirubin, Total 0.2 - 1.2 mg/dL 0.8 Alkaline Phosphatase 37 - 153 U/L 60 AST 10 - 35 U/L 13 ALT 6 - 29 U/L 8 Cholesterol, Total <200 mg/dL 172 HDL Cholesterol > OR = 50 mg/dL 49 (L) Triglyceride <150 mg/dL 201 (H) LDL Cholesterol mg/dL (calc) 93 TC:HDL Ratio <5.0 (calc) 3.5 NON-HDL CHOLESTEROL <130 mg/dL (calc) 123 Free T4 0.8 - 1.8 ng/dL 0.9 TSH 0.40 - 4.50 mIU/L 3.39 Vit D, 25-OH, Total 30 - 100 ng/mL 41 Legend: (L) Low (H) High ASSESSMENT/PLAN: 1. Rib pain on left side - ICD9: 786.50, ICD10: R07.81 (primary diagnosis) Recommend XR of ribs Denies difficulty breathing Reviewed red flags and return precautions in detail. - XR RIBS/CHEST 3V AP RIB/OBLS/CXR LEFT 2. Breast pain, left - ICD9: 611.71, ICD10: N64.4 3. Pain associated with left breast implant - ICD9: 996.79, ICD10: T85.848A Recommend US of left outer breast for further evaluation - US BREAST LTD LEFT 4. Hypertension, essential - ICD9: 401.9, ICD10: I10 - Controlled - Continue current medications - Recommend home blood pressure monitoring, to bring results to next visit - Encouraged sodium restriction, DASH or Mediterranean diet - Recommend regular aerobic exercise - Reviewed risks of hypertension and principles of treatment 5. Hyperlipidemia, mixed - ICD9: 272.2, ICD10: E78.2 Elevated TG all other levels WNL - Continue current medications (lovastatin) reviewed importance of med adherence - Counseled on healthy diet and regular exercise 6. Chronic cough - ICD9: 786.2, ICD10: R05.3 Follows with pulmonary medicine Consider consult to general surgery if patient wants to discuss surgery for hiatal hernia Dustin Arboleda PA-C Return in about 3 months (around 02/18/2024) for annual exam. Discussed the above with the patient using shared decision making. The patient is in agreement with the diagnostic and treatment plans. [facility] History of Present illness Narrative* Laila Richardson MD - 11/04/2023 1:30 PM EDT Images from the original note were not included. [facility]- Pulmonary and Sleep Medicine [address] , [place] [address] PH: [phone] Visit type: An Established patient 11/04/2023 CHIEF COMPLAINT/REASON FOR REFERRAL: Chief Complaint Patient presents with Follow-up 4 MONTH History of Present Illness Savanah Cyr is a 83 y.o. female with history of hiatal hernia hypertension hyperlipidemia presents for follow-up after being evaluated for chronic cough marked improvement in coughing once long-acting muscarinic agent was added to her treatment she was already on ICS/LABA MMRC Dyspnea Scale: Grade Description of Breathlessness 0 I only get breathless with strenuous exercise. 1 I get short of breath when hurrying on level ground or walking up a slight hill. 2 On level ground, I walk slower than people of the same age because of breathlessness, or have to stop for breath when walking at my own pace. 3 I stop for breath after walking about 100 yards or after a few minutes on level ground. 4 I am too breathless to leave the house or I am breathless when dressing. PastMedical History History reviewed. No pertinent past medical history. Past Surgical History Past Surgical History: Procedure Laterality Date TOTAL KNEE ARTHROPLASTY Right WRIST FRACTURE SURGERY Right Allergies No Known Allergies Medications Current Outpatient Medications: albuterol 108 (90 Base) MCG/ACT inhaler, INHALE 2 PUFFS INTO LUNGS EVERY 4 HOURS NEEDED FOR WHEEZING OR SHORTNESS OF BREATH, Disp: , Rfl: cholecalciferol (Vitamin D-3) 25 MCG (1000 UT) capsule, Take 1,000 Units by mouth in the morning., Disp: , Rfl: fluticasone (Flonase) 50 MCG/ACT nasal spray, 1 spray in the morning and 1 spray in the evening., Disp: , Rfl: hydroCHLOROthiazide (HYDRODiuril) 25 MG tablet, Take 25 mg by mouth in the morning., Disp: , Rfl: loratadine (Claritin) 10 MG tablet, Take 10 mg by mouth in the morning., Disp: , Rfl: lovastatin (Mevacor) 20 MG tablet, Take 1 tablet by mouth Nightly., Disp: , Rfl: metoprolol succinate XL (Toprol-XL) 25 MG 24 hr tablet, Take 25 mg by mouth in the morning., Disp: , Rfl: montelukast (Singulair) 10 MG tablet, Take 1 tablet (10 mg) by mouth Nightly., Disp: 30 tablet, Rfl: 3 Multiple Vitamin (Multi-Vitamin) tablet, Take 1 tablet by mouth in the morning., Disp: , Rfl: PARoxetine (Paxil) 30 MG tablet, Take 30 mg by mouth in the morning., Disp: , Rfl: tiotropium (Spiriva Respimat) 2.5 MCG/ACT inhaler, Inhale 2 puffs in the morning., Disp: 1 each, Rfl: 3 traZODone (Desyrel) 50 MG tablet, Take 1 tablet by mouth Nightly., Disp: , Rfl: Fluticasone Furoate-Vilanterol (Breo Ellipta) 200-25 MCG/ACT aerosol powder , INHALE 1 PUFF BY MOUTH ONCE DAILY DIRECTED, Disp: , Rfl: Social History Social History Tobacco Use Smoking status: Never Smokeless tobacco: Never Substance Use Topics Alcohol use: Not on file FamilyHistory Family History Problem Relation Name Age of Onset No Known Problems Mother No Known Problems Father Review of Systems Review of Systems Constitutional: Negative. HENT: Negative. Eyes: Negative. Respiratory: Positive for cough and shortness of breath. Cardiovascular: Negative. Gastrointestinal: Negative. Endocrine: Negative. Skin: Negative. Allergic/Immunologic: Negative. Neurological: Negative. Psychiatric/Behavioral: Negative. Physical Exam Vitals: 11/04/23 1331 BP: 137/77 Pulse: 58 Temp: 36.1 C (96.9 F) SpO2: 94% Weight: 126 lb 12.8 oz (57.5 kg) Height: 5' 4 (1.626 m) Physical Exam Vitals reviewed. Constitutional: General: She is not in acute distress. Appearance: Normal appearance. She is not ill-appearing, toxic-appearing or diaphoretic. HENT: Head: Normocephalic and atraumatic. Nose: Congestion present. Mouth/Throat: Pharynx: No posterior oropharyngeal erythema. Eyes: Extraocular Movements: Extraocular movements intact. Pupils: Pupils are equal, round, and reactive to light. Cardiovascular: Rate and Rhythm: Normal rate and regular rhythm. Pulses: Normal pulses. Heart sounds: Normal heart sounds. No murmur heard. No friction rub. No gallop. Pulmonary: Effort: No respiratory distress. Breath sounds: No wheezing, rhonchi or rales. Chest: Chest wall: No tenderness. Musculoskeletal: Left lower leg: No edema. Neurological: Mental Status: She is alert. Psychiatric: Mood and Affect: Mood normal. Data Reviewed and Summarized LABS and Studies: Available studies were personally reviewed. Salient findings summarized in HPI & A/P Imaging: Available studies were personally reviewed. Salient findings summarized in HPI & A/P PFT's: Pulmonary Functions Testing Results: No results found for: FEV1, FVC, ZSX2ULG, TLC, DLCO Assessment and Plan 1. Chronic cough Improved, prescription for Breo/Spiriva sent to the pharmacy 2. Moderate persistent asthma without complication As above 3. Chronic rhinitis Continue with Singulair/Flonase 4. Large hiatal hernia probably contributing to reflux symptoms leading to cough Laila Richardson MD Pulmonary, Critical Care, & Sleep Medicine Portions of the information within this encounter were entered using an electronic dictation system. Best attempts were made to edit/proofread the information prior to note completion. Despite the review of information, some errors may remain. If there are questions related to the information contained within the note please contact the documented in this [facility]08-19-2024 Instructions* Patient Instructions* Giovanna Lanier MA - 11/04/2023 1:30 PM EDT YOUR APPOINTMENT TODAY WAS WITH THE [facility] LUNG NODULE CLINIC, COPD CLINIC, PULMONARY AND SLEEP MEDICINE OFFICE. PLEASE CALL OUR OFFICE AT [phone] for our [place] office location or [phone] for our [place] location, IF YOU HAVE NOT RECEIVED YOUR TEST RESULTS 7 DAYS AFTER TESTING IS COMPLETED. PLEASE REMEMBER TO REQUEST REFILLS AT YOUR OFFICE VISITS. PHONE/FAX REQUESTS REQUIRE 48-72 HOURS FOR RESPONSE. A FRIENDLY REMINDER COPAYS ARE DUE AT TIME OF SERVICE. THANK YOU. Our Patients Are Important! We want to improve and you can help. After your visit we want you to feel: Listened to, Respected and have your health care explained. You may receive a survey asking you about your visit. Please complete the survey. We will use your feedback to make improvements. COVID-19 VACCINATION INFORMATION: PH. [phone] [email or web address] [facility] [phone] [facility] [phone] documented in this [facility]07-11-2024 NoteHNO ID: [id number] Author: RAMESH OG MD Service: ? Author Type: Physician Type: Progress Notes Filed: 09/27/2023 12:29 Note Text: Ramesh Og MD [facility] Orthopaedic Surgery - Orthopaedic Spine Surgeon [address], [facility] [[email or web address] [address] [address] Phone: [phone] FAX: [phone] Spine Surgery Outpatient Note Service Date: 09/26/2023 Referring Provider: Self Chief Complaint: Lumbar back pain History of Present Illness Savanah Cyr is a 83 year old female with extensive past medical history as below presenting with spouse as a new patient today. Savanah Cyr presents with primary complaint of lumbar back pain. Pain has been present for multiple years. Pain is present at all times, but is worse with activity. No associated numbness, paresthesias, or radiating pain into the lower extremities. No weakness. No incontinence of bowel or bladder. No neck pain, numbness, paresthesias, or radicular pain in the upper extremities. Has history of L3 kyphoplasty performed for compression fracture following a ground level fall. No additional falls recently. Takes acetaminophen/ibuprofen for the pain. Has had no formal physical therapy for lumbar spine. Summary of Symptoms Pain Location: Lumbar spine Radiation of Pain: None Weakness: No Dexterity Issues: No Imbalance: No Falls: No Bowel/Bladder Dysfunction: No Prior Conservative Treatment Physical Therapy: No Medications: OTC Pain Management: No Injections: No Surgery: L3 kyphoplasty Other: No The following portions of the patient's history were reviewed and updated as appropriate: allergies, current medications, past family history, past medical history, past social history, past surgical history and problem list. 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, Mild Persistent, Uncomplicated Sacral Back Pain Closed Nondisplaced Zone I Fracture of Sacrum (Hcc) Anxiety With Depression Concentric Left Ventricular Hypertrophy Chronic Insomnia History of Covid-19 Chronic Cough Pnd (Post-Nasal Drip) Non-Seasonal Allergic Rhinitis PAST MEDICAL HISTORY Diagnosis Date Acquired hypothyroidism Arthritis Asthma Atrophic vaginitis Blood in feces Chronic colitis Depressive disorder Disorder of peripheral nervous system Diverticula of colon Gastric ulcer Gastroesophageal reflux disease Hemangioma Hiatal hernia 05/12/2020 large History of COVID-19 2020 History of viral hepatitis, type A Hyperlipidemia Irritable bowel syndrome Migraine Multiple nodules of lung LARA (obstructive sleep apnea) 10/20/2019 mild Paresthesia of foot Quadriceps weakness Reduced libido Vitamin D deficiency PAST SURGICAL HISTORY Procedure Laterality Date EGD WITH BIOPSY(S) 2012 EGD WITH BIOPSY(S) 05/12/2020 80% of stomach above diaphram; Dr. Sol EGD WITH BIOPSY(S) 07/30/2005 Dr. Guzman EGD WITH BIOPSY(S) 05/29/2004 Dr. Guzman TOTAL KNEE REPLACEMENT 2019 WRIST SURGERY HX Right Fracture repair FAMILY HISTORY Problem Relation Age of Onset Hypertension Mother Stroke Mother Heart Mother Social History Tobacco Use Smoking status: Never Smokeless tobacco: Never Vaping Use Vaping Use: Never used Substance Use Topics Alcohol use: Yes Comment: occasional Drug use: No ALLERGIES No Known Allergies Medications: hydroCHLOROthiazide 25 mg tablet Take 1 tablet by mouth once daily. loratadine (CLARITIN) 10 mg tablet Take 1 tablet by mouth once daily. lovastatin (MEVACOR) 20 mg tablet Take 1 tablet by mouth daily at bedtime. metoprolol succinate ER (TOPROL XL) 25 mg 24 hr tablet Take 1 tablet by mouth once daily. traZODone (DESYREL) 50 mg tablet Take 1 tablet by mouth daily at bedtime. PARoxetine (PAXIL) 10 mg tablet Take 1 tablet by mouth once daily. montelukast (SINGULAIR) 10 mg tablet Take 1 tablet by mouth daily at bedtime. omeprazole (PRILOSEC) 20 mg capsule Take 1 capsule by mouth once daily. BREO ELLIPTA 200-25 mcg/dose inhaler INHALE 1 PUFF BY MOUTH ONCE DAILY DIRECTED azelastine 0.1% nasal spray Use 2 Sprays in each nostril twice daily. fluticasone (FLONASE ALLERGY RELIEF) 50 mcg/actuation nasal spray Use 1 [place] in each nostril twice daily. To take 2 nasal sprays in each nostrils once daily for 2 weeks, then down to 1 spray/day/nostril tiotropium bromide (SPIRIVA RESPIMAT) 2.5 mcg/actuation inhaler Inhale 2 Puffs as instructed once daily. albuterol HFA (PROVENTIL HFA, VENTOLIN HFA) 90 mcg/actuation inhaler INHALE 2 PUFFS INTO LUNGS EVERY 4 HOURS NEEDED FOR WHEEZING OR SHOR (more content not included)...[facility]07-11-2024 History of Present illness Narrative* Ramesh Og MD - 09/26/2023 1:10 PM EDT Images from the original note were not included. Ramesh Og MD [facility] Orthopaedic Surgery - Orthopaedic Spine Surgeon [address], [address], [place] [address] Phone: [phone] FAX: [phone] Spine Surgery Outpatient Note Service Date: 09/26/2023 Referring Provider: Self Chief Complaint: Lumbar back pain History of Present Illness Savanah Cyr is a 83 year old female with extensive past medical history as below presenting with spouse as a new patient today. Savanah Cyr presents with primary complaint of lumbar back pain. Pain has been present for multiple years. Pain is present at all times, but is worse with activity. No associated numbness, paresthesias, or radiating pain into the lower extremities. No weakness. No incontinence of bowel or bladder. No neck pain, numbness, paresthesias, or radicular pain in the upper extremities. Has history of L3 kyphoplasty performed for compression fracture following a ground level fall. No additional falls recently. Takes acetaminophen/ibuprofen for the pain. Has had no formal physical therapy for lumbar spine. Summary of Symptoms Pain Location: Lumbar spine Radiation of Pain: None Weakness: No Dexterity Issues: No Imbalance: No Falls: No Bowel/Bladder Dysfunction: No Prior Conservative Treatment Physical Therapy: No Medications: OTC Pain Management: No Injections: No Surgery: L3 kyphoplasty Other: No The following portions of the patient's history were reviewed and updated as appropriate: allergies, current medications, past family history, past medical history, past social history, past surgicalhistory and problem list. 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, Mild Persistent, Uncomplicated Sacral Back Pain Closed Nondisplaced Zone I Fracture of Sacrum (Hcc) Anxiety With Depression Concentric Left Ventricular Hypertrophy Chronic Insomnia History of Covid-19 Chronic Cough Pnd (Post-Nasal Drip) Non-Seasonal Allergic Rhinitis PAST MEDICAL HISTORY Diagnosis Date Acquired hypothyroidism Arthritis Asthma Atrophic vaginitis Blood in feces Chronic colitis Depressive disorder Disorder of peripheral nervous system Diverticula of colon Gastric ulcer Gastroesophageal reflux disease Hemangioma Hiatal hernia 05/12/2020 large History of COVID-19 2020 History of viral hepatitis, type A Hyperlipidemia Irritable bowel syndrome Migraine Multiple nodules of lung LARA (obstructive sleep apnea) 10/20/2019 mild Paresthesia of foot Quadriceps weakness Reduced libido Vitamin D deficiency PAST SURGICAL HISTORY Procedure Laterality Date EGD WITH BIOPSY(S) 2012 EGD WITH BIOPSY(S) 05/12/2020 80% of stomach above diaphram; Dr. Sol EGD WITH BIOPSY(S) 07/30/2005 Dr. Guzman EGD WITH BIOPSY(S) 05/29/2004 Dr. Guzman TOTAL KNEE REPLACEMENT 2019 WRIST SURGERY HX Right Fracture repair FAMILY HISTORY Problem Relation Age of Onset Hypertension Mother Stroke Mother Heart Mother Social History Tobacco Use Smoking status: Never Smokeless tobacco: Never Vaping Use Vaping Use: Never used Substance Use Topics Alcohol use: Yes Comment: occasional Drug use: No ALLERGIES No Known Allergies Medications: hydroCHLOROthiazide 25 mg tablet Take 1 tablet by mouth once daily. loratadine (CLARITIN) 10 mg tablet Take 1 tablet by mouth once daily. lovastatin (MEVACOR) 20 mg tablet Take 1 tablet by mouth daily at bedtime. metoprolol succinate ER (TOPROL XL) 25 mg 24 hr tablet Take 1 tablet by mouth once daily. traZODone (DESYREL) 50 mg tablet Take 1 tablet by mouth daily at bedtime. PARoxetine (PAXIL) 10 mg tablet Take 1 tablet by mouth once daily. montelukast (SINGULAIR) 10 mg tablet Take 1 tablet by mouth daily at bedtime. omeprazole (PRILOSEC) 20 mg capsule Take 1 capsule by mouth once daily. BREO ELLIPTA 200-25 mcg/dose inhaler INHALE 1 PUFF BY MOUTH ONCE DAILY DIRECTED azelastine 0.1% nasal spray Use 2 Sprays in each nostril twice daily. fluticasone (FLONASE ALLERGY RELIEF) 50 mcg/actuation nasal spray Use 1 [place] in each nostril twicedaily. To take 2 nasal sprays in each nostrils once daily for 2 weeks, then down to 1 spray/day/nostril tiotropium bromide (SPIRIVA RESPIMAT) 2.5 mcg/actuation inhaler Inhale 2 Puffs as instructed once daily. albuterol HFA (PROVENTIL HFA, VENTOLIN HFA) 90 mcg/actuation inhaler INHALE 2 PUFFS INTO LUNGS EVERY 4 HOURS NEEDED FOR WHEEZING OR SHORTNESS OF BREATH multivitamin tablet Take 1 tablet by mouth once daily. Cholecalciferol, Vitamin D3, 1,000 unit cap Take 1,000 Units by mouth once daily. Physical Examination: Vital Signs: Resp 16 Ht 158.8 cm (5' 2.5) Wt 57.2 kg (126 lb) BMI 22.68 kg/m General Appearance: Well nourished, well developed, and no apparent distress. Neuro/Psych: Patient oriented to person, place, and time. Mood pleasant. Benign affect. Cardiovascular: Palpable pulses. No edema noted. No varicosities. Skin: Head, neck, trunk, and extremities dry, intact and without lesions. Lymphatics: No palpable nodes in cervical or axillae areas. Groin exam deferred. Musculoskeletal: Tender to palpation in the midline and over the paraspinal musculature of the lumbar spine. Muscle Tone and Bulk: Symmetrical in the upper & lower extremities. Sensory: Sensation intact to light touch in C5-T1 and L1-S1 dermatomes. Motor: Upper Extremities Right Left Deltoid (C5) 5 5 Biceps (C6) 5 5 Triceps (C7) [address] (C8) 5 5 Interossei (T1) 5 5 Lower Extremities Right Left Psoas (L2) 5 5 Quadriceps (L3) 5 5 Dorsiflexion (L4) 5 5 EHL (L5) 5 5 Plantarflexion (S1) 5 5 Gait: Unable to perform tandem gait. Long Tract Signs: No clonus. No Hoffmanns. Reflexes: Symmetric, non-brisk. Imaging AP and lateral x-rays of the lumbar spine were obtained and independently interpreted. Images demonstrate degenerative levoscoliosis from L1-5 measuring 13.9 degrees. L3 compression fracture status-post kyphoplasty with extrusion of cement posteriorly into canal and laterally to the left of the vertebral body. Compression fractures of T12 and L2. Grade 1 L4-5 spondylolisthesis. Assessment 83 year old female who presents with lumbar back pain in setting of T12 & L2 compression fractures (age indeterminate) and L3 compression fracture status- post kyphoplasty. Encounter Diagnosis ICD-10-CM 1. Compression fracture of T12 vertebra, initial encounter ([facility]) S22.080A 2. Closed compression fracture of L2 lumbar vertebra, initial encounter ([facility]) S32.020A 3. Lumbar back pain M54.50 XR LUMBAR LIMITED 2V AP/LAT CONSULT TO PHYSICAL THERAPY Plan The clinical and radiographic findings as well as the risks, benefits, and alternatives of treatment have been reviewed in detail with the patient. We had a discussion of symptoms, examination, and imaging findings. A summary of my recommendations is as follows: Referral to physical therapy provided. OTC pain medications as needed. Follow-up in 2-3 months for repeat evaluation. Advised to call the office if symptoms worsen or new symptoms develop. Patient expressed understanding and is in agreement with plan. Ramesh Og MD Orthopaedic Spine Surgery This note was generated all or in part using [employer] voice recognition software. Please excuse any minor errors in spelling, grammar, or punctuation. documented in this encounterBerger Hospital06-11-2024 Instructions* Patient Instructions* Dustin Arboleda PA-C - 08/27/2023 2:12 PM EDT Per pulmonology: Use spiriva, use Flonase every day, and start Singulair as well Consult to general surgery and GI placed Try Prilosec (medication for acid reflux) once daily in the AM 30 min before breakfast Restart Paxil at 10 mg Please obtain labs prior to your next appointment. You must be fasting for 12 hours prior to obtaining labs. Please call with questions or concerns, Dustin Arboleda PA-C BONE MINERAL DENSITY PATIENT INSTRUCTIONS Bone mineral density testing measures the amount of calcium in certain parts of your bones. This information determines how strong your bones are. The test is used to detect osteoporosis, a disease in which the bone's mineral content and density are low, increasing a person's risk of fractures. Thelumbar spine (lower back) and the hip are the skeletal sites usually examined. For the test, remember that: 1. You cannot take this test if you are . 2. Eat a normal diet on the day of the test. 3. Take your medications as you normally would. 4. DO NOT take calcium supplements (such as Tums) for 24 hours before the test. 5. On the day of the test, leave valuables (jewelry or credit cards) at home. 6. The test should be performed prior to oral, rectal or IV contrast studies, or at least 7 days after any of these studies. For the test, you may be asked to wear a hospital gown. You will lie on your back, on a padded table, in a comfortable position. Generally, you can resume your usual activities immediately. documented in this encounterBerger Hospital06-11-2024 NoteHNO ID: [id number] Author: DUSTIN ARBOLEDA PA-C Service: ? Author Type: Physician Salesforce Administrator Type: Progress Notes Filed: 08/27/2023 15:16 Note Text: [facility] [address] [place] [address] Date of Evaluation: 08/27/2023 Patient Name: Savanah Cyr : 1940 Chief Complaint: Patient presents with: Cough: X 3 years Establish Care: New Patient Nursing Intake: There are no exam notes on file for this visit. Subjective Ms. Cyr is a 83 year old female who presents with her Jono. HPI Previous patient of Dr. Nichols- established in June 2023 Saw Jordyn Carlson PA-C previous to this PMH of HTN, hyperlipidemia, IBS, anxiety/depression, insomnia, and chronic cough Reports being out of Paxil since May- refill declined since pt was due for a visit Follows with pulmonology chronic cough which developed around COVID Per pulmonology: chronic cough is multifactorial large component could be related to large hiatal hernia - has not been seen by anyone for this before Review of Systems Constitutional: Negative for fatigue and fever. HENT: Negative for congestion, sinus pressure, sneezing and sore throat. Respiratory: Positive for cough. Negative for shortness of breath. Cardiovascular: Negative for chest pain, palpitations and leg swelling. Gastrointestinal: Positive for diarrhea (hx of IBS-D). Negative for abdominal pain, constipation and nausea. Genitourinary: Negative for difficulty urinating. Musculoskeletal: Negative for arthralgias, joint swelling and myalgias. Neurological: Negative for dizziness, weakness, numbness and headaches. Psychiatric/Behavioral: Positive for agitation (without paxil). PAST MEDICAL HISTORY Diagnosis Date Acquired hypothyroidism Arthritis Asthma Atrophic vaginitis Blood in feces Chronic colitis Depressive disorder Disorder of peripheral nervous system Diverticula of colon Gastric ulcer Gastroesophageal reflux disease Hemangioma Hiatal hernia History of COVID-19 2020 History of viral hepatitis, type A Hyperlipidemia Irritable bowel syndrome Migraine Multiple nodules of lung Paresthesia of foot Quadriceps weakness Reduced libido Vitamin D deficiency PAST SURGICAL HISTORY Procedure Laterality Date EGD TRANSORAL BIOPSY SINGLE/MULTIPLE 05/12/2020 80% of stomach above diaphram; Dr. Sol EGD WITH BIOPSY(S) 2012 PAST SURGICAL HISTORY OF 2019 Right knee replacement WRIST SURGERY HX Right Fracture repair FAMILY HISTORY Problem Relation Age of Onset Hypertension Mother Stroke Mother Heart Mother Social History Tobacco Use Smoking status: Never Smokeless tobacco: Never Vaping Use Vaping Use: Never used Substance Use Topics Alcohol use: Yes Comment: occasional Drug use: No Current Outpatient Medications Medication Sig azelastine 0.1% nasal spray Use 2 Sprays in each nostril twice daily. fluticasone (FLONASE ALLERGY RELIEF) 50 mcg/actuation nasal spray Use 1 [place] in each nostril twice daily. To take 2 nasal sprays in each nostrils once daily for 2 weeks, then down to 1 spray/day/nostril tiotropium bromide (SPIRIVA RESPIMAT) 2.5 mcg/actuation inhaler Inhale 2 Puffs as instructed once daily. albuterol HFA (PROVENTIL HFA, VENTOLIN HFA) 90 mcg/actuation inhaler INHALE 2 PUFFS INTO LUNGS EVERY 4 HOURS NEEDED FOR WHEEZING OR SHORTNESS OF BREATH multivitamin tablet Take 1 tablet by mouth once daily. Cholecalciferol, Vitamin D3, 1,000 unit cap Take 1,000 Units by mouth once daily. hydroCHLOROthiazide 25 mg tablet Take 1 tablet by mouth once daily. loratadine (CLARITIN) 10 mg tablet Take 1 tablet by mouth once daily. lovastatin (MEVACOR) 20 mg tablet Take 1 tablet by mouth daily at bedtime. metoprolol succinate ER (TOPROL XL) 25 mg 24 hr tablet Take 1 tablet by mouth once daily. traZODone (DESYREL) 50 mg tablet Take 1 tablet by mouth daily at bedtime. PARoxetine (PAXIL) 10 mg tablet Take 1 tablet by mouth once daily. montelukast (SINGULAIR) 10 mg tablet Take 1 tablet by mouth daily at bedtime. omeprazole (PRILOSEC) 20 mg capsule Take 1 capsule by mouth once daily. BREO ELLIPTA 200-25 mcg/dose inhaler INHALE 1 PUFF BY MOUTH ONCE DAILY DIRECTED No current facility-administered medications for this visit. I have confirmed and edited as necessary the chief complaint, medications, past medical, family and social histories obtained by others. Objective BP 116/72 Pulse 62 Temp (Src) 98.1 (Temporal) Resp 20 Ht 5' 2.5 (1.59m) Wt 126 lb 9.6 oz (57.4kg) SpO2 96% BMI 22.77 kg/(m2). Physical Exam Vitals and nursing note reviewed. Constitutional: General: She is not in acute distress. Appearance: Normal appearance. She is normal weight. She is not ill-appearing, toxic-appearing or diaphoretic. HENT: Head: Normoce (more content not included)...[facility] 08-27-2023 History of Present illness Narrative* Dustin Arboleda PA-C - 08/27/2023 2:07 PM EDT Images from the original note were not included. [address] [address] Date of Evaluation: 08/27/2023 Patient Name: Savanah Cyr : 1940 Chief Complaint: Patient presents with: Cough: X 3 years Establish Care: New Patient Nursing Intake: There are no exam notes on file for this visit. Subjective Ms. Cyr is a 83 year old female who presents with her Jono. HPI Previous patient of Dr. Nichols- established in June 2023 Saw Jordyn Carlson PA-C previous to this PMH of HTN, hyperlipidemia, IBS, anxiety/depression, insomnia, and chronic cough Reports being out of Paxil since May- refill declined since pt was due for a visit Follows with pulmonology chronic cough which developed around COVID Per pulmonology: chronic cough is multifactorial large component could be related to large hiatal hernia - has not been seen by anyone for this before Review of Systems Constitutional: Negative for fatigue and fever. HENT: Negative for congestion, sinus pressure, sneezing and sore throat. Respiratory: Positive for cough. Negative for shortness of breath. Cardiovascular: Negative for chest pain, palpitations and leg swelling. Gastrointestinal: Positive for diarrhea (hx of IBS-D). Negative for abdominal pain, constipation and nausea. Genitourinary: Negative for difficulty urinating. Musculoskeletal: Negative for arthralgias, joint swelling and myalgias. Neurological: Negative for dizziness, weakness, numbness and headaches. Psychiatric/Behavioral: Positive for agitation (without paxil). PAST MEDICAL HISTORY Diagnosis Date Acquired hypothyroidism Arthritis Asthma Atrophic vaginitis Blood in feces Chronic colitis Depressive disorder Disorder of peripheral nervous system Diverticula of colon Gastric ulcer Gastroesophageal reflux disease Hemangioma Hiatal hernia History of COVID-19 2020 History of viral hepatitis, type A Hyperlipidemia Irritable bowel syndrome Migraine Multiple nodules of lung Paresthesia of foot Quadriceps weakness Reduced libido Vitamin D deficiency PAST SURGICAL HISTORY Procedure Laterality Date EGD TRANSORAL BIOPSY SINGLE/MULTIPLE 05/12/2020 80% of stomach above diaphram; Dr. Sol EGD WITH BIOPSY(S) 2012 PAST SURGICAL HISTORY OF 2019 Right knee replacement WRIST SURGERY HX Right Fracture repair FAMILY HISTORY Problem Relation Age of Onset Hypertension Mother Stroke Mother Heart Mother Social History Tobacco Use Smoking status: Never Smokeless tobacco: Never Vaping Use Vaping Use: Never used Substance Use Topics Alcohol use: Yes Comment: occasional Drug use: No Current Outpatient Medications Medication Sig azelastine 0.1% nasal spray Use 2 Sprays in each nostril twice daily. fluticasone (FLONASE ALLERGY RELIEF) 50 mcg/actuation nasal spray Use 1 [place] in each nostril twicedaily. To take 2 nasal sprays in each nostrils once daily for 2 weeks, then down to 1 spray/day/nostril tiotropium bromide (SPIRIVA RESPIMAT) 2.5 mcg/actuation inhaler Inhale 2 Puffs as instructed once daily. albuterol HFA (PROVENTIL HFA, VENTOLIN HFA) 90 mcg/actuation inhaler INHALE 2 PUFFS INTO LUNGS EVERY 4 HOURS NEEDED FOR WHEEZING OR SHORTNESS OF BREATH multivitamin tablet Take 1 tablet by mouth once daily. Cholecalciferol, Vitamin D3, 1,000 unit cap Take 1,000 Units by mouth once daily. hydroCHLOROthiazide 25 mg tablet Take 1 tablet by mouth once daily. loratadine (CLARITIN) 10 mg tablet Take 1 tablet by mouth once daily. lovastatin (MEVACOR) 20 mg tablet Take 1 tablet by mouth daily at bedtime. metoprolol succinate ER (TOPROL XL) 25 mg 24 hr tablet Take 1 tablet by mouth once daily. traZODone (DESYREL) 50 mg tablet Take 1 tablet by mouth daily at bedtime. PARoxetine (PAXIL) 10 mg tablet Take 1 tablet by mouth once daily. montelukast (SINGULAIR) 10 mg tablet Take 1 tablet by mouth daily at bedtime. omeprazole (PRILOSEC) 20 mg capsule Take 1 capsule by mouth once daily. BREO ELLIPTA 200-25 mcg/dose inhaler INHALE 1 PUFF BY MOUTH ONCE DAILY DIRECTED No current facility-administered medications for this visit. I have confirmed and edited as necessary the chief complaint, medications, past medical, family andsocial histories obtained by others. Objective BP 116/72 Pulse 62 Temp (Src) 98.1 (Temporal) Resp 20 Ht 5' 2.5 (1.59m) Wt 126 lb 9.6 oz(57.4kg) SpO2 96% BMI 22.77 kg/(m^2). Physical Exam Vitals and nursing note reviewed. Constitutional: General: She is not in acute distress. Appearance: Normal appearance. She is normal weight. She is not ill-appearing, toxic-appearing or diaphoretic. HENT: Head: Normocephalic and atraumatic. Right Ear: Tympanic membrane, ear canal and external ear normal. Left Ear: Tympanic membrane, ear canal and external ear normal. Mouth/Throat: Mouth: Mucous membranes are moist. Eyes: Extraocular Movements: Extraocular movements intact. Conjunctiva/sclera: Conjunctivae normal. Pupils: Pupils are equal, round, and reactive to light. Cardiovascular: Rate and Rhythm: Normal rate and regular rhythm. Pulses: Normal pulses. Heart sounds: Normal heart sounds. Pulmonary: Effort: Pulmonary effort is normal. No respiratory distress. Breath sounds: Normal breath sounds. No stridor. No wheezing or rhonchi. Comments: Occasional coughing on exam Abdominal: General: Abdomen is flat. Bowel sounds are normal. There is no distension. Palpations: Abdomen is soft. There is no mass. Tenderness: There is no abdominal tenderness. There is no guarding or rebound. Hernia: No hernia is present. Musculoskeletal: General: No swelling or tenderness. Normal range of motion. Cervical back: Normal range of motion and neck supple. No rigidity or tenderness. Right lower leg: No edema. Left lower leg: No edema. Lymphadenopathy: Cervical: No cervical adenopathy. Skin: General: Skin is warm and dry. Neurological: General: No focal deficit present. Mental Status: She is alert and oriented to person, place, and time. Mental status is at baseline. Psychiatric: Mood and Affect: Mood normal. Behavior: Behavior normal. Thought Content: Thought content normal. Judgment: Judgment normal. Data Reviewed: Most recent labs and imaging results. Outside documentation ASSESSMENT/PLAN: 1. Encounter for medical examination to establish care - ICD9: V70.9, ICD10: Z00.00 (primary diagnosis) 2. Chronic cough - ICD9: 786.2, ICD10: R05.3 Reviewed recommendation for pulmonology with patient: Use spiriva, use Flonase every day, and startSingulair as well Due to hiatal hernia, recommend trial of Prilosec for 3 months. Take daily 30 min before breakfast Continue following with pulmonology - LORATADINE 10 MG TABLET - MONTELUKAST 10 MG TABLET - OMEPRAZOLE 20 MG CAPSULE,DELAYED RELEASE 3. Hiatal hernia - ICD9: 553.3, ICD10: K44.9 See #2 Consult to general surgery placed for evaluation- discussed interventions may be limited due to age - OMEPRAZOLE 20 MG CAPSULE,DELAYED RELEASE - CONSULT TO GENERAL SURGERY 4. Anxiety with depression - ICD9: 300.4, ICD10: F41.8 Restart Paxil at lower dosage- 10 mg Follow-up for med check in 3 months - PAROXETINE 10 MG TABLET 5. Chronic insomnia - ICD9: 780.52, ICD10: F51.04 Med refill The current medical regimen is effective; continue present plan and medications. - TRAZODONE 50 MG TABLET 6. Hypertension, essential - ICD9: 401.9, ICD10: I10 - Controlled - Continue current medications - Recommend home blood pressure monitoring, to bring results to next visit - Encouraged sodium restriction, DASH or Mediterranean diet - Recommend regular aerobic exercise - Discussed need for and benefit of weight loss. BMI 22.79 kg/(m^2) - Reviewed risks of hypertension and principles of treatment - Follow up in 3 months or sooner if needed for hypertension visit - HYDROCHLOROTHIAZIDE 25 MG TABLET - METOPROLOL SUCCINATE ER 25 MG TABLET,EXTENDED RELEASE 24 HR - COMPLETE BLOOD COUNT AND DIFFERENTIAL - COMPREHENSIVE METABOLIC PANEL - T4 FREE/FREE THYROXINE - THYROID STIMULATING HORMONE 7. Hyperlipidemia, mixed - ICD9: 272.2, ICD10: E78.2 - Control undetermined, due for labs - Continue current medications - Counseled on healthy diet and regular exercise - Discussed need for and benefit of weight loss. BMI 22.79 kg/(m^2) - LOVASTATIN 20 MG TABLET - COMPREHENSIVE METABOLIC PANEL - LIPID PANEL BASIC 8. Vitamin D deficiency - ICD9: 268.9, ICD10: E55.9 - VITAMIN D 25 HYDROXY 9. Age related osteoporosis, unspecified pathological fracture presence - ICD9: 733.01, ICD10: M81.0 - DXA-AXIAL SKELETON - DXA TRABECULAR BONE SCORE (TBS) 10. Irritable bowel syndrome with diarrhea - ICD9: 564.1, ICD10: K58.0 Patient requested consult to re-establish with GI - CONSULT TO GASTROENTEROLOGY Dustin Arboleda PA-C Return in about 3 months (around 11/27/2023) for medication follow-up. Discussed the above with the patient using shared decision making. The patient is in agreement with the diagnostic and treatment plans. I spent a total of 38 minutes on the date of the service which included preparing to see the patient, [id number] patient care, completing clinical documentation, obtaining and/or reviewing separately obtained history, performing a medically appropriate examination, counseling and educating the pat ient/family/caregiver, ordering medications, tests, or procedures, independently interpreting results (not separately reported), communicating results to the patient/family/caregiver, and care coordination (not separately reported). documented in this encounterBerger Hospital04-22-2024 History of Present illness Narrative* Laila Richardson MD - 07/08/2023 10:15 AM EDT Images from the original note were not included. [facility]- Pulmonary and Sleep Medicine [address] [place] [address], [address] [facility] [address] PH: [phone] Visit type: An Established patient 07/08/2023 CHIEF COMPLAINT/REASON FOR REFERRAL: Chief Complaint Patient presents with Follow-up PFT History of Present Illness Savanah Cyr is a 83 y.o. female with past medical history significant for large hiatal hernia, hypertension, hyperlipidemia presents for follow-up for chronic cough, cough is productive of clear sputum a lot of postnasal drainage is on Flonase not using it every day, shortness of breath with exertion shortness of breath though improved on current bronchodilator therapy MMRC Dyspnea Scale: Grade Description of Breathlessness 0 I only get breathless with strenuous exercise. 1 I get short of breath when hurrying on level ground or walking up a slight hill. 2 On level ground, I walk slower than people of the same age because of breathlessness, or have to stop for breath when walking at my own pace. 3 I stop for breath after walking about 100 yards or after a few minutes on level ground. 4 I am too breathless to leave the house or I am breathless when dressing. PastMedical History No past medical history on file. Past Surgical History Past Surgical History: Procedure Laterality Date TOTAL KNEE ARTHROPLASTY Right WRIST FRACTURE SURGERY Right Allergies No Known Allergies Medications Current Outpatient Medications: albuterol 108 (90 Base) MCG/ACT inhaler, INHALE 2 PUFFS INTO LUNGS EVERY 4 HOURS NEEDED FOR WHEEZING OR SHORTNESS OF BREATH, Disp: , Rfl: cholecalciferol (Vitamin D-3) 25 MCG (1000 UT) capsule, Take 1,000 Units by mouth in the morning., Disp: , Rfl: fluticasone (Flonase) 50 MCG/ACT nasal spray, 1 spray in the morning and 1 spray in the evening., Disp: , Rfl: Fluticasone Furoate-Vilanterol (Breo Ellipta) 200-25 MCG/ACT aerosol powder , INHALE 1 PUFF BY MOUTH ONCE DAILY DIRECTED, Disp: , Rfl: hydroCHLOROthiazide (HYDRODiuril) 25 MG tablet, Take 25 mg by mouth in the morning., Disp: , Rfl: loratadine (Claritin) 10 MG tablet, Take 10 mg by mouth in the morning., Disp: , Rfl: lovastatin (Mevacor) 20 MG tablet, Take 1 tablet by mouth Nightly., Disp: , Rfl: metoprolol succinate XL (Toprol-XL) 25 MG 24 hr tablet, Take 25 mg by mouth in the morning., Disp: , Rfl: Multiple Vitamin (Multi-Vitamin) tablet, Take 1 tablet by mouth in the morning., Disp: , Rfl: PARoxetine (Paxil) 30 MG tablet, Take 30 mg by mouth in the morning., Disp: , Rfl: traZODone (Desyrel) 50 MG tablet, Take 1 tablet by mouth Nightly., Disp: , Rfl: montelukast (Singulair) 10 MG tablet, Take 1 tablet (10 mg) by mouth Nightly., Disp: 30 tablet, Rfl: 3 phenazopyridine (Pyridium) 100 MG tablet, Take 1 tablet (100 mg) by mouth 3 times daily as needed for bladder spasms. (Patient not taking: Reported on 07/08/2023), Disp: 10 tablet, Rfl: 0 tiotropium (Spiriva Respimat) 2.5 MCG/ACT inhaler, Inhale 2 puffs in the morning., Disp: 1 each, Rfl: 3 Social History Social History Tobacco Use Smoking status: Never Smokeless tobacco: Never Substance Use Topics Alcohol use: Not on file FamilyHistory Family History Problem Relation Name Age of Onset No Known Problems Mother No Known Problems Father Review of Systems Review of Systems Constitutional: Negative. HENT: Negative. Eyes: Negative. Respiratory: Positive for cough and shortness of breath. Cardiovascular: Negative. Gastrointestinal: Negative. Endocrine: Negative. Genitourinary: Negative. Musculoskeletal: Negative. Skin: Negative. Allergic/Immunologic: Negative. Neurological: Negative. Hematological: Negative. Psychiatric/Behavioral: Negative. Physical Exam Vitals: 07/08/23 1019 BP: 117/79 Pulse: 66 Temp: 36 C (96.8 F) SpO2: 93% Weight: 125 lb (56.7 kg) Height: 5' 4 (1.626 m) Physical Exam Vitals reviewed. Constitutional: General: She is not in acute distress. Appearance: Normal appearance. She is not ill-appearing, toxic-appearing or diaphoretic. HENT: Head: Normocephalic and atraumatic. Nose: Congestion present. Mouth/Throat: Pharynx: No posterior oropharyngeal erythema. Eyes: Extraocular Movements: Extraocular movements intact. Pupils: Pupils are equal, round, and reactive to light. Cardiovascular: Rate and Rhythm: Normal rate and regular rhythm. Pulses: Normal pulses. Heart sounds: Normal heart sounds. No murmur heard. No friction rub. No gallop. Pulmonary: Effort: No respiratory distress. Breath sounds: No wheezing, rhonchi or rales. Chest: Chest wall: No tenderness. Musculoskeletal: Left lower leg: No edema. Neurological: Mental Status: She is alert. Psychiatric: Mood and Affect: Mood normal. Data Reviewed and Summarized LABS and Studies: Available studies were personally reviewed. Salient findings summarized in HPI & A/P Imaging: Available studies were personally reviewed. Salient findings summarized in HPI & A/P PFT's: Pulmonary Functions Testing Results: Done on 04 July 2023 FEV1 is 69% predicted with 8% bronchodilator response. Total lung capacity isnormal at 92% predicted. Diffusion capacity is reduced at 48% predicted Assessment and Plan 1. Chronic cough Multifactorial large component could be related to large hiatal hernia 2. Moderate persistent asthma without complication Refill for Spiriva sent to the pharmacy 3. Hiatal hernia 4. Chronic rhinitis Advised patient to use Flonase every day, started on Singulair as well Laila Richardson MD Pulmonary, Critical Care, & Sleep Medicine Portions of the information within this encounter were entered using an electronic dictation system. Best attempts were made to edit/proofread the information prior to note completion. Despite the review of information, some errors may remain. If there are questions related to the information contained within the note please contact the documented in this [facility]04-19-2024 Miscellaneous Notes* Telephone Encounter - Ede Felix LPN - 07/05/2023 9:10 AM EDT Patient called and left VM stating that we have not been her doctor for over a year and she sees Dr. Siddhartha Nichols . Decline all future Medication requests. * Telephone Encounter - Karla Corley LPN - 07/04/2023 9:20 AM EDT Attempted to call patient, no answer. Left message asking for a return call. Karla Corley LPN * Telephone Encounter - Karla Corley LPN - 07/04/2023 9:20 AM EDT Images from the original note were not included. Jordyn Carlson PA-C [facility] Clinical Pool 16 hours ago (4:49 PM) Can we please call patient and clarify that we are no longer PCP * Telephone Encounter - Fartun Araya LPN - 07/03/2023 11:02 AM EDT WE are not is as pcp, is that correct? [facility]-20-[facility]24 Telephone encounter Note * Telephone Encounter - Giovanna Lanier MA - 05/07/2023 3:43 PM EST Pt requesting sample of spiriva 2.5(04/24/2023) [id number] Miscellaneous Notes* Telephone Encounter - Giovanna Lanier MA - 05/07/2023 3:43 PM EST Pt requesting sample of spiriva 2.5(04/24/2023) Pulled and pended documented in this [facility]01-16-2024 Telephone encounter Note* Telephone Encounter - Giovanna Lanier MA - 04/02/2023 11:31 AM EST Pt was in for ov on 03/06/2023,and received samples of Air Supra Pulled and pended [id number] Miscellaneous Notes* Telephone Encounter - Giovanna Lanier MA - 04/02/2023 11:31 AM EST Pt was in for ov on 03/06/2023,and received samples of Air Supra Pulled and pended documented in this [facility]12-20-2023 History of Present illness Narrative* Laila Richardson MD - 03/06/2023 11:00 AM EST Images from the original note were not included. [facility]- Pulmonary and Sleep Medicine [address] , [place] [address] PH: [phone] Visit type: A New Patient 03/06/2023 CHIEF COMPLAINT/REASON FOR REFERRAL: Chief Complaint Patient presents with New Patient Chronic cough History of Present Illness Savanah Cyr is a 82 y.o. female with past medical history significant for large hiatal hernia, hypertension, hyperlipidemia, depression self-referred for chronic cough, patient has had chronic cough for the last 3 to 4 years has been seen by pulmonary at [facility]. Patient had previous history of COVID-19 infection, did not require hospitalization Patient had a chest x-ray done on 15 Aug 2022 at [facility] as per report there are no consolidations right upper lobe calcified granuloma is stable CAT scan of the chest done on 06 November 2021 again at [facility] large hiatal hernia, prominent pulmonary artery, no evidence of pleural effusion or pneumothorax calcified granuloma within right upper lobe no acute infiltrates MMRC Dyspnea Scale: Grade Description of Breathlessness 0 I only get breathless with strenuous exercise. 1 I get short of breath when hurrying on level ground or walking up a slight hill. 2 On level ground, I walk slower than people of the same age because of breathlessness, or have to stop for breath when walking at my own pace. 3 I stop for breath after walking about 100 yards or after a few minutes on level ground. 4 I am too breathless to leave the house or I am breathless when dressing. PastMedical History History reviewed. No pertinent past medical history. As above Past Surgical History History reviewed. No pertinent surgical history. Allergies No Known Allergies Medications Current Outpatient Medications: albuterol 108 (90 Base) MCG/ACT inhaler, INHALE 2 PUFFS INTO LUNGS EVERY 4 HOURS NEEDED FOR WHEEZING OR SHORTNESS OF BREATH, Disp: , Rfl: cholecalciferol (Vitamin D-3) 25 MCG (1000 UT) capsule, Take 1,000 Units by mouth in the morning., Disp: , Rfl: fluticasone (Flonase) 50 MCG/ACT nasal spray, 1 spray in the morning and 1 spray in the evening., Disp: , Rfl: Fluticasone Furoate-Vilanterol (Breo Ellipta) 200-25 MCG/ACT aerosol powder , INHALE 1 PUFF BY MOUTH ONCE DAILY DIRECTED, Disp: , Rfl: hydroCHLOROthiazide (HYDRODiuril) 25 MG tablet, Take 25 mg by mouth in the morning., Disp: , Rfl: loratadine (Claritin) 10 MG tablet, Take 10 mg by mouth in the morning., Disp: , Rfl: lovastatin (Mevacor) 20 MG tablet, Take 1 tablet by mouth Nightly., Disp: , Rfl: metoprolol succinate XL (Toprol-XL) 25 MG 24 hr tablet, Take 25 mg by mouth in the morning., Disp: , Rfl: Multiple Vitamin (Multi-Vitamin) tablet, Take 1 tablet by mouth in the morning., Disp: , Rfl: PARoxetine (Paxil) 30 MG tablet, Take 30 mg by mouth in the morning., Disp: , Rfl: phenazopyridine (Pyridium) 100 MG tablet, Take 1 tablet (100 mg) by mouth 3 times daily as needed for bladder spasms., Disp: 10 tablet, Rfl: 0 traZODone (Desyrel) 50 MG tablet, Take 1 tablet by mouth Nightly., Disp: , Rfl: tiotropium (Spiriva Respimat) 2.5 MCG/ACT inhaler, Inhale 2 puffs in the morning., Disp: , Rfl: Social History Social History Tobacco Use Smoking status: Never Smokeless tobacco: Never Substance Use Topics Alcohol use: Not on file FamilyHistory Family History Problem Relation Name Age of Onset No Known Problems Mother No Known Problems Father Review of Systems Review of Systems Constitutional: Negative. HENT: Negative. Eyes: Negative. Respiratory: Positive for cough and shortness of breath. Cardiovascular: Negative. Gastrointestinal: Negative. Endocrine: Negative. Genitourinary: Negative. Musculoskeletal: Negative. Skin: Negative. Allergic/Immunologic: Negative. Neurological: Negative. Hematological: Negative. Psychiatric/Behavioral: Negative. Physical Exam Vitals: 03/06/23 1104 BP: 125/86 Pulse: 73 Temp: 36.5 C (97.7 F) SpO2: 93% Weight: 127 lb 12.8 oz (58 kg) Height: 5' 4 (1.626 m) Physical Exam Vitals reviewed. Constitutional: General: She is not in acute distress. Appearance: Normal appearance. She is not ill-appearing, toxic-appearing or diaphoretic. HENT: Head: Normocephalic and atraumatic. Nose: Congestion present. Mouth/Throat: Pharynx: No posterior oropharyngeal erythema. Eyes: Extraocular Movements: Extraocular movements intact. Pupils: Pupils are equal, round, and reactive to light. Cardiovascular: Rate and Rhythm: Normal rate and regular rhythm. Pulses: Normal pulses. Heart sounds: Normal heart sounds. No murmur heard. No friction rub. No gallop. Pulmonary: Effort: No respiratory distress. Breath sounds: No wheezing, rhonchi or rales. Chest: Chest wall: No tenderness. Musculoskeletal: Left lower leg: No edema. Neurological: Mental Status: She is alert. Psychiatric: Mood and Affect: Mood normal. Data Reviewed and Summarized LABS and Studies: Available studies were personally reviewed. Salient findings summarized in HPI & A/P Patient had a IgE level checked through [employer] in August it was 7.2 Patient also has not had a hypersensitivity panel done Imaging: Available studies were personally reviewed. Salient findings summarized in HPI & A/P As above PFT's: Pulmonary Functions Testing Results: No PFT records are available Assessment and Plan 1. Chronic cough Possible etiologies for chronic cough include, nasal symptoms, asthma, gastroesophageal reflux patient does have a large hiatal hernia, side effect of medications - Complete PFT pre and post bronchodilator with FENO; Future 2. Moderate persistent asthma without complication Patient provided with samples of a short acting bronchodilator/inhaled corticosteroid, continue with LAMA await PFT results - Complete PFT pre and post bronchodilator with FENO; Future 3. Hiatal hernia May be contributing to her chronic cough, may consider adding PPI Laila Richardson MD Pulmonary, Critical Care, & Sleep Medicine Portions of the information within this encounter were entered using an electronic dictation system. Best attempts were made to edit/proofread the information prior to note completion. Despite the review of information, some errors may remain. If there are questions related to the information contained within the note please contact the documented in this [facility]12-20-2023 Instructions* Patient Instructions* Giovanna Lanier MA - 03/06/2023 11:00 AM EST YOUR APPOINTMENT TODAY WAS WITH THE [facility], COPD CLINIC, PULMONARY AND SLEEP MEDICINE OFFICE. PLEASE CALL OUR OFFICE AT [phone] for our [place] office location or [phone] for our [place] location, IF YOU HAVE NOT RECEIVED YOUR TEST RESULTS 7 DAYS AFTER TESTING IS COMPLETED. PLEASE REMEMBER TO REQUEST REFILLS AT YOUR OFFICE VISITS. PHONE/FAX REQUESTS REQUIRE 48-72 HOURS FOR RESPONSE. A FRIENDLY REMINDER COPAYS ARE DUE AT TIME OF SERVICE. THANK YOU. Our Patients Are Important! We want to improve and you can help. After your visit we want you to feel: Listened to, Respected and have your health care explained. You may receive a survey asking you about your visit. Please complete the survey. We will use your feedback to make improvements. COVID-19 VACCINATION INFORMATION: PH. [phone] [email or web address] [facility] Central Scheduling [phone] [facility] Sleep Scheduling [phone] documented in this [facility]11-03-2023 Miscellaneous Notes* Telephone Encounter - Moiz Augustin APRN.ARMAAN - 01/18/2023 12:28 PM EDT Do not see that Rx has been filled. RX approved. * Telephone Encounter - Fartun Araya LPN - 01/18/2023 9:07 AM EDT Being addrsed in another encounter. Fartun Araya LPN documented in this encounterBerger Hospital10-30-2023 Miscellaneous Notes* Telephone Encounter - Hannah Peña - 01/14/2023 12:34 PM EDT The pharmacy contacted the office, requesting refills of Lovastatin 20 mg. Patient prefers prescriptions to be e prescribed to [facility] pharmacy at [facility]. Last Office Visit Date: 08/31/2022 Last [facility] Health Visit: Visit date not found Future Appointment: Visit date not found Hannah Peña documented in this encounterBerger Hospital09-13-2023 History of Present illness Narrative* Clari Gilmore NP - 11/28/2022 4:00 PM EDT Subjective: Patient: Savanah Cyr is a 82 y.o. female Patient presents to urgent care today with concerns for a UTI. Patient states she has had urinary urgency, frequency, burning X 5 days. Patient has taken some Pyridium at home with little relief. Patient was recently treated for UTI one month ago which she states all symptoms resolved. Patient states she has had multiple this year. Patient denies fever, chills, nausea, vomiting, diarrhea, flank pain, vaginal discharge, and suprapubic pain. Review of Systems Constitutional: Negative for chills, fatigue and fever. Respiratory: Negative for cough, chest tightness and shortness of breath. Cardiovascular: Negative for chest pain and palpitations. Gastrointestinal: Negative for diarrhea, nausea and vomiting. Genitourinary: Positive for dysuria, frequency and urgency. Negative for decreased urine volume, flank pain, hematuria, pelvic pain, vaginal bleeding, vaginal discharge and vaginal pain. Neurological: Negative for dizziness and headaches. No Known Allergies Current Outpatient Medications on File Prior to Visit Medication Sig Dispense Refill albuterol 108 (90 Base) MCG/ACT inhaler INHALE 2 PUFFS INTO LUNGS EVERY 4 HOURS NEEDED FOR WHEEZING OR SHORTNESS OF BREATH cholecalciferol (Vitamin D-3) 25 MCG (1000 UT) capsule Take 1,000 Units by mouth in the morning. fluticasone (Flonase) 50 MCG/ACT nasal spray 1 spray in the morning and 1 spray in the evening. Fluticasone Furoate-Vilanterol (Breo Ellipta) 200-25 MCG/ACT aerosol powder INHALE 1 PUFF BY MOUTH ONCE DAILY DIRECTED hydroCHLOROthiazide (HYDRODiuril) 25 MG tablet Take 25 mg by mouth in the morning. loratadine (Claritin) 10 MG tablet Take 10 mg by mouth in the morning. lovastatin (Mevacor) 20 MG tablet Take 1 tablet by mouth Nightly. metoprolol succinate XL (Toprol-XL) 25 MG 24 hr tablet Take 25 mg by mouth in the morning. Multiple Vitamin (Multi-Vitamin) tablet Take 1 tablet by mouth in the morning. PARoxetine (Paxil) 30 MG tablet Take 30 mg by mouth in the morning. tiotropium (Spiriva Respimat) 2.5 MCG/ACT inhaler Inhale 2 puffs in the morning. traZODone (Desyrel) 50 MG tablet Take 1 tablet by mouth Nightly. No current facility-administered medications on file prior to visit. History reviewed. No pertinent past medical history. Social History Tobacco Use Smoking status: Never Smokeless tobacco: Never Substance Use Topics Alcohol use: Not on file Objective: BP (!) 144/83 (BP Location: Right arm, Patient Position: Sitting, BP Cuff Size: Adult) Pulse 74 Temp 36.3 C (97.4 F) Ht 5' 4 (1.626 m) Wt 124 lb (56.2 kg) SpO2 98% BMI 21.28 kg/m Physical Exam Constitutional: General: She is awake. She is not in acute distress. Appearance: Normal appearance. She is normal weight. She is not ill-appearing or toxic-appearing. Cardiovascular: Rate and Rhythm: Normal rate and regular rhythm. Pulmonary: Effort: Pulmonary effort is normal. Breath sounds: Normal breath sounds. Musculoskeletal: General: Normal range of motion. Skin: General: Skin is warm and dry. Neurological: General: No focal deficit present. Mental Status: She is alert and oriented to person, place, and time. Mental status is at baseline. Psychiatric: Mood and Affect: Mood normal. Behavior: Behavior normal. Behavior is cooperative. Thought Content: Thought content normal. Judgment: Judgment normal. Assessment 1. Dysuria 2. Acute cystitis with hematuria Plan Diagnoses and all orders for this visit: Dysuria - AMB POC URINALYSIS DIP STICK MANUAL W/O MICRO - Urine culture - phenazopyridine (Pyridium) 100 MG tablet; Take 1 tablet (100 mg) by mouth 3 times daily as neededfor bladder spasms. Acute cystitis with hematuria - sulfamethoxazole-trimethoprim (Bactrim DS) 800-160 MG tablet; Take 1 tablet by mouth 2 times daily for 10 days. - [facility]; Future Due to patient symptoms and clinical evaluation a urine dip stick was performed in office. Dipstickshowed moderate blood, protein, nitrates and leukocytes. Urine culture sent. Instructed patient about the above medications prescribed. Patient referred to urology due to recurrent UTIs. Patient instructed to follow up with PCP/ proceed to ER for worsening or progressive symptoms. Patient understands and agreeable to plan. Clari Gilmore NP 11/28/22 4:15 PM If symptoms do not improve, worsen, or new symptoms develop, see PCP for further evaluation. documented in this [facility]09-12-2023 Miscellaneous Notes* Telephone Encounter - Jordyn Carlson PA-C - 11/27/2022 3:49 PM EDT I will order a UA with C&S however no antibiotics until results return. I prefer that she be seen here or at an urgent care however will order UA and wait on results. Of UA. She can go to any [facility] lab to complete UA. * Telephone Encounter - Hien Zuniga LPN - 11/27/2022 3:35 PM EDT Patient called reporting dysuria and urinary frequency x 6 days. Patient requesting an order for a UA, C&S and an ATB. Patient requested ATB to be sent to [facility]). Please advise. documented in this encounterBerger Hospital08-07-2023 History of Present illness Narrative* NETTIE Tse - 10/22/2022 3:20 PM EDT Images from the original note were not included. [facility] [facility] [address] Dept: [phone] Dept Loc: [phone] Subjective Chief Complaint Patient presents with UTI Burning while urinating, frequency/urgency. X 5 days Subjective HPI Savanah Cyr is a 82 y.o. year old female who presents with dysuria, frequency and urgency sincelast . Tried cranberry juice without relief. Had UTI in August. She said prior to that it hadbeen years since she had one. No fevers,flank pain or belly pain Review of Systems Constitutional: Negative for chills, fatigue and fever. Respiratory: Negative for shortness of breath. Cardiovascular: Negative for chest pain. Gastrointestinal: Negative for abdominal pain, constipation, diarrhea, nausea and vomiting. Genitourinary: Positive for dysuria, frequency and urgency. Negative for flank pain and hematuria. Musculoskeletal: Negative for myalgias. Neurological: Negative for headaches. No Known Allergies Current Outpatient Medications on File Prior to Visit Medication Sig Dispense Refill albuterol 108 (90 Base) MCG/ACT inhaler INHALE 2 PUFFS INTO LUNGS EVERY 4 HOURS NEEDED FOR WHEEZING OR SHORTNESS OF BREATH cholecalciferol (Vitamin D-3) 25 MCG (1000 UT) capsule Take 1,000 Units by mouth in the morning. fluticasone (Flonase) 50 MCG/ACT nasal spray 1 spray in the morning and 1 spray in the evening. Fluticasone Furoate-Vilanterol (Breo Ellipta) 200-25 MCG/ACT aerosol powder INHALE 1 PUFF BY MOUTH ONCE DAILY DIRECTED hydroCHLOROthiazide (HYDRODiuril) 25 MG tablet Take 25 mg by mouth in the morning. loratadine (Claritin) 10 MG tablet Take 10 mg by mouth in the morning. lovastatin (Mevacor) 20 MG tablet Take 1 tablet by mouth Nightly. metoprolol succinate XL (Toprol-XL) 25 MG 24 hr tablet Take 25 mg by mouth in the morning. Multiple Vitamin (Multi-Vitamin) tablet Take 1 tablet by mouth in the morning. PARoxetine (Paxil) 30 MG tablet Take 30 mg by mouth in the morning. tiotropium (Spiriva Respimat) 2.5 MCG/ACT inhaler Inhale 2 puffs in the morning. traZODone (Desyrel) 50 MG tablet Take 1 tablet by mouth Nightly. No current facility-administered medications on file prior to visit. There is no problem list on file for this patient. Social History Tobacco Use Smoking status: Not on file Smokeless tobacco: Not on file Substance Use Topics Alcohol use: Not on file Objective Objective BP (!) 140/78 (BP Location: Left arm, Patient Position: Sitting, BP Cuff Size: Adult) Pulse 70 Temp 36.4 C (97.5 F) (Temporal) Ht 5' 4 (1.626 m) Wt 123 lb (55.8 kg) SpO2 98% BMI 21.11 kg/m Physical Exam Vitals and nursing note reviewed. Constitutional: General: She is not in acute distress. Appearance: Normal appearance. Cardiovascular: Rate and Rhythm: Normal rate and regular rhythm. Pulmonary: Effort: Pulmonary effort is normal. Breath sounds: Normal breath sounds. Abdominal: General: Bowel sounds are normal. There is no distension. Palpations: Abdomen is soft. Tenderness: There is no abdominal tenderness. There is no guarding. Neurological: Mental Status: She is alert. Assessment/Plan 1. Acute UTI - AMB POC URINE DIP STICK MANUAL W/O MICRO CHEMSTRIP-10 - Urine culture - cephalexin (Keflex) 500 MG capsule; Take 1 capsule (500 mg) by mouth 2 times daily for 7 days., Starting Sat10/22/2022, Until Sat10/29/2022, Normal 2. Proteinuria, unspecified type Results for orders placed or performed in visit on 10/22/22 AMB POC URINE DIP STICK MANUAL W/O MICRO CHEMSTRIP-10 Result Value Ref Range Color, UA Yellow Clarity, UA Cloudy Glucose, UA Negative Bilirubin, UA Small Ketones, UA Trace Spec Grav, UA 1.020 Blood, UA Moderate pH, UA 6.0 Protein, UA 300 Urobilinogen, UA 1.0 Leukocytes, UA Large Nitrite, UA Positive Check culture, start keflex. Will need follow-up in about 10-14 days with PCP. Would need to assessfor clearing of infection and repeat UA given large amount of protein noted. No culture in system from last UTI. Most recent BMP with normal kidney function in 2021, no dose reduction in abx. Patient advised to follow up in with ER, UC or PCP for new or worsening symptoms Advised to push fluids Advised to stop cranberry juice and just do extra water Follow-up: Follow up if symptoms worsen or fail to improve. NETTIE Tse 10/22/2022 3:33 PM documented in this encounterSMichelle Ville [id number] Miscellaneous Notes* Telephone Encounter - Fannie Benitez RN - 10/22/2022 2:15 PM EDT Reason for Call: Pt c/o painful urination and frequency. Outcome: Disposition- See pcp within 24 hrs. Offered EC/UC as an alternative. Warm transfer to [facility] in . Reason for Disposition Age > 50 years Answer Assessment - Initial Assessment Questions 1. SEVERITY: c/o burning with urination she rates 10. 2. FREQUENCY: urinating more frequently. 3. PATTERN: Pain every time she urinates. 4. ONSET: symptoms began 5 days ago. 5. FEVER: denies. 6. PAST UTI: last uti a few months ago. Symptoms did completely resolve after treatment. 7. CAUSE: Pt feels she has a UTI. Drank cranberry juice without any improvement. 8. OTHER SYMPTOMS: denies. 9. : na. Protocols used: Urination Pain - [id number] documented in this encounterBerger Hospital07-18-2023 Miscellaneous Notes* Telephone Encounter - Geni Garrett - 10/02/2022 4:18 PM EDT Oxygen order signed & faxed back to [facility]. Geni Garrett documented in this encounterBerger Hospital07-18-2023 Instructions* Patient Instructions* Alexia Glaser MD - 10/02/2022 2:32 PM EDT Blood work today. Stop Claritin and Azelastine nasal spray 5 days before next appointment. Flonase 1 spray in each nostril twice a day Azelastine 1-2 sprays in each nostril twice a day. How to use your nasal spray correctly: Gently blow your nose to clear it of mucus before using the medication. Remove the cap. Shake the bottle; tilt your head slightly forward. Insert the nasal spray tip into the nostril. Keep the bottle upright; aim the tip toward the back and outer side of the nose (aim towards the ear). Squeeze the pump as you breathe in slowly through your nose. Try not to blow your nose or sneeze for several minutes after using the spray. Nasal steroid sprays may take up to 2 weeks to reach full effect and should be used every day. If your nose begins to sting/bleed, stop using the nose spray for 2-3 days. When you restart, make sure to aim the spray away from the middle septum (toward the ear). documented in this encounterBerger Hospital07-18-2023 History of Present illness Narrative* Alexia Glaser MD - 10/02/2022 2:06 PM EDT [facility] New Patient Visit Note- consult Dr. Alfredito Telles has requested consultation for environmental allergy. My progress note with assessment and recommendations from today's appointment will be routed to Dr. Alfredito Telles . JORDYN Cyr is a 82 year old female presented today for evaluation of environmental allergy. Coughing since 05/2019. Phlegm is brown in color. +Always has sinus drainage. Sxs are year around. Complicated with large hiatal hernia, surgical correction was suggested in 2020- Pt was seen by . Denies GERD sxs. No longer on PPI (omeprazole) Following with Pulmonary Medicine and ENT. Tried Flonase 1 s/n BID and loratadine. Atrovent with no improvement. Denies improvement with high dose Breo or OCS. Spiriva helps temporarily. Environmental History: Residence: house Bedroom Floor: carpet Air conditioning: central Pets: dog PAST MEDICAL HISTORY Diagnosis Date Acquired hypothyroidism Arthritis Asthma Atrophic vaginitis Blood in feces Chronic colitis Depressive disorder Disorder of peripheral nervous system Diverticula of colon Gastric ulcer Gastroesophageal reflux disease Hemangioma Hiatal hernia History of COVID-19 2020 History of viral hepatitis, type A Hyperlipidemia Irritable bowel syndrome Migraine Multiple nodules of lung Paresthesia of foot Quadriceps weakness Reduced libido Vitamin D deficiency PAST SURGICAL HISTORY Procedure Laterality Date EGD TRANSORAL BIOPSY SINGLE/MULTIPLE 05/12/2020 80% of stomach above diaphram; Dr. Sol EGD WITH BIOPSY(S) 2012 PAST SURGICAL HISTORY OF 2019 Right knee replacement WRIST SURGERY HX Right Fracture repair FAMILY HISTORY Problem Relation Age of Onset Hypertension Mother Stroke Mother Heart Mother Social History Tobacco Use Smoking status: Never Smokeless tobacco: Never Current Outpatient Medications Medication Sig traZODone (DESYREL) 50 mg tablet TAKE 1 TABLET BY MOUTH ONCE DAILY AT BEDTIME BREO ELLIPTA 200-25 mcg/dose inhaler INHALE 1 PUFF BY MOUTH ONCE DAILY DIRECTED loratadine (CLARITIN) 10 mg tablet Take 1 tablet by mouth once daily. tiotropium bromide (SPIRIVA RESPIMAT) 2.5 mcg/actuation inhaler Inhale 2 Puffs as instructed once daily. PARoxetine (PAXIL) 30 mg tablet Take 1 tablet by mouth once daily. metoprolol succinate ER (TOPROL XL) 25 mg 24 hr tablet Take 1 tablet by mouth once daily. lovastatin (MEVACOR) 20 mg tablet Take 1 tablet by mouth daily at bedtime. hydroCHLOROthiazide 25 mg tablet Take 1 tablet by mouth once daily. albuterol HFA (PROVENTIL HFA, VENTOLIN HFA) 90 mcg/actuation inhaler INHALE 2 PUFFS INTO LUNGS EVERY 4 HOURS NEEDED FOR WHEEZING OR SHORTNESS OF BREATH multivitamin tablet Take 1 tablet by mouth once daily. Cholecalciferol, Vitamin D3, 1,000 unit cap Take 1,000 Units by mouth once daily. azelastine 0.1% nasal spray Use 2 Sprays in each nostril twice daily. fluticasone (FLONASE ALLERGY RELIEF) 50 mcg/actuation nasal spray Use 1 [place] in each nostril twicedaily. To take 2 nasal sprays in each nostrils once daily for 2 weeks, then down to 1 spray/day/nostril benzonatate (TESSALON PERLES) 100 mg capsule Take 1 capsule by mouth three times daily as needed. (Patient not taking: Reported on 10/02/2022) No current facility-administered medications for this visit. ALLERGIES No Known Allergies Review of Systems Constitutional: Neg for fever Cardiac: Neg for chest pain Pulmonary: see HPI GI: SEE HPI Endocrine: Neg for heat or cold intolerance Derm: Neg for rash Psych: neg for anxiety or depression. Neuro: Neg for muscle weakness/numbness. Heme/Onc: Neg for bleeding or clotting disorders. Rheumatology: Neg for joints swelling. All other systems reviewed and negative except as documented above. Blood pressure 130/74, pulse 90, temperature 36.7 C (98 F), resp. rate 19, height 162.6 cm (5' 4),weight 55.3 kg (122 lb), SpO2 94 %. Body mass index is 20.94 kg/m . Physical Exam: General: NAD HEENT: NC/AT, PERRLA, EOMI, no pallor/icterus, MMM, no thrush, oropharynx without exudates. Clear PND was noted. Neck: supple Chest: CTA b/l, no crackles, rales or wheezing CV: RRR, normal S1/S2, no murmurs, rubs or gallops Abd: soft, non tender nor distended, no hepatosplenomegaly Ext: no cyanosis, clubbing or edema Skin: no rashes, bruises or seborrhea Neuro: AAOx4, non focal exam Pertinent Lab Results 08/2022: IgE 7.2 CBC + DIFF Order: [id number] Status: Final result Visible to patient: Yes (seen) Dx: Chronic cough; PND (post-nasal drip);... 0 Result Notes Component Ref Range & Units 1 mo ago (08/24/22) 10 mo ago (11/10/21) 10 mo ago (11/09/21) 10 mo ago (11/08/21) 10 mo ago (11/07/21) 11 mo ago (11/06/21) 2 yr ago (04/03/20) WBC 3.70 - 11.00 k/uL 7.94 6.21 7.33 10.20 11.25 High 12.14 High 5.87 RBC 3.90 - 5.20 m/uL 4.21 3.99 4.20 4.05 3.87 Low 4.27 4.45 Hemoglobin 11.5 - 15.5 g/dL 12.9 12.0 12.4 12.1 11.7 13.1 13.6 Hematocrit 36.0 - 46.0 % 40.6 37.2 38.4 37.5 35.4 Low 38.4 42.4 MCV 80.0 - 100.0 fL 96.4 93.2 91.4 92.6 91.5 89.9 95.3 MCH 26.0 - 34.0 pg 30.6 30.1 29.5 29.9 30.2 30.7 30.6 MCHC 30.5 - 36.0 g/dL 31.8 32.3 32.3 32.3 33.1 34.1 32.1 RDW-CV 11.5 - 15.0 % 13.1 12.8 12.8 13.1 13.2 13.2 13.0 Platelet Count 150 - 400 k/uL 369 176 163 147 Low 125 Low CM 147 Low 196 MPV 9.0 - 12.7 fL 9.4 10.0 10.6 10.9 10.5 10.5 10.1 Neutrophils % % 71.4 63.7 Abs Neut 1.45 - 7.50 k/uL 5.67 3.74 Lymphocytes % % 17.5 23.5 Abs Lymph 1.00 - 4.00 k/uL 1.39 1.38 Monocytes % % 7.9 9.4 Abs [place] <0.87 k/uL 0.63 0.55 Eosinophils % % 1.6 2.9 Abs Eosin <0.46 k/uL 0.13 0.17 Basophils % % 0.8 0.5 Abs Baso <0.11 k/uL 0.06 0.03 Pulmonary Function Testing 02/2020: Restrictive pattern, with moderate defect in gas transfer. Imaging CXR 07/2022: No acute radiographic abnormality. Assessment and Recommendations Savanah was seen today for evaluation of: Allergic rhinitis, unspecified seasonality, unspecified trigger Chronic cough Post-nasal drip Complicated by Hiatal hernia Allergic vs non allergic, sxs not well controlled. Plan for skin testing next visit to identify environmental triggers (start with positive control first). We couldn't test today due to recent oral antihistamine use. Will also check ImmunoCAP inhalants. Continue with Flonase. Adding Astelin 1-2 s/n BID. I went over the correct technique in using the spray. No improvement with ICS/LABA, OCS, Atrovent spray. Consider sinus imaging, 24 hr PH probe, re-address the candidacy for hiatal hernia surgical correction. Co-managed with Pulmonary Medicine and ENT Return to clinic in 4 weeks for testing. AVS provided to patient and included recap of today's appointment and medical plan. Alexia Glaser MD Allergy & Clinical Immunology [facility] documented in this encounterBerger Hospital06-20-2023 Miscellaneous Notes* Telephone Encounter - Jordyn Carlson PA-C - 09/04/2022 11:11 AM EDT Message states it is that needs this, They should go through his mychart to request. documented in this encounterBerger Hospital06-20-2023 Miscellaneous Notes* Addendum Note - Riley Gomez LPN - 09/04/2022 9:53 AM EDTAddended by: RILEY GOMEZ on: 09/04/2022 09:53 AM Modules accepted: Orders * Telephone Encounter - Riley Gomez LPN - 09/04/2022 9:52 AM EDT Patient called requesting the following refill Refill(s) Requested: Requested Prescriptions Pending Prescriptions Disp Refills loratadine (CLARITIN) 10 mg tablet 90 tablet 0 Sig: Take 1 tablet by mouth once daily. ALLERGIES No Known Allergies (home) [phone] (cell) Last Office Visit Date: 08/31/2022 Last Distance Health Visit: Visit date not found Future Appointment: Visit date not found The patients preferred pharmacy has been captured for this encounter? yes Request is for script(s) to be escript to pharmacy. Riley Gomez LPN * Telephone Encounter - Caden Posey - 09/04/2022 9:29 AM EDT The patient/caregiver contacted the office, requesting refills of Loratadine. Patient prefers prescriptions to be e prescribed to [facility]. Last Office Visit Date: 08/31/2022 Last [facility] Visit: Visit date not found Future Appointment: Visit date not found Caden Posey documented in this encounterBerger Hospital06-16-2023 History of Present illness Narrative* Hellen Wood MD - 08/31/2022 11:51 AM EDT Images from the original note were not included. [facility] [address] [place] [address] [facility] / [address] [place] [address] Visit Date: August 31, 2022 Name: Savanah Cyr Date of : 1940 MRN/E #: [id number] Chief Complaint: No chief complaint on file. Subjective Savanah Cyr is a 82 year old female here with the following complaint(s): HPI She has had dysuria urgency and frequency for about 4 days that has been getting worse. She has had UTI's in the past but it has been a few years. Review of Systems Constitutional: Negative for chills and fever. Gastrointestinal: Positive for diarrhea (lose BM this morning). Negative for abdominal pain, constipation, nausea and vomiting. Genitourinary: Positive for dysuria, frequency and urgency. Negative for flank pain. ALLERGIES No Known Allergies Current Outpatient Medications Medication Sig Ipratropium Cascade (ATROVENT) 21 mcg (0.03 %) nasal spray 2 sprays to both nostrils 2 times per day tiotropium bromide (SPIRIVA RESPIMAT) 2.5 mcg/actuation inhaler Inhale 2 Puffs as instructed once daily. benzonatate (TESSALON PERLES) 100 mg capsule Take 1 capsule by mouth three times daily as needed. fluticasone (FLONASE ALLERGY RELIEF) 50 mcg/actuation nasal spray To take 2 nasal sprays in each nostrils once daily for 2 weeks, then down to 1 spray/day/nostril BREO ELLIPTA 200-25 mcg/dose inhaler INHALE 1 PUFF ONCE DAILY INSTRUCTED PARoxetine (PAXIL) 30 mg tablet Take 1 tablet by mouth once daily. metoprolol succinate ER (TOPROL XL) 25 mg 24 hr tablet Take 1 tablet by mouth once daily. traZODone (DESYREL) 50 mg tablet Take 1 tablet by mouth daily at bedtime. lovastatin (MEVACOR) 20 mg tablet Take 1 tablet by mouth daily at bedtime. hydroCHLOROthiazide 25 mg tablet Take 1 tablet by mouth once daily. albuterol HFA (PROVENTIL HFA, VENTOLIN HFA) 90 mcg/actuation inhaler INHALE 2 PUFFS INTO LUNGS EVERY 4 HOURS NEEDED FOR WHEEZING OR SHORTNESS OF BREATH multivitamin tablet Take 1 tablet by mouth once daily. Cholecalciferol, Vitamin D3, 1,000 unit cap Take 1,000 Units by mouth once daily. loratadine (CLARITIN) 10 mg tablet Take 1 tablet by mouth once daily. sulfamethoxazole-trimethoprim (BACTRIM DS) 800-160 mg per tablet Take 1 tablet by mouth twice dailyfor 7 days. No current facility-administered medications for this visit. I have confirmed and edited as necessary the chief complaint, medications, past medical, family andsocial histories. Objective 08/31/22 1152 BP: 130/81 Pulse: 60 Resp: 20 Temp: 36.2 C (97.1 F) TempSrc: Temporal SpO2: (!) 67% Weight: 121 lb (54.9 kg) Height: 5' 4 (1.626 m) Body mass index is 20.77 kg/m . Physical Exam Vitals and nursing note reviewed. Constitutional: General: She is not in acute distress. Appearance: Normal appearance. She is not ill-appearing, toxic-appearing or diaphoretic. HENT: Head: Normocephalic and atraumatic. Cardiovascular: Rate and Rhythm: Normal rate and regular rhythm. Heart sounds: Normal heart sounds. No murmur heard. Pulmonary: Effort: Pulmonary effort is normal. No respiratory distress. Breath sounds: Normal breath sounds. No wheezing or rhonchi. Abdominal: Tenderness: There is no right CVA tenderness or left CVA tenderness. Musculoskeletal: Right lower leg: No edema. Left lower leg: No edema. Skin: General: Skin is warm and dry. Neurological: Mental Status: She is alert. Gait: Gait is intact. Psychiatric: Mood and Affect: Affect normal. Results for orders placed or performed in visit on 08/31/22 UA DIP, URINE (POC) Result Value Ref Range GLUCOSE UA (POCT) Negative Negative mg/dL BILIRUBIN UA (POCT) Negative Negative KETONE UA (POCT) Negative Negative mg/dL SPECIFIC GRAVITY UA (POCT) >=1.030 1.005 - 1.030 HEMOGLOBIN/BLOOD UA (POCT) Moderate (A) Negative PH UA (POCT) 6.0 4.5 - 8.0 PROTEIN UA (POCT) 100 (A) Negative mg/dL UROBILINOGEN UA (POCT) 0.2 Normal E.U./dL NITRITE UA (POCT) Negative Negative LEUKOCYTES UA (POCT) Large (A) Negative COLOR UA (POCT) Yellow CLARITY UA (POCT) Cloudy URINE CULTURE Specimen: URINE-MIDSTREAM CLEAN CATCH; Urine Random Result Value Ref Range Culture, Urine >=100,000 CFU/ml Escherichia coli (A) Susceptibility Escherichia coli - MINIMUM INHIBITORY CONCENTRATION ([place])* Ampicillin Susceptible Cefazolin Susceptible Ceftriaxone Susceptible Cefepime Susceptible Ertapenem Susceptible Meropenem Susceptible Aztreonam Susceptible Ampicillin/Sulbact Susceptible Piperacillin/Tazobac Susceptible Gentamicin Susceptible Trimeth sulfameth Susceptible Ciprofloxacin Susceptible Nitrofurantoin Susceptible * CLSI breakpoints for therapy of uncomplicated UTIs due to E. coli, K. pneumoniae, and P. mirabilis were applied and may be used to predict the activity of oral agents (cefaclor, cefdinir, cefpodoxime, cefprozil, cefuroxime, cephalexin, loracarbef). Assessment / Plan ASSESSMENT/PLAN: 1. Acute cystitis with hematuria - ICD9: 595.0, ICD10: N30.01 (primary diagnosis) - Discussed cleaning practices and sex practices to prevent UTI's - No systemic symptoms - SULFAMETHOXAZOLE 800 MG-TRIMETHOPRIM 160 MG TABLET, well tolerated last time. - URINE CULTURE 2. Urinary symptom or sign - ICD9: 788.99, ICD10: R39.9 - UA DIP B/O - URINE CULTURE Return if symptoms worsen or fail to improve. Discussed the above with the patient using shared decision-making. The patient is in agreement with the diagnostic and treatment plans. Provider: Hellen Wood MD Date: August 31, 2022 Time: 11:51 AM documented in this encounterBerger Hospital06-15-2023 Miscellaneous Notes* Telephone Encounter - Laila Geiger - 08/30/2022 10:38 AM EDT Scheduled patient for tomorrow 08/[address] Wood. Laila * Telephone Encounter - Laila Gegier - 08/30/2022 10:34 AM EDT ----- Message from Veronika Alonso sent at 08/30/2022 10:21 AM EDT ----- Regarding: Nargis Carlson UTI Subject Line Format: Medicine / [Provider Name] / [Issue] Patient has been identified by name and Date of (Y/N): y Patient: Savanah Cyr Date of : 1940 Provider for this encounter: Jordyn Carlson PA-C Reason for the call/escalation: Patient call to schedule an appointment for a UTI she stated she called a few day ago with no call back and would like to be seen as soon as possible. Unable to schedule per 4CQ Was Patient Referred to 911/Seek Emergency Treatment (Y/N): n Did Patient Agree (Y/N): n Was An Attempt Made To Transfer The Patient To The Office (Y/N): n Were You Able To Reach Someone At The Office (Y/N): n If Yes - Patient Was Transferred To (Caregivers Name): n If No - Which [facility] Leadership Crematory Attendant Did You Speak With Regarding This Patient: n Was an appointment scheduled (Y/N): n Reason patient was requesting visit (RFV/signs and symptoms/diagnosis) : UTI Person calling if other than patient: self Return call to if other than patient: Savanah Best contact number: [phone] Thank you, Veronika Alonso August 30, 2022 10:21 AM documented in this encounterBerger Hospital06-01-2023 Miscellaneous Notes* Telephone Encounter - Seth Santiago MD - 08/16/2022 3:25 PM EDT I saw the pt yesterday. Due to prolonged cough, CXR was ordered which is negative for PNA. I ordered Tessalon Rosa 100 mg 3 times daily for 10 days for the patient. Please go to pick it up and begin to take it from today. documented in this encounterBerger Hospital05-31-2023 History of Present illness Narrative* Seth Santiago MD - 08/15/2022 10:00 AM EDT Images from the original note were not included. Visit Date: August 14, 2022 Ms.Geraldine Neris Cyr Date of : 1940 MRN/E #: [id number] Subjective: CC: Patient presents with: URI: 1 week ago, Pt suffers from chronic cough for past 2 years. Pt has sore throat Patient ID: Savanah Cyr is a 82 year old Female with PMHx (relevant) as displayed below presenting to the clinic today with complaint of the followin. Respiratory infection: Patient has Concern for PNA. Updated [place] Coughing for 2-3 years, seeing pulmonary and got med/inhalers which didn't help. Patient has small cough in the past week with repeat more sputum production. Later developed similar cough symptoms. No cough at night. Doesn't wake her up. More cough in daytime. Began to chest pain with breathing. No chest pain while holding breath. No fever or chills. Drainage from sinusist, brown or yellowish. No facial pain. Feels fatigue. Has seasonal allergies. Chest CT: In 10/2021: 1. No evidence of acute traumatic injury within chest on this noncontrast examination. 2. Ascending thoracic aortic aneurysm, without evidence of acute aortic injury on this noncontrast examination. 3. Enlarged main pulmonary artery suggestive of chronic pulmonary hypertension. 4. Large hiatal hernia containing thickened stomach and multiple bowel loops. Clinical correlation is recommended. Saw general surgeon who didn't recommend surgery. 2. Postnasal drip: Patient has been having nasal congestion, drainage and stuffy nose, more severe in springtime and summertime. Review of System: Review of Systems Constitutional: Negative for chills and fever. HENT: Positive for congestion (nasal). Negative for nosebleeds, sinus pain and sore throat. Eyes: Negative for blurred vision. Respiratory: Positive for cough. Negative for hemoptysis, sputum production, shortness of breath and wheezing. Cardiovascular: Negative for chest pain. Gastrointestinal: Negative for abdominal pain, blood in stool, nausea and vomiting. Genitourinary: Negative for dysuria. Musculoskeletal: Negative for myalgias. Skin: Negative for rash. Neurological: Negative for headaches. Psychiatric/Behavioral: Negative for depression. History: Social History Tobacco Use Smoking status: Never Smokeless tobacco: Never Vaping Use Vaping Use: Never used Substance Use Topics Alcohol use: Yes Comment: occasional Drug use: No PAST MEDICAL HISTORY Diagnosis Date Acquired hypothyroidism Arthritis Asthma Atrophic vaginitis Blood in feces Chronic colitis Depressive disorder Disorder of peripheral nervous system Diverticula of colon Gastric ulcer Gastroesophageal reflux disease Hemangioma Hiatal hernia History of viral hepatitis, type A Hyperlipidemia Irritable bowel syndrome Migraine Multiple nodules of lung Paresthesia of foot Quadriceps weakness Reduced libido Vitamin D deficiency I have reviewed and updated ROS, Past medical history, family history and social history with patient also. Current Outpatient Medications Medication Sig BREO ELLIPTA 200-25 mcg/dose inhaler INHALE 1 PUFF ONCE DAILY INSTRUCTED Ipratropium Cascade (ATROVENT) 21 mcg (0.03 %) nasal spray 2 sprays to both nostrils 2 times per day PARoxetine (PAXIL) 30 mg tablet Take 1 tablet by mouth once daily. metoprolol succinate ER (TOPROL XL) 25 mg 24 hr tablet Take 1 tablet by mouth once daily. traZODone (DESYREL) 50 mg tablet Take 1 tablet by mouth daily at bedtime. lovastatin (MEVACOR) 20 mg tablet Take 1 tablet by mouth daily at bedtime. hydroCHLOROthiazide 25 mg tablet Take 1 tablet by mouth once daily. omeprazole (PRILOSEC) 20 mg capsule Take 1 capsule by mouth once daily. albuterol HFA (PROVENTIL HFA, VENTOLIN HFA) 90 mcg/actuation inhaler INHALE 2 PUFFS INTO LUNGS EVERY 4 HOURS NEEDED FOR WHEEZING OR SHORTNESS OF BREATH guaiFENesin (MUCINEX) 600 mg 12 hr tablet Take 1 tablet by mouth twice daily. multivitamin tablet Take 1 tablet by mouth once daily. Cholecalciferol, Vitamin D3, 1,000 unit cap Take 1,000 Units by mouth once daily. loratadine (CLARITIN) 10 mg tablet Take 1 tablet by mouth once daily. fluticasone (FLONASE ALLERGY RELIEF) 50 mcg/actuation nasal spray To take 2 nasal sprays in each nostrils once daily for 2 weeks, then down to 1 spray/day/nostril montelukast (SINGULAIR) 10 mg tablet Take 1 tablet by mouth daily at bedtime. No current facility-administered medications for this visit. Objective: BP 116/78 Pulse 66 Temp (Src) 97.7 (Temporal) Resp 20 Ht 5' 4 (1.63m) Wt 121 lb (54.9kg) SpO2 94% BMI 20.76 kg/(m^2). Physical Exam Vitals and nursing note reviewed. Constitutional: General: She is not in acute distress. Appearance: She is not diaphoretic. HENT: Right Ear: External ear normal. Left Ear: External ear normal. Mouth/Throat: Mouth: Mucous membranes are moist. Comments: Mild erythematous throat. Eyes: General: Right eye: No discharge. Left eye: No discharge. Cardiovascular: Rate and Rhythm: Normal rate and regular rhythm. Heart sounds: Normal heart sounds. No murmur heard. No friction rub. No gallop. Pulmonary: Effort: Pulmonary effort is normal. No respiratory distress. Breath sounds: No stridor. No wheezing or rales. Abdominal: General: Bowel sounds are normal. There is no distension. Palpations: Abdomen is soft. Tenderness: There is no abdominal tenderness. Skin: Coloration: Skin is not pale. Neurological: Mental Status: She is alert and oriented to person, place, and time. Psychiatric: Mood and Affect: Affect normal. DATA: I have reviewed the following data on Epic: As above Assessment/Plan: ASSESSMENT/PLAN: 1. Postnasal drip - ICD9: 784.91, ICD10: R09.82 (primary diagnosis) Patient ran out of Claritin 2 days ago. Patient was not using Flonase consistently. Only occasionaluse as needed. Patient's chronic cough could be due to postnasal drips, recently exacerbated by viral URI. No signs or symptoms of pneumonia. Chest x-ray was negative for pneumonia today. No sign of bacterial sinusitis. No antibiotic at this time. 2. Chronic cough - ICD9: 786.2, ICD10: R05.3 To take 2 nasal sprays in each nostrils once daily for 2 weeks, then down to 1 spray/day/nostril. To continue loratadine 10 mg once daily. - LORATADINE 10 MG TABLET - FLUTICASONE PROPIONATE 50 MCG/ACTUATION NASAL SPRAY,SUSPENSION -Tessalon 100 mg 3 times daily for 10 days prescribed. 3. Pleuritic chest pain - ICD9: 786.52, ICD10: R07.81 Likely due to tussive chest pain. The Well score is 0 for PE. Low risk for PE. - XR CHEST 2V FRONTAL/LAT is negative for pneumonia Follow up as needed if symptoms worsen or fail to improve. To do list: as above Seth Santiago MD documented in this encounterBerger Hospital05-30-2023 Miscellaneous Notes* Telephone Encounter - Laila Geiger - 08/14/2022 12:52 PM EDT Arnav from the call center made pt an appointment for 08/[address] Santiago. Laila * Telephone Encounter - Laila Geiger - 08/14/2022 12:51 PM EDT ----- Message from Veronika Aiken sent at 08/14/2022 12:21 PM EDT ----- Regarding: Medicine/Jordyn Carlson PA-C/Patient requesting an sooner appt than August 22 Subject Line Format: Medicine / [Provider Name] / [Issue] Patient has been identified by name and Date of (Y/N): y Patient: Savanah Cyr Date of : 1940 Provider for this encounter: Jordyn Carlson PA-C Reason for the call/escalation: patient called experiencing respiratory infection or pneumonia and needed an appt but the first available is August 22. She didn't want to speak to a nurse but she oncea call back from the office to get in sooner. Was Patient Referred to [facility]/Seek Emergency Treatment (Y/N): n Did Patient Agree (Y/N): n Was An Attempt Made To Transfer The Patient To The Office (Y/N): n Were You Able To Reach Someone At The Office (Y/N): na If Yes - Patient Was Transferred To (Caregivers Name): n If No - Which [facility] AC Leadership Crematory Attendant Did You Speak With Regarding This Patient: na Was an appointment scheduled (Y/N): n Reason patient was requesting visit (RFV/signs and symptoms/diagnosis) : patient called experiencing respiratory infection or pneumonia and needed an appt but the first available is August 22. She didn't want to speak to a nurse but she once a call back from the office to get in sooner. Person calling if other than patient: na Return call to if other than patient: na Best contact number: [phone] Thank you, Veronika Aiken August 14, 2022 12:21 PM documented in this encounterBerger Hospital04-17-2023 Miscellaneous Notes* Telephone Encounter - Hannah Peña - 07/02/2022 11:48 AM EDT Referral to Gastroenterology entered into the [facility] portal on 06/29/22. Confirmation number [id number]. documented in this encounter[address]17-2023 Miscellaneous Notes* Telephone Encounter - Hannah Peña - 07/02/2022 11:38 AM EDT Referral to Pulmonary Medicine entered into the [facility] portal on 06/29/22. Confirmation number [id number]. documented in this encounter[address]17-2023 Miscellaneous Notes* Telephone Encounter - Hannah Peña - 07/02/2022 11:36 AM EDT Referral to ENT entered into the [facility] portal on 06/29/22. Confirmation number [id number]. Patient scheduled on 07/[address] Garcia. documented in this encounterBerger Hospital2023 History of Present illness Narrative* Jordyn Carlson PA-C - 06/28/2022 2:17 PM EDT Images from the original note were not included. Jordyn Carlson PAC [facility] [address] [place] [address] [facility] / [address] [place] [address] Visit Date: June 28, 2022 Name: Savanah Cyr Date of : 1940 MRN/E #: [id number] Chief Complaint: Cough (Reports chronic cough for over 2 years and seems like cough is getting deeper and nothing ishelping cough) and Referral Request (Referral for GI) Subjective HPI Savanah Cyr is a 82 year old female here with the following complaint(s): Chronic cough, bowel incontinence, memory issues (complaint initiated by who is in room with patient. ) Chronic cough- Over two years. Seems like it is getting worse/ Deeper cough. Sometimes productive with green and yellow phlegm. Patient was seen by pulmonology but has missed multiple follows up that she now states she didn't realize she had. They did find a cyst in the sinuses and referred to ENT but patient didn't remember she had the appointment. Bowel incontinence- Requesting referral to GI. Would like colonoscopy as well however okay with waiting to get GI's opinion. Has had loose bowels for years however it just continues to get worse. She states she does remember being diagnosed with IBS years ago but doesn't recall anything she wastold at that time regarding treatment. Memory- I have seen patient in past and did notice today that short term memory/recall of events was impaired. She has also forgotten/ no showed multiple appointments. in room had brought up concern regarding memory at start of visit and I agree . Due to time constraint and addressing other issues today in office patient to return for memory issues and testing. Review of Systems Constitutional: Negative for activity change, appetite change, chills, fatigue, fever and unexpected weight change. HENT: Negative for congestion, ear pain, facial swelling, hearing loss, sinus pressure, sinus pain,sneezing and trouble swallowing. Eyes: Negative for photophobia, pain and visual disturbance. Respiratory: Positive for cough. Negative for apnea, choking, shortness of breath and wheezing. Cardiovascular: Negative for chest pain, palpitations and leg swelling. Gastrointestinal: Positive for diarrhea. Negative for abdominal distention, abdominal pain, blood in stool, constipation, nausea and rectal pain. Endocrine: Negative for polydipsia and polyuria. Genitourinary: Negative for difficulty urinating, dysuria, flank pain, frequency, hematuria and urgency. Musculoskeletal: Negative for arthralgias, back pain, gait problem, joint swelling and neck pain. Skin: Negative for rash. Allergic/Immunologic: Negative for immunocompromised state. Neurological: Negative for dizziness, tremors, seizures, speech difficulty, weakness and headaches. Hematological: Does not bruise/bleed easily. Psychiatric/Behavioral: Positive for decreased concentration. Negative for agitation, confusion, hallucinations and sleep disturbance. The patient is not nervous/anxious and is not hyperactive. Social History Tobacco Use Smoking status: Never Smokeless tobacco: Never Vaping Use Vaping Use: Never used Substance Use Topics Alcohol use: Yes Comment: occasional Drug use: No ALLERGIES No Known Allergies Current Outpatient Medications Medication Sig fluticasone-vilanterol (BREO ELLIPTA) 200-25 mcg/dose inhaler Inhale 1 Inhalation as instructed once daily. albuterol HFA (PROVENTIL HFA, VENTOLIN HFA) 90 mcg/actuation inhaler INHALE 2 PUFFS INTO LUNGS EVERY 4 HOURS NEEDED FOR WHEEZING OR SHORTNESS OF BREATH montelukast (SINGULAIR) 10 mg tablet Take 1 tablet by mouth daily at bedtime. loratadine (ALLERGY RELIEF, LORATADINE,) 10 mg tablet TAKE 1 TABLET BY MOUTH ONCE DAILY guaiFENesin (MUCINEX) 600 mg 12 hr tablet Take 1 tablet by mouth twice daily. multivitamin tablet Take 1 tablet by mouth once daily. Cholecalciferol, Vitamin D3, 1,000 unit cap Take 1,000 Units by mouth once daily. ipratropium bromide (ATROVENT) 42 mcg (0.06 %) nasal spray Use 1 [place] in the nose three times daily. PARoxetine (PAXIL) 30 mg tablet Take 1 tablet by mouth once daily. metoprolol succinate ER (TOPROL XL) 25 mg 24 hr tablet Take 1 tablet by mouth once daily. traZODone (DESYREL) 50 mg tablet Take 1 tablet by mouth daily at bedtime. lovastatin (MEVACOR) 20 mg tablet Take 1 tablet by mouth daily at bedtime. hydroCHLOROthiazide 25 mg tablet Take 1 tablet by mouth once daily. omeprazole (PRILOSEC) 20 mg capsule Take 1 capsule by mouth once daily. fluticasone-vilanterol (BREO ELLIPTA) 100-25 mcg/dose inhaler Inhale 1 puff by mouth once daily (Patient not taking: Reported on 06/28/2022) No current facility-administered medications for this visit. In terms of Health Maintenance, we discussed: SPIROMETRY Never done ADVANCE DIRECTIVE DISCUSSION Never done Please see social determinants section of patients chart for updated social history Previous office notes, Lab,imaging, and microbiology results reviewed. I have confirmed and edited as necessary the chief complaint, medications, past medical, family andsocial histories. Objective 06/28/22 1348 BP: 136/92 Pulse: 60 Resp: 18 Temp: 36.7 C (98 F) TempSrc: Temporal SpO2: 95% Weight: 126 lb 9.6 oz (57.4 kg) Height: 5' 4 (1.626 m) Body mass index is 21.73 kg/m . Physical Exam Vitals reviewed. Constitutional: General: She is not in acute distress. Appearance: She is not diaphoretic. HENT: Head: Normocephalic and atraumatic. Mouth/Throat: Pharynx: No oropharyngeal exudate. Eyes: Conjunctiva/sclera: Conjunctivae normal. Pupils: Pupils are equal, round, and reactive to light. Neck: Thyroid: No thyromegaly. Trachea: No tracheal deviation. Cardiovascular: Rate and Rhythm: Normal rate and regular rhythm. Heart sounds: Normal heart sounds. No murmur heard. No friction rub. No gallop. Pulmonary: Effort: Pulmonary effort is normal. No respiratory distress. Breath sounds: Normal breath sounds. No wheezing. Abdominal: General: Bowel sounds are normal. There is no distension. Palpations: Abdomen is soft. Tenderness: There is no abdominal tenderness. Musculoskeletal: General: No tenderness or deformity. Normal range of motion. Cervical back: Normal range of motion and neck supple. Skin: General: Skin is warm and dry. Findings: No rash. Neurological: Mental Status: She is alert and oriented to person, place, and time. Cranial Nerves: No cranial nerve deficit. Coordination: Coordination normal. Psychiatric: Mood and Affect: Affect normal. Results for orders placed or performed during the hospital encounter of 11/06/21 BASIC METABOLIC PNL Result Value Ref Range Glucose 146 (H) 74 - 99 mg/dL BUN 29 (H) 7 - 21 mg/dL Creatinine 1.78 (H) 0.58 - 0.96 mg/dL Sodium 136 136 - 144 mmol/L Potassium 3.7 3.7 - 5.1 mmol/L Chloride 99 97 - 105 mmol/L CO2 22 22 - 30 mmol/L Anion Gap 15 9 - 18 mmol/L Calcium, Total 9.9 8.5 - 10.2 mg/dL Estimated Glomerular Filtration Rate 28 (L) >=60 mL/min/1.73m CBC Result Value Ref Range WBC 12.14 (H) 3.70 - 11.00 k/uL RBC 4.27 3.90 - 5.20 m/uL Hemoglobin 13.1 11.5 - 15.5 g/dL Hematocrit 38.4 36.0 - 46.0 % MCV 89.9 80.0 - 100.0 fL MCH 30.7 26.0 - 34.0 pg MCHC 34.1 30.5 - 36.0 g/dL RDW-CV 13.2 11.5 - 15.0 % Platelet Count 147 (L) 150 - 400 k/uL MPV 10.5 9.0 - 12.7 fL Absolute nRBC <0.01 <0.01 k/uL URINALYSIS, WITH MICROSCOPIC Result Value Ref Range Color Yellow yellow Clarity Clear Clear Glucose, Urine Negative Negative Bilirubin, Urine Negative Negative Ketones, Urine 1+ (A) Negative Specific [place], Ur 1.021 1.005 - 1.030 Hemoglobin/Blood,Ur Negative Negative pH, Urine 6.0 5.0 - 8.0 Protein, Urine Trace (A) Negative Urobilinogen Normal Negative Nitrites Negative Negative Leuk Esterase Negative Negative WBC, Urine 0-5 /HPF 0-5 /HPF RBC, Urine 0-3 /HPF 0-3 /HPF Squamous Epithelial Cells Few /HPF Non-Squamous Epithelial Cells Few (A) None Seen /HPF Casts, Hyaline >10 /LPF (A) 0 /LPF Uric Acid Crystals Few (A) None Seen /HPF LIPASE BLD Result Value Ref Range Lipase 24 16 - 61 U/L PROTHROMBIN TIME/PT Result Value Ref Range PT Sec 10.9 9.7 - 13.0 sec INR 1.0 0.9 - 1.3 ACTIVATED PTT Result Value Ref Range APTT 25.7 23.0 - 32.4 sec TOX SCREEN ROUT UR Result Value Ref Range Phencyclidine Urine Negative Negative Benzodiazepines Urine Negative Negative Cocaine Urine Negative Negative Amphetamines Urine Negative Negative Cannabinoids, Urine Negative Negative Opiates Urine Preliminary positive (A) Negative Barbiturates Urine Negative Negative Ethanol, Urine <11 <11 mg/dL Oxycodone, Urine Negative Negative ALCOHOL/ETHANOL BLD Result Value Ref Range Ethanol <11 <11 mg/dL VITAMIN D 25 HYDROXY Result Value Ref Range Vitamin D 25 Hydroxy 36.8 >=30.0 ng/mL BASIC METABOLIC PNL Result Value Ref Range Glucose 104 (H) 74 - 99 mg/dL BUN 23 (H) 7 - 21 mg/dL Creatinine 1.12 (H) 0.58 - 0.96 mg/dL Sodium 138 136 - 144 mmol/L Potassium 3.6 (L) 3.7 - 5.1 mmol/L Chloride 105 97 - 105 mmol/L CO2 23 22 - 30 mmol/L Anion Gap 10 9 - 18 mmol/L Calcium, Total 8.5 8.5 - 10.2 mg/dL Estimated Glomerular Filtration Rate 49 (L) >=60 mL/min/1.73m CBC Result Value Ref Range WBC 11.25 (H) 3.70 - 11.00 k/uL RBC 3.87 (L) 3.90 - 5.20 m/uL Hemoglobin 11.7 11.5 - 15.5 g/dL Hematocrit 35.4 (L) 36.0 - 46.0 % MCV 91.5 80.0 - 100.0 fL MCH 30.2 26.0 - 34.0 pg MCHC 33.1 30.5 - 36.0 g/dL RDW-CV 13.2 11.5 - 15.0 % Platelet Count 125 (L) 150 - 400 k/uL MPV 10.5 9.0 - 12.7 fL Absolute nRBC <0.01 <0.01 k/uL GLUCOSE, BLOOD (POC) Result Value Ref Range Glucose, Point of Care 105 (A) 74 - 99 mg/dL BASIC METABOLIC PNL Result Value Ref Range Glucose 86 74 - 99 mg/dL BUN 14 7 - 21 mg/dL Creatinine 0.82 0.58 - 0.96 mg/dL Sodium 139 136 - 144 mmol/L Potassium 4.1 3.7 - 5.1 mmol/L Chloride 102 97 - 105 mmol/L CO2 26 22 - 30 mmol/L Anion Gap 11 9 - 18 mmol/L Calcium, Total 8.9 8.5 - 10.2 mg/dL Estimated Glomerular Filtration Rate 71 >=60 mL/min/1.73m CBC Result Value Ref Range WBC 10.20 3.70 - 11.00 k/uL RBC 4.05 3.90 - 5.20 m/uL Hemoglobin 12.1 11.5 - 15.5 g/dL Hematocrit 37.5 36.0 - 46.0 % MCV 92.6 80.0 - 100.0 fL MCH 29.9 26.0 - 34.0 pg MCHC 32.3 30.5 - 36.0 g/dL RDW-CV 13.1 11.5 - 15.0 % Platelet Count 147 (L) 150 - 400 k/uL MPV 10.9 9.0 - 12.7 fL Absolute nRBC <0.01 <0.01 k/uL BASIC METABOLIC PNL Result Value Ref Range Glucose 91 74 - 99 mg/dL BUN 11 7 - 21 mg/dL Creatinine 0.72 0.58 - 0.96 mg/dL Sodium 140 136 - 144 mmol/L Potassium 3.7 3.7 - 5.1 mmol/L Chloride 103 97 - 105 mmol/L CO2 28 22 - 30 mmol/L Anion Gap 9 9 - 18 mmol/L Calcium, Total 8.9 8.5 - 10.2 mg/dL Estimated Glomerular Filtration Rate 83 >=60 mL/min/1.73m CBC Result Value Ref Range WBC 7.33 3.70 - 11.00 k/uL RBC 4.20 3.90 - 5.20 m/uL Hemoglobin 12.4 11.5 - 15.5 g/dL Hematocrit 38.4 36.0 - 46.0 % MCV 91.4 80.0 - 100.0 fL MCH 29.5 26.0 - 34.0 pg MCHC 32.3 30.5 - 36.0 g/dL RDW-CV 12.8 11.5 - 15.0 % Platelet Count 163 150 - 400 k/uL MPV 10.6 9.0 - 12.7 fL Absolute nRBC <0.01 <0.01 k/uL BASIC METABOLIC PNL Result Value Ref Range Glucose 91 74 - 99 mg/dL BUN 11 7 - 21 mg/dL Creatinine 0.59 0.58 - 0.96 mg/dL Sodium 138 136 - 144 mmol/L Potassium 3.7 3.7 - 5.1 mmol/L Chloride 101 97 - 105 mmol/L CO2 26 22 - 30 mmol/L Anion Gap 11 9 - 18 mmol/L Calcium, Total 8.8 8.5 - 10.2 mg/dL Estimated Glomerular Filtration Rate 90 >=60 mL/min/1.73m CBC Result Value Ref Range WBC 6.21 3.70 - 11.00 k/uL RBC 3.99 3.90 - 5.20 m/uL Hemoglobin 12.0 11.5 - 15.5 g/dL Hematocrit 37.2 36.0 - 46.0 % MCV 93.2 80.0 - 100.0 fL MCH 30.1 26.0 - 34.0 pg MCHC 32.3 30.5 - 36.0 g/dL RDW-CV 12.8 11.5 - 15.0 % Platelet Count 176 150 - 400 k/uL MPV 10.0 9.0 - 12.7 fL Absolute nRBC <0.01 <0.01 k/uL TYPE + SCREEN Result Value Ref Range ABO A Rh(D) Positive Antibody Screen Negative Type and Screen Expiration 11/09/2021 23:59 HIstorical Ab Scr Status NEGATIVE URINE CULTURE Specimen: URINE-MIDSTREAM CLEAN CATCH; Urine Random Result Value Ref Range Culture, Urine No growth (<1,000 CFU/ml) EXPEDITED COVID19 Specimen: UPPER RESPIRATORY TRACT SWAB; Nasal Swab Result Value Ref Range SARS-CoV-2 (Agent of COVID-19) Not Detected SARS-CoV-2 (Agent of COVID-19) Not Detected by RT-PCR or equivalent method. EXPEDITED COVID19 Specimen: UPPER RESPIRATORY TRACT SWAB; Nasal Swab Result Value Ref Range SARS-CoV-2 (Agent of COVID-19) Not Detected SARS-CoV-2 (Agent of COVID-19) Not Detected by RT-PCR or equivalent method. Plan and Recommendations: Encounter Diagnosis ICD-10-CM 1. Chronic cough Will refer back to pulm R05.3 omeprazole (PRILOSEC) 20 mg capsule CONSULT TO ENT CONSULT TO PULMONARY MEDICINE 2. Cyst, sinus nasal ENT referral placed. J34.1 CONSULT TO ENT 3. Loose stools GI referral . R19.5 CONSULT TO GASTROENTEROLOGY 4. Memory deficit Will schedule follow up here . At that time will do MOCA. R41.3 I spent a total of 30 minutes on the date of the service which included preparing to see the patient, [id number] patient care, completing clinical documentation, performing a medically appropriate examination, counseling and educating the patient/family/caregiver, and ordering medications, tests,or procedures. Discussed the above with the patient using shared decision-making. The patient is in agreement with the diagnostic and treatment plans. Return in about 3 months (around 09/27/2022) for Memory issues. Provider: Jordyn Carlson PA-C [facility] History of Present illness Narrative* Chavez Stevens MD - 06/06/2022 4:34 PM EDT Attending Note I have discussed the patient with the resident physician I confirm the ward elements of the history. I confirm the ward elements of the physical exam. I reviewed the findings with the resident I confirm the diagnosis of Chronic cough (primary encounter diagnosis) Dyspnea and respiratory abnormalities and agree with the resident's plan of care See resident's note for further details. Chavez Stevens MD * Sarah Fernandez DO - 06/06/2022 11:20 AM EDT This note was created using Zimory[employer]. Subjective Savanah Cyr is a 82 year old female. HPI Today's visit (06/06/22): Chronic cough: - Cough start about 2 years ago - Previously diagnoses with emphysema - Initially dry, began to produce thick yellow-green mucus 3-4 months ago. Concerned for infection.Denies fevers, chills, fatigue - Currently taking mucinex OTC. Does not help. Tessalon does not help - Uses Breo once a day, albuterol multiple times a day as needed, frequently before bed - Rail Bender gave pearls a while ago, also did not help - On oxygen at home. Uses every other day - Gets SOB when walking up 1 flight of stairs, not SOB at rest - Takes tylenol once a day at most for back pain - Denies blood in sputum - saw pulm end of 2020, Dr. López recommended a three month follow up which patient had forgot about - 2019 spirometry showed mild restrictive ventilatory effect Objective BP 116/76 Pulse 64 Temp 37.2 C (98.9 F) (Temporal) Resp 20 Ht 5' 4 (1.626 m) Wt 127 lb 12.8 oz (58 kg) SpO2 95% BMI 21.94 kg/m Physical Exam Vitals reviewed. Constitutional: General: She is not in acute distress. Appearance: Normal appearance. She is not ill-appearing or toxic-appearing. HENT: Mouth/Throat: Mouth: Mucous membranes are moist. Pharynx: Oropharynx is clear. No oropharyngeal exudate or posterior oropharyngeal erythema. Eyes: General: No scleral icterus. Extraocular Movements: Extraocular movements intact. Conjunctiva/sclera: Conjunctivae normal. Cardiovascular: Rate and Rhythm: Normal rate and regular rhythm. Heart sounds: Normal heart sounds. Pulmonary: Effort: Pulmonary effort is normal. No respiratory distress. Breath sounds: Normal breath sounds. No wheezing, rhonchi or rales. Comments: Mild tenderness over left 3rd intercostal space Chest: Chest wall: Tenderness present. Neurological: General: No focal deficit present. Mental Status: She is alert and oriented to person, place, and time. Psychiatric: Behavior: Behavior normal. Thought Content: Thought content normal. Judgment: Judgment normal. Assessment and Plan ASSESSMENT/PLAN: 1. Chronic cough - ICD9: 786.2, ICD10: R05.3 (primary diagnosis) - in office peak inspiratory flow rate testing with in-check dial, patient had about 50L/min. Suspect that her asthma is not being completely controlled as she is still using her albuterol 1-2x daily. Has seen pulm before but had forgotten to follow up. CXR last summer was within normal limits. Lungs were clear today, do not believe repeat CXR/antibiotics are indicated at this time. Increasing breo from 100-25 to 200-25 in hopes to decrease her rescue inhaler usage. Encouraged patient to followup with pulm 2. Dyspnea and respiratory abnormalities - ICD9: 786.09, ICD10: R06.00, R06.89 - FLUTICASONE FUROATE 200 MCG-VILANTEROL 25 MCG/DOSE INHALATION POWDER Sarah Fernandez DO PGY3 documented in this encounterBer[facility]01-[facility] History of Present illness Narrative* Jordyn Carlson PA-C - 03/26/2022 2:12 PM EST Images from the original note were not included. Jordyn Carlson PAC [facility] [address] [facility] / [address] [place], [place] [address] Visit Date: March 26, 2022 Name: Savanah Cyr Date of : 1940 MRN/E #: [id number] Chief Complaint: Diarrhea (C/o increased frequency of loose stools. 2x last week. /Per pt has hx of loose stools. Nodiet changes per pt. ) Subjective HPI Savanah Cyr is a 81 year old female here with the following complaint(s): Loose stools Patient states she has had loose stools for years however right before [place] it happened twice in once week. Starts coming and can't stop it . Has had bowel movement in pants. No changes in diet however she did notice that once time it happened she had eaten potato salad andthe other time she had potato soup. Has not happened again since before [place]. Patient states her last colonoscopy was 3-4 years ago and states she had it here however do not seein records. Nothing in care everywhere. Patient states she does remember getting diagnosed with IBS years ago. Review of Systems Constitutional: Negative for activity change, appetite change, chills, fatigue, fever and unexpected weight change. HENT: Negative for congestion, ear pain, facial swelling, hearing loss, sinus pressure, sinus pain,sneezing and trouble swallowing. Eyes: Negative for photophobia, pain and visual disturbance. Respiratory: Negative for apnea, cough, choking, shortness of breath and wheezing. Cardiovascular: Negative for chest pain, palpitations and leg swelling. Gastrointestinal: Positive for diarrhea. Negative for abdominal distention, abdominal pain, blood in stool, constipation, nausea and rectal pain. Endocrine: Negative for polydipsia and polyuria. Genitourinary: Negative for difficulty urinating, dysuria, flank pain, frequency, hematuria and urgency. Musculoskeletal: Negative for arthralgias, back pain, gait problem, joint swelling and neck pain. Skin: Negative for rash. Allergic/Immunologic: Negative for immunocompromised state. Neurological: Negative for dizziness, tremors, seizures, speech difficulty, weakness and headaches. Hematological: Does not bruise/bleed easily. Psychiatric/Behavioral: Negative for agitation, confusion, decreased concentration, hallucinations and sleep disturbance. The patient is not nervous/anxious and is not hyperactive. Social History Tobacco Use Smoking status: Never Smokeless tobacco: Never Vaping Use Vaping Use: Never used Substance Use Topics Alcohol use: Yes Comment: occasional Drug use: No ALLERGIES No Known Allergies Current Outpatient Medications Medication Sig fluticasone-vilanterol (BREO ELLIPTA) 100-25 mcg/dose inhaler INHALE 1 PUFF ONCE DAILY PARoxetine (PAXIL) 30 mg tablet Take 1 tablet by mouth once daily traZODone (DESYREL) 50 mg tablet Take 1 tablet by mouth daily at bedtime. metoprolol succinate ER (TOPROL XL) 25 mg 24 hr tablet Take 1 tablet by mouth once daily. albuterol HFA (PROVENTIL HFA, VENTOLIN HFA) 90 mcg/actuation inhaler INHALE 2 PUFFS INTO LUNGS EVERY 4 HOURS NEEDED FOR WHEEZING OR SHORTNESS OF BREATH lovastatin (MEVACOR) 20 mg tablet TAKE 1 TABLET BY MOUTH ONCE DAILY AT BEDTIME hydroCHLOROthiazide (HYDRODIURIL, ESIDRIX) 25 mg tablet Take 1 tablet by mouth once daily omeprazole (PRILOSEC) 20 mg capsule Take 1 capsule by mouth once daily. loratadine (ALLERGY RELIEF, LORATADINE,) 10 mg tablet TAKE 1 TABLET BY MOUTH ONCE DAILY guaiFENesin (MUCINEX) 600 mg 12 hr tablet Take 1 tablet by mouth twice daily. multivitamin tablet Take 1 tablet by mouth once daily. Cholecalciferol, Vitamin D3, 1,000 unit cap Take 1,000 Units by mouth once daily. psyllium (METAMUCIL FIBER SINGLES) 3.4 gram packet Take 1 Packet by mouth once daily. montelukast (SINGULAIR) 10 mg tablet Take 1 tablet by mouth daily at bedtime. ipratropium bromide (ATROVENT) 42 mcg (0.06 %) nasal spray Use 1 [place] in the nose three times daily. No current facility-administered medications for this visit. In terms of Health Maintenance, we discussed: SPIROMETRY Never done ADVANCE DIRECTIVE DISCUSSION Never done Please see social determinants section of patients chart for updated social history Previous office notes, Lab,imaging, and microbiology results reviewed. I have confirmed and edited as necessary the chief complaint, medications, past medical, family andsocial histories. Objective 03/26/22 1410 BP: 140/96 Pulse: 64 Resp: 16 Temp: 36.2 C (97.2 F) TempSrc: Temporal SpO2: 98% Weight: 127 lb (57.6 kg) Height: 5' 4 (1.626 m) Body mass index is 21.8 kg/m . Physical Exam Vitals reviewed. Constitutional: General: She is not in acute distress. Appearance: She is not diaphoretic. HENT: Head: Normocephalic and atraumatic. Mouth/Throat: Pharynx: No oropharyngeal exudate. Eyes: Conjunctiva/sclera: Conjunctivae normal. Pupils: Pupils are equal, round, and reactive to light. Neck: Thyroid: No thyromegaly. Trachea: No tracheal deviation. Cardiovascular: Rate and Rhythm: Normal rate and regular rhythm. Heart sounds: Normal heart sounds. No murmur heard. No friction rub. No gallop. Pulmonary: Effort: Pulmonary effort is normal. No respiratory distress. Breath sounds: Normal breath sounds. No wheezing. Abdominal: General: Bowel sounds are normal. There is no distension. Palpations: Abdomen is soft. Tenderness: There is no abdominal tenderness. Musculoskeletal: General: No tenderness or deformity. Normal range of motion. Cervical back: Normal range of motion and neck supple. Skin: General: Skin is warm and dry. Findings: No rash. Neurological: Mental Status: She is alert and oriented to person, place, and time. Cranial Nerves: No cranial nerve deficit. Coordination: Coordination normal. Psychiatric: Mood and Affect: Affect normal. Results for orders placed or performed during the hospital encounter of 11/06/21 BASIC METABOLIC PNL Result Value Ref Range Glucose 146 (H) 74 - 99 mg/dL BUN 29 (H) 7 - 21 mg/dL Creatinine 1.78 (H) 0.58 - 0.96 mg/dL Sodium 136 136 - 144 mmol/L Potassium 3.7 3.7 - 5.1 mmol/L Chloride 99 97 - 105 mmol/L CO2 22 22 - 30 mmol/L Anion Gap 15 9 - 18 mmol/L Calcium, Total 9.9 8.5 - 10.2 mg/dL Estimated Glomerular Filtration Rate 28 (L) >=60 mL/min/1.73m CBC Result Value Ref Range WBC 12.14 (H) 3.70 - 11.00 k/uL RBC 4.27 3.90 - 5.20 m/uL Hemoglobin 13.1 11.5 - 15.5 g/dL Hematocrit 38.4 36.0 - 46.0 % MCV 89.9 80.0 - 100.0 fL MCH 30.7 26.0 - 34.0 pg MCHC 34.1 30.5 - 36.0 g/dL RDW-CV 13.2 11.5 - 15.0 % Platelet Count 147 (L) 150 - 400 k/uL MPV 10.5 9.0 - 12.7 fL Absolute nRBC <0.01 <0.01 k/uL URINALYSIS, WITH MICROSCOPIC Result Value Ref Range Color Yellow yellow Clarity Clear Clear Glucose, Urine Negative Negative Bilirubin, Urine Negative Negative Ketones, Urine 1+ (A) Negative Specific [place], Ur 1.021 1.005 - 1.030 Hemoglobin/Blood,Ur Negative Negative pH, Urine 6.0 5.0 - 8.0 Protein, Urine Trace (A) Negative Urobilinogen Normal Negative Nitrites Negative Negative Leuk Esterase Negative Negative WBC, Urine 0-5 /HPF 0-5 /HPF RBC, Urine 0-3 /HPF 0-3 /HPF Squamous Epithelial Cells Few /HPF Non-Squamous Epithelial Cells Few (A) None Seen /HPF Casts, Hyaline >10 /LPF (A) 0 /LPF Uric Acid Crystals Few (A) None Seen /HPF LIPASE BLD Result Value Ref Range Lipase 24 16 - 61 U/L PROTHROMBIN TIME/PT Result Value Ref Range PT Sec 10.9 9.7 - 13.0 sec INR 1.0 0.9 - 1.3 ACTIVATED PTT Result Value Ref Range APTT 25.7 23.0 - 32.4 sec TOX SCREEN ROUT UR Result Value Ref Range Phencyclidine Urine Negative Negative Benzodiazepines Urine Negative Negative Cocaine Urine Negative Negative Amphetamines Urine Negative Negative Cannabinoids, Urine Negative Negative Opiates Urine Preliminary positive (A) Negative Barbiturates Urine Negative Negative Ethanol, Urine <11 <11 mg/dL Oxycodone, Urine Negative Negative ALCOHOL/ETHANOL BLD Result Value Ref Range Ethanol <11 <11 mg/dL VITAMIN D 25 HYDROXY Result Value Ref Range Vitamin D 25 Hydroxy 36.8 >=30.0 ng/mL BASIC METABOLIC PNL Result Value Ref Range Glucose 104 (H) 74 - 99 mg/dL BUN 23 (H) 7 - 21 mg/dL Creatinine 1.12 (H) 0.58 - 0.96 mg/dL Sodium 138 136 - 144 mmol/L Potassium 3.6 (L) 3.7 - 5.1 mmol/L Chloride 105 97 - 105 mmol/L CO2 23 22 - 30 mmol/L Anion Gap 10 9 - 18 mmol/L Calcium, Total 8.5 8.5 - 10.2 mg/dL Estimated Glomerular Filtration Rate 49 (L) >=60 mL/min/1.73m CBC Result Value Ref Range WBC 11.25 (H) 3.70 - 11.00 k/uL RBC 3.87 (L) 3.90 - 5.20 m/uL Hemoglobin 11.7 11.5 - 15.5 g/dL Hematocrit 35.4 (L) 36.0 - 46.0 % MCV 91.5 80.0 - 100.0 fL MCH 30.2 26.0 - 34.0 pg MCHC 33.1 30.5 - 36.0 g/dL RDW-CV 13.2 11.5 - 15.0 % Platelet Count 125 (L) 150 - 400 k/uL MPV 10.5 9.0 - 12.7 fL Absolute nRBC <0.01 <0.01 k/uL GLUCOSE, BLOOD (POC) Result Value Ref Range Glucose, Point of Care 105 (A) 74 - 99 mg/dL BASIC METABOLIC PNL Result Value Ref Range Glucose 86 74 - 99 mg/dL BUN 14 7 - 21 mg/dL Creatinine 0.82 0.58 - 0.96 mg/dL Sodium 139 136 - 144 mmol/L Potassium 4.1 3.7 - 5.1 mmol/L Chloride 102 97 - 105 mmol/L CO2 26 22 - 30 mmol/L Anion Gap 11 9 - 18 mmol/L Calcium, Total 8.9 8.5 - 10.2 mg/dL Estimated Glomerular Filtration Rate 71 >=60 mL/min/1.73m CBC Result Value Ref Range WBC 10.20 3.70 - 11.00 k/uL RBC 4.05 3.90 - 5.20 m/uL Hemoglobin 12.1 11.5 - 15.5 g/dL Hematocrit 37.5 36.0 - 46.0 % MCV 92.6 80.0 - 100.0 fL MCH 29.9 26.0 - 34.0 pg MCHC 32.3 30.5 - 36.0 g/dL RDW-CV 13.1 11.5 - 15.0 % Platelet Count 147 (L) 150 - 400 k/uL MPV 10.9 9.0 - 12.7 fL Absolute nRBC <0.01 <0.01 k/uL BASIC METABOLIC PNL Result Value Ref Range Glucose 91 74 - 99 mg/dL BUN 11 7 - 21 mg/dL Creatinine 0.72 0.58 - 0.96 mg/dL Sodium 140 136 - 144 mmol/L Potassium 3.7 3.7 - 5.1 mmol/L Chloride 103 97 - 105 mmol/L CO2 28 22 - 30 mmol/L Anion Gap 9 9 - 18 mmol/L Calcium, Total 8.9 8.5 - 10.2 mg/dL Estimated Glomerular Filtration Rate 83 >=60 mL/min/1.73m CBC Result Value Ref Range WBC 7.33 3.70 - 11.00 k/uL RBC 4.20 3.90 - 5.20 m/uL Hemoglobin 12.4 11.5 - 15.5 g/dL Hematocrit 38.4 36.0 - 46.0 % MCV 91.4 80.0 - 100.0 fL MCH 29.5 26.0 - 34.0 pg MCHC 32.3 30.5 - 36.0 g/dL RDW-CV 12.8 11.5 - 15.0 % Platelet Count 163 150 - 400 k/uL MPV 10.6 9.0 - 12.7 fL Absolute nRBC <0.01 <0.01 k/uL BASIC METABOLIC PNL Result Value Ref Range Glucose 91 74 - 99 mg/dL BUN 11 7 - 21 mg/dL Creatinine 0.59 0.58 - 0.96 mg/dL Sodium 138 136 - 144 mmol/L Potassium 3.7 3.7 - 5.1 mmol/L Chloride 101 97 - 105 mmol/L CO2 26 22 - 30 mmol/L Anion Gap 11 9 - 18 mmol/L Calcium, Total 8.8 8.5 - 10.2 mg/dL Estimated Glomerular Filtration Rate 90 >=60 mL/min/1.73m CBC Result Value Ref Range WBC 6.21 3.70 - 11.00 k/uL RBC 3.99 3.90 - 5.20 m/uL Hemoglobin 12.0 11.5 - 15.5 g/dL Hematocrit 37.2 36.0 - 46.0 % MCV 93.2 80.0 - 100.0 fL MCH 30.1 26.0 - 34.0 pg MCHC 32.3 30.5 - 36.0 g/dL RDW-CV 12.8 11.5 - 15.0 % Platelet Count 176 150 - 400 k/uL MPV 10.0 9.0 - 12.7 fL Absolute nRBC <0.01 <0.01 k/uL TYPE + SCREEN Result Value Ref Range ABO A Rh(D) Positive Antibody Screen Negative Type and Screen Expiration 11/09/2021 23:59 HIstorical Ab Scr Status NEGATIVE URINE CULTURE Specimen: URINE-MIDSTREAM CLEAN CATCH; Urine Random Result Value Ref Range Culture, Urine No growth (<1,000 CFU/ml) EXPEDITED COVID19 Specimen: UPPER RESPIRATORY TRACT SWAB; Nasal Swab Result Value Ref Range COVID 19 Result Not Detected SARS-CoV-2 (Agent of COVID-19) Not Detected by RT-PCR or equivalent method. EXPEDITED COVID19 Specimen: UPPER RESPIRATORY TRACT SWAB; Nasal Swab Result Value Ref Range COVID 19 Result Not Detected SARS-CoV-2 (Agent of COVID-19) Not Detected by RT-PCR or equivalent method. Plan and Recommendations: Encounter Diagnosis ICD-10-CM 1. Loose stools Will trial daily fiber. Patient declines colonoscopy at this time, however will proceed with one ifno improvement with fiber. R19.5 psyllium (METAMUCIL FIBER SINGLES) 3.4 gram packet I spent a total of 20 minutes on the date of the service which included preparing to see the patient, [id number] patient care, completing clinical documentation, performing a medically appropriate examination, counseling and educating the patient/family/caregiver, and ordering medications, tests,or procedures. Discussed the above with the patient using shared decision-making. The patient is in agreement with the diagnostic and treatment plans. Return in about 3 months (around 06/24/2022). Provider: Jordyn Carlson PA-C documented in this encounterBerger Hospital12-29-2022 Miscellaneous Notes* Telephone Encounter - Krissy Vernon - 03/15/2022 3:50 PM EST Scheduled. Krissy * Telephone Encounter - Krissy Vernon - 03/15/2022 3:50 PM EST ----- Message from Mili Malcolm sent at 03/15/2022 3:00 PM EST ----- Regarding: Medicine/Khadra/Antony/Requesting Sooner Appointment Contact: Patient has been identified by name and Date of : Yes Patient: Savanah Cyr Date of : 1940 Provider for this encounter : Jordyn Carlson PA-C Reason for call: Request for a sooner appointment Was an appointment scheduled: No Reason for requesting visit (RFV/signs and symptoms/diagnosis) : patient hs been experiencing urgent, loose bowel movements the last year that have become more frequent recently. Wants to be seen sooner than first available on 04/20/22 Person calling: self Return call to: self Call patient at: at home [phone] (home) [phone] (cell) Payor: [employer] / Plan: JONATHON MED[employer] ACCESS / Product Type: PPO / Mili Malcolm documented in this encounterBerger Hospital10-12-2022 History of Present illness Narrative* Richard Heredia RN - 12/27/2021 10:35 AM EDT TRANSITION CARE MANAGEMENT (TCM) FOLLOW-UP NOTE Provider Action/FYI Patient identified by name and date of : YES Spoke to unable to contact Summary: PCC attempted to contact patient for final TCM follow up. PCC left message for patient to call PCC at [phone] with any questions or concerns. 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 Cady Casanova documented in this encounterBerger Hospital09-28-2022 History of Present illness Narrative* Richard Heredia RN - 12/13/2021 11:34 AM EDT TRANSITION CARE MANAGEMENT (TCM) FOLLOW-UP NOTE Provider Action/FYI Patient identified by name and date of : YES Spoke to patient Summary: PCC contacted patient for TCM follow up. Patient doing well and said she continues to improve. Patient has no questions or concerns for her PCP at this time. 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 They will be following patient for Home PT for a total of 10 visits. 1w1, 2w4 and 1w1. Verbal order. documented in this encounterBerger Hospital09-22-2022 Miscellaneous Notes* Telephone Encounter - Jana Schwartz - 12/07/2021 10:53 AM EDT Please review and complete. Will be placed in your in box. Thank you. documented in this encounterBerger Hospital09-20-2022 History of Present illness Narrative* Richard Heredia RN - 12/05/2021 2:34 PM EDT TRANSITION CARE MANAGEMENT (TCM) FOLLOW-UP NOTE Provider Action/FYI Patient identified by name and date of : YES Spoke to patient Summary: PCC contacted patient for TCM follow up. Patient said she is doing great and ly not feel she needsTCM follow up appointment at this time. Patient has no new concerns or questions. PCC instructed patient to call [phone] with any questions or concerns. 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 Pain is slowly improving. Patient declined reviewing medications, did not have list available. Patient to bring medications to appointment for reviw. Follow up appointment scheduled for 12/05/21. Hellen Mason RN SUMMARY: Pt discharged from [facility] on 11/28/21. Admitted for: Sacral Fx weakness Contact made with patient: Yes Hi my name is Hellen Mason RN and I am calling from the [facility] on behalf of your PCP, Jordyn Carlson PA-C I understand you were recently in the hospital so I am calling to check in with you to ensure you are feeling well now that you re home. Do you mind if I ask you a few questions related to your hospital stay and well-being Yes Contact with patient post discharge, spoke to patient. Patient identified by name and . Do you feel your health is BETTER, WORSE, or the SAME since leaving the hospital? Better ACTION TAKEN: Patient indicated symptoms are better or same, no action required. Continue outreach. MEDICATIONS: Many patients have questions or concerns about their medications once they are home. Do you have any questions about taking your medications or which medication you should be on? No Do you need any medication refills at this time, including any of the medications you might take only when needed? No ACTION TAKEN: No action required For RNs or Pharmacy completing outreach ONLY, was a medication review completed? No, patient declined SOCIAL: We would like to make sure you have what you need so that your basics needs are met - including your personal safety, food, housing and medications. Would you like to speak with a social work head orthopedic team physician to help give you support for any of these needs? No It can be normal to feel anxious or down during a time like this. Would you like to talk to a mental health professional about how you have been feeling? No ACTION TAKEN: No action taken DISCHARGE INTRUCTIONS: Your discharge instructions / After Visit Summary (AVS) are important in guiding you through the recovery process. Do you have any questions related to your discharge instructions? No Do you have all the necessary equipment and supplies at home? Yes ACTION TAKEN: No action required Thank you for talking with me today. I would like to help you schedule a hospital follow-up virtualor telephone visit with your PCP. This is a great way for you to connect with your provider to ensure you have safely transitioned home. If you are agreeable, I will send your request to a scallop dredger who will contact and assist you with that appointment. This will give you an opportunity to ask any questions or address any concerns you may have with your PCP. Inform the patient that if they have any questions or concerns prior to that appointment, to call their PCP's office right away. ACTION TAKEN: No action required, patient already has an appointment scheduled. Your doctor would like us to remind you of the recommendations regarding the coronavirus (Covid19) outbreak: Avoid public places as much as possible. Avoid close contact (within 6 feet) with others you don't live with, especially if they are sick. Stay home if you are sick. Wash your hands regularly for at least 20 seconds with soap and water. Wear a cloth mask in public places to help reduce community spread. Do not go to your Doctor's office unless instructed to do so. For any non- emergency symptoms, call your Doctor's office to get instructions on how to manage (we might recommend a telephone or virtualvisit). For emergency symptoms, proceed to Emergency Department as usual but inform them of cough and fever symptoms NITIN if present (or call on the way if possible). Hellen Mason RN documented in this encounterBerger Hospital09-13-2022 Miscellaneous Notes* Telephone Encounter - Sarah Mcdonald [place] [facility] - 11/28/2021 8:05 AM EDT Left message 10/27/21 to return my call. Sarah Mcdonald [place] [facility] November 28, 2021 8:05 AM * Telephone Encounter - Sarah Mcdonald [place] [facility] - 11/28/2021 8:03 AM EDT ----- Message from Cristina Trujillo sent at 11/22/2021 11:52 AM EDT ----- Regarding: Orthopedic/Hip/ Pelvic/Sacrum FX / Please reach out Contact: Patient has been identified by name and Date of (Y/N): y Patient: Savanah Cyr Date of : 1940 Previous Provider Seen: n/a Body Part(s) Identified: Hip / Pelvic Diagnosis/Reason For Visit: Hip Pelvic FX Reason for the call/escalation: Sacrum Fx/ Please reach out If reason for call/escalation is discharge from ED/ER or Hospital, which facility was the patient seen at: [place] now Was an appointment scheduled (Y/N): n Person calling if other than patient: y Return call to if other than patient: y Best contact number: Jaren Valdes / Fannie [phone] leaving on maternity soon/ or [phone] front end technician Thank you, Cristina Trujillo November 22, 2021 11:53 AM documented in this encounterBerger Hospital09-12-2022 History of Present illness Narrative* Oh Cobb APRN.[employer]EL[employer] - 11/27/2021 10:57 AM EDT Images from the original note were not included. Connected Care Unit Progress Note Patient Name: Savanah Cyr Patient Facility: [facility] Admit Date 11/10/2021 Level of Care: Skilled SNF Attending: Radha Nevarez M.D. Service Date: 11/27/2021 Code Status: Full Code Chief Complaint: Evaluation regarding discharge planning. ASSESSMENT AND PLAN (S32.110D) Closed nondisplaced zone I fracture of sacrum with routine healing, subsequent encounter(primary encounter diagnosis) (S22.080D) Compression fracture of T12 vertebra with routine healing, subsequent encounter - 2/2 GLF - Pain Controlled with Acetaminophen and Oxycodone - Conservative management per orthopedics; no back brace needed (I10) Primary hypertension - Continue on Metoprolol and Hydrochlorothiazide - Good control per facility charting - Weekly BMP/CBC (J45.30) Intrinsic asthma without status asthmaticus, mild persistent, uncomplicated - Continue on Albuterol, Fluticasone-Vilanterol, Montelukast, and Ipratropium - Stable; on room air, no chest pain, shortness of breath, or chest tightness (R53.81) Debility - Certify therapies - Maintain high falls risk precautions - pt/staff verbalize understanding validated via teach back - Monitor safety awareness DISCHARGE INSTRUCTIONS: Patient may discharge home with HHC, PT, OT, nursing and home health aid as needed. A 14 day supply of all needed non-narcotic prescriptions was called in to the pharmacy by SNF nursing. A 5 day supply of controlled narcotics was provided to patient's pharmacy of choice via [employer]. Patient is to follow up with PCP within 1 to 2 weeks of discharge from SNF. Discharge instructions included medication schedule, follow up appointments, and how to contact the unit with questions after discharge. Patient verbalized understanding of these instructions Time Spent: 35 Minutes HPI: (Per Dr. Nevarez) Savanah Cyr is being seen today for long-term facility (SNF) admission & managementof Sacral fracture and weakness. This is a 81 year old female who presents from [facility] with primary admitting diagnosis of Sacral fracture from fall. Past medical history is notable for HTN, Intrinsic asthma, GERD, recurrent UTI, anxiety with depression, HLD and debility. History obtained from medical record review as well as PATIENT. Per documentation, pt had a fall and imaging revealed chronic thoracic and lumber spine compressionfractures. It also revealed BL sacral fractures. Ortho spine recommended conservative management. Pt was discharged with pain med and to snf for therapy. Highest Readmission Risk Score 17 11/27/2021 Update Patient visualized sitting up in her bed today. She states she feels she's ready to go home and is happy with the therapy she received here, stating it helped a lot. PAST MEDICAL HISTORY Diagnosis Date Abnormal chest x-ray Abnormal EKG Acquired hypothyroidism Acute diarrhea Arthritis Asthma Atrophic vaginitis Blood in feces Chronic colitis Cough Depressive disorder Disorder of peripheral nervous system Diverticula of colon Dyspnea Essential hypertension Fatigue Gastric ulcer Gastroesophageal reflux disease Hemangioma Hiatal hernia History of fall History of osteoporosis History of viral hepatitis, type A Hypercalcemia Hyperlipidemia Hypertension Irritable bowel syndrome Knee pain Malaise and fatigue Migraine Multiple nodules of lung Neck pain Pain in lower limb Pain in lower limb Paresthesia of foot Pneumococcal septicemia(038.2) Postmenopausal state Quadriceps weakness Reduced libido Seborrheic keratosis inflamed Skin tag Snoring Upper respiratory infection Upper respiratory infection Vitamin D deficiency SUBJECTIVE: Review of Systems Constitutional: Negative for appetite change, chills, diaphoresis, fatigue and fever. HENT: Negative. Eyes: Negative. Respiratory: Negative for apnea, chest tightness and shortness of breath. Cardiovascular: Negative for chest pain and leg swelling. Gastrointestinal: Negative for abdominal pain. Endocrine: Negative. Genitourinary: Negative for difficulty urinating and dysuria. Musculoskeletal: Positive for back pain and gait problem. Skin: Negative for color change. Allergic/Immunologic: Negative. Neurological: Positive for weakness. Negative for dizziness and light-headedness. Hematological: Negative. Psychiatric/Behavioral: Negative. No reports of falls/injuries, changes in cognition/behaviors, or any uncontrolled pain exacerbations. Medications: Medications listed in Epic during SNF admission may not be current. Refer to facility record. Patient records, current medications, most recent labs, family/social history (unchanged) Reviewed.Refer to facility records. Current Outpatient Medications Medication Sig oxyCODONE IR (ROXICODONE) 5 mg immediate release tablet Take 1 tablet by mouth every 6 hours as needed for pain for up to 5 days. albuterol HFA (PROVENTIL HFA, VENTOLIN HFA) 90 mcg/actuation inhaler INHALE 2 PUFFS INTO LUNGS EVERY 4 HOURS NEEDED FOR WHEEZING OR SHORTNESS OF BREATH PARoxetine (PAXIL) 30 mg tablet Take 1 tablet by mouth once daily BREO ELLIPTA 100-25 mcg/dose inhaler Inhale 1 puff by mouth once daily metoprolol succinate ER (TOPROL XL) 25 mg 24 hr tablet Take 1 tablet by mouth once daily. lovastatin (MEVACOR) 20 mg tablet TAKE 1 TABLET BY MOUTH ONCE DAILY AT BEDTIME hydroCHLOROthiazide (HYDRODIURIL, ESIDRIX) 25 mg tablet Take 1 tablet by mouth once daily traZODone (DESYREL) 50 mg tablet TAKE 1 TABLET BY MOUTH ONCE DAILY AT BEDTIME omeprazole (PRILOSEC) 20 mg capsule Take 1 capsule by mouth once daily. montelukast (SINGULAIR) 10 mg tablet Take 1 tablet by mouth daily at bedtime. ipratropium bromide (ATROVENT) 42 mcg (0.06 %) nasal spray Use 1 [place] in the nose three times daily. loratadine (ALLERGY RELIEF, LORATADINE,) 10 mg tablet TAKE 1 TABLET BY MOUTH ONCE DAILY guaiFENesin (MUCINEX) 600 mg 12 hr tablet Take 1 tablet by mouth twice daily. multivitamin tablet Take 1 tablet by mouth once daily. Cholecalciferol, Vitamin D3, 1,000 unit cap Take 1,000 Units by mouth once daily. No current facility-administered medications for this visit. OBJECTIVE: Vital Signs: BP 105/68 Pulse 67 Temp 36.6 C (97.8 F) Resp 18 Ht 162.6 cm (5' 4) Wt 56.9 kg (125 lb 6.4 oz) SpO2 95% BMI 21.52 kg/m Physical Exam: Physical Exam Vitals reviewed. Constitutional: General: She is not in acute distress. Appearance: She is not ill-appearing or toxic-appearing. HENT: Head: Normocephalic. Right Ear: External ear normal. Left Ear: External ear normal. Nose: Nose normal. Mouth/Throat: Mouth: Mucous membranes are moist. Pharynx: Oropharynx is clear. Eyes: Extraocular Movements: Extraocular movements intact. Pupils: Pupils are equal, round, and reactive to light. Cardiovascular: Rate and Rhythm: Normal rate and regular rhythm. Pulses: Normal pulses. Pulmonary: Effort: Pulmonary effort is normal. Breath sounds: Normal breath sounds. Abdominal: General: Abdomen is flat. Bowel sounds are normal. Palpations: Abdomen is soft. Musculoskeletal: General: Normal range of motion. Cervical back: Normal range of motion. Skin: General: Skin is warm and dry. Capillary Refill: Capillary refill takes less than 2 seconds. Neurological: Mental Status: She is alert and oriented to person, place, and time. Mental status is at baseline. Motor: Weakness present. Gait: Gait abnormal. Psychiatric: Mood and Affect: Mood normal. POC discussed with appropriate parties and nursing staff. Electronically signed by Oh Cobb APRN.[employer]EL[employer] documented in this encounterBerger Hospital09-09-2022 Miscellaneous Notes* Telephone Encounter - Santa Singh [facility] - 11/24/2021 2:15 PM EDT I left the nurse, Linda, a message to call us back to schedule a follow-up appt with Dr. Herrmann for sacrum issue. I let her know that if it is regarding her spine, then Dr. Carlos Willingham would be physician she needs to follow-up for that injury. -Fadumo Castle 9-9 2:30 pm ^^^^^^^^^^^^^^^^^^^^^^^^ ----- Message from Rashida Lucero sent at 11/24/2021 1:53 PM EDT ----- Regarding: Orthopedics/ Dr. Herrmann/ Message Subject Line Format: Orthopedics / [Dr. Herrmann/ Message Patient has been identified by name and Date of (Y/N): y Patient: Savanah Cyr Date of : 1940 Previous Provider Seen: Dr. Herrmann Body Part(s) Identified: back Diagnosis/Reason For Visit: fracture--post op Reason for the call/escalation: per tool If reason for call/escalation is discharge from ED/ER or Hospital, which facility was the patient seen at: n/a Was an appointment scheduled (Y/N): n Person calling if other than patient: yes Return call to if other than patient: yes Best contact number: Linda at [phone] at [facility] Thank you, Rashida Lucero November 24, 2021 1:53 PM documented in this encounterBerger Hospital09-08-2022 History of Present illness Narrative* Oh Cobb APRN.[employer] - 11/23/2021 3:39 PM EDT Images from the original note were not included. Connected Care Unit Progress Note Patient Name: Savanah Cyr Patient Facility: [facility] Admit Date 11/10/2021 Level of Care: Skilled SNF Attending: Radha Nevarez M.D. Service Date: 11/23/2021 Code Status: Full Code Chief Complaint: Evaluation regarding lab results review and rehabilitation progress. ASSESSMENT AND PLAN (S32.110D) Closed nondisplaced zone I fracture of sacrum with routine healing, subsequent encounter(primary encounter diagnosis) (S22.080D) Compression fracture of T12 vertebra with routine healing, subsequent encounter - 2/2 GLF - Pain Controlled with Acetaminophen and Oxycodone - Conservative management per orthopedics; no back brace needed (I10) Primary hypertension - Continue on Metoprolol and Hydrochlorothiazide - Good control per facility charting - Weekly BMP/CBC (R53.81) Debility - Certify therapies - Maintain high falls risk precautions - pt/staff verbalize understanding validated via teach back - Monitor safety awareness HPI: (Per Dr. Nevarez) Savanah Cyr is being seen today for long-term facility (SNF) admission & managementof Sacral fracture and weakness. This is a 81 year old female who presents from [facility] with primary admitting diagnosis of Sacral fracture from fall. Past medical history is notable for HTN, Intrinsic asthma, GERD, recurrent UTI, anxiety with depression, HLD and debility. History obtained from medical record review as well as PATIENT. Per documentation, pt had a fall and imaging revealed chronic thoracic and lumber spine compressionfractures. It also revealed BL sacral fractures. Ortho spine recommended conservative management. Pt was discharged with pain med and to snf for therapy. Highest Readmission Risk Score 17 11/23/2021 Update Patient visualized walking with PT/OT using a walker. She states she feels well and that therapy has been going well for her. PAST MEDICAL HISTORY Diagnosis Date Abnormal chest x-ray Abnormal EKG Acquired hypothyroidism Acute diarrhea Arthritis Asthma Atrophic vaginitis Blood in feces Chronic colitis Cough Depressive disorder Disorder of peripheral nervous system Diverticula of colon Dyspnea Essential hypertension Fatigue Gastric ulcer Gastroesophageal reflux disease Hemangioma Hiatal hernia History of fall History of osteoporosis History of viral hepatitis, type A Hypercalcemia Hyperlipidemia Hypertension Irritable bowel syndrome Knee pain Malaise and fatigue Migraine Multiple nodules of lung Neck pain Pain in lower limb Pain in lower limb Paresthesia of foot Pneumococcal septicemia(038.2) Postmenopausal state Quadriceps weakness Reduced libido Seborrheic keratosis inflamed Skin tag Snoring Upper respiratory infection Upper respiratory infection Vitamin D deficiency SUBJECTIVE: Review of Systems Constitutional: Negative for appetite change, chills, diaphoresis, fatigue and fever. HENT: Negative. Eyes: Negative. Respiratory: Negative for apnea, chest tightness and shortness of breath. Cardiovascular: Negative for chest pain and leg swelling. Gastrointestinal: Negative for abdominal pain. Endocrine: Negative. Genitourinary: Negative for difficulty urinating and dysuria. Musculoskeletal: Positive for gait problem. Skin: Negative for color change. Allergic/Immunologic: Negative. Neurological: Positive for weakness. Negative for dizziness and light-headedness. Hematological: Negative. Psychiatric/Behavioral: Negative. No reports of falls/injuries, changes in cognition/behaviors, or any uncontrolled pain exacerbations. Medications: Medications listed in Epic during SNF admission may not be current. Refer to facility record. Patient records, current medications, most recent labs, family/social history (unchanged) Reviewed.Refer to facility records. OBJECTIVE: Labs: 11/21/2021 Ektmmhq=259 Sd=120 K=4.7 Cl=96 CO2=20 BUN=14 Creatinine=0.9 GFR=60 Ca=9.6 WBC=8.0 RBC=4.22 Hgb=13.3 Hct=38.4 Dkvrkytm=330 Vital Signs: BP 102/64 Pulse 81 Temp 36.4 C (97.6 F) Resp 18 Wt 56.9 kg (125 lb 6.4 oz) SpO2 96% BMI21.52 kg/m Physical Exam: Physical Exam Vitals reviewed. Constitutional: General: She is not in acute distress. Appearance: She is not ill-appearing or toxic-appearing. HENT: Head: Normocephalic. Right Ear: External ear normal. Left Ear: External ear normal. Nose: Nose normal. Mouth/Throat: Mouth: Mucous membranes are moist. Pharynx: Oropharynx is clear. Eyes: Extraocular Movements: Extraocular movements intact. Pupils: Pupils are equal, round, and reactive to light. Cardiovascular: Rate and Rhythm: Normal rate and regular rhythm. Pulmonary: Effort: Pulmonary effort is normal. Breath sounds: Normal breath sounds. Abdominal: General: Abdomen is flat. Bowel sounds are normal. Palpations: Abdomen is soft. Musculoskeletal: General: Normal range of motion. Cervical back: Normal range of motion. Skin: General: Skin is warm and dry. Neurological: Mental Status: She is alert and oriented to person, place, and time. Mental status is at baseline. Motor: Weakness present. Gait: Gait abnormal. Psychiatric: Mood and Affect: Mood normal. POC discussed with appropriate parties and nursing staff. Previous progress note dated 11/21/2021 was copied forward, updated where appropriate, and reflectiveof current medical decision making today, 11/23/2021. Electronically signed by Oh Cobb APRN.ARMAAN documented [facility] this [facility] History of Present illness Narrative* Oh Cobb APRN.ARMAAN - 11/16/2021 1:47 PM EDT Images from the original note were not included. Connected Care Unit Progress Note Patient Name: Savanah Cyr Patient Facility: [facility] Admit Date 11/10/2021 Level of Care: Skilled SNF Attending: Radha Nevarez M.D. Service Date: 11/16/2021 Code Status: Full Code Chief Complaint: Evaluation regarding lab results review and rehabilitation progress. ASSESSMENT AND PLAN (S32.110D) Closed nondisplaced zone I fracture of sacrum with routine healing, subsequent encounter(primary encounter diagnosis) (S22.080D) Compression fracture of T12 vertebra with routine healing, subsequent encounter - 2/2 multiple GLF's - Pain Controlled with Acetaminophen and Oxycodone - Conservative management per orthopedics; no back brace needed (N30.00) Acute cystitis without hematuria - Bactrim Until 11/20/2021 - No fevers, chills, dysuria, or CVA tenderness (I10) Primary hypertension - Continue on Metoprolol and Hydrochlorothiazide - Good control per facility charting - Weekly BMP/CBC (R53.81) Debility - Certify therapies - Maintain high falls risk precautions - pt/staff verbalize understanding validated via teach back - Monitor safety awareness HPI: (Per Dr. Nevarez) Savanah Cyr is being seen today for long-term facility (SNF) admission & managementof Sacral fracture and weakness. This is a 81 year old female who presents from [facility] with primary admitting diagnosis of Sacral fracture from fall. Past medical history is notable for HTN, Intrinsic asthma, GERD, recurrent UTI, anxiety with depression, HLD and debility. History obtained from medical record review as well as PATIENT. Per documentation, pt had a fall and imaging revealed chronic thoracic and lumber spine compressionfractures. It also revealed BL sacral fractures. Ortho spine recommended conservative management. Pt was discharged with pain med and to snf for therapy. Highest Readmission Risk Score 17 11/16/2021 Update Patient visualized sitting up in her bed today. Her is visiting with her. She states her pain has been tolerable with the oxycodone and that therapy has been going well for her. PAST MEDICAL HISTORY Diagnosis Date Abnormal chest x-ray Abnormal EKG Acquired hypothyroidism Acute diarrhea Arthritis Asthma Atrophic vaginitis Blood in feces Chronic colitis Cough Depressive disorder Disorder of peripheral nervous system Diverticula of colon Dyspnea Essential hypertension Fatigue Gastric ulcer Gastroesophageal reflux disease Hemangioma Hiatal hernia History of fall History of osteoporosis History of viral hepatitis, type A Hypercalcemia Hyperlipidemia Hypertension Irritable bowel syndrome Knee pain Malaise and fatigue Migraine Multiple nodules of lung Neck pain Pain in lower limb Pain in lower limb Paresthesia of foot Pneumococcal septicemia(038.2) Postmenopausal state Quadriceps weakness Reduced libido Seborrheic keratosis inflamed Skin tag Snoring Upper respiratory infection Upper respiratory infection Vitamin D deficiency SUBJECTIVE: Review of Systems Constitutional: Negative for appetite change, chills, diaphoresis, fatigue and fever. HENT: Negative. Eyes: Negative. Respiratory: Negative for apnea, chest tightness and shortness of breath. Cardiovascular: Negative for chest pain and leg swelling. Gastrointestinal: Negative for abdominal pain. Endocrine: Negative. Genitourinary: Negative for difficulty urinating and dysuria. Musculoskeletal: Positive for back pain and gait problem. Skin: Negative for color change. Allergic/Immunologic: Negative. Neurological: Positive for weakness. Negative for dizziness and light-headedness. Hematological: Negative. Psychiatric/Behavioral: Negative. No reports of falls/injuries, changes in cognition/behaviors, or any uncontrolled pain exacerbations. Medications: Medications listed in Epic during SNF admission may not be current. Refer to facility record. Patient records, current medications, most recent labs, family/social history (unchanged) Reviewed.Refer to facility records. OBJECTIVE: Labs: 11/14/2021 Glucose=90 Qd=448 K=3.9 Cl=95 CO2=25 BUN=16 Creatinine=0.8 GFR=69 Ca=8.7 WBC=6.0 RBC=4.14 Hgb=13.0 Hct=38.4 Pfocvpjt=758 Vital Signs: BP 119/67 Pulse 68 Temp 36.4 C (97.6 F) Resp 18 Wt 62.3 kg (137 lb 6.4 oz) SpO2 97% BMI23.58 kg/m Physical Exam: Physical Exam Vitals reviewed. Constitutional: General: She is not in acute distress. Appearance: She is not ill-appearing or toxic-appearing. HENT: Head: Normocephalic. Right Ear: External ear normal. Left Ear: External ear normal. Nose: Nose normal. Mouth/Throat: Mouth: Mucous membranes are moist. Pharynx: Oropharynx is clear. Eyes: Extraocular Movements: Extraocular movements intact. Pupils: Pupils are equal, round, and reactive to light. Cardiovascular: Rate and Rhythm: Normal rate and regular rhythm. Pulmonary: Effort: Pulmonary effort is normal. Breath sounds: Normal breath sounds. Abdominal: General: Abdomen is flat. Bowel sounds are normal. Palpations: Abdomen is soft. Musculoskeletal: General: Normal range of motion. Cervical back: Normal range of motion. Right lower leg: No edema. Left lower leg: No edema. Skin: General: Skin is warm and dry. Neurological: Mental Status: She is alert and oriented to person, place, and time. Mental status is at baseline. Motor: Weakness present. Gait: Gait abnormal. Psychiatric: Mood and Affect: Mood normal. POC discussed with appropriate parties and nursing staff. Previous progress note dated 11/13/2021 was copied forward, updated where appropriate, and reflective of current medical decision making today, 11/16/2021. Electronically signed by Oh Cobb APRN.[employer] documented in this encounterBerger Hospital08-30-2022 History and physical note * Radha Nevarez MD - 11/14/2021 8:29 AM EDT Images from the original note were not included. Connected Care Unit History and Physical Facility: [facility] Level of Care: Skilled Admission Date: November 10, 2021 ASSESSMENT/PLAN: 1. Closed nondisplaced zone I fracture of sacrum with routine healing, subsequent encounter - ICD9:V54.17, ICD10: S32.110D (primary diagnosis) Secondary to fall. Conservative treatment with pain control and therapy. PT and OT following. Pt informed of the pain med regimen. 2. Hypertension, well controlled - ICD9: 401.9, ICD10: I10 - good control - Continue current medication(s) - HCTZ and metoprolol - Goal of BP <140/90 Weekly bmp. 3. Anxiety with depression - ICD9: 300.4, ICD10: F41.8 Continue on Paroxetine, Trazodone 4. Intrinsic asthma without status asthmaticus, mild persistent, uncomplicated - ICD9: 493.10, ICD10: J45.30 Mild persistent Asthma stable - Continue current meds - albuterol suflate, fluticasone/vilanterol, montelukast, Ipatropium 5. Vitamin D deficiency - ICD9: 268.9, ICD10: E55.9 Continue on supplement. 6. Debility - ICD9: 799.3, ICD10: R53.81 PT and OT following. Continue on Bactrim for recurrent UTI. Radha Nevarez Prognosis: Rehab potential: Fair I have reviewed the patient's recent hospital course and/or ED visit, including findings from pertinent diagnostic tests, discharge medications, and my assessment and plan with the patient at today svisit, and where applicable, with other persons listed here (None). Patient discussed with nursing staff at facility: Yes Time Based Billing Statement: The majority (>50%) of this visit was spent counseling and/or coordinating care for the patient regarding the above plan. Total time spent [id number] and/or counseling and coordinating care on the skilled care unit for patient was approximately 45 minutes SUBJECTIVE (HISTORY) Chief Complaint: Back pain from fall. Savanah Cyr is being seen today for long-term facility (SNF) admission & managementof Sacral fracture and weakness. HPI: This is a 81 year old female who presents from [facility] with primary admitting diagnosis of Sacralfracture from fall. Past medical history is notable for HTN, Intrinsic asthma, GERD, recurrent UTI,anxiety with depression, HLD and debility. History obtained from medical record review as well as PATIENT. Per documentation, pt had a fall and imaging revealed chronic thoracic and lumber spine compressionfractures. It also revealed BL sacral fractures. Ortho spine recommended conservative management. Pt was discharged with pain med and to snf for therapy. On evaluation today, patient stated that she was initially pushed down by her daughter's dog and landed on her butt. [place] some pain but had another fall at her home with excruciating pain. Pt participating with therapy but complained of pain. Unaware that pain med is ordered as needed. Highest Readmission Risk Score 17 Past Medical History: PAST MEDICAL HISTORY Diagnosis Date Abnormal chest x-ray Abnormal EKG Acquired hypothyroidism Acute diarrhea Arthritis Asthma Atrophic vaginitis Blood in feces Chronic colitis Cough Depressive disorder Disorder of peripheral nervous system Diverticula of colon Dyspnea Essential hypertension Fatigue Gastric ulcer Gastroesophageal reflux disease Hemangioma Hiatal hernia History of fall History of osteoporosis History of viral hepatitis, type A Hypercalcemia Hyperlipidemia Hypertension Irritable bowel syndrome Knee pain Malaise and fatigue Migraine Multiple nodules of lung Neck pain Pain in lower limb Pain in lower limb Paresthesia of foot Pneumococcal septicemia(038.2) Postmenopausal state Quadriceps weakness Reduced libido Seborrheic keratosis inflamed Skin tag Snoring Upper respiratory infection Upper respiratory infection Vitamin D deficiency Past Surgical History: PAST SURGICAL HISTORY Procedure Laterality Date EGD TRANSORAL BIOPSY SINGLE/MULTIPLE 05/12/2020 80% of stomach above diaphram; Dr. Sol EGD WITH BIOPSY(S) 2012 PAST SURGICAL HISTORY OF 2019 Right knee replacement WRIST SURGERY HX Right Fracture repair Family History: FAMILY HISTORY Problem Relation Age of Onset Hypertension Mother Stroke Mother Heart Mother Marital Status: . Social History: Social History Tobacco Use Smoking status: Never Smokeless tobacco: Never Vaping Use Vaping Use: Never used Substance Use Topics Alcohol use: Yes Comment: occasional Drug use: No Pre-Hospital Living Situation: w/spouse. Functional Status: Modified independent +. Social History Social History Narrative Not on file Code Status: Full Code. Hospital Discharge Medications: acetaminophen (TYLENOL) 500 mg tablet Take 2 tablets by mouth every 6 hours for 14 days. senna-docusate (SENNA-S) 8.6-50 mg per tablet Take 1 tablet by mouth twice daily for 7 days. PARoxetine (PAXIL) 30 mg tablet Take 1 tablet by mouth once daily BREO ELLIPTA 100-25 mcg/dose inhaler Inhale 1 puff by mouth once daily metoprolol succinate ER (TOPROL XL) 25 mg 24 hr tablet Take 1 tablet by mouth once daily. albuterol HFA (PROVENTIL HFA, VENTOLIN HFA) 90 mcg/actuation inhaler Inhale 2 Puffs as instructed every 4 hours as needed for wheezing/shortness of breath. lovastatin (MEVACOR) 20 mg tablet TAKE 1 TABLET BY MOUTH ONCE DAILY AT BEDTIME hydroCHLOROthiazide (HYDRODIURIL, ESIDRIX) 25 mg tablet Take 1 tablet by mouth once daily traZODone (DESYREL) 50 mg tablet TAKE 1 TABLET BY MOUTH ONCE DAILY AT BEDTIME omeprazole (PRILOSEC) 20 mg capsule Take 1 capsule by mouth once daily. montelukast (SINGULAIR) 10 mg tablet Take 1 tablet by mouth daily at bedtime. ipratropium bromide (ATROVENT) 42 mcg (0.06 %) nasal spray Use 1 [place] in the nose three times daily. loratadine (ALLERGY RELIEF, LORATADINE,) 10 mg tablet TAKE 1 TABLET BY MOUTH ONCE DAILY guaiFENesin (MUCINEX) 600 mg 12 hr tablet Take 1 tablet by mouth twice daily. multivitamin tablet Take 1 tablet by mouth once daily. Cholecalciferol, Vitamin D3, 1,000 unit cap Take 1,000 Units by mouth once daily. Allergies: ALLERGIES No Known Allergies Review of Systems: Home Oxygent Use: No. Review of Systems Constitutional: Positive for activity change. Negative for appetite change, chills and fever. HENT: Negative for sinus pressure, sinus pain, sore throat and trouble swallowing. Respiratory: Negative for cough, chest tightness, shortness of breath and wheezing. Gastrointestinal: Negative for abdominal pain, constipation, diarrhea, nausea and vomiting. Endocrine: Negative for cold intolerance, heat intolerance and polydipsia. Genitourinary: Negative for dysuria, frequency and urgency. Musculoskeletal: Positive for arthralgias, back pain and gait problem. Neurological: Positive for weakness. Negative for dizziness, light-headedness and headaches. Psychiatric/Behavioral: Negative for agitation and confusion. The patient is not nervous/anxious. OBJECTIVE (EXAMINATION AND DATA) BP 119/71 Pulse 72 Temp 36.4 C (97.6 F) Resp 18 SpO2 97% Room Air Last Wt 11/13/21 : 62.3 kg (137 lb 6.4 oz) 11/10/21 : 64.8 kg (142 lb 13.7 oz) 10/31/21 : 62.1 kg (136 lb 12.8 oz) 10/05/21 : 62.2 kg (137 lb 3.2 oz) Physical Exam Vitals reviewed. Constitutional: General: She is not in acute distress. HENT: Mouth/Throat: Mouth: Mucous membranes are moist. Pharynx: No oropharyngeal exudate or posterior oropharyngeal erythema. Cardiovascular: Rate and Rhythm: Normal rate and regular rhythm. Pulses: Normal pulses. Heart sounds: Normal heart sounds. Pulmonary: Effort: Pulmonary effort is normal. No respiratory distress. Breath sounds: Normal breath sounds. No wheezing. Abdominal: General: Abdomen is flat. Bowel sounds are normal. There is no distension. Palpations: Abdomen is soft. Tenderness: There is no abdominal tenderness. Musculoskeletal: General: Tenderness present. No swelling. Right lower leg: No edema. Left lower leg: No edema. Skin: General: Skin is warm and dry. Coloration: Skin is not pale. Findings: No erythema. Neurological: Mental Status: She is alert and oriented to person, place, and time. Motor: Weakness present. Gait: Gait abnormal. Psychiatric: Mood and Affect: Mood normal. Behavior: Behavior normal. Thought Content: Thought content normal. Pertinent Labs and Imaging Results: CBC: Hemoglobin (g/dL) Date Value 11/10/2021 12.0 HGB (g/dL) Date Value 10/08/2019 13.2 Hematocrit (%) Date Value 11/10/2021 37.2 10/08/2019 41.6 WBC Date Value 11/10/2021 6.21 k/uL 10/08/2019 6.71 thou/cmm BMP: Glucose (mg/dL) Date Value 11/10/2021 91 10/08/2019 93 Potassium (mmol/L) Date Value 11/10/2021 3.7 10/08/2019 4.2 Sodium (mmol/L) Date Value 11/10/2021 138 10/08/2019 143 Chloride (mmol/L) Date Value 11/10/2021 101 10/08/2019 103 CO2 (mmol/L) Date Value 11/10/2021 26 10/08/2019 29 Creatinine (mg/dL) Date Value 11/10/2021 0.59 10/08/2019 0.74 BUN (mg/dL) Date Value 11/10/2021 11 10/08/2019 13 Anion Gap (mmol/L) Date Value 11/10/2021 11 10/08/2019 11 Calcium (mg/dL) Date Value 10/08/2019 9.6 Calcium, Total (mg/dL) Date Value 11/10/2021 8.8 No results found for: HBA1C No results found for: TSH Vitamin D 25 Hydroxy (ng/mL) Date Value 11/06/2021 36.8 ] Diagnostic tests reviewed: Most recent labs and imaging results. SIGNATURE: Radha Nevarez MD PATIENT : Savanah Cyr DATE: November 14, 2021 TIME: 8:29 AM Provider Coverage: Weekdays 5PM to 8AM, Weekends, & Holidays, page nurse practitioner personal banker. Use subscriber ID: [email or web address] at website: [email or web address] documented in this encounterBerger Hospital08-29-2022 History of Present illness Narrative* Oh Cobb APRN.[employer] - 11/13/2021 4:43 PM EDT Images from the original note were not included. Connected Care Unit Progress Note Patient Name: Savanah Cyr Patient Facility: [facility] Admit Date 11/10/2021 Level of Care: Skilled SNF Attending: Radha Nevarez M.D. Service Date: 11/13/2021 Code Status: Full Code Chief Complaint: Evaluation regarding recent inpatient stay for debility and falls. ASSESSMENT AND PLAN (S32.110D) Closed nondisplaced zone I fracture of sacrum with routine healing, subsequent encounter(primary encounter diagnosis) (S22.080D) Compression fracture of T12 vertebra with routine healing, subsequent encounter - 2/2 multiple GLF's - Pain Controlled with Acetaminophen and Oxycodone - Conservative management per orthopedics; no back brace needed (G95.9) Myelopathy (HCC) - Chronic fractures and stenosis noted per MRI - Following with Orthopedics - Acetaminophen and Oxycodone for Pain (I10) Primary hypertension - Continue on Metoprolol and Hydrochlorothiazide - Good control per facility charting - Weekly BMP/CBC (N30.00) Acute cystitis without hematuria - Bactrim Until 11/20/2021 - No fevers, chills, dysuria, or CVA tenderness (J45.30) Intrinsic asthma without status asthmaticus, mild persistent, uncomplicated - Continue on Breo Ellipta, Albuterol, Montelukast, and Ipratropium - Stable; no chest tightness or shortness of breath; on room air (E55.9) Vitamin D deficiency - Continue daily vitamin d supplement (R53.81) Debility (R29.6) Frequent falls - Certify therapies - Maintain high falls risk precautions - pt/staff verbalize understanding validated via teach back - Monitor safety awareness HPI: (Per Simón Casillas PA-C) Patient was evaluated in the ED on 11/06/2021 after 2 recent mechanical ground level falls. As a part of her trauma workup, she would have CT scans completed of her brain, cervical spine, chest, abdomen, pelvis, thoracic spine, and lumbar spine. She also had a MRI of her thoracic spine done. These imaging studies would show that she had acute bilateral sacral fractures as well as chronic thoracic and lumbar spine compression fractures. Orthopedic surgery and ortho- spine surgery were both consulted to help manage her injuries. These injuries were treated conservatively with non-operative management. She did not require a back brace. She was given as needed pain medication. She was evaluated by the physical and occupational therapy teams who recommended acute rehab at her time of discharge. However patient elected to proceed with SNF placement instead. She was deemed medically stable for discharge to a SNF by the attending trauma surgeon on 11/10/2021. Patient will need to follow up with orthopedic surgery, ortho-spine surgery, and her primary care provider after hospital discharge. Patient will need to see her PCP to discuss the following listed incidental findings seen on her CTimaging: Incidentals: 1. Mild to moderate nonspecific thickening of sigmoid colon is nonspecific in setting of underdistention. Extensive colonic diverticulosis. No evidence of intra-abdominal free air 2. Large hiatal hernia containing entire stomach and multiple bowel loops. Nonspecific thickening of the herniated stomach. 3. Ascending thoracic aortic aneurysm, without evidence of acute aortic injury on this noncontrast examination. 4. Enlarged main pulmonary artery suggestive of chronic pulmonary hypertension. 5. Chronic thoracic and lumbar compression fractures 11/13/2021 Update Patient visualized sitting up in her bed today. She is A&Ox3. She states she feels well today and that her back pain is tolerable on her current pain medication regimen. No concerns noted per patient and staff. PAST MEDICAL HISTORY Diagnosis Date Abnormal chest x-ray Abnormal EKG Acquired hypothyroidism Acute diarrhea Arthritis Asthma Atrophic vaginitis Blood in feces Chronic colitis Cough Depressive disorder Disorder of peripheral nervous system Diverticula of colon Dyspnea Essential hypertension Fatigue Gastric ulcer Gastroesophageal reflux disease Hemangioma Hiatal hernia History of fall History of osteoporosis History of viral hepatitis, type A Hypercalcemia Hyperlipidemia Hypertension Irritable bowel syndrome Knee pain Malaise and fatigue Migraine Multiple nodules of lung Neck pain Pain in lower limb Pain in lower limb Paresthesia of foot Pneumococcal septicemia(038.2) Postmenopausal state Quadriceps weakness Reduced libido Seborrheic keratosis inflamed Skin tag Snoring Upper respiratory infection Upper respiratory infection Vitamin D deficiency SUBJECTIVE: Review of Systems Constitutional: Negative for appetite change, chills, diaphoresis, fatigue and fever. HENT: Negative. Eyes: Negative. Respiratory: Negative for apnea, chest tightness and shortness of breath. Cardiovascular: Negative for chest pain and leg swelling. Gastrointestinal: Negative for abdominal pain. Endocrine: Negative. Genitourinary: Negative for difficulty urinating and dysuria. Musculoskeletal: Positive for back pain and gait problem. Skin: Negative for color change. Allergic/Immunologic: Negative. Neurological: Positive for weakness. Negative for dizziness and light-headedness. Hematological: Negative. Psychiatric/Behavioral: Negative. No reports of falls/injuries, changes in cognition/behaviors, or any uncontrolled pain exacerbations. Medications: Medications listed in Epic during SNF admission may not be current. Refer to facility record. Patient records, current medications, most recent labs, family/social history (unchanged) Reviewed.Refer to facility records. OBJECTIVE: Vital Signs: BP 111/70 Pulse 79 Temp 36.7 C (98 F) Resp 18 Ht 162.6 cm (5' 4) Wt 62.3 kg (137 lb 6.4 oz) SpO2 96% BMI 23.58 kg/m Physical Exam: Physical Exam Vitals reviewed. Constitutional: General: She is not in acute distress. Appearance: She is not ill-appearing or toxic-appearing. HENT: Head: Normocephalic. Right Ear: External ear normal. Left Ear: External ear normal. Nose: Nose normal. Mouth/Throat: Mouth: Mucous membranes are moist. Pharynx: Oropharynx is clear. Eyes: Extraocular Movements: Extraocular movements intact. Pupils: Pupils are equal, round, and reactive to light. Cardiovascular: Rate and Rhythm: Normal rate and regular rhythm. Pulmonary: Effort: Pulmonary effort is normal. Breath sounds: Normal breath sounds. Abdominal: General: Abdomen is flat. Bowel sounds are normal. Palpations: Abdomen is soft. Musculoskeletal: General: Normal range of motion. Cervical back: Normal range of motion. Right lower leg: No edema. Left lower leg: No edema. Skin: General: Skin is warm and dry. Neurological: Mental Status: She is alert and oriented to person, place, and time. Mental status is at baseline. Motor: Weakness present. Gait: Gait abnormal. Psychiatric: Mood and Affect: Mood normal. POC discussed with appropriate parties and nursing staff. Electronically signed by Oh Cobb APRN.[employer] documented in this encounterBerger Hospital08-29-2022 History of Present illness Narrative* Richard Heredia RN - 11/13/2021 8:46 AM EDT TRANSITION CARE MANAGEMENT (TCM) DISCHARGE TO POST ACUTE FACILITY POST ACUTE TRANSFER SUMMARY: -Pt discharged from [facility] on 11/10/2021. -Post Acute Facility Admitted to [facility] -Admitted for: Sacral back pain Patient added to [facility]. PCC to follow. Richard Heredia RN November 13, 2021 8:51 AM documented in this encounterBerger Hospital07-21-2022 History of Present illness Narrative* Sarah Fernandez DO - 10/05/2021 11:20 AM EDT This note was created using NoteWriter. Subjective Savanah Cyr is a 81 year old female. HPI Pt presents today for UTI concerns A week in duration Mild flank pain, however believes this is likely chronic back pain Hx of back injury Very mild left pelvic pain Yes to frequency, dysuria, and urgency Broke out in hives with bactrim Culture in 07/2021 showed 50-100k proteus No fevers Objective BP 147/71 Pulse 71 Temp 36.6 C (97.9 F) (Temporal) Resp 16 Wt 137 lb 3.2 oz (62.2 kg) SpO2 94% BMI 23.55 kg/m Physical Exam Constitutional: General: She is not in acute distress. Appearance: Normal appearance. HENT: Head: Normocephalic and atraumatic. Cardiovascular: Rate and Rhythm: Normal rate and regular rhythm. Pulmonary: Effort: Pulmonary effort is normal. No respiratory distress. Breath sounds: Normal breath sounds. Abdominal: General: Abdomen is flat. Palpations: Abdomen is soft. Tenderness: There is no abdominal tenderness. There is no right CVA tenderness or left CVA tenderness. Skin: General: Skin is warm. Neurological: General: No focal deficit present. Mental Status: She is alert. Psychiatric: Mood and Affect: Mood normal. Assessment and Plan ASSESSMENT/PLAN: 1. Dysuria - ICD9: 788.1, ICD10: R30.0 - udip showed moderate Hg, large leuks, no nitrites. Will treat with keflex as patient states previously had hives with bactrim. Will send sample for culture. Able to repeat UA after dysuria resolvesto monitor for hematuria. - CEPHALEXIN 500 MG CAPSULE - URINE CULTURE - URINALYSIS, WITH MICROSCOPIC Sarah Fernandez DO PGY3 documented in this encounterBerger Hospital06-24-2022 Miscellaneous Notes* Telephone Encounter - Hien Zuniga LPN - 09/08/2021 1:19 PM EDT Telephone call received from patient requesting chest xray results. Informed patient of results andPCP recommendations. Patient understood, no further questions or concerns at this time. documented in this encounterBerger Hospital06-20-2022 Miscellaneous Notes* [facility] - RT Nikki(Rosie) - 09/04/2021 2:40 PM EDT Radiology Service Progress Note PATIENT NAME: Savanah Cyr DATE OF SERVICE: September 04, 2021 TIME: 3:04 PM PATIENT IDENTITY VERIFICATION COMPLETED USING TWO (2) IDENTIFIERS: Name and Date of confirmedby patient verbally and Name and Date of confirmed by identification band. FALL SCREENING: Has the patient had 2 falls in the last year or 1 fall with injury or currently using an Ambulatory Assistive Device (Walker, Cane, Wheelchair, Crutches, etc.)? No PATIENT GENDER DATA: Female. status: : No status: NO. PATIENT RELEVANT IMPLANT DATA REVIEWED: Not Applicable RADIOLOGY DEPARTMENT: General X-ray: Exam(s) Completed: Chest X-Ray PERIPHERAL IV DATA: Not applicable SIGNED BY: RT Nikki(R) September 04, 2021 3:04 PM documented in this encounterBerger Hospital06-20-2022 History of Present illness Narrative* Jordyn Carlson PA-C - 09/04/2021 2:15 PM EDT Images from the original note were not included. Jordyn Carlson PAC [facility] [address] [place] [address] [facility] / [address] [place] [address] Visit Date: September 04, 2021 Name: Savanah Cyr Date of : 1940 MRN/E #: [id number] Chief Complaint: Cough Subjective HPI Savanah Cyr is a 81 year old female here with the following complaint(s): Cough States its been off and on for 2 and half years. Negative chest xrays and CT scans in past. Now for 2-3 weeks with green productive cough/phlegm. Prior to this has been a dry cough. in room and is upset that nobody has never figured it out. Saw Dr. Paige with pulmonology, was placed on multiple things including prednisone and nothing provided relief. No fever, chills, weight loss. Currently using Breo and Albuterol. States cough started in 2019 . She states her and her did have COVID. Review of Systems Constitutional: Negative for activity change, appetite change, chills, fatigue, fever and unexpected weight change. HENT: Negative for congestion, ear pain, facial swelling, hearing loss, sinus pressure, sinus pain,sneezing and trouble swallowing. Eyes: Negative for photophobia, pain and visual disturbance. Respiratory: Positive for cough. Negative for apnea, choking, shortness of breath and wheezing. Cardiovascular: Negative for chest pain, palpitations and leg swelling. Gastrointestinal: Negative for abdominal distention, abdominal pain, blood in stool, constipation, diarrhea, nausea and rectal pain. Endocrine: Negative for polydipsia and polyuria. Genitourinary: Negative for difficulty urinating, dysuria, flank pain, frequency, hematuria and urgency. Musculoskeletal: Negative for arthralgias, back pain, gait problem, joint swelling and neck pain. Skin: Negative for rash. Allergic/Immunologic: Negative for immunocompromised state. Neurological: Negative for dizziness, tremors, seizures, speech difficulty, weakness and headaches. Hematological: Does not bruise/bleed easily. Psychiatric/Behavioral: Negative for agitation, confusion, decreased concentration, hallucinations and sleep disturbance. The patient is not nervous/anxious and is not hyperactive. Social History Tobacco Use Smoking status: Never Smoker Smokeless tobacco: Never Used Vaping Use Vaping Use: Never used Substance Use Topics Alcohol use: Yes Comment: occasional Drug use: No ALLERGIES No Known Allergies Current Outpatient Medications Medication Sig BREO ELLIPTA 100-25 mcg/dose inhaler Inhale 1 puff by mouth once daily albuterol HFA (PROVENTIL HFA, VENTOLIN HFA) 90 mcg/actuation inhaler Inhale 2 Puffs as instructed every 4 hours as needed for wheezing/shortness of breath. lovastatin (MEVACOR) 20 mg tablet TAKE 1 TABLET BY MOUTH ONCE DAILY AT BEDTIME metoprolol succinate ER (TOPROL XL) 25 mg 24 hr tablet Take 1 tablet by mouth once daily hydroCHLOROthiazide (HYDRODIURIL, ESIDRIX) 25 mg tablet Take 1 tablet by mouth once daily traZODone (DESYREL) 50 mg tablet TAKE 1 TABLET BY MOUTH ONCE DAILY AT BEDTIME PARoxetine (PAXIL) 30 mg tablet Take 1 tablet by mouth once daily. omeprazole (PRILOSEC) 20 mg capsule Take 1 capsule by mouth once daily. ipratropium bromide (ATROVENT) 42 mcg (0.06 %) nasal spray Use 1 [place] in the nose three times daily. loratadine (ALLERGY RELIEF, LORATADINE,) 10 mg tablet TAKE 1 TABLET BY MOUTH ONCE DAILY guaiFENesin (MUCINEX) 600 mg 12 hr tablet Take 1 tablet by mouth twice daily. multivitamin tablet Take 1 tablet by mouth once daily. Cholecalciferol, Vitamin D3, 1,000 unit cap Take 1,000 Units by mouth once daily. predniSONE (DELTASONE) 20 mg tablet Take 2 tablets by mouth once daily. (Patient not taking: Reported on 09/04/2021 ) montelukast (SINGULAIR) 10 mg tablet Take 1 tablet by mouth daily at bedtime. (Patient not taking: Reported on 09/04/2021 ) No current facility-administered medications for this visit. In terms of Health Maintenance, we discussed: SPIROMETRY Never done DTAP,TDAP,TD(1 - Tdap) Never done SHINGRIX VACCINE(1 of 2) Never done ADVANCE DIRECTIVE DISCUSSION Never done Please see social determinants section of patients chart for updated social history Previous office notes, Lab,imaging, and microbiology results reviewed. I have confirmed and edited as necessary the chief complaint, medications, past medical, family andsocial histories. Objective 09/04/21 1402 BP: 126/74 Pulse: 62 Temp: 36.6 C (97.8 F) Weight: 138 lb (62.6 kg) Height: 5' 4 (1.626 m) Body mass index is 23.69 kg/m . Physical Exam Vitals reviewed. Constitutional: General: She is not in acute distress. Appearance: She is not diaphoretic. HENT: Head: Normocephalic and atraumatic. Mouth/Throat: Pharynx: No oropharyngeal exudate. Eyes: Conjunctiva/sclera: Conjunctivae normal. Pupils: Pupils are equal, round, and reactive to light. Neck: Thyroid: No thyromegaly. Trachea: No tracheal deviation. Cardiovascular: Rate and Rhythm: Normal rate and regular rhythm. Heart sounds: Normal heart sounds. No murmur heard. No friction rub. No gallop. Pulmonary: Effort: Pulmonary effort is normal. No respiratory distress. Breath sounds: Normal breath sounds. No wheezing. Abdominal: General: Bowel sounds are normal. There is no distension. Palpations: Abdomen is soft. Tenderness: There is no abdominal tenderness. Musculoskeletal: General: No tenderness or deformity. Normal range of motion. Cervical back: Normal range of motion and neck supple. Skin: General: Skin is warm and dry. Findings: No rash. Neurological: Mental Status: She is alert and oriented to person, place, and time. Cranial Nerves: No cranial nerve deficit. Coordination: Coordination normal. Psychiatric: Mood and Affect: Affect normal. Results for orders placed or performed in visit on 07/25/21 URINE CULTURE Specimen: URINE-MIDSTREAM CLEAN CATCH; Urine Random Result Value Ref Range Culture, Urine 50,000-<100,000 CFU/ml Proteus species (A) Culture, Urine (A) 1,000 - <5,000 CFU/ml Lactose fermenting gram negative rods Plan and Recommendations: Encounter Diagnosis ICD-10-CM 1. Cough X 2 years. Has seen pulmonary medicine in past. No relief from any tx. Imagine negative. Will repeat chest xray and refer back to pulm. Most likely post COVID vs related to hernia? Will have pulm evaluated. R05.9 XR CHEST 2V FRONTAL/LAT CONSULT TO PULMONARY MEDICINE I spent a total of 30 minutes on the date of the service which included preparing to see the patient, [id number] patient care, completing clinical documentation, performing a medically appropriate examination, counseling and educating the patient/family/caregiver and ordering medications, tests, or procedures. Discussed the above with the patient using shared decision-making. The patient is in agreement with the diagnostic and treatment plans. Return if symptoms worsen or fail to improve. Provider: Jordyn Carlson PA-C documented in this encounterBerger Hospital05-10-2022 Miscellaneous Notes* Addendum Note - Maggi Bailey DO - 07/25/2021 4:13 PM EDT Addended by: MAGGI BAILEY on: 07/25/2021 04:13 PM Modules accepted: Orders documented in this encounterBerger Hospital05-10-2022 History of Present illness Narrative* Kalia Humphries MD - 07/25/2021 3:59 PM EDT Attending Note I discussed the patient with the resident at the time of the visit, and agree with assessment and plan. I participated in the medical decision making during this visit. I did not personally see the patient. I confirm the diagnosis of Acute cystitis without hematuria (primary encounter diagnosis) and agree with the resident's plan of care, except as noted below. See resident's note for further details. Slide, unspun, reviewed under the scope, loaded with wbc. Kalia Humphries MD * Maggi Bailey DO - 07/25/2021 3:20 PM EDT [facility] Encounter Date: 07/24/2021 Chief Complaint: Dysuria Savanah Cyr is a 81 year old female presenting for: 1. UTI concern - Having dysuria and frequency, started 1 week ago - Last had a UTI about 1 year ago, feels similar - Mild abdominal pain, no fever or vomiting - Ly have hx stress incontinence and atrophic vaginitis Review of Systems Constitutional: Negative for fever. Gastrointestinal: Positive for abdominal pain. Negative for vomiting. Genitourinary: Positive for dysuria, frequency and urgency. Negative for hematuria. PAST MEDICAL HISTORY Diagnosis Date Abnormal chest x-ray Abnormal EKG Acquired hypothyroidism Acute diarrhea Arthritis Asthma Atrophic vaginitis Blood in feces Chronic colitis Cough Depressive disorder Disorder of peripheral nervous system Diverticula of colon Dyspnea Essential hypertension Fatigue Gastric ulcer Gastroesophageal reflux disease Hemangioma Hiatal hernia History of fall History of osteoporosis History of viral hepatitis, type A Hypercalcemia Hyperlipidemia Hypertension Irritable bowel syndrome Knee pain Malaise and fatigue Migraine Multiple nodules of lung Neck pain Pain in lower limb Pain in lower limb Paresthesia of foot Pneumococcal septicemia(038.2) Postmenopausal state Quadriceps weakness Reduced libido Seborrheic keratosis inflamed Skin tag Snoring Upper respiratory infection Upper respiratory infection Vitamin D deficiency ALLERGIES No Known Allergies Current Outpatient Medications on File Prior to Visit Medication Sig albuterol HFA (PROVENTIL HFA, VENTOLIN HFA) 90 mcg/actuation inhaler Inhale 2 Puffs as instructed every 4 hours as needed for wheezing/shortness of breath. predniSONE (DELTASONE) 20 mg tablet Take 2 tablets by mouth once daily. lovastatin (MEVACOR) 20 mg tablet TAKE 1 TABLET BY MOUTH ONCE DAILY AT BEDTIME metoprolol succinate ER (TOPROL XL) 25 mg 24 hr tablet Take 1 tablet by mouth once daily hydroCHLOROthiazide (HYDRODIURIL, ESIDRIX) 25 mg tablet Take 1 tablet by mouth once daily traZODone (DESYREL) 50 mg tablet TAKE 1 TABLET BY MOUTH ONCE DAILY AT BEDTIME PARoxetine (PAXIL) 30 mg tablet Take 1 tablet by mouth once daily. BREO ELLIPTA 100-25 mcg/dose inhaler Inhale 1 puff by mouth once daily omeprazole (PRILOSEC) 20 mg capsule Take 1 capsule by mouth once daily. montelukast (SINGULAIR) 10 mg tablet Take 1 tablet by mouth daily at bedtime. ipratropium bromide (ATROVENT) 42 mcg (0.06 %) nasal spray Use 1 [place] in the nose three times daily. loratadine (ALLERGY RELIEF, LORATADINE,) 10 mg tablet TAKE 1 TABLET BY MOUTH ONCE DAILY guaiFENesin (MUCINEX) 600 mg 12 hr tablet Take 1 tablet by mouth twice daily. multivitamin tablet Take 1 tablet by mouth once daily. Cholecalciferol, Vitamin D3, 1,000 unit cap Take 1,000 Units by mouth once daily. No current facility-administered medications on file prior to visit. Social History Tobacco Use Smoking status: Never Smoker Smokeless tobacco: Never Used Vaping Use Vaping Use: Never used Substance Use Topics Alcohol use: Yes Comment: occasional Drug use: No OBJECTIVE: Vital Signs: BP 108/67 Pulse 75 Temp 36.7 C (98 F) (Temporal) Resp 22 Ht 5' 4 (1.626 m) Wt 137 lb (62.1 kg) SpO2 97% BMI 23.52 kg/m Physical Exam Constitutional: General: She is not in acute distress. Appearance: She is not diaphoretic. HENT: Head: Normocephalic and atraumatic. Cardiovascular: Rate and Rhythm: Normal rate and regular rhythm. Pulmonary: Effort: Pulmonary effort is normal. Breath sounds: Normal breath sounds. Musculoskeletal: General: Normal range of motion. Cervical back: Normal range of motion. Neurological: Mental Status: She is alert and oriented to person, place, and time. Psychiatric: Mood and Affect: Mood normal. ASSESSMENT/PLAN: 1. Acute cystitis without hematuria - ICD9: 595.0, ICD10: N30.00 - Not enough urine for UA; however looked at urine with microscopy and there were abundant WBCs - Will treat for UTI + send remaining urine for culture if possible - SULFAMETHOXAZOLE 800 MG-TRIMETHOPRIM 160 MG TABLET - URINE CULTURE Maggi Bailey DO documented in this encounterBerger Hospital04-27-2022 Miscellaneous Notes* Telephone Encounter - Tammi Alfaro LPN - 07/12/2021 1:14 PM EDT Patient requesting the following refill Pending Prescriptions Disp Refills ALBUTEROL SULFATE HFA 90 MCG/ACTUATION AEROSOL INHALER 1 Inhaler 0 Sig: Inhale 2 Puffs as instructed every 4 hours as needed for wheezing/shortness of breath. LOS: No Allergies: Patient has no known allergies. (home) [phone] (cell) Last Visit date: 07/10/21 Future appointment: none The patients preferred pharmacy has been captured for this encounter? yes Request is for script(s) to be escript to pharmacy. Tammi Alfaro LPN documented in this encounterBerger Hospital04-25-2022 History of Present illness Narrative* RT Uriah(R) - 07/10/2021 2:45 PM EDT Radiology Service Progress Note PATIENT NAME: Savanah Cyr DATE OF SERVICE: July 10, 2021 TIME: 2:44 PM PATIENT IDENTITY VERIFICATION COMPLETED USING TWO (2) IDENTIFIERS: Name and Date of confirmedby patient verbally. FALL SCREENING: Has the patient had 2 falls in the last year or 1 fall with injury or currently using an Ambulatory Assistive Device (Walker, Cane, Wheelchair, Crutches, etc.)? No PATIENT GENDER DATA: Female. status: : No status: NO. PATIENT RELEVANT IMPLANT DATA REVIEWED: Not Applicable RADIOLOGY DEPARTMENT: General X-ray: Exam(s) Completed: Chest X-Ray PERIPHERAL IV DATA: Not applicable SIGNED BY: RT Uriah(R) July 10, 2021 2:44 PM documented in this encounterBer[facility] HospitalEvalusaint [facility]* Diagnosis URI, acute Acute upper respiratory infections of unspecified site [facility]* Diagnosis URI, acute Acute upper respiratory infections of unspecified site Wheezing Mild intermittent asthma with acute exacerbation Unspecified asthma, with exacerbation documented in this encounter [facility] note* Diagnosis Acute cystitis without hematuria- Primary Acute cystitis [facility]* Diagnosis Dyspnea and respiratory abnormalities Other dyspnea and respiratory abnormality [facility]* Diagnosis Dyspnea and respiratory abnormalities Other dyspnea and respiratory abnormality [facility]* Diagnosis Cough- Primary [facility]* Diagnosis Cough documented [facility]* Diagnosis Dysuria- Primary [facility]* Diagnosis Closed nondisplaced zone I fracture of sacrum with routine healing, subsequent encounter- Primary Compression fracture of T12 vertebra with routine healing, subsequent encounter Myelopathy (HCC) Unspecified disease of spinal cord Primary hypertension Unspecified essential hypertension Acute cystitis without hematuria Acute cystitis Intrinsic asthma without status asthmaticus, mild persistent, uncomplicated Vitamin D deficiency Unspecified vitamin D deficiency Debility Debility, unspecified Frequent falls Personal history of fall documented [facility] this encounter [facility]* Diagnosis Closed nondisplaced zone I fracture of sacrum with routine healing, subsequent encounter- Primary Hypertension, well controlled Unspecified essential hypertension Anxiety with depression Intrinsic asthma without status asthmaticus, mild persistent, uncomplicated Vitamin D deficiency Unspecified vitamin D deficiency Debility Debility, unspecified [facility]* Diagnosis Closed nondisplaced zone I fracture of sacrum with routine healing, subsequent encounter- Primary Compression fracture of T12 vertebra with routine healing, subsequent encounter Acute cystitis without hematuria Acute cystitis Primary hypertension Unspecified essential hypertension Debility Debility, unspecified [facility]* Diagnosis URI, acute Acute upper respiratory infections of unspecified site Wheezing Mild intermittent asthma with acute exacerbation Unspecified asthma, with exacerbation [facility] Diagnosis Closed nondisplaced zone I fracture of sacrum with routine healing, subsequent encounter- Primary Compression fracture of T12 vertebra with routine healing, subsequent encounter Primary hypertension Unspecified essential hypertension Debility Debility, unspecified [facility]* Diagnosis Closed nondisplaced zone I fracture of sacrum with routine healing, subsequent encounter- Primary Compression fracture of T12 vertebra with routine healing, subsequent encounter Primary hypertension Unspecified essential hypertension Hypertension, well controlled Unspecified essential hypertension Intrinsic asthma without status asthmaticus, mild persistent, uncomplicated Debility Debility, unspecified [facility]* Diagnosis Dyspnea and respiratory abnormalities Other dyspnea and respiratory abnormality documented in this encounter [facility] note* Diagnosis Loose stools- Primary Abnormal feces documented in this encounter [facility] note* Diagnosis Hypertension, essential Unspecified essential hypertension Dyspnea and respiratory abnormalities Other dyspnea and respiratory abnormality documented in this encounter [facility]* Diagnosis Hyperlipidemia, mixed Mixed hyperlipidemia documented in this encounter [facility]* Diagnosis Chronic insomnia Insomnia, unspecified documented in this encounter [facility]* Diagnosis Concentric left ventricular hypertrophy documented in this encounter [facility]* Diagnosis Chronic cough- Primary Cough Dyspnea and respiratory abnormalities Other dyspnea and respiratory abnormality documented in this encounter [facility]* Diagnosis Chronic cough Cough Cyst, sinus nasal Other diseases of nasal cavity and sinuses Loose stools Abnormal feces Memory deficit Memory loss documented in this encounter [facility]* Diagnosis Pleuritic chest pain Painful respiration documented in this encounter [facility] note* Diagnosis Postnasal drip- Primary Chronic cough Cough Pleuritic chest pain Painful respiration documented in this encounter [facility] note* Diagnosis Chronic cough Cough documented in this encounter [facility] note* Diagnosis Acute cystitis with hematuria- Primary Acute cystitis Urinary symptom or sign Other symptoms involving urinary system documented in this encounter [facility] note* Diagnosis Chronic cough Cough documented in this encounter [facility] note* Diagnosis Dyspnea and respiratory abnormalities Other dyspnea and respiratory abnormality documented in this encounter [facility] note* Diagnosis Allergic rhinitis, unspecified seasonality, unspecified trigger- Primary Chronic cough Cough Post-nasal drip Postnasal drip Hiatal hernia Diaphragmatic hernia without mention of obstruction or gangrene documented [facility] note* Diagnosis Acute UTI- Primary Urinary tract infection, site not specified Proteinuria, unspecified type documented in this encounter [facility] note* Diagnosis Dyspnea and respiratory abnormalities Other dyspnea and respiratory abnormality documented in this encounter [facility] note* Diagnosis Dysuria- Primary documented in this encounter [facility] note* Diagnosis Dysuria- Primary Acute cystitis with hematuria documented in this encounter [facility] note* Diagnosis Dyspnea and respiratory abnormalities Other dyspnea and respiratory abnormality documented in this encounter [facility] note* Diagnosis Chronic cough- Primary Cough Moderate persistent asthma without complication Hiatal hernia Diaphragmatic hernia without mention of obstruction or gangrene documented in this encounter [facility] note* Diagnosis Chronic cough Cough documented in this encounter [facility] note* Diagnosis Chronic cough Cough Moderate persistent asthma without complication documented in this encounter [facility] note* Diagnosis Chronic cough- Primary Cough Moderate persistent asthma without complication Hiatal hernia Diaphragmatic hernia without mention of obstruction or gangrene Chronic rhinitis documented in this encounter [facility] note* Diagnosis Encounter for medical examination to establish care- Primary Chronic cough Cough Hiatal hernia Diaphragmatic hernia without mention of obstruction or gangrene Anxiety with depression Chronic insomnia Insomnia, unspecified Hypertension, essential Unspecified essential hypertension Hyperlipidemia, mixed Mixed hyperlipidemia Vitamin D deficiency Unspecified vitamin D deficiency Age related osteoporosis, unspecified pathological fracture presence Irritable bowel syndrome with diarrhea Irritable bowel syndrome documented in this encounter [facility] note* Diagnosis Cauda equina syndrome (HCC)- Primary Cauda equina syndrome without mention of neurogenic bladder documented in this encounter [facility] note* Diagnosis Asymptomatic menopausal state- Primary documented in this encounter [facility] note* Diagnosis Compression fracture of T12 vertebra, initial encounter ([facility])- Primary Closed compression fracture of L2 lumbar vertebra, initial encounter ([facility]) Lumbar back pain Lumbago documented in this encounter [facility] note* Diagnosis Chronic cough- Primary Cough Moderate persistent asthma without complication Chronic rhinitis documented in this encounter [facility] note* Diagnosis Rib pain on left side Chest pain, unspecified documented in this encounter [facility] note* Diagnosis Rib pain on left side- Primary Chest pain, unspecified Breast pain, left Mastodynia Pain associated with left breast implant Hypertension, essential Unspecified essential hypertension Hyperlipidemia, mixed Mixed hyperlipidemia Chronic cough Cough documented in this encounter [facility] note* Diagnosis Chronic bilateral low back pain without sciatica- Primary documented in this encounter [facility] note* Diagnosis Onset Date Resolution Status Admit Date Diarrhea acute November 1:55pm [facility] Work Phone: Hospital course Narrative No data available for this section [facility] Instructions* Attachments The following attachments cannot be sent through Care Everywhere. * Urinary Tract Infection Discharge Instructions, Adult ([place]) [facility] Attachments The following attachments cannot be sent through Care Everywhere. * Acute Cystitis Discharge Instructions (Sudanese) * Sulfamethoxazole and Trimethoprim, ADULT (Sudanese) documented in this [facility] for referral (narrative)* Consultation (Routine) - Pending Review Specialty Diagnoses / Procedures Referred By Contac t Referred To Contact Urology Diagnoses Acute cystitis with hematuria Procedures PA OFFICE/OUTPATIENT NEW HIGH MDM 60-74 MINUTES Clari Gilmore NP [address] [place] [address] [place] [address] [facility] [address] [place] [address] Referral ID Status Reason Start Date Expiration Date Visits Requested Visits Authorized [id number] Pending Review Specialty Services Required 11/28/2022 11/28/2023 1 1 [facility] for referral (narrative)* Diagnostic Procedure Only (Routine) - Closed Specialty Diagnoses / Procedures Referred By Contac t Referred To Contact XR IMAGING Diagnoses Rib pain on left side Procedures XR RIBS/CHEST 3V AP RIB/OBLS/CXR LEFT RADEX RIBS UNI W/POSTEROANT CH MINIMUM 3 VIEWS Dustin Arboleda PA-C [address] [place] [address] [place] [address] Referral ID Status Reason Start Date Expiration Date V isits Requested Visits Authorized [id number] Closed Auto-Generate d Referral 11/19/2023 12/18/2024 1 1 [facility] for referral (narrative)* Diagnostic Procedure Only (Routine) - New Request Specialty Diagnoses / Procedures Referred By Contac t Referred To Contact BR IMAGING Diagnoses Breast pain, left Pain associated with left breast implant Procedures US BREAST LTD LEFT US BREAST UNI REAL TIME WITH IMAGE LIMITED Dustin Arboleda PA-C [address] [place] [address] [facility] [address] [place] [address] Referral ID Status Reason Start Date Expiration Date Visits Requested Visits Authorized [id number] New Request Auto-Generat ed Referral 11/19/2023 12/18/2024 1 1 * Diagnostic Procedure Only (Routine) - Closed Specialty Diagnoses / Procedures Referred By Contac t Referred To Contact XR IMAGING Diagnoses Rib pain on left side Procedures XR RIBS/CHEST 3V AP RIB/OBLS/CXR LEFT RADEX RIBS UNI W/POSTEROANT CH MINIMUM 3 VIEWS Dustin Arboleda PA-C [address] [place] [address] [place] [address] Referral ID Status Reason Start Date Expiration Date V isits Requested Visits Authorized [id number] Closed Auto-Generate d Referral 11/19/2023 12/18/2024 1 1 [facility]No reason for referral information availableLumberton DailyLook Services Work Phone: Reason for visit Narrative* Diagnostic Procedure Only (Routine) - Closed Specialty Diagnoses / Procedures Referred By Contac t Referred To Contact XR IMAGING Diagnoses Rib pain on left side Procedures XR RIBS/CHEST 3V AP RIB/OBLS/CXR LEFT RADEX RIBS UNI W/POSTEROANT CH MINIMUM 3 VIEWS Dustin Arboleda PA-C [address] [place] [address] [place] [address] Referral ID Status Reason Start Date Expiration Date V isits Requested Visits Authorized [id number] Closed Auto-Generate d Referral 11/19/2023 12/18/2024 1 1 [facility] Summary Purpose Family History Relationship Condition Age at Onset Recorded Date/T sagar father Myocardial infarction 88 Malignant melanoma 80 mother Cerebrovascular accident (CVA) 88 Advance Directives Documents on File Type Date Recorded Patient Talent Partner Expl anation Advance Directive(s) 07/23/2020 2:35 PM Advance Directive(s) 05/12/2020 12:37 PM Advance Directive(s) 04/03/2020 3:35 PM Advance Directive(s) 04/03/2018 12:49 PM Documents on File Type Date Recorded Patient Talent Partner Expl anation Advance Directive(s) 07/23/2020 2:35 PM Advance Directive(s) 05/12/2020 12:37 PM Advance Directive(s) 04/03/2020 3:35 PM Advance Directive(s) 04/03/2018 12:49 PM Reason for Referral Specialty Diagnoses / Procedures Referred By Contac t Referred To Contact Diagnoses Cough Procedures CONSULT TO PULMONARY MEDICINE Jordyn Carlson PA-C [address] [place] [address] Referral ID Status Reason Start Date Expiration Date Visits Requested Visits Authorized [id number] Ref Not Required PCP Requested Referral 09/04/2021 12/03/2021 1 1 Specialty Diagnoses / Procedures Referred By Contac t Referred To Contact Gastroenterology Diagnoses Loose stools Procedures CONSULT TO GASTROENTEROLOGY OFFICE/OUTPATIENT [facility] 60-74 MINUTES Jordyn Carlson PA-C [address] [place] [address] Referral ID Status Reason Start Date Expiration Date Visits Requested Visits Authorized [id number] Pending Review PCP Requested Referral 06/28/2022 06/28/2023 1 1 Specialty Diagnoses / Procedures Referred By Contac t Referred To Contact Diagnoses Chronic cough Procedures CONSULT TO PULMONARY MEDICINE Jordyn Carlson PA-C [address] [place] [address] Referral ID Status Reason Start Date Expiration Date Visits Requested Visits Authorized [id number] Ref Not Required PCP Requested Referral 06/28/2022 09/26/2022 1 1 Specialty Diagnoses / Procedures Referred By Contac t Referred To Contact Ent - Otolaryngology Diagnoses Chronic cough Cyst, sinus nasal Procedures CONSULT TO ENT OFFICE/OUTPATIENT NEW HIGH MDM 60-74 MINUTES Jordyn Carlson PA-C [address] [place] [address] Referral ID Status Reason Start Date Expiration Date Visits Requested Visits Authorized [id number] Pending Review PCP Requested Referral 06/28/2022 06/28/2023 1 1 Specialty Diagnoses / Procedures Referred By Contac t Referred To Contact Pulmonology Diagnoses Chronic cough Moderate persistent asthma without complication Procedures Complete PFT pre and post bronchodilator with FENO Laila Richardson MD [address] [place] [address] Referral ID Status Reason Start Date Expiration Date V isits Requested Visits Authorized [id number] Authorized 03/06/2023 02/29/2024 1 1 Referral ID Status Reason Start Date Expiration Date Visits Re quested Visits Authorized [id number] Closed 03/06/2023 02/29/2024 1 1 Specialty Diagnoses / Procedures Referred By Contac t Referred To Contact Gastroenterology Diagnoses Irritable bowel syndrome with diarrhea Procedures CONSULT TO GASTROENTEROLOGY OFFICE/OUTPATIENT [facility] 60 MINUTES Dustin Arboleda PA-C [address] [place] [address] Referral ID Status Reason Start Date Expiration Date Visits Requested Visits Authorized [id number] Authorized PCP Requested Referral 08/27/2023 08/26/2024 1 1 Specialty Diagnoses / Procedures Referred By Contac t Referred To Contact XR IMAGING Diagnoses Age related osteoporosis, unspecified pathological fracture presence Procedures DXA-AXIAL SKELETON Dustin Arboleda PA-C [address] [place] [address] [place] [address] Referral ID Status Reason Start Date Expiration Date Visits Requested Visits Authorized [id number] Pending Review Auto-Generat ed Referral 08/27/2023 09/25/2024 1 1 Specialty Diagnoses / Procedures Referred By Contac t Referred To Contact General Surgery Diagnoses Hiatal hernia Procedures CONSULT TO GENERAL SURGERY OFFICE/OUTPATIENT [facility] MDM 60 MINUTES Dustin Arboleda PA-C [address] [place] [address] Referral ID Status Reason Start Date Expiration Date Visits Requested Visits Authorized [id number] Authorized PCP Requested Referral 08/27/2023 08/26/2024 1 1 Specialty Diagnoses / Procedures Referred By Contac t Referred To Contact Radiology Diagnoses Cauda equina syndrome (HCC) Procedures MR lumbar spine wo contrast Siddhartha Nichols, [address] [place] [address] [facility] [address] [place] [address] Referral ID Status Reason Start Date Expiration Date V isits Requested Visits Authorized [id number] Authorized 06/18/2023 06/17/2024 1 1 Specialty Diagnoses / Procedures Referred By Contac t Referred To Contact [facility] Diagnoses Lumbar back pain Procedures CONSULT TO PHYSICAL THERAPY PHYSICAL THERAPY EVALUATION HIGH COMPLEX 45 MINS Ramesh Og MD [address] [place] [address] [facility] [place] [address] [place] [address] Referral ID Status Reason Start Date Expiration Date Visits Requested Visits Authorized [id number] Pending Review Auto-Generat ed Referral 09/26/2023 09/25/2024 1 1 Specialty Diagnoses / Procedures Referred By Contac t Referred To Contact XR IMAGING Diagnoses Lumbar back pain Procedures XR LUMBAR LIMITED 2V AP/LAT RADEX SPINE LUMBOSACRAL 2/3 VIEWS Ramesh Og MD [address] [place] [address] [place] [address] Referral ID Status Reason Start Date Expiration Date Visits Requested Visits Authorized [id number] Pending Review Auto-Generat ed Referral 09/25/2023 10/24/2024 1 1 Chief Complaint and Reason for Visit Chief Complaint Admit Date Chronic Diarrhea/IBS/Weight Loss Septemb 2024 1:55pm Reason for Visit Admit Date Diarrhea November 25, 2024 1:55pm Additional Source Comments INFORMATION SOURCE (unrecogn ized section and content) DATE CREATED AUTHOR 01/10/2021 [facility] DATE CREATED AUTHOR AUTHOR'S ORGANIZ ATION 12/29/2023 [facility] DATE CREATED AUTHOR AUTHOR'S ORGANIZ ATION 03/30/2024 [facility] DATE CREATED AUTHOR AUTHOR'S ORGANIZ ATION 05/21/2024 [facility] DATE CREATED AUTHOR AUTHOR'S ORGANIZ ATION 06/25/2024 [facility] DATE CREATED AUTHOR AUTHOR'S ORGANIZ ATION 11/24/2024 [facility] Source Comments (unrecognize d section and content) In the event this informatio n is protected by the Federal Confidentiality of Alcohol and Drug Abuse Patient Records regulations: The Federal rules restrict any use of the information to criminally investigate or prosecute any alcohol or drug abuse patient.[facility] the event this information is protected by the Federal Confidentiality of Alcohol and Drug Abuse Patient Records regulations: The Federal rules restrict any use of the information to criminally investigate or prosecute any alcohol or drug abuse patient.[facility] HospitalIn the event this information is protected by the Federal Confidentiality of Alcohol and Drug Abuse Patient Records regulations: The Federal rules restrict any use of the information to criminally investigate or prosecute any alcohol or drug abuse patient.[facility] HospitalIn the event this information is protected by the Federal Confidentiality of Alcohol and Drug Abuse Patient Records regulations: The Federal rules restrict any use of the information to criminally investigate or prosecute any alcohol or drug abuse patient.[facility] HospitalIn the event this information is protected by the Federal Confidentiality of Alcohol and Drug Abuse Patient Records regulations: The Federal rules restrict any use of the information to criminally investigate or prosecute any alcohol or drug abuse patient.[facility] HospitalIn the event this information is protected by the Federal Confidentiality of Alcohol and Drug Abuse Patient Records regulations: The Federal rules restrict any use of the information to criminally investigate or prosecute any alcohol or drug abuse patient.[facility] HospitalIn the event this information is protected by the Federal Confidentiality of Alcohol and Drug Abuse Patient Records regulations: The Federal rules restrict any use of the information to criminally investigate or prosecute any alcohol or drug abuse patient.[facility] HospitalIn the event this information is protected by the Federal Confidentiality of Alcohol and Drug Abuse Patient Records regulations: The Federal rules restrict any use of the information to criminally investigate or prosecute any alcohol or drug abuse patient.[facility] HospitalIn the event this information is protected by the Federal Confidentiality of Alcohol and Drug Abuse Patient Records regulations: The Federal rules restrict any use of the information to criminally investigate or prosecute any alcohol or drug abuse patient.[facility] HospitalIn the event this information is protected by the Federal Confidentiality of Alcohol and Drug Abuse Patient Records regulations: The Federal rules restrict any use of the information to criminally investigate or prosecute any alcohol or drug abuse patient.[facility] HospitalIn the event this information is protected by the Federal Confidentiality of Alcohol and Drug Abuse Patient Records regulations: The Federal rules restrict any use of the information to criminally investigate or prosecute any alcohol or drug abuse patient.[facility] HospitalIn the event this information is protected by the Federal Confidentiality of Alcohol and Drug Abuse Patient Records regulations: The Federal rules restrict any use of the information to criminally investigate or prosecute any alcohol or drug abuse patient.[facility] HospitalIn the event this information is protected by the Federal Confidentiality of Alcohol and Drug Abuse Patient Records regulations: The Federal rules restrict any use of the information to criminally investigate or prosecute any alcohol or drug abuse patient.[facility] HospitalIn the event this information is protected by the Federal Confidentiality of Alcohol and Drug Abuse Patient Records regulations: The Federal rules restrict any use of the information to criminally investigate or prosecute any alcohol or drug abuse patient.[facility] HospitalIn the event this information is protected by the Federal Confidentiality of Alcohol and Drug Abuse Patient Records regulations: The Federal rules restrict any use of the information to criminally investigate or prosecute any alcohol or drug abuse patient.[facility] HospitalIn the event this information is protected by the Federal Confidentiality of Alcohol and Drug Abuse Patient Records regulations: The Federal rules restrict any use of the information to criminally investigate or prosecute any alcohol or drug abuse patient.[facility] HospitalIn the event this information is protected by the Federal Confidentiality of Alcohol and Drug Abuse Patient Records regulations: The Federal rules restrict any use of the information to criminally investigate or prosecute any alcohol or drug abuse patient.[facility] HospitalIn the event this information is protected by the Federal Confidentiality of Alcohol and Drug Abuse Patient Records regulations: The Federal rules restrict any use of the information to criminally investigate or prosecute any alcohol or drug abuse patient.[facility] HospitalIn the event this information is protected by the Federal Confidentiality of Alcohol and Drug Abuse Patient Records regulations: The Federal rules restrict any use of the information to criminally investigate or prosecute any alcohol or drug abuse patient.[facility] HospitalIn the event this information is protected by the Federal Confidentiality of Alcohol and Drug Abuse Patient Records regulations: The Federal rules restrict any use of the information to criminally investigate or prosecute any alcohol or drug abuse patient.[facility] HospitalIn the event this information is protected by the Federal Confidentiality of Alcohol and Drug Abuse Patient Records regulations: The Federal rules restrict any use of the information to criminally investigate or prosecute any alcohol or drug abuse patient.[facility] HospitalIn the event this information is protected by the Federal Confidentiality of Alcohol and Drug Abuse Patient Records regulations: The Federal rules restrict any use of the information to criminally investigate or prosecute any alcohol or drug abuse patient.[facility] HospitalIn the event this information is protected by the Federal Confidentiality of Alcohol and Drug Abuse Patient Records regulations: The Federal rules restrict any use of the information to criminally investigate or prosecute any alcohol or drug abuse patient.[facility] HospitalIn the event this information is protected by the Federal Confidentiality of Alcohol and Drug Abuse Patient Records regulations: The Federal rules restrict any use of the information to criminally investigate or prosecute any alcohol or drug abuse patient.[facility] HospitalIn the event this information is protected by the Federal Confidentiality of Alcohol and Drug Abuse Patient Records regulations: The Federal rules restrict any use of the information to criminally investigate or prosecute any alcohol or drug abuse patient.[facility] HospitalIn the event this information is protected by the Federal Confidentiality of Alcohol and Drug Abuse Patient Records regulations: The Federal rules restrict any use of the information to criminally investigate or prosecute any alcohol or drug abuse patient.[facility] HospitalIn the event this information is protected by the Federal Confidentiality of Alcohol and Drug Abuse Patient Records regulations: The Federal rules restrict any use of the information to criminally investigate or prosecute any alcohol or drug abuse patient.[facility] HospitalIn the event this information is protected by the Federal Confidentiality of Alcohol and Drug Abuse Patient Records regulations: The Federal rules restrict any use of the information to criminally investigate or prosecute any alcohol or drug abuse patient.[facility] HospitalIn the event this information is protected by the Federal Confidentiality of Alcohol and Drug Abuse Patient Records regulations: The Federal rules restrict any use of the information to criminally investigate or prosecute any alcohol or drug abuse patient.[facility] HospitalIn the event this information is protected by the Federal Confidentiality of Alcohol and Drug Abuse Patient Records regulations: The Federal rules restrict any use of the information to criminally investigate or prosecute any alcohol or drug abuse patient.[facility] HospitalIn the event this information is protected by the Federal Confidentiality of Alcohol and Drug Abuse Patient Records regulations: The Federal rules restrict any use of the information to criminally investigate or prosecute any alcohol or drug abuse patient.[facility] HospitalIn the event this information is protected by the Federal Confidentiality of Alcohol and Drug Abuse Patient Records regulations: The Federal rules restrict any use of the information to criminally investigate or prosecute any alcohol or drug abuse patient.[facility] HospitalIn the event this information is protected by the Federal Confidentiality of Alcohol and Drug Abuse Patient Records regulations: The Federal rules restrict any use of the information to criminally investigate or prosecute any alcohol or drug abuse patient.[facility] HospitalIn the event this information is protected by the Federal Confidentiality of Alcohol and Drug Abuse Patient Records regulations: The Federal rules restrict any use of the information to criminally investigate or prosecute any alcohol or drug abuse patient.[facility] HospitalIn the event this information is protected by the Federal Confidentiality of Alcohol and Drug Abuse Patient Records regulations: The Federal rules restrict any use of the information to criminally investigate or prosecute any alcohol or drug abuse patient.[facility] HospitalIn the event this information is protected by the Federal Confidentiality of Alcohol and Drug Abuse Patient Records regulations: The Federal rules restrict any use of the information to criminally investigate or prosecute any alcohol or drug abuse patient.[facility] HospitalIn the event this information is protected by the Federal Confidentiality of Alcohol and Drug Abuse Patient Records regulations: The Federal rules restrict any use of the information to criminally investigate or prosecute any alcohol or drug abuse patient.[facility] HospitalIn the event this information is protected by the Federal Confidentiality of Alcohol and Drug Abuse Patient Records regulations: The Federal rules restrict any use of the information to criminally investigate or prosecute any alcohol or drug abuse patient.[facility] HospitalIn the event this information is protected by the Federal Confidentiality of Alcohol and Drug Abuse Patient Records regulations: The Federal rules restrict any use of the information to criminally investigate or prosecute any alcohol or drug abuse patient.[facility] HospitalIn the event this information is protected by the Federal Confidentiality of Alcohol and Drug Abuse Patient Records regulations: The Federal rules restrict any use of the information to criminally investigate or prosecute any alcohol or drug abuse patient.[facility] HospitalIn the event this information is protected by the Federal Confidentiality of Alcohol and Drug Abuse Patient Records regulations: The Federal rules restrict any use of the information to criminally investigate or prosecute any alcohol or drug abuse patient.[facility] HospitalIn the event this information is protected by the Federal Confidentiality of Alcohol and Drug Abuse Patient Records regulations: The Federal rules restrict any use of the information to criminally investigate or prosecute any alcohol or drug abuse patient.[facility] HospitalIn the event this information is protected by the Federal Confidentiality of Alcohol and Drug Abuse Patient Records regulations: The Federal rules restrict any use of the information to criminally investigate or prosecute any alcohol or drug abuse patient.[facility] HospitalIn the event this information is protected by the Federal Confidentiality of Alcohol and Drug Abuse Patient Records regulations: The Federal rules restrict any use of the information to criminally investigate or prosecute any alcohol or drug abuse patient.[facility] HospitalIn the event this information is protected by the Federal Confidentiality of Alcohol and Drug Abuse Patient Records regulations: The Federal rules restrict any use of the information to criminally investigate or prosecute any alcohol or drug abuse patient.[facility] HospitalIn the event this information is protected by the Federal Confidentiality of Alcohol and Drug Abuse Patient Records regulations: The Federal rules restrict any use of the information to criminally investigate or prosecute any alcohol or drug abuse patient.[facility] HospitalIn the event this information is protected by the Federal Confidentiality of Alcohol and Drug Abuse Patient Records regulations: The Federal rules restrict any use of the information to criminally investigate or prosecute any alcohol or drug abuse patient.[facility] HospitalIn the event this information is protected by the Federal Confidentiality of Alcohol and Drug Abuse Patient Records regulations: The Federal rules restrict any use of the information to criminally investigate or prosecute any alcohol or drug abuse patient.[facility] HospitalIn the event this information is protected by the Federal Confidentiality of Alcohol and Drug Abuse Patient Records regulations: The Federal rules restrict any use of the information to criminally investigate or prosecute any alcohol or drug abuse patient.[facility] HospitalIn the event this information is protected by the Federal Confidentiality of Alcohol and Drug Abuse Patient Records regulations: The Federal rules restrict any use of the information to criminally investigate or prosecute any alcohol or drug abuse patient.[facility] HospitalIn the event this information is protected by the Federal Confidentiality of Alcohol and Drug Abuse Patient Records regulations: The Federal rules restrict any use of the information to criminally investigate or prosecute any alcohol or drug abuse patient.[facility] HospitalIn the event this information is protected by the Federal Confidentiality of Alcohol and Drug Abuse Patient Records regulations: The Federal rules restrict any use of the information to criminally investigate or prosecute any alcohol or drug abuse patient.[facility] HospitalIn the event this information is protected by the Federal Confidentiality of Alcohol and Drug Abuse Patient Records regulations: The Federal rules restrict any use of the information to criminally investigate or prosecute any alcohol or drug abuse patient.[facility] HospitalIn the event this information is protected by the Federal Confidentiality of Alcohol and Drug Abuse Patient Records regulations: The Federal rules restrict any use of the information to criminally investigate or prosecute any alcohol or drug abuse patient.[facility] HospitalIn the event this information is protected by the Federal Confidentiality of Alcohol and Drug Abuse Patient Records regulations: The Federal rules restrict any use of the information to criminally investigate or prosecute any alcohol or drug abuse patient.[facility] HospitalIn the event this information is protected by the Federal Confidentiality of Alcohol and Drug Abuse Patient Records regulations: The Federal rules restrict any use of the information to criminally investigate or prosecute any alcohol or drug abuse patient.[facility] HospitalIn the event this information is protected by the Federal Confidentiality of Alcohol and Drug Abuse Patient Records regulations: The Federal rules restrict any use of the information to criminally investigate or prosecute any alcohol or drug abuse patient.[facility] HospitalIn the event this information is protected by the Federal Confidentiality of Alcohol and Drug Abuse Patient Records regulations: The Federal rules restrict any use of the information to criminally investigate or prosecute any alcohol or drug abuse patient.[facility] HospitalIn the event this information is protected by the Federal Confidentiality of Alcohol and Drug Abuse Patient Records regulations: The Federal rules restrict any use of the information to criminally investigate or prosecute any alcohol or drug abuse patient.[facility] HospitalIn the event this information is protected by the Federal Confidentiality of Alcohol and Drug Abuse Patient Records regulations: The Federal rules restrict any use of the information to criminally investigate or prosecute any alcohol or drug abuse patient.[facility] HospitalIn the event this information is protected by the Federal Confidentiality of Alcohol and Drug Abuse Patient Records regulations: The Federal rules restrict any use of the information to criminally investigate or prosecute any alcohol or drug abuse patient.[facility] HospitalIn the event this information is protected by the Federal Confidentiality of Alcohol and Drug Abuse Patient Records regulations: The Federal rules restrict any use of the information to criminally investigate or prosecute any alcohol or drug abuse patient.[facility] HospitalIn the event this information is protected by the Federal Confidentiality of Alcohol and Drug Abuse Patient Records regulations: The Federal rules restrict any use of the information to criminally investigate or prosecute any alcohol or drug abuse patient.[facility] HospitalIn the event this information is protected by the Federal Confidentiality of Alcohol and Drug Abuse Patient Records regulations: The Federal rules restrict any use of the information to criminally investigate or prosecute any alcohol or drug abuse patient.[facility] HospitalIn the event this information is protected by the Federal Confidentiality of Alcohol and Drug Abuse Patient Records regulations: The Federal rules restrict any use of the information to criminally investigate or prosecute any alcohol or drug abuse patient.[facility] HospitalIn the event this information is protected by the Federal Confidentiality of Alcohol and Drug Abuse Patient Records regulations: The Federal rules restrict any use of the information to criminally investigate or prosecute any alcohol or drug abuse patient.[facility] HospitalIn the event this information is protected by the Federal Confidentiality of Alcohol and Drug Abuse Patient Records regulations: The Federal rules restrict any use of the information to criminally investigate or prosecute any alcohol or drug abuse patient.[facility] HospitalIn the event this information is protected by the Federal Confidentiality of Alcohol and Drug Abuse Patient Records regulations: The Federal rules restrict any use of the information to criminally investigate or prosecute any alcohol or drug abuse patient.[facility] HospitalIn the event this information is protected by the Federal Confidentiality of Alcohol and Drug Abuse Patient Records regulations: The Federal rules restrict any use of the information to criminally investigate or prosecute any alcohol or drug abuse patient.[facility] HospitalIn the event this information is protected by the Federal Confidentiality of Alcohol and Drug Abuse Patient Records regulations: The Federal rules restrict any use of the information to criminally investigate or prosecute any alcohol or drug abuse patient.[facility] HospitalIn the event this information is protected by the Federal Confidentiality of Alcohol and Drug Abuse Patient Records regulations: The Federal rules restrict any use of the information to criminally investigate or prosecute any alcohol or drug abuse patient.[facility] HospitalIn the event this information is protected by the Federal Confidentiality of Alcohol and Drug Abuse Patient Records regulations: The Federal rules restrict any use of the information to criminally investigate or prosecute any alcohol or drug abuse patient.[facility] HospitalIn the event this information is protected by the Federal Confidentiality of Alcohol and Drug Abuse Patient Records regulations: The Federal rules restrict any use of the information to criminally investigate or prosecute any alcohol or drug abuse patient.[facility] HospitalIn the event this information is protected by the Federal Confidentiality of Alcohol and Drug Abuse Patient Records regulations: The Federal rules restrict any use of the information to criminally investigate or prosecute any alcohol or drug abuse patient.[facility] HospitalIn the event this information is protected by the Federal Confidentiality of Alcohol and Drug Abuse Patient Records regulations: The Federal rules restrict any use of the information to criminally investigate or prosecute any alcohol or drug abuse patient.[facility] HospitalIn the event this information is protected by the Federal Confidentiality of Alcohol and Drug Abuse Patient Records regulations: The Federal rules restrict any use of the information to criminally investigate or prosecute any alcohol or drug abuse patient.[facility] HospitalIn the event this information is protected by the Federal Confidentiality of Alcohol and Drug Abuse Patient Records regulations: The Federal rules restrict any use of the information to criminally investigate or prosecute any alcohol or drug abuse patient.[facility] HospitalIn the event this information is protected by the Federal Confidentiality of Alcohol and Drug Abuse Patient Records regulations: The Federal rules restrict any use of the information to criminally investigate or prosecute any alcohol or drug abuse patient.[facility] HospitalIn the event this information is protected by the Federal Confidentiality of Alcohol and Drug Abuse Patient Records regulations: The Federal rules restrict any use of the information to criminally investigate or prosecute any alcohol or drug abuse patient.[facility] HospitalIn the event this information is protected by the Federal Confidentiality of Alcohol and Drug Abuse Patient Records regulations: The Federal rules restrict any use of the information to criminally investigate or prosecute any alcohol or drug abuse patient.[facility] HospitalIn the event this information is protected by the Federal Confidentiality of Alcohol and Drug Abuse Patient Records regulations: The Federal rules restrict any use of the information to criminally investigate or prosecute any alcohol or drug abuse patient.[facility] HospitalIn the event this information is protected by the Federal Confidentiality of Alcohol and Drug Abuse Patient Records regulations: The Federal rules restrict any use of the information to criminally investigate or prosecute any alcohol or drug abuse patient.[facility] HospitalIn the event this information is protected by the Federal Confidentiality of Alcohol and Drug Abuse Patient Records regulations: The Federal rules restrict any use of the information to criminally investigate or prosecute any alcohol or drug abuse patient.[facility] HospitalIn the event this information is protected by the Federal Confidentiality of Alcohol and Drug Abuse Patient Records regulations: The Federal rules restrict any use of the information to criminally investigate or prosecute any alcohol or drug abuse patient.[facility] Care Teams (unrecognized sec tion and content) Crematory Attendant Relationship Specialty Start Date End Date Jordyn Carlson PA-C [address] [place], [place] [id number] PCP - General Internal Medicine 10/05/20 Crematory Attendant Relationship Specialty Start Date End Date Jordyn Carlson PA-C [address] [place], [place] [id number] PCP - General Internal Medicine 10/05/20 Crematory Attendant Relationship Specialty Start Date End Date Jordyn Carlson PA-C [address] [place], [place] [id number] PCP - General Internal Medicine 10/05/20 Crematory Attendant Relationship Specialty Start Date End Date Jordyn Carlson PA-C [address] [place], [place] [id number] PCP - General Internal Medicine 10/05/20 Crematory Attendant Relationship Specialty Start Date End Date Jordyn Carlson PA-C [address] [place], [place] [id number] PCP - General Internal Medicine 10/05/20 Crematory Attendant Relationship Specialty Start Date End Date Jordyn Carlson PA-C [address] [place], [place] [id number] PCP - General Internal Medicine 10/05/20 Crematory Attendant Relationship Specialty Start Date End Date Jordyn Carlson PA-C [address] [place], [place] [id number] PCP - General Internal Medicine 10/05/20 Crematory Attendant Relationship Specialty Start Date End Date Jordyn Carlson PA-C [address] [place] [address] PCP - General Internal Medicine 10/05/20 Richard Heredia, dealer compliance representative Presales Consultant 11/13/21 Crematory Attendant Relationship Specialty Start Date End Date Jordyn Carlson PA-C [address] [place], [place] [id number] PCP - General Internal Medicine 10/05/20 Richard Heredia, dealer compliance representative Presales Consultant 11/13/21 Crematory Attendant Relationship Specialty Start Date End Date Jordyn Carlson PA-C [address] [place], [place] [id number] PCP - General Internal Medicine 10/05/20 Richard Heredia, dealer compliance representative Presales Consultant 11/13/21 Crematory Attendant Relationship Specialty Start Date End Date Jordyn Carlson PA-C [address] [place] [address] PCP - General Internal Medicine 10/05/20 Richard Heredia, dealer compliance representative Presales Consultant 11/13/21 Crematory Attendant Relationship Specialty Start Date End Date Jordyn Carlson PA-C [address] [place] [address] PCP - General Internal Medicine 10/05/20 Richard Heredia, dealer compliance representative Presales Consultant 11/13/21 Crematory Attendant Relationship Specialty Start Date End Date Jordyn Carlson PA-C [address] [place] [address] PCP - General Internal Medicine 10/05/20 Richard Heredia, dealer compliance representative Presales Consultant 11/13/21 Crematory Attendant Relationship Specialty Start Date End Date Jordyn Carlson PA-C [address] [place] [address] PCP - General Internal Medicine 10/05/20 Richard Heredia RN Primary Care Presales Consultant 11/13/21 Crematory Attendant Relationship Specialty Start Date End Date Jordyn Carlson PA-C [address] [place] [address] PCP - General Internal Medicine 10/05/20 Richard Heredia dealer compliance representative Presales Consultant 11/13/21 Crematory Attendant Relationship Specialty Start Date End Date Jordyn Carlson PA-C [address] [place] [address] PCP - General Internal Medicine 10/05/20 Richard Heredia RN Primary Care Presales Consultant 11/13/21 Crematory Attendant Relationship Specialty Start Date End Date Jordyn Carlson PA-C [address] [place] [address] PCP - General Internal Medicine 10/05/20 Richard Heredia RN Primary Care Presales Consultant 11/13/21 Crematory Attendant Relationship Specialty Start Date End Date Jordyn Carlson PA-C [address] [place] [address] PCP - General Internal Medicine 10/05/20 Richard Heredia RN Primary Care Presales Consultant 11/13/21 12/28/21 Crematory Attendant Relationship Specialty Start Date End Date Jordyn Carlson PA-C [address] [place] [address] PCP - General Family Medicine 10/05/20 Crematory Attendant Relationship Specialty Start Date End Date Jordyn Carlosn PA-C [address] [place] [address] PCP - General Family Medicine 10/05/20 Crematory Attendant Relationship Specialty Start Date End Date Jordyn Carlson PA-C [address] [place] [address] PCP - General Family Medicine 10/05/20 Crematory Attendant Relationship Specialty Start Date End Date Jordyn Carlson PA-C [address] [place], [place] [id number] PCP - General Family Medicine 10/05/20 Crematory Attendant Relationship Specialty Start Date End Date Jordyn Carlson PA-C [address] [address] [place], [place] [id number] PCP - General Family Medicine 10/05/20 Crematory Attendant Relationship Specialty Start Date End Date Jordyn Carlson PA-C [address] [address] [place], [place] [id number] PCP - General Family Medicine 10/05/20 Crematory Attendant Relationship Specialty Start Date End Date Jordyn Carlson PA-C [address] [address] [place], [place] [id number] PCP - General Family Medicine 10/05/20 Crematory Attendant Relationship Specialty Start Date End Date Jordyn Carlson PA-C [address] [place] [address] PCP - General Family Medicine 10/05/20 Crematory Attendant Relationship Specialty Start Date End Date Jordyn Carlson PA-C [address] [place] [address] PCP - General Family Medicine 10/05/20 Crematory Attendant Relationship Specialty Start Date End Date Jordyn Carlson PA-C [address] [place] [address] PCP - General Family Medicine 10/05/20 Crematory Attendant Relationship Specialty Start Date End Date Jordyn Carlson PA-C [address] [place] [address] PCP - General Family Medicine 10/05/20 Crematory Attendant Relationship Specialty Start Date End Date Jordyn Carlson PA-C [address] [place] [address] PCP - General Family Medicine 10/05/20 Crematory Attendant Relationship Specialty Start Date End Date Jordyn Carlson PA-C [address] [place] [address] PCP - General Family Medicine 10/05/20 Crematory Attendant Relationship Specialty Start Date End Date Jordyn Carlson PA-C [address] [place] [address] PCP - General Family Medicine 10/05/20 Crematory Attendant Relationship Specialty Start Date End Date Jordyn Carlson PA-C [address] [place] [address] PCP - General Family Medicine 10/05/20 Crematory Attendant Relationship Specialty Start Date End Date Deborah. Carlson PA-C [address] [place] [address] PCP - General Physician Salesforce Administrator 10/22/22 Crematory Attendant Relationship Specialty Start Date End Date Jordyn Carlson PA-C [address] [place] [address] PCP - General Family Medicine 10/05/20 Crematory Attendant Relationship Specialty Start Date End Date Deborah. Carlson PA-C [address] [place] [address] PCP - General Physician Salesforce Administrator 10/22/22 Crematory Attendant Relationship Specialty Start Date End Date Jordyn Carlson PA-C [address] [place] [address] PCP - General Family Medicine 10/05/20 Crematory Attendant Relationship Specialty Start Date End Date Jordyn Carlson PA-C [address] [place] [address] PCP - General Family Medicine 10/05/20 Crematory Attendant Relationship Specialty Start Date End Date Jordyn Carlson PA-C [address] [place] [address] PCP - General Family Medicine 10/05/20 Crematory Attendant Relationship Specialty Start Date End Date Jordyn Carlson PA-C [address] [place] [address] PCP - General Family Medicine 10/05/20 Crematory Attendant Relationship Specialty Start Date End Date Deborah. Carlson PA-C [address] [facility] [address] PCP - General Physician Salesforce Administrator 10/22/22 Crematory Attendant Relationship Specialty Start Date End Date Deborah. Carlson PA-C [address] [facility] [address] PCP - General Physician Salesforce Administrator 10/22/22 Crematory Attendant Relationship Specialty Start Date End Date Siddhartha Nichols MD [address] [place] [address] PCP - General Family Medicine 04/24/23 Crematory Attendant Relationship Specialty Start Date End Date Siddhartha Nichols MD [address] [place] [address] PCP - General Family Medicine 04/24/23 Crematory Attendant Relationship Specialty Start Date End Date Siddhartha Nichols MD [address] [facility] [place] [address] PCP - General Family Medicine 04/24/23 Crematory Attendant Relationship Specialty Start Date End Date Siddhartha Bennett DO [address] [facility] [place] [address] PCP - General Internal Medicine 06/18/23 Crematory Attendant Relationship Specialty Start Date End Date Siddhartha Nichols MD [address] [place] [address] PCP - General Family Medicine 04/24/23 Crematory Attendant Relationship Specialty Start Date End Date Siddhartha Bennett DO [address] [place] [address] PCP - General Internal Medicine 06/18/23 Crematory Attendant Relationship Specialty Start Date End Date Siddhartha Bennett DO [address] [place] [address] PCP - General Internal Medicine 06/18/23 Crematory Attendant Relationship Specialty Start Date End Date Dustin Arboleda PA-C [id number] [place] [address] PCP - General Family Medicine 08/27/23 Crematory Attendant Relationship Specialty Start Date End Date Siddhartha Nichols DO [address] [place] [address] PCP - General Family Medicine 04/24/23 Crematory Attendant Relationship Specialty Start Date End Date Siddhartha Nichols DO [address] [place] [address] PCP - General Family Medicine 04/24/23 Crematory Attendant Relationship Specialty Start Date End Date Dustin Arboleda PA-C [address] [place] [address] PCP - General Family Medicine 08/27/23 Crematory Attendant Relationship Specialty Start Date End Date CaitlynSiddhartha madrigal DO [address] [place] [address] PCP - General Family Medicine 04/24/23 Crematory Attendant Relationship Specialty Start Date End Date Dustin Arboleda PA-C [address] [place] [address] PCP - General Family Medicine 08/27/23 Crematory Attendant Relationship Specialty Start Date End Date Dustin Arboleda PA-C [address] [place] [address] PCP - General Family Medicine 08/27/23 Crematory Attendant Relationship Specialty Start Date End Date Dustin Arboleda PA-C [address] [place] [address] PCP - General Family Medicine 08/27/23 Crematory Attendant Relationship Specialty Start Date End Date Dustin Arboleda PA-C [address] [place] [address] PCP - General Family Medicine 08/27/23 Crematory Attendant Relationship Specialty Start Date End Date Dustin Arboleda PA-C [address] [place] [address] PCP - General Family Medicine 08/27/23 Crematory Attendant Relationship Specialty Start Date End Date Dustin Arboleda PA-C [address] [place] [address] PCP - General Family Medicine 08/27/23 Crematory Attendant Relationship Specialty Start Date End Date Dustin Arboleda PA-C [address] [place] [address] PCP - General Family Medicine 08/27/23 Crematory Attendant Relationship Specialty Start Date End Date Dustin Arboleda PA-C [address] [place] [address] PCP - General Family Medicine 08/27/23 Crematory Attendant Relationship Specialty Start Date End Date Dustin Arboleda PA-C [address] [place] [address] PCP - General Family Medicine 08/27/23 Crematory Attendant Relationship Specialty Start Date End Date Siddhartha Nichols DO [address] [place] [address] PCP - General Family Medicine 04/24/23 Crematory Attendant Relationship Specialty Start Date End Date Siddhartha Nichols DO [address] [place] [address] PCP - General Family Medicine 04/24/23 Team Status: Active Member Role/Relationship Status Dates Dr. Veronika Grant , DO Primary Care Provider Active Team Status: Inactive Member Role/Relationship Status Dates NETTIE Mcelroy Attending Provider Active Start: November 25, 2024 End: November 25, 2024 Dr. Veronika Grant , DO Primary Care Provider Active Start: November 25, 2024 End: November 25, 2024 Dr. Veronika Grant , Referring Provider Active Start: November 25, 2024 End: November 25, 2024 Reason for Visit (unrecogniz ed section and content) Reason Onset Date Comments Refill Request 07/12/2021 Reason Comments UTI dysuria, frequency Reason Comments Refill Request Reason Comments Cough Reason Onset Date Comments Refill Request 09/26/2021 Reason Comments UTI Possible UTI Pt stat es burning Reason Onset Date Comments Transition Of Care 11/13/2021 [facility] Follo w up Reason Comments Fall Fracture Hypertension Reason Comments Surgical Followup Reason Comments Appointment Fannie called for an appointment for [place] Reason Onset Date Comments Transition Of Care 11/29/2021 [place] 11/10-11/28/21 TCM Reason Onset Date Comments Transition Of Care 12/05/2021 TCM follow up Reason Comments Forms [facility] - order # [id number] Reason Comments Orders Reason Onset Date Comments Transition Of Care 12/13/2021 TCM follow up Reason Comments FYI-No Action Needed Reason Onset Date Comments Transition Of Care 12/27/2021 Attempted fin al TCM follow up Reason Comments Appointment Reason Comments Diarrhea C/o increased freque ncy of loose stools. 2x last week. Per pt has hx of loose stools. No diet changes per pt. Reason Comments Cough Had a cvough for two years. Starting to produce yellow/ green phlegm Reason Comments Cough Reports chronic coug h for over 2 years and seems like cough is getting deeper and nothing is helping cough Referral Request Referral for GI Reason Comments REFERRAL To ENT Reason Comments REFERRAL To Pulmonary Medicin e Reason Comments REFERRAL To Gastroenterology Reason Comments URI 1 week ago, Pt suffe rs from chronic cough for past 2 years. Pt has sore throat Reason Comments Follow Up Reason Comments Refill Request Loratadine Reason Comments UTI Buring 3-4 days with freq urge Reason Comments Med Change Request Reason Comments Asthma Cough Reason Comments UTI Burning while urinat ing, frequency/urgency. X 5 days Reason Comments UTI Reason Comments Dysuria Reason Comments UTI Urgency, burning, st arted over the weekend Reason Comments New Patient Chronic cough Reason Onset Date Comments OTHER 04/02/2023 Pt was in for ov on 03/06/2023,and received samples of Air Supra Reason Onset Date Comments OTHER 05/07/2023 Pt requesting sa mple of spiriva 2.5(04/24/2023) Specialty Diagnoses / Procedures Referred By Contac t Referred To Contact Radiology Diagnoses Cauda equina syndrome (HCC) Procedures MR lumbar spine wo contrast Siddhartha Nichols MD [address] [place] [address] [facility] [address] [place] [address] Referral ID Status Reason Start Date Expiration Date V isits Requested Visits Authorized [id number] Authorized 06/18/2023 06/17/2024 1 1 Specialty Diagnoses / Procedures Referred By Contac t Referred To Contact Pulmonology Diagnoses Chronic cough Moderate persistent asthma without complication Procedures Complete PFT pre and post bronchodilator with FENO Laila Richardson MD [address] [place] [address] Referral ID Status Reason Start Date Expiration Date Visits Re quested Visits Authorized [id number] Closed 03/06/2023 02/29/2024 1 1 Reason Comments Follow-up PFT Reason Comments Cough X 3 years Establish Care New Patient Reason Comments New Pain Reason Comments Follow-up 4 MONTH Reason Comments Medication Follow-up Results, Lab left breast tenderness X 3-4 months Reason Comments Results Reason Onset Date Comments [facility] Follow Up 12/02/2023 [facility] on 11/28/2023 for Left sided chest pain Reason Comments Appointment New patient referral -Dr. Sol Reason Comments PT Eval Specialty Diagnoses / Procedures Referred By Contac t Referred To Contact Physical Therapy / PHYSICAL THERAPY Diagnoses lumbar Procedures NEW RS PT ORTH Ramesh Wilkins MD [address] [place] [address] Ruby Vaca, PT [address] [place] [address] Referral ID Status Reason Start Date Expiration Date V isits Requested Visits Authorized [id number] Authorized 10/16/2023 03/17/2024 99 99 Reason Comments Missed Appointment Reason Comments Clerical Passport HCBS Waiver Assessment and Service Plan Reason Comments Med Refill Reason Onset Date Comments Med Refill 05/19/2024 Spiriva 2.5 Goals (unrecognized section and content) Goals may be documented in a n alternate section FOR RECORDS PERTAINING TO PATIENTS WHO ARE OR HAVE BEEN ENROLLED IN A CHEMICAL DEPENDENCY/SUBSTANCEABUSE PROGRAM, SOME INFORMATION MAY BE OMITTED. This clinical summary was aggregated from multiple sources. Caution should be exercised in using it in the provision of clinical care. This summary normalizes information from multiple sources, and as a consequence, information in this document may materially change the coding, format and clinical context of patient data. In addition, data may be omitted in some cases. CLINICAL DECISIONS SHOULD BE BASED ON THE PRIMARY CLINICAL RECORDS. [facility] [employer] provides no warranty or guarantee of the accuracy or completeness of information in this document.
[2024-12-02 07:07] LABS: Calprotectin, Stool 5 ug/g (0-120)
== END | disposition home or self-care (01) ==
PROVIDERS: PCP Student in an Organized Health Care Education/Training Program; Referring Provider Student in an Organized Health Care Education/Training Program; Visit Provider Student in an Organized Health Care Education/Training Program
DX: R19.7 Diarrhea, unspecified (principal)
CPT/HCPCS: 83993; 87177; 87209; 87329; 87493